=== PATIENT | female | born 1955 | race Caucasian/White ===

== ENCOUNTER 2016-05-28 14:19 | Emergency (ER) | payer MEDICAID ==
[2016-05-28 14:39] VITALS: BP 155/93
--- NOTE | 2016-05-28 15:35 | EDM.PDOC ---
ED HISTORY OF PRESENT ILLNESS - General Chief Complaint: General Stated Complaint: Pain, lower extremity edema Time Seen by Provider: 05/28/16 15:20 Source of Information: Reports: Patient, RN notes reviewed History Limitations: Reports: No limitations - History of Present Illness INITIAL COMMENTS - FREE TEXT/NARRATIVE: 60 year old female presents to the ED today with two complaints. 1. Right low back pain radiating down her right leg. She describes the pain as shooting and burning. She had low back surgery on 03/21/[address] Pendleton at [facility] in [place]. She has notified him of her new pain and an MRI was ordered last week. She says the results of her MRI showed herniated discs at L4 and L5. She has an upcoming appointment with Dr. Craig this next week. She is out of [employer] for pain which she says wasn't helping. She feels Percocet works better. 2. Bilateral lower extremity edema for the past week. Her lower extremities are red and tender to touch, more so on the left. She had swelling about 1 month ago and was given a short trial of Lasix which worked then. She had two pills left over and took those but had no improvement. She says her legs are sore and it hurts to walk. She denies chest pain, shortness of breath, dyspnea, cough, fever, chills. 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: Musculoskeletal History: Reports: Osteoarthritis, RA Endocrine/Metabolic History: Reports: Hypothyroidism Hematologic History: Reports: Blood transfusion(s) - Past Surgical History HEENT Surgical History: Reports: Adenoidectomy, Tonsillectomy GI Surgical History: Reports: None, Colonoscopy Female Surgical History: Reports: section Endocrine Surgical History: Reports: Thyroidectomy Neurological Surgical History: Reports: Discectomy, Lumbar spine Other Neurological Surgeries/Procedures: Has herniated disc L4-5 Musculoskeletal Surgical History: Reports: None Social & Family History - Family History Family Medical History: Noncontributory - Tobacco Use Smoking Status *Q: Former Smoker Years of Tobacco use: 40 Packs/Tins Daily: 1 Used Tobacco, but Quit: No Month Tobacco Last Used: nov 2015 - Caffeine Use Caffeine Use: Reports: Coffee - Recreational Drug Use Recreational Drug Use: No Drug Use in Last 12 Months: No ED ROS GENERAL - Review of Systems Review Of Systems: See Below Constitutional: Reports: no symptoms. Denies: fever, chills Respiratory: Reports: No Symptoms. Denies: Shortness of Breath, Pleuritic Chest Pain, Cough, Sputum, Hemoptysis Cardiovascular: Reports: Edema. Denies: Chest pain, Dyspnea on exertion, Lightheadedness Skin: Reports: erythema (lower extremities ) ED EXAM, GENERAL - Physical Exam Exam: See Below Exam Limited By: No limitations General Appearance: alert, no apparent distress, obese Respiratory/Chest: no respiratory distress, lungs clear, normal breath sounds, no accessory muscle use, chest non-tender Cardiovascular: normal peripheral pulses, regular rate, rhythm, no murmur, other (2-3+ edema to bilateral lower extremities. Redness and warmth noted to bilateral lateral extremities, more so on the left. Feet are warm to touch. Pedal pulses 2+) Extremities: normal inspection, normal range of motion, leg pain, increased warmth, redness, other (2-3+ edema) Neurological: alert, oriented, normal cognition Course - Vital Signs Last Recorded V/S: Last Vital Signs Temp 98.2 F 05/28/16 14:35 Pulse 87 05/28/16 18:36 Resp 18 05/28/16 18:36 BP 155/93 H 05/28/16 14:35 Pulse Ox 96 05/28/16 18:36 - Orders/Labs/Meds Labs: Laboratory Tests 05/28/16 05/28/16 05/28/16 Range/Units 15:06 15:06 15:06 WBC 4.24 (3.98-10.04) K/mm3 RBC 4.12 (3.98-5.22) M/mm3 Hgb 12.7 (11.2-15.7) gm/L Hct 39.5 (34.1-44.9) % MCV 95.9 H (79.4-94.8) fl MCH 30.8 (25.6-32.2) pg MCHC 32.2 (32.2-35.5) g/dl RDW Std Deviation 45.8 (36.4-46.3) fL Plt Count 136 L (182-369) K/mm3 MPV 11.7 (9.4-12.3) fl Neut % (Auto) 45.0 (34.0-71.1) % Lymph % (Auto) 40.1 (19.3-51.7) % [place] % (Auto) 9.4 (4.7-12.5) % Eos % (Auto) 5.0 (0.7-5.8) Baso % (Auto) 0.5 (0.1-1.2) % Neut # (Auto) 1.91 (1.56-6.13) K/mm3 Lymph # (Auto) 1.70 (1.18-3.74) K/mm3 [place] # (Auto) 0.40 H (0.24-0.36) K/mm3 Eos # (Auto) 0.21 (0.04-0.36) K/mm3 Baso # (Auto) 0.02 (0.01-0.08) K/mm3 D-Dimer, Quantitative 0.98 H (0.19-0.59) mg/L Sodium 144 (136-145) mEq/L Potassium 3.4 L (3.5-5.1) mEq/L Chloride 107 (98-107) mEq/L Carbon Dioxide 27 (21-32) mEq/L Anion Gap 13.4 (5-15) BUN 11 (7-18) mg/dL Creatinine 1.0 (0.55-1.02) mg/dL Est Cr Clr Drug Dosing 46.27 mL/min Estimated GFR (MDRD) 57 (>60) mL/min BUN/Creatinine Ratio 11.0 L (14-18) Glucose 78 (74-106) mg/dL Calcium 8.3 L (8.5-10.1) mg/dL Total Bilirubin 0.3 (0.2-1.0) mg/dL AST 34 (15-37) U/L ALT 33 (14-59) U/L Alkaline Phosphatase 57 (46-116) U/L B-Natriuretic Peptide (0-100) pg/mL Total Protein 6.6 (6.4-8.2) g/dl Albumin 3.4 (3.4-5.0) g/dl Globulin 3.2 gm/dL Albumin/Globulin Ratio 1.1 (1-2) 05/28/16 Range/Units 15:06 WBC (3.98-10.04) K/mm3 RBC (3.98-5.22) M/mm3 Hgb (11.2-15.7) gm/L Hct (34.1-44.9) % MCV (79.4-94.8) fl MCH (25.6-32.2) pg MCHC (32.2-35.5) g/dl RDW Std Deviation (36.4-46.3) fL Plt Count (182-369) K/mm3 MPV (9.4-12.3) fl Neut % (Auto) (34.0-71.1) % Lymph % (Auto) (19.3-51.7) % [place] % (Auto) (4.7-12.5) % Eos % (Auto) (0.7-5.8) Baso % (Auto) (0.1-1.2) % Neut # (Auto) (1.56-6.13) K/mm3 Lymph # (Auto) (1.18-3.74) K/mm3 [place] # (Auto) (0.24-0.36) K/mm3 Eos # (Auto) (0.04-0.36) K/mm3 Baso # (Auto) (0.01-0.08) K/mm3 D-Dimer, Quantitative (0.19-0.59) mg/L Sodium (136-145) mEq/L Potassium (3.5-5.1) mEq/L Chloride (98-107) mEq/L Carbon Dioxide (21-32) mEq/L Anion Gap (5-15) BUN (7-18) mg/dL Creatinine (0.55-1.02) mg/dL Est Cr Clr Drug Dosing mL/min Estimated GFR (MDRD) (>60) mL/min BUN/Creatinine Ratio (14-18) Glucose (74-106) mg/dL Calcium (8.5-10.1) mg/dL Total Bilirubin (0.2-1.0) mg/dL AST (15-37) U/L ALT (14-59) U/L Alkaline Phosphatase (46-116) U/L B-Natriuretic Peptide 69 (0-100) pg/mL Total Protein (6.4-8.2) g/dl Albumin (3.4-5.0) g/dl Globulin gm/dL Albumin/Globulin Ratio (1-2) Meds: Medications Discontinued Medications Generic Name Dose Route Start Last Admin Trade Name Freq PRN Reason Stop Dose Admin Hydromorphone HCl 1 mg 05/28/16 15:38 05/28/16 16:07 Dilaudid IM 05/28/16 15:39 1 mg ONETIME ONE Administration Hydromorphone HCl 1 mg 05/28/16 18:24 05/28/16 18:27 Dilaudid IVPUSH 05/28/16 18:25 1 mg ONETIME ONE Administration Ketorolac Tromethamine 60 mg 05/28/16 15:38 05/28/16 16:19 Toradol IM 05/28/16 15:39 Not Given ONETIME ONE Ketorolac Tromethamine Confirm 05/28/16 16:06 05/28/16 16:21 Toradol Administered 05/28/16 16:07 Not Given Dose 60 mg .ROUTE .STK-MED ONE Ketorolac Tromethamine 30 mg 05/28/16 16:17 05/28/16 16:14 Toradol IVPUSH 05/28/16 16:18 30 mg ONETIME ONE Administration - Re-Assessments/Exams Free Text/Narrative Re-Assessment/Exam: CBC, CMP, and BNP are WNL. D-dimer is elevated at 0.98. 2 view chest x-ray obtained and is negative for pulmonary effusions or infiltrates. Heart size appears normal. Obtained bilateral lower extremity ultrasound which was read by [facility] and is negative for DVT. Patient was fitted with compression stockings in the ED. She feels the swelling may be from the Lyrica she was taking. She has stopped the lyrica as she did not like how it made her feel. She is seeing her surgeon this week regarding her worsening low back pain. She was provided with a prescription for Percocet which was sent to the [facility]. Patient educated on return precautions. Instructed to f/u with her surgeon as scheduled and her PCP regarding her lower extremity edema. Departure - Departure Time of Disposition: 17:51 Disposition: Home, Self-Care 01 Condition: good Clinical Impression: Herniated disc Qualifiers: Spinal region: lumbar Qualified Code(s): M51.26 - Other intervertebral disc displacement, lumbar region Lower extremity edema Qualifiers: Laterality: bilateral Qualified Code(s): R60.0 - Localized edema Instructions: Herniated Disk, [id number], Edema, [id number] Referrals: Sharona Bautista PA-C [Primary Care Provider] - Forms: ED Department Discharge Additional Instructions: Low back pain Follow-up with your surgeon as scheduled Percocet 1-2 tabs every 4-6 hours as needed for pain Return to ER with worsening symptoms, loss of bowel or bladder function, or additional concerns Lower extremity edema Wear compression stockings while awake Elevated legs above heart as much as possible Follow-up with Sharona Bautista PAC this week for recheck
[2016-05-28] MEDS ORDERED: Ketorolac 60 MG/2 ML SDV IM ONE (15:38)
[2016-05-28] MEDS ORDERED: HYDROmorphone 1 MG/ML Syringe IM ONE (15:38)
[2016-05-28] MEDS ORDERED: Ketorolac 60 MG/2 ML SDV ONE (16:06)
[2016-05-28] MEDS ORDERED: Ketorolac 30 MG/ML SDV IVPUSH ONE (16:17)
--- NOTE | 2016-05-28 17:56 | US ---
Bilateral leg ultrasound: Duplex and color flow imaging was obtained of the right and left common femoral vein, proximal greater saphenous vein, superficial femoral vein, popliteal vein, posterior tibial vein and peroneal vein. Popliteal cyst is noted within the left lower extremity measuring up to 4.7 cm. Subcutaneous edema is noted within the right lower extremity. Normal phasic flow, augmentation and compression is seen. Impression: 1. No findings of deep venous thrombosis is seen within either the right or left lower extremities. 2. Other findings as described above. Diagnostic code #2
[2016-05-28] MEDS ORDERED: HYDROmorphone 1 MG/ML Syringe IVPUSH ONE (18:24)
--- NOTE | 2016-05-29 08:11 | CR ---
Chest: Two views of the chest are obtained. Comparison: Previous chest x-ray of 03/16/16. Heart size and mediastinum are normal. Lungs are clear. Prior surgery noted with surgical clips seen at the base of the neck. Diaphragms are slightly flattened on the lateral view suggesting some emphysematous change. Minimal degenerative disc space narrowing noted within the spine. Impression: 1. Probable emphysematous change. Nothing acute is identified on two-view chest x-ray. Diagnostic code #2
== END 2016-05-28 18:42 | disposition home or self-care (01) ==
LOC: JD.ED 14:19
DX: M51.26 Other intervertebral disc displacement, lumbar region (principal); R60.0 Localized edema; Z79.899 Other long term (current) drug therapy; K21.9 Gastro-esophageal reflux disease without esophagitis; M11.9 Crystal arthropathy, unspecified; M06.9 Rheumatoid arthritis, unspecified; E03.9 Hypothyroidism, unspecified; Z87.891 Personal history of nicotine dependence
CPT/HCPCS: 36415; 71020; 80053; 83880; 85025; 85379; 93970; 96374; 96375; 96376; 99285; J1170; J1885; 99284

== ENCOUNTER 2016-09-22 07:10 | Inpatient (IN) | payer MEDICAID ==
--- NOTE | 2016-09-22 07:44 | EDM.PDOC ---
ED HPI GENERAL MEDICAL PROBLEM - General Chief Complaint: Gastrointestinal Problem Stated Complaint: VOMITING AND BLOOD IN STOOL Time Seen by Provider: 09/22/16 07:37 - History of Present Illness INITIAL COMMENTS - FREE TEXT/NARRATIVE: 60-year-old female presents emergency room with abdominal pain nausea vomiting. This started for or 5 days ago progressively getting worse she basically has dry heaves at this point in evening she notices some bilious vomit. But every time she tries to keep anything down it comes right back up. The patient had some loose stools and then she developed some bright red bleeding when she tried to have a BM. She does have problems with hemorrhoids in the past. Patient is unaware of any potential problem foods. Patient has pain mostly in her upper abdomen. However her urine is getting dark and lower volumes. No burning or frequency with urination. Patient's significant history of rheumatoid arthritis she states she still has her gallbladder. Abdomen Pain Score (Numeric/FACES): 6 - Related Data Allergies Allergy/AdvReac Type Severity Reaction Status Date / Time No Known Allergies Allergy Verified 09/22/16 08:18 Home Meds: Home Meds Hydroxychloroquine Sulfate [Plaquenil] 200 mg PO BID 05/04/15 [History] Levothyroxine Sodium [Synthroid] 137 mcg PO DAILY 05/04/15 [History] Meloxicam 7.5 mg PO DAILY 02/20/16 [History] oxyCODONE HCl/Acetaminophen [oxyCODONE-Acetaminophen 5-325] 2 tab PO QID [History] Past Medical History HEENT History: Reports: Impaired Vision Other HEENT History: glasses Gastrointestinal History: Reports: GERD, Hemorrhoids Genitourinary History: Reports: UTI, 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: Musculoskeletal History: Reports: Osteoarthritis, RA Endocrine/Metabolic History: Reports: Hypothyroidism Hematologic History: Reports: Blood Transfusion(s) - Past Surgical History Female Surgical History: Reports: Section Neurological Surgical History: Reports: Discectomy, Lumbar Spine Social & Family History - Family History Family Medical History: Noncontributory - Tobacco Use Smoking Status *Q: Former Smoker Years of Tobacco use: 40 Packs/Tins Daily: 1 Used Tobacco, but Quit: No Month Tobacco Last Used: nov 2015 - Caffeine Use Caffeine Use: Reports: Coffee - Recreational Drug Use Recreational Drug Use: No Drug Use in Last 12 Months: No ED ROS GENERAL - Review of Systems Review Of Systems: See Below Constitutional: Reports: No Symptoms. Denies: Fever, Chills HEENT: Reports: No Symptoms Respiratory: Reports: No Symptoms Cardiovascular: Reports: No Symptoms. Denies: Chest Pain GI/Abdominal: Reports: Abdominal Pain, Bloody Stool, Diarrhea, Nausea, Vomiting. Denies: Constipation : Denies: Dysuria, Flank Pain, Frequency, Pain, Urgency Neurological: Reports: No Symptoms Psychiatric: Reports: No Symptoms ED EXAM, GI/ABD - Physical Exam Exam: See Below Exam Limited By: No Limitations General Appearance: Alert, No Apparent Distress Eyes: Bilateral: Normal Appearance Ears: Normal External Exam, Normal Canal, Other (Right tympanic membrane has a large scar) Nose: Normal Inspection Throat/Mouth: Normal Inspection, Normal Oropharynx, Other (Semi-dry mucosa the patient wears dentures but these are not in place at this time no acute gum changes noted) Head: Atraumatic, Normocephalic Neck: Normal Inspection, Supple, Non-Tender, Full Range of Motion Respiratory/Chest: No Respiratory Distress, Lungs Clear, Normal Breath Sounds Cardiovascular: Regular Rate, Rhythm, No Edema, No Murmur GI/Abdominal Exam: Normal Bowel Sounds, Soft, Other (Patient has discomfort in the upper quadrant right at the base of the ribs this is slightly worse in the right and epigastric region slightly less in the left upper quadrant. She has some mild suprapubic discomfort. No rigidity rebound or guarding noted). No: Non-Tender Rectal (Female) Exam: Other (Digital rectal exam was done prior to this inspection showed couple small hemorrhoids. Digital rectal exam was normal other than hemorrhoids normal-colored semi-formed stool and a small streak of bright red blood noted on the exam glove. This was hemocculted and was positive) Back Exam: Normal Inspection. No: CVA Tenderness (L), CVA Tenderness (R) Extremities: Normal Inspection, No Pedal Edema Neurological: Alert, Oriented, Normal Cognition Skin Exam: Other (Patient has an area of fairly recent ecchymosis in her left lower posterior ribs. She denies knowing what she bumped into but does state that she bruises very easily. Palpation of this area is nontender.) EKG INTERPRETATION EKG Date: 09/22/16 Rhythm: NSR [place]: Normal P-Wave: Present QRS: Normal ST-T: Other (Diffuse repolarization abnormalities shows nonspecific ST-T wave changes) QT: Normal Comparison: NA - No Prior EKG EKG Interpretation Comments: Abnormal EKG Course - Vital Signs Last Recorded V/S: Last Vital Signs Temp 36.8 C 09/22/16 07:39 Pulse 102 H 09/22/16 07:39 Resp 20 09/22/16 07:39 BP 156/87 H 09/22/16 07:39 Pulse Ox 100 09/22/16 07:39 - Orders/Labs/Meds Orders: Active Orders 24 hr Category Date Time Status EKG Documentation Completion [RC] STAT Care 09/22/16 07:45 Active Lactated Ringers [Ringers, Lactated] 1,000 ml Med 09/22/16 08:00 Active IV ASDIRECTED Medication Orders Lactated Ringer's (Ringers, Lactated) 1,000 mls @ 150 mls/hr IV ASDIRECTED MIRYAM Last Admin: 09/22/16 09:43 Dose: 150 mls/hr Labs: Laboratory Tests 09/22/16 09/22/16 09/22/16 Range/Units 07:55 07:55 07:55 WBC 5.63 (3.98-10.04) K/mm3 RBC 4.63 (3.98-5.22) M/mm3 Hgb 14.1 (11.2-15.7) gm/L Hct 41.4 (34.1-44.9) % MCV 89.4 (79.4-94.8) fl MCH 30.5 (25.6-32.2) pg MCHC 34.1 (32.2-35.5) g/dl RDW Std Deviation 57.9 H (36.4-46.3) fL Plt Count 187 (182-369) K/mm3 MPV 9.1 L (9.4-12.3) fl Neutrophils % (Manual) 70 H (40-60) % Band Neutrophils % 1 (0-10) % Lymphocytes % (Manual) 28 (20-40) % Atypical Lymphs % 0 % Monocytes % (Manual) 0 L (2-10) % Eosinophils % (Manual) 1 (0.7-5.8) % Basophils % (Manual) 0 L (0.1-1.2) Platelet Estimate Adequate Plt Morphology Comment Normal Anisocytosis 1+ slight RBC Morph Comment Not Reportable Sodium 146 H (136-145) mEq/L Potassium 2.9 L (3.5-5.1) mEq/L Chloride 110 H (98-107) mEq/L Carbon Dioxide 21 (21-32) mEq/L Anion Gap 17.9 H (5-15) BUN 7 (7-18) mg/dL Creatinine 0.9 (0.55-1.02) mg/dL Est Cr Clr Drug Dosing TNP Estimated GFR (MDRD) > 60 (>60) mL/min BUN/Creatinine Ratio 7.8 L (14-18) Glucose 105 (74-106) mg/dL Calcium 8.7 (8.5-10.1) mg/dL Total Bilirubin 1.9 H (0.2-1.0) mg/dL Direct Bilirubin (0.0-0.2) mg/dl GGT (5-55) U/L AST 219 H (15-37) U/L ALT 666 H (14-59) U/L Alkaline Phosphatase 85 (46-116) U/L Troponin I (0.00-0.056) ng/mL Total Protein 6.8 (6.4-8.2) g/dl Albumin 3.4 (3.4-5.0) g/dl Globulin 3.4 gm/dL Albumin/Globulin Ratio 1.0 (1-2) Lipase 203 (73-393) U/L Urine Color Yellow (Yellow) Urine Appearance Clear (Clear) Urine pH 7.0 (5.0-8.0) Ur Specific [place] 1.020 (1.005-1.030) Urine Protein 1+ H (Negative) Urine Glucose (UA) Negative (Negative) Urine Ketones Negative (Negative) Urine Occult Blood Trace-lysed H (Negative) Urine Nitrite Negative (Negative) Urine Bilirubin 1+ H (Negative) Urine Urobilinogen 2.0 H (0.2-1.0) Ur Leukocyte Esterase Negative (Negative) Urine RBC 0-5 (0-5) /hpf Urine WBC 0-5 (0-5) /hpf Urine WBC Clumps Not seen (NOT SEEN) /hpf Ur Epithelial Cells 0-5 (0-5) /hpf Ur Transition Epith Cell 0-5 (0-5) Urine Bacteria Moderate H (FEW) /hpf Hyaline Casts 0-5 (0-5) /lpf Urine Mucus Not seen (FEW) /hpf Urine Yeast Not seen (NOT SEEN) 09/22/16 09/22/16 Range/Units 07:55 07:55 WBC (3.98-10.04) K/mm3 RBC (3.98-5.22) M/mm3 Hgb (11.2-15.7) gm/L Hct (34.1-44.9) % MCV (79.4-94.8) fl MCH (25.6-32.2) pg MCHC (32.2-35.5) g/dl RDW Std Deviation (36.4-46.3) fL Plt Count (182-369) K/mm3 MPV (9.4-12.3) fl Neutrophils % (Manual) (40-60) % Band Neutrophils % (0-10) % Lymphocytes % (Manual) (20-40) % Atypical Lymphs % % Monocytes % (Manual) (2-10) % Eosinophils % (Manual) (0.7-5.8) % Basophils % (Manual) (0.1-1.2) Platelet Estimate Plt Morphology Comment Anisocytosis RBC Morph Comment Sodium (136-145) mEq/L Potassium (3.5-5.1) mEq/L Chloride (98-107) mEq/L Carbon Dioxide (21-32) mEq/L Anion Gap (5-15) BUN (7-18) mg/dL Creatinine (0.55-1.02) mg/dL Est Cr Clr Drug Dosing Estimated GFR (MDRD) (>60) mL/min BUN/Creatinine Ratio (14-18) Glucose (74-106) mg/dL Calcium (8.5-10.1) mg/dL Total Bilirubin (0.2-1.0) mg/dL Direct Bilirubin 1.00 H (0.0-0.2) mg/dl GGT 1451 H (5-55) U/L AST (15-37) U/L ALT (14-59) U/L Alkaline Phosphatase (46-116) U/L Troponin I < 0.017 (0.00-0.056) ng/mL Total Protein (6.4-8.2) g/dl Albumin (3.4-5.0) g/dl Globulin gm/dL Albumin/Globulin Ratio (1-2) Lipase (73-393) U/L Urine Color (Yellow) Urine Appearance (Clear) Urine pH (5.0-8.0) Ur Specific [place] (1.005-1.030) Urine Protein (Negative) Urine Glucose (UA) (Negative) Urine Ketones (Negative) Urine Occult Blood (Negative) Urine Nitrite (Negative) Urine Bilirubin (Negative) Urine Urobilinogen (0.2-1.0) Ur Leukocyte Esterase (Negative) Urine RBC (0-5) /hpf Urine WBC (0-5) /hpf Urine WBC Clumps (NOT SEEN) /hpf Ur Epithelial Cells (0-5) /hpf Ur Transition Epith Cell (0-5) Urine Bacteria (FEW) /hpf Hyaline Casts (0-5) /lpf Urine Mucus (FEW) /hpf Urine Yeast (NOT SEEN) Meds: Medications Generic Name Dose Route Start Last Admin Trade Name Freq PRN Reason Stop Dose Admin Lactated Ringer's 1,000 mls @ 150 mls/hr 09/22/16 08:00 09/22/16 09:43 Ringers, Lactated IV 150 mls/hr ASDIRECTED MIRYAM Administration Discontinued Medications Generic Name Dose Route Start Last Admin Trade Name Freq PRN Reason Stop Dose Admin Hydromorphone HCl 0.5 mg 09/22/16 08:33 09/22/16 08:47 Dilaudid IVPUSH 09/22/16 08:34 0.5 mg ONETIME ONE Administration Lactated Ringer's 1,000 mls @ 999 mls/hr 09/22/16 07:47 09/22/16 08:24 Ringers, Lactated IV 09/22/16 08:47 999 mls/hr .BOLUS ONE Administration Ondansetron HCl 4 mg 09/22/16 07:47 09/22/16 08:24 Zofran IVPUSH 09/22/16 07:48 4 mg ONETIME ONE Administration - Re-Assessments/Exams Free Text/Narrative Re-Assessment/Exam: 09/22/16 08:32 Patient is doing better she received Zofran nausea and vomiting improving abdominal pain is improving. Patient is complaining of mostly right-sided lower extremity discomfort secondary to rheumatoid arthritis and she's not been able to keep anything down including her medications for several days we'll give her 0.5 mg of Dilaudid at this point she does have a ride home. 09/22/16 09:05 Bladder ultrasound ordered patient is elevated total bilirubin and transaminase elevation also ordered a direct bilirubin and GGT. 09/22/16 09:10 KUB and upright were reviewed these are nondiagnostic 09/22/16 11:[address] Cabrera labs and ultrasound results discussed with him. He recommends admitting to the hospitalist service rehydrating and watch these liver enzymes and see if they improve on their own. Gallbladder ultrasound shows it dilated gallbladder with mild wall thickening mild ductal dilation 0.9. No obvious stones. And a normal lipase. Case discussed with Dr. Carr patient is in the process of getting MCGed. 09/22/16 11:53 Patient will be admitted. Departure - Departure Time of Disposition: 11:57 Disposition: Admitted As Inpatient 68 Clinical Impression: Dehydration, Abdominal pain - Discharge Information - My Orders Last 24 Hours: My Active Orders 09/22/16 07:45 EKG Documentation Completion [RC] STAT 09/22/16 08:00 Lactated Ringers [Ringers, Lactated] 1,000 ml IV ASDIRECTED - Assessment/Plan Last 24 Hours: My Active Orders 09/22/16 07:45 EKG Documentation Completion [RC] STAT 09/22/16 08:00 Lactated Ringers [Ringers, Lactated] 1,000 ml IV ASDIRECTED
[2016-09-22] MEDS ORDERED: Lactated Ringers 1,000 ML IV ONE (07:47)
[2016-09-22] MEDS ORDERED: Ondansetron 4 MG/2 ML SDV IVPUSH ONE (07:47)
[2016-09-22] MEDS ORDERED: HYDROmorphone 0.5 MG/0.5 ML Syringe IVPUSH ONE ×2 (08:33→11:54)
--- NOTE | 2016-09-22 09:18 | CR ---
Abdomen: Supine and upright views of the abdomen were obtained. Comparison: No previous study. Surgical clips are seen within the pelvis. Bowel gas pattern appears normal. Minimal calcifications seen within the pelvis are compatible with phleboliths. No soft tissue abnormality is seen. No free air is seen. Impression: 1. Incidental findings. Diagnostic code #2
--- NOTE | 2016-09-22 09:40 | US ---
Limited abdominal ultrasound: Multiple real-time images were obtained of the upper right abdomen. Comparison: No previous ultrasound exam. Liver shows no focal parenchymal abnormality. Right kidney shows no hydronephrosis or mass. Gallbladder wall shows mild thickening but no shadowing gallstones are seen. Common bile duct is mildly prominent at 9 mm. Pancreas is incompletely seen. No abnormality is seen within the visualized portions of the pancreas. Impression: 1. Gallbladder wall thickening without definite gallstones. Common bile duct measures mildly prominent at 9 mm. No common bile duct stones are seen. 2. No additional abnormality is identified on right upper quadrant abdominal ultrasound. Diagnostic code #3
[2016-09-22] MEDS: Lactated Ringers 1,000 ML IV SCH ×3 (09:43→22:31)
[2016-09-22] MEDS ORDERED: Diphtheria,Pertussis(Acell),Tetanus Vaccine 0.5 ML SDV IM ONE (13:00)
[2016-09-22] MEDS ORDERED: Pneumococcal Polyvalent-23 Vaccine 0.5 ML SDV IM ONE (13:00)
--- NOTE | 2016-09-22 14:28 | PCM.HP ---
H&P History of Present Illness - General Date of Service: 09/22/16 Admit Problem/Dx: Admission Diagnosis/Problem Admission Diagnosis/Problem Dehydration Source of Information: Patient, Provider History Limitations: Reports: No Limitations - History of Present Illness Initial Comments - Free Text/Narative: 60 year old female with complaint of nausea with vomiting, decreased appetite. Initiated work up for gall bladder dysfunction reports no recent encounters with new food, fatty food intolerance. Has had blood with her stool; reports the constellation of symptoms for 2-3 days. Abdominal US documented mildly dilated CBD. AXR was unremarkable. Onset of Symptoms: Reports: Gradual Duration of Symptoms: Reports: Day(s):, Getting Worse Location: Reports: Abdomen Severity: Moderate Improves with: Reports: Medication Worsens with: Reports: None Associated Symptoms: Reports: Loss of Appetite, Nausea/Vomiting Abdomen Pain Score (Numeric/FACES): 4 - Related Data Allergies/Adverse Reactions: Allergies Allergy/AdvReac Type Severity Reaction Status Date / Time No Known Allergies Allergy Verified 09/22/16 12:45 Home Medications: Home Meds Hydroxychloroquine Sulfate [Plaquenil] 200 mg PO BID 05/04/15 [History] Levothyroxine Sodium [Synthroid] 137 mcg PO DAILY 05/04/15 [History] Meloxicam 7.5 mg PO DAILY 02/20/16 [History] oxyCODONE HCl/Acetaminophen [oxyCODONE-Acetaminophen 5-325] 2 tab PO QID PRN [History] Past Medical History HEENT History: Reports: Impaired Vision Other HEENT History: glasses. upper and lower dentures Gastrointestinal History: Reports: GERD, Hemorrhoids Genitourinary History: Reports: UTI, Recurrent [employer] History: Reports: Musculoskeletal History: Reports: Osteoarthritis, RA Endocrine/Metabolic History: Reports: Hypothyroidism, Obesity/BMI 30+ Hematologic History: Reports: Blood Transfusion(s) - Past Surgical History HEENT Surgical History: Reports: Tonsillectomy Female Surgical History: Reports: Section Other Female Surgeries/Procedures: csection x2 Endocrine Surgical History: Reports: Thyroidectomy Neurological Surgical History: Reports: Discectomy, Lumbar Spine Other Neurological Surgeries/Procedures: planning to have another surgery and fuse L4&5 this coming winter. Musculoskeletal Surgical History: Reports: Other (See Below) Other Musculoskeletal Surgeries/Procedures:: bunion surgery right foot. Social & Family History - Family History Family Medical History: Noncontributory - Tobacco Use Smoking Status *Q: Former Smoker Years of Tobacco use: 40 Packs/Tins Daily: 1 Used Tobacco, but Quit: Yes Month Tobacco Last Used: 3 years ago Second Hand Smoke Exposure: No - Caffeine Use Caffeine Use: Reports: Coffee Other Caffeine Use: Coffee every day - Recreational Drug Use Recreational Drug Use: No Drug Use in Last 12 Months: No H&P Review of Systems - Review of Systems: Review Of Systems: See Below General: Reports: Weakness, Fatigue HEENT: Reports: No Symptoms Pulmonary: Reports: No Symptoms Cardiovascular: Reports: No Symptoms Gastrointestinal: Reports: Abdominal Pain, Diarrhea, Nausea, Vomiting Genitourinary: Reports: No Symptoms Musculoskeletal: Reports: No Symptoms Skin: Reports: No Symptoms Psychiatric: Reports: No Symptoms Neurological: Reports: No Symptoms Hematologic/Lymphatic: Reports: No Symptoms Immunologic: Reports: No Symptoms Exam - Exam Exam: See Below - Vital Signs Vital Signs: Last Vital Signs Temp 36.8 C 09/22/16 07:39 Pulse 68 09/22/16 12:10 Resp 15 09/22/16 12:10 BP 126/73 09/22/16 12:10 Pulse Ox 96 09/22/16 12:10 Weight: 88.496 kg - Exam Quality Assessment: DVT Prophylaxis General: Alert, Oriented, Cooperative HEENT: Conjunctiva Clear, Nares Patent, Normal Nasal Septum, Posterior Pharynx Clear, Pupils Equal, Pupils Reactive, TMs Clear Neck: Supple, Trachea Midline Lungs: Normal Respiratory Effort Cardiovascular: Regular Rate, Regular Rhythm GI/Abdominal Exam: Normal Bowel Sounds, Soft, No Organomegaly, No Distention, Tender (Female) Exam: Deferred Rectal (Female) Exam: Deferred Back Exam: Normal Inspection Extremities: Normal Inspection Skin: Warm Neurological: Cranial Nerves Intact, Normal Speech Neuro Extensive - Mental Status: Alert, Oriented x3, Normal Mood/Affect, Normal Cognition, Memory Intact Neuro Extensive - Motor, Sensory, Reflexes: CN II-XII Intact Psychiatric: Alert, Normal Affect, Normal Mood - Patient Data Result Diagrams: 09/23/16 05:49 09/23/16 05:49 *Q Meaningful Use (ADM) - VTE *Q VTE Criteria *Q: - Stroke *Q Stroke Criteria *Q: - AMI *Q AMI Criteria *Q: - Problem List (1) GERD (gastroesophageal reflux disease) SNOMED Code(s): 850860277 ICD Code: K21.9 - GASTRO-ESOPHAGEAL REFLUX DISEASE WITHOUT ESOPHAGITIS Status: Acute Current Visit: Yes (2) Hypothyroid SNOMED Code(s): 05323101 ICD Code: E03.9 - HYPOTHYROIDISM, UNSPECIFIED Status: Acute Current Visit : Yes (3) Abdominal pain SNOMED Code(s): 39155070 ICD Code: R10.9 - UNSPECIFIED ABDOMINAL PAIN Status: Acute Current Visit : Yes (4) Dehydration SNOMED Code(s): 91619177 ICD Code: E86.0 - DEHYDRATION Status: Acute Current Visit: Yes Problem List Initiated/Reviewed/Updated: Yes Orders Last 24hrs: Active Orders 24 hr Category Date Time Status Patient Status [ADT] Stat ADT 09/22/16 11:54 Active Activity as Tolerated [RC] .Routine Care 09/22/16 14:17 Ordered Antiembolic Devices [RC] PER UNIT ROUTINE Care 09/22/16 14:17 Ordered Notify Provider Consults [RC] ASDIRECTED Care 09/22/16 14:24 Ordered Vaccines to be Administered [RC] PER UNIT ROUTINE Care 09/22/16 12:46 Active Vital Signs [RC] PER UNIT ROUTINE Care 09/22/16 14:17 Ordered Consult to Occupational Therapy [OT Evaluation and Cons 09/22/16 15:00 Ordered Treatment] [CONS] Routine Consult to Physical Therapy [PT Evaluation and Cons 09/22/16 14:25 Ordered Treatment] [CONS] Routine Consult to Physician [CONS] Routine Cons 09/22/16 15:00 Ordered Consult to Special Education Secretary [CONS] Routine Cons 09/22/16 14:25 Ordered NPO [Nothing Per Oral Diet] [DIET] Diet 09/22/16 Dinner Ordered BASIC METABOLIC PANEL,BMP [CHEM] DAILY Lab 09/23/16 05:00 Ordered BASIC METABOLIC PANEL,BMP [CHEM] DAILY Lab 09/24/16 05:00 Ordered BASIC METABOLIC PANEL,BMP [CHEM] DAILY Lab 09/25/16 05:00 Ordered BASIC METABOLIC PANEL,BMP [CHEM] DAILY Lab 09/26/16 05:00 Ordered CBC WITH AUTO DIFF [HEME] DAILY Lab 09/23/16 05:00 Ordered CBC WITH AUTO DIFF [HEME] DAILY Lab 09/24/16 05:00 Ordered CBC WITH AUTO DIFF [HEME] DAILY Lab 09/25/16 05:00 Ordered CBC WITH AUTO DIFF [HEME] DAILY Lab 09/26/16 05:00 Ordered CRP [C-REACTIVE PROTEIN] [CHEM] DAILY Lab 09/23/16 05:00 Ordered CRP [C-REACTIVE PROTEIN] [CHEM] DAILY Lab 09/24/16 05:00 Ordered CRP [C-REACTIVE PROTEIN] [CHEM] DAILY Lab 09/25/16 05:00 Ordered CRP [C-REACTIVE PROTEIN] [CHEM] DAILY Lab 09/26/16 05:00 Ordered HEPATIC FUNCTION PANEL,HFP [CHEM] Routine Lab 09/24/16 05:00 Ordered LIPID PANEL [CHEM] Routine Lab 09/23/16 05:00 Ordered Acetaminophen/oxyCODONE [Percocet 325-5 MG] Med 09/22/16 14:18 Ordered 2 tab PO QID PRN Hydroxychloroquine [Plaquenil] Med 09/22/16 21:00 Ordered 200 mg PO BID Levothyroxine [Levothroid] Med 09/23/16 09:00 Ordered 137 mcg PO DAILY Meloxicam Med 09/23/16 09:00 Ordered 7.5 mg PO DAILY Temazepam [Restoril] Med 09/22/16 14:19 Ordered 15 mg PO BEDTIME PRN VICTOR M Hose [Antiembolic Hose] [OM.PC] Routine Oth 09/22/16 14:17 Ordered Code Status [Resuscitation Status] Routine Resus Stat 09/22/16 14:17 Ordered Medication Orders Lactated Ringer's (Ringers, Lactated) 1,000 mls @ 150 mls/hr IV ASDIRECTED [facility] Last Admin: 09/22/16 09:43 Dose: 150 mls/hr Assessment/Plan Comment:: Impression: Abdominal pain presumed gastroenteritis; can not exclude gall bladder dysfunction Loose stool with occasional blood Hypokalemia Narcotic dependence for back pain Elevated transaminase, AST/ALT Chronic RA (reports intolerance to MTX) GERD Hypothyroidism Plan: Clear Liquids Stool studies/H pylori General Surgery Consult Home meds Daily Labs Correct electrolytes SW/PT/OT DVT/GI prophylaxis
[2016-09-22] MEDS: Acetaminophen/oxyCODONE 325-5 MG Tab PO PRN ×2 (15:44→21:28)
--- NOTE | 2016-09-22 16:56 | PCM.CONSN ---
- General Info Date of Service: 09/22/16 - Patient Data Vitals - Most Recent: Last Vital Signs Temp 98.1 F 09/22/16 15:51 Pulse 70 09/22/16 15:51 Resp 16 09/22/16 15:51 BP 132/83 09/22/16 15:51 Pulse Ox 98 09/22/16 15:51 Weight - Most Recent: 88.496 kg I&O - Last 24 Hours: Intake & Output 09/22/16 09/22/16 09/22/16 07:59 15:59 23:59 Intake Total 1999 50 Balance 1999 50 Med Orders - Current: Current Medications Hydroxychloroquine Sulfate (Plaquenil) 200 mg PO BID [facility] Lactated Ringer's (Ringers, Lactated) 1,000 mls @ 150 mls/hr IV ASDIRECTED [facility] Last Admin: 09/22/16 15:44 Dose: 150 mls/hr Levothyroxine Sodium (Levothroid) 137 mcg PO ACBREAKFAST [facility] Oxycodone/Acetaminophen (Percocet 325-5 Mg) 2 tab PO QID PRN PRN Reason: Pain Last Admin: 09/22/16 15:44 Dose: 2 tab Pantoprazole Sodium (Protonix Iv) 40 mg IVPUSH DAILY [facility] Meloxicam 7.5 Mg 0 each PO DAILY [facility] Temazepam (Restoril) 15 mg PO BEDTIME PRN PRN Reason: Insomnia Discontinued Medications Diphtheria/Tetanus/Acell Pertussis (Adacel) 0.5 ml IM .ONCE ONE Stop: 09/22/16 13:01 Hydromorphone HCl (Dilaudid) 0.5 mg IVPUSH ONETIME ONE Stop: 09/22/16 08:34 Last Admin: 09/22/16 08:47 Dose: 0.5 mg Hydromorphone HCl (Dilaudid) 0.5 mg IVPUSH ONETIME ONE Stop: 09/22/16 11:55 Last Admin: 09/22/16 12:02 Dose: 0.5 mg Lactated Ringer's (Ringers, Lactated) 1,000 mls @ 999 mls/hr IV .BOLUS ONE Stop: 09/22/16 08:47 Last Admin: 09/22/16 08:24 Dose: 999 mls/hr Ondansetron HCl (Zofran) 4 mg IVPUSH ONETIME ONE Stop: 09/22/16 07:48 Last Admin: 09/22/16 08:24 Dose: 4 mg Pneumococcal Polyvalent Vaccine (Pneumovax 23) 0.5 ml IM .ONCE ONE Stop: 09/22/16 13:01 Consult PN Assessment/Plan Procedures: Procedures ASSAY OF BLOOD/URIC ACID (05/17/15) ASSAY OF NATRIURETIC PEPTIDE (05/28/16) ASSAY THYROID STIM HORMONE (03/16/16) C-REACTIVE PROTEIN (07/12/16) CHEST X-RAY 2VW FRONTAL&LATL (05/28/16) COMP SCREEN MAMMOGRAM ADD-ON (04/19/15) COMPLETE CBC AUTOMATED (07/12/16) COMPLETE CBC W/AUTO DIFF WBC (05/28/16) COMPREHEN METABOLIC PANEL (07/12/16) COMPUTER DX MAMMOGRAM ADD-ON (12/14/15) DIAGNOSTIC COLONOSCOPY (05/05/15) EMERGENCY DEPT VISIT (05/28/16) EMERGENCY DEPT VISIT (02/20/16) EMERGENCY DEPT VISIT (12/22/15) EMERGENCY DEPT VISIT (07/28/15) EXTREMITY STUDY (05/28/16) FIBRIN DEGRADATION QUANT (05/28/16) LIPID PANEL (03/30/15) METABOLIC PANEL TOTAL CA (06/21/16) MICROBE SUSCEPTIBLE DARIO (06/07/15) MR-STAPH DNA AMP PROBE (03/16/16) MRI LUMBAR SPINE W/O & W/DYE (05/19/16) MRI LUMBAR SPINE W/O DYE (01/12/16) PROTHROMBIN TIME (06/07/15) RBC SED RATE AUTOMATED (02/15/16) RHEUMATOID FACTOR TEST QUAL (03/30/15) ROUTINE VENIPUNCTURE (07/12/16) SMEAR WET MOUNT SALINE/INK (04/07/16) THER/PROPH/DIAG INJ IV PUSH (05/28/16) THER/PROPH/DIAG INJ SC/IM (02/20/16) THROMBOPLASTIN TIME PARTIAL (06/07/15) TISSUE EXAM BY PATHOLOGIST (04/22/15) TRICHOMONAS ASSAY W/OPTIC (04/07/16) TTE W/DOPPLER COMPLETE (06/16/16) TX/PRO/DX INJ NEW DRUG ADDON (05/28/16) TX/PRO/DX INJ SAME DRUG DEPUTY CLERK (05/28/16) ULTRASOUND BREAST COMPLETE (05/07/15) URINALYSIS AUTO W/SCOPE (03/16/16) URINE BACTERIA CULTURE (06/07/15) URINE CULTURE/COLONY COUNT (07/06/15) X-RAY EXAM L-S SPINE 2/3 VWS (12/22/15) X-RAY EXAM OF WRIST (08/05/15) Problem List Initiated/Reviewed/Updated: Yes My Orders Last 24 Hours: My Active Orders 09/22/16 17:00 Pantoprazole [ProTONIX IV] 40 mg IVPUSH DAILY 09/22/16 Dinner Clear Liquid Diet [DIET] Plan: surgical consult dictated KRISTY
[2016-09-22] MEDS: Pantoprazole 40 MG Vial IVPUSH SCH (17:22)
[2016-09-22] MEDS: Hydroxychloroquine 200 MG Tab PO SCH (20:19)
[2016-09-22] MEDS: Temazepam 15 MG Cap PO PRN (20:20)
[2016-09-23] MEDS: Acetaminophen/oxyCODONE 325-5 MG Tab PO PRN ×3 (04:46→18:18)
[2016-09-23] MEDS: Lactated Ringers 1,000 ML IV SCH ×3 (06:17→23:26)
[2016-09-23] MEDS ORDERED: Potassium Chloride 20 MEQ Tab.ER PO ONE (07:39)
[2016-09-23] MEDS: Hydroxychloroquine 200 MG Tab PO SCH ×2 (08:28→20:10)
[2016-09-23] MEDS: Pantoprazole 40 MG Vial IVPUSH SCH (08:28)
--- NOTE | 2016-09-23 09:53 | PCM.CONSN ---
- General Info Date of Service: 09/23/16 Admission Dx/Problem (Free Text): Admission Diagnosis/Problem Admission Diagnosis/Problem Dehydration Functional Status: Reports: Pain Controlled - Review of Systems General: Reports: No Symptoms Pulmonary: Reports: No Symptoms Cardiovascular: Reports: No Symptoms Gastrointestinal: Reports: No Symptoms - Patient Data Vitals - Most Recent: Last Vital Signs Temp 98.0 F 09/23/16 08:00 Pulse 88 09/23/16 08:00 Resp 20 09/23/16 08:00 BP 146/71 H 09/23/16 08:00 Pulse Ox 99 09/23/16 08:00 Weight - Most Recent: 88.677 kg I&O - Last 24 Hours: Intake & Output 09/22/16 09/23/16 09/23/16 23:59 07:59 15:59 Intake Total 990 2447 Output Total 1150 Balance 990 1297 Lab Results Last 24 Hours: Laboratory Results - last 24 hr 09/23/16 09/23/16 Range/Units 05:49 05:49 WBC 4.46 (3.98-10.04) K/mm3 RBC 3.80 L (3.98-5.22) M/mm3 Hgb 11.7 (11.2-15.7) gm/L Hct 34.8 (34.1-44.9) % MCV 91.6 (79.4-94.8) fl MCH 30.8 (25.6-32.2) pg MCHC 33.6 (32.2-35.5) g/dl RDW Std Deviation 57.8 H (36.4-46.3) fL Plt Count 151 L (182-369) K/mm3 MPV 9.3 L (9.4-12.3) fl Neut % (Auto) 37.5 (34.0-71.1) % Lymph % (Auto) 54.0 H (19.3-51.7) % White % (Auto) 4.5 L (4.7-12.5) % Eos % (Auto) 3.8 (0.7-5.8) Baso % (Auto) 0.2 (0.1-1.2) % Neut # (Auto) 1.67 (1.56-6.13) K/mm3 Lymph # (Auto) 2.41 (1.18-3.74) K/mm3 White # (Auto) 0.20 L (0.24-0.36) K/mm3 Eos # (Auto) 0.17 (0.04-0.36) K/mm3 Baso # (Auto) 0.01 (0.01-0.08) K/mm3 Sodium 146 H (136-145) mEq/L Potassium 2.8 L (3.5-5.1) mEq/L Chloride 112 H (98-107) mEq/L Carbon Dioxide 22 (21-32) mEq/L Anion Gap 14.8 (5-15) BUN 10 (7-18) mg/dL Creatinine 0.8 (0.55-1.02) mg/dL Est Cr Clr Drug Dosing 57.84 mL/min Estimated GFR (MDRD) > 60 (>60) mL/min BUN/Creatinine Ratio 12.5 L (14-18) Glucose 83 (74-106) mg/dL Calcium 7.8 L (8.5-10.1) mg/dL C-Reactive Protein 0.4 (<1.0) mg/dL Triglycerides 145 (<150) mg/dL Cholesterol 163 (<200) mg/dL LDL Cholesterol Direct 98 (<100) mg/dL HDL Cholesterol 31.0 L (40-59) mg/dL Med Orders - Current: Current Medications Hydroxychloroquine Sulfate (Plaquenil) 200 mg PO BID [facility] Last Admin: 09/23/16 08:28 Dose: 200 mg Lactated Ringer's (Ringers, Lactated) 1,000 mls @ 150 mls/hr IV ASDIRECTED [facility] Last Admin: 09/23/16 06:17 Dose: 150 mls/hr Levothyroxine Sodium (Levothroid) 137 mcg PO ACBREAKFAST [facility] Last Admin: 09/23/16 06:16 Dose: 137 mcg Oxycodone/Acetaminophen (Percocet 325-5 Mg) 2 tab PO QID PRN PRN Reason: Pain Last Admin: 09/23/16 04:46 Dose: 2 tab Pantoprazole Sodium (Protonix Iv) 40 mg IVPUSH DAILY [facility] Last Admin: 09/23/16 08:28 Dose: 40 mg Meloxicam 7.5 Mg 0 each PO DAILY [facility] Last Admin: 09/23/16 08:29 Dose: Not Given Temazepam (Restoril) 15 mg PO BEDTIME PRN PRN Reason: Insomnia Last Admin: 09/22/16 20:20 Dose: 15 mg Discontinued Medications Diphtheria/Tetanus/Acell Pertussis (Adacel) 0.5 ml IM .ONCE ONE Stop: 09/22/16 13:01 Hydromorphone HCl (Dilaudid) 0.5 mg IVPUSH ONETIME ONE Stop: 09/22/16 08:34 Last Admin: 09/22/16 08:47 Dose: 0.5 mg Hydromorphone HCl (Dilaudid) 0.5 mg IVPUSH ONETIME ONE Stop: 09/22/16 11:55 Last Admin: 09/22/16 12:02 Dose: 0.5 mg Lactated Ringer's (Ringers, Lactated) 1,000 mls @ 999 mls/hr IV .BOLUS ONE Stop: 09/22/16 08:47 Last Admin: 09/22/16 08:24 Dose: 999 mls/hr Ondansetron HCl (Zofran) 4 mg IVPUSH ONETIME ONE Stop: 09/22/16 07:48 Last Admin: 09/22/16 08:24 Dose: 4 mg Pneumococcal Polyvalent Vaccine (Pneumovax 23) 0.5 ml IM .ONCE ONE Stop: 09/22/16 13:01 Potassium Chloride (Klor-Con M20) 60 meq PO ONETIME ONE Stop: 09/23/16 07:40 Last Admin: 09/23/16 08:28 Dose: 60 meq - Exam General: Alert, Oriented Cardiovascular: Regular Rate, Regular Rhythm GI/Abdominal Exam: Normal Bowel Sounds, Soft, Non-Tender, No Organomegaly, No Distention, No Abnormal Bruit, No Mass, Pelvis Stable Consult PN Assessment/Plan Procedures: Procedures ASSAY OF BLOOD/URIC ACID (05/17/15) ASSAY OF NATRIURETIC PEPTIDE (05/28/16) ASSAY THYROID STIM HORMONE (03/16/16) C-REACTIVE PROTEIN (07/12/16) CHEST X-RAY 2VW FRONTAL&LATL (05/28/16) COMP SCREEN MAMMOGRAM ADD-ON (04/19/15) COMPLETE CBC AUTOMATED (07/12/16) COMPLETE CBC W/AUTO DIFF WBC (05/28/16) COMPREHEN METABOLIC PANEL (07/12/16) COMPUTER DX MAMMOGRAM ADD-ON (12/14/15) DIAGNOSTIC COLONOSCOPY (05/05/15) EMERGENCY DEPT VISIT (05/28/16) EMERGENCY DEPT VISIT (02/20/16) EMERGENCY DEPT VISIT (12/22/15) EMERGENCY DEPT VISIT (07/28/15) EXTREMITY STUDY (05/28/16) FIBRIN DEGRADATION QUANT (05/28/16) LIPID PANEL (03/30/15) METABOLIC PANEL TOTAL CA (06/21/16) MICROBE SUSCEPTIBLE DARIO (06/07/15) MR-STAPH DNA AMP PROBE (03/16/16) MRI LUMBAR SPINE W/O & W/DYE (05/19/16) MRI LUMBAR SPINE W/O DYE (01/12/16) PROTHROMBIN TIME (06/07/15) RBC SED RATE AUTOMATED (02/15/16) RHEUMATOID FACTOR TEST QUAL (03/30/15) ROUTINE VENIPUNCTURE (07/12/16) SMEAR WET MOUNT SALINE/INK (04/07/16) THER/PROPH/DIAG INJ IV PUSH (05/28/16) THER/PROPH/DIAG INJ SC/IM (02/20/16) THROMBOPLASTIN TIME PARTIAL (06/07/15) TISSUE EXAM BY PATHOLOGIST (04/22/15) TRICHOMONAS ASSAY W/OPTIC (04/07/16) TTE W/DOPPLER COMPLETE (06/16/16) TX/PRO/DX INJ NEW DRUG ADDON (05/28/16) TX/PRO/DX INJ SAME DRUG BOW MAKER PRODUCTION (05/28/16) ULTRASOUND BREAST COMPLETE (05/07/15) URINALYSIS AUTO W/SCOPE (03/16/16) URINE BACTERIA CULTURE (06/07/15) URINE CULTURE/COLONY COUNT (07/06/15) X-RAY EXAM L-S SPINE 2/3 VWS (12/22/15) X-RAY EXAM OF WRIST (08/05/15) Problem List Initiated/Reviewed/Updated: Yes My Orders Last 24 Hours: My Active Orders 09/22/16 17:00 Pantoprazole [ProTONIX IV] 40 mg IVPUSH DAILY 09/22/16 Dinner Clear Liquid Diet [DIET] 09/23/16 Lunch Soft Diet [DIET] Plan: lab evaluated pt doing better epigastric pain improving with prilosec no black stools and vomiting or nausea Abdomen some mild tenderness in the RUQ ass anemia, dehydration corrected plan advance diet.
--- NOTE | 2016-09-23 11:48 | PCM.PN ---
- General Info Date of Service: 09/23/16 Functional Status: Reports: Pain Controlled (monitors when meds are given with request on the hour when it is due), Tolerating Diet, Ambulating, Urinating - Review of Systems General: Reports: No Symptoms HEENT: Reports: No Symptoms Pulmonary: Reports: No Symptoms Cardiovascular: Reports: No Symptoms Gastrointestinal: Reports: Abdominal Pain (decreased) Genitourinary: Reports: No Symptoms Musculoskeletal: Reports: No Symptoms Skin: Reports: No Symptoms Neurological: Reports: No Symptoms Psychiatric: Reports: No Symptoms - Patient Data Vitals - Most Recent: Last Vital Signs Temp 36.7 C 09/23/16 08:00 Pulse 88 09/23/16 08:00 Resp 20 09/23/16 08:00 BP 146/71 H 09/23/16 08:00 Pulse Ox 99 09/23/16 08:00 Weight - Most Recent: 88.677 kg I&O - Last 24 Hours: Intake & Output 09/22/16 09/23/16 09/23/16 22:59 06:59 14:59 Intake Total 2990 2447 900 Output Total 1150 Balance 2990 1297 900 Lab Results Last 24 Hours: Laboratory Results - last 24 hr 09/23/16 09/23/16 Range/Units 05:49 05:49 WBC 4.46 (3.98-10.04) K/mm3 RBC 3.80 L (3.98-5.22) M/mm3 Hgb 11.7 (11.2-15.7) gm/L Hct 34.8 (34.1-44.9) % MCV 91.6 (79.4-94.8) fl MCH 30.8 (25.6-32.2) pg MCHC 33.6 (32.2-35.5) g/dl RDW Std Deviation 57.8 H (36.4-46.3) fL Plt Count 151 L (182-369) K/mm3 MPV 9.3 L (9.4-12.3) fl Neut % (Auto) 37.5 (34.0-71.1) % Lymph % (Auto) 54.0 H (19.3-51.7) % [place] % (Auto) 4.5 L (4.7-12.5) % Eos % (Auto) 3.8 (0.7-5.8) Baso % (Auto) 0.2 (0.1-1.2) % Neut # (Auto) 1.67 (1.56-6.13) K/mm3 Lymph # (Auto) 2.41 (1.18-3.74) K/mm3 [place] # (Auto) 0.20 L (0.24-0.36) K/mm3 Eos # (Auto) 0.17 (0.04-0.36) K/mm3 Baso # (Auto) 0.01 (0.01-0.08) K/mm3 Sodium 146 H (136-145) mEq/L Potassium 2.8 L (3.5-5.1) mEq/L Chloride 112 H (98-107) mEq/L Carbon Dioxide 22 (21-32) mEq/L Anion Gap 14.8 (5-15) BUN 10 (7-18) mg/dL Creatinine 0.8 (0.55-1.02) mg/dL Est Cr Clr Drug Dosing 57.84 mL/min Estimated GFR (MDRD) > 60 (>60) mL/min BUN/Creatinine Ratio 12.5 L (14-18) Glucose 83 (74-106) mg/dL Calcium 7.8 L (8.5-10.1) mg/dL C-Reactive Protein 0.4 (<1.0) mg/dL Triglycerides 145 (<150) mg/dL Cholesterol 163 (<200) mg/dL LDL Cholesterol Direct 98 (<100) mg/dL HDL Cholesterol 31.0 L (40-59) mg/dL Med Orders - Current: Current Medications Hydroxychloroquine Sulfate (Plaquenil) 200 mg PO BID [facility] Last Admin: 09/23/16 08:28 Dose: 200 mg Lactated Ringer's (Ringers, Lactated) 1,000 mls @ 150 mls/hr IV ASDIRECTED [facility] Last Admin: 09/23/16 06:17 Dose: 150 mls/hr Levothyroxine Sodium (Levothroid) 137 mcg PO ACBREAKFAST [facility] Last Admin: 09/23/16 06:16 Dose: 137 mcg Oxycodone/Acetaminophen (Percocet 325-5 Mg) 2 tab PO QID PRN PRN Reason: Pain Last Admin: 09/23/16 10:41 Dose: 2 tab Pantoprazole Sodium (Protonix Iv) 40 mg IVPUSH DAILY [facility] Last Admin: 09/23/16 08:28 Dose: 40 mg Meloxicam 7.5 Mg 0 each PO DAILY [facility] Last Admin: 09/23/16 08:29 Dose: Not Given Temazepam (Restoril) 15 mg PO BEDTIME PRN PRN Reason: Insomnia Last Admin: 09/22/16 20:20 Dose: 15 mg Discontinued Medications Diphtheria/Tetanus/Acell Pertussis (Adacel) 0.5 ml IM .ONCE ONE Stop: 09/22/16 13:01 Hydromorphone HCl (Dilaudid) 0.5 mg IVPUSH ONETIME ONE Stop: 09/22/16 08:34 Last Admin: 09/22/16 08:47 Dose: 0.5 mg Hydromorphone HCl (Dilaudid) 0.5 mg IVPUSH ONETIME ONE Stop: 09/22/16 11:55 Last Admin: 09/22/16 12:02 Dose: 0.5 mg Lactated Ringer's (Ringers, Lactated) 1,000 mls @ 999 mls/hr IV .BOLUS ONE Stop: 09/22/16 08:47 Last Admin: 09/22/16 08:24 Dose: 999 mls/hr Ondansetron HCl (Zofran) 4 mg IVPUSH ONETIME ONE Stop: 09/22/16 07:48 Last Admin: 09/22/16 08:24 Dose: 4 mg Pneumococcal Polyvalent Vaccine (Pneumovax 23) 0.5 ml IM .ONCE ONE Stop: 09/22/16 13:01 Potassium Chloride (Klor-Con M20) 60 meq PO ONETIME ONE Stop: 09/23/16 07:40 Last Admin: 09/23/16 08:28 Dose: 60 meq - Exam Quality Assessment: DVT Prophylaxis General: Alert, Oriented, Cooperative, No Acute Distress HEENT: Pupils Equal, Pupils Reactive, EOMI, Mucous Membr. Moist/[place] Neck: Supple, Trachea Midline, No JVD Lungs: Normal Respiratory Effort Cardiovascular: Regular Rate, Regular Rhythm GI/Abdominal Exam: Normal Bowel Sounds, Soft, No Organomegaly, No Distention, No Abnormal Bruit, Distended (no), Guarding (no), Rigid (no), Rebound (no), Tender (mild) (Female) Exam: Deferred Back Exam: Normal Inspection Extremities: Normal Inspection, No Pedal Edema Skin: Warm Neurological: No New Focal Deficit, Normal Gait, Normal Speech Psy/Mental Status: Alert, Normal Affect - Problem List & Annotations (1) GERD (gastroesophageal reflux disease) SNOMED Code(s): 302649817 Code(s): K21.9 - GASTRO-ESOPHAGEAL REFLUX DISEASE WITHOUT ESOPHAGITIS Status: Acute Current Visit: Yes (2) Hypothyroid SNOMED Code(s): 52500238 Code(s): E03.9 - HYPOTHYROIDISM, UNSPECIFIED Status: Acute Current Visit : Yes (3) Abdominal pain SNOMED Code(s): 10709260 Code(s): R10.9 - UNSPECIFIED ABDOMINAL PAIN Status: Acute Current Visit: Yes (4) Dehydration SNOMED Code(s): 68698158 Code(s): E86.0 - DEHYDRATION Status: Acute Current Visit: Yes (5) Narcotic dependence SNOMED Code(s): 28889750, 12593907 Code(s): F11.20 - OPIOID DEPENDENCE, UNCOMPLICATED Status: Acute Current Visit: Yes - Problem List Review Problem List Initiated/Reviewed/Updated: Yes - My Orders Last 24 Hours: My Active Orders 09/22/16 12:46 Vaccines to be Administered [RC] PER UNIT ROUTINE 09/22/16 14:17 Activity as Tolerated [RC] .Routine Antiembolic Devices [RC] PER UNIT ROUTINE Vital Signs [RC] Q4HR VICTOR M Hose [Antiembolic Hose] [OM.PC] Routine Code Status [Resuscitation Status] Routine 09/22/16 14:18 Acetaminophen/oxyCODONE [Percocet 325-5 MG] 2 tab PO QID PRN 09/22/16 14:24 Notify Provider Consults [RC] ASDIRECTED 09/22/16 14:25 Consult to Physical Therapy [PT Evaluation and Treatment] [CONS] Routine Consult to Flow Machine Operator [CONS] Routine 09/22/16 15:00 Consult to Occupational Therapy [OT Evaluation and Treatment] [CONS] Routine Consult to Physician [CONS] Routine 09/22/16 21:00 Hydroxychloroquine [Plaquenil] 200 mg PO BID Temazepam [Restoril] 15 mg PO BEDTIME PRN 09/23/16 06:00 Levothyroxine [Levothroid] 137 mcg PO ACBREAKFAST 09/23/16 09:00 Patient's Own Medication [Ptom] 0 each PO DAILY 09/24/16 05:00 BASIC METABOLIC PANEL,BMP [CHEM] DAILY CBC WITH AUTO DIFF [HEME] DAILY CRP [C-REACTIVE PROTEIN] [CHEM] DAILY HEPATIC FUNCTION PANEL,HFP [CHEM] Routine 09/25/16 05:00 BASIC METABOLIC PANEL,BMP [CHEM] DAILY CBC WITH AUTO DIFF [HEME] DAILY CRP [C-REACTIVE PROTEIN] [CHEM] DAILY 09/26/16 05:00 BASIC METABOLIC PANEL,BMP [CHEM] DAILY CBC WITH AUTO DIFF [HEME] DAILY CRP [C-REACTIVE PROTEIN] [CHEM] DAILY - Plan Plan:: Impression: Abdominal pain with improvement; clear liquids tolerated Back pain controlled with narcotic Elevated LFTs Plan: IVF Advance diet as tolerated Trial as suggested to evaluate GB function Replace electrolytes DVT/GI prophylaxis SW/PT/OT as scheduled LOS may exceed 96 hours pending response to advancing diet
[2016-09-23] MEDS ORDERED: Magnesium Sulfate/Water 2 GM in Premix Bag 1 BAG IV ONE (13:19)
[2016-09-23] MEDS: Potassium Chloride 20 MEQ Tab.ER PO SCH ×2 (13:39→20:09)
[2016-09-23] MEDS: Temazepam 15 MG Cap PO PRN (20:10)
[2016-09-24] MEDS: Acetaminophen/oxyCODONE 325-5 MG Tab PO PRN ×4 (00:52→20:33)
[2016-09-24] MEDS: Lactated Ringers 1,000 ML IV SCH (05:46)
[2016-09-24] MEDS ORDERED: Polyethylene Glycol 3350 Powder 17 GM Packet PO PRN (08:37)
[2016-09-24] MEDS: Hydroxychloroquine 200 MG Tab PO SCH ×2 (08:45→20:33)
[2016-09-24] MEDS: Potassium Chloride 20 MEQ Tab.ER PO SCH (08:45)
[2016-09-24] MEDS: Pantoprazole 40 MG Vial IVPUSH SCH (08:45)
[2016-09-24] MEDS ORDERED: Sodium Chloride 0.9% 10 ML Syringe FLUSH PRN (08:45)
--- NOTE | 2016-09-24 08:49 | PCM.SURGPN ---
- General Info Date of Service: 09/24/16 Functional Status: Reports: Pain Controlled - Review of Systems General: Reports: No Symptoms Gastrointestinal: Reports: No Symptoms - Patient Data Vitals - Most Recent: Last Vital Signs Temp 98.4 F 09/24/16 08:02 Pulse 88 09/24/16 08:02 Resp 16 09/24/16 08:02 BP 142/74 H 09/24/16 08:02 Pulse Ox 97 09/24/16 08:02 Weight - Most Recent: 95.254 kg I&O - Last 24 Hours: Intake & Output 09/23/16 09/24/16 09/24/16 23:59 07:59 15:59 Intake Total 3002 3100 Output Total 550 800 Balance 2452 2300 Lab Results Last 24 Hrs: Laboratory Results - last 24 hr 09/23/16 09/24/16 09/24/16 Range/Units 19:15 05:48 05:48 WBC 2.89 L (3.98-10.04) K/mm3 RBC 3.81 L (3.98-5.22) M/mm3 Hgb 11.8 (11.2-15.7) gm/L Hct 35.6 (34.1-44.9) % MCV 93.4 (79.4-94.8) fl MCH 31.0 (25.6-32.2) pg MCHC 33.1 (32.2-35.5) g/dl RDW Std Deviation 59.8 H (36.4-46.3) fL Plt Count 126 L (182-369) K/mm3 MPV 9.4 (9.4-12.3) fl Neut % (Auto) 31.1 L (34.0-71.1) % Lymph % (Auto) 59.2 H (19.3-51.7) % [place] % (Auto) 6.6 (4.7-12.5) % Eos % (Auto) 2.8 (0.7-5.8) Baso % (Auto) 0.3 (0.1-1.2) % Neut # (Auto) 0.90 L (1.56-6.13) K/mm3 Lymph # (Auto) 1.71 (1.18-3.74) K/mm3 [place] # (Auto) 0.19 L (0.24-0.36) K/mm3 Eos # (Auto) 0.08 (0.04-0.36) K/mm3 Baso # (Auto) 0.01 (0.01-0.08) K/mm3 Manual Slide Review Abnormal smear Sodium 143 (136-145) mEq/L Potassium 3.6 3.7 (3.5-5.1) mEq/L Chloride 111 H (98-107) mEq/L Carbon Dioxide 23 (21-32) mEq/L Anion Gap 12.7 (5-15) BUN 9 (7-18) mg/dL Creatinine 0.8 (0.55-1.02) mg/dL Est Cr Clr Drug Dosing 57.84 mL/min Estimated GFR (MDRD) > 60 (>60) mL/min BUN/Creatinine Ratio 11.3 L (14-18) Glucose 85 (74-106) mg/dL Calcium 8.0 L (8.5-10.1) mg/dL Total Bilirubin 1.5 H (0.2-1.0) mg/dL Direct Bilirubin 0.70 H (0.0-0.2) mg/dl Indirect Bilirubin 0.80 AST 100 H (15-37) U/L ALT 360 H (14-59) U/L Alkaline Phosphatase 72 (46-116) U/L C-Reactive Protein 0.6 (<1.0) mg/dL Total Protein 6.0 L (6.4-8.2) g/dl Albumin 3.0 L (3.4-5.0) g/dl Globulin 3.0 gm/dL Albumin/Globulin Ratio 1.0 (1-2) Med Orders - Current: Current Medications Hydroxychloroquine Sulfate (Plaquenil) 200 mg PO BID [facility] Last Admin: 09/24/16 08:45 Dose: 200 mg Lactated Ringer's (Ringers, Lactated) 1,000 mls @ 150 mls/hr IV ASDIRECTED [facility] Last Admin: 09/24/16 05:46 Dose: 150 mls/hr Levothyroxine Sodium (Levothroid) 137 mcg PO ACBREAKFAST [facility] Last Admin: 09/24/16 05:46 Dose: 137 mcg Oxycodone/Acetaminophen (Percocet 325-5 Mg) 2 tab PO QID PRN PRN Reason: Pain Last Admin: 09/24/16 00:52 Dose: 2 tab Pantoprazole Sodium (Protonix Iv) 40 mg IVPUSH DAILY [facility] Last Admin: 09/24/16 08:45 Dose: 40 mg Meloxicam 7.5 Mg 0 each PO DAILY [facility] Last Admin: 09/24/16 08:46 Dose: Not Given Polyethylene Glycol (Miralax) 17 gm PO DAILY PRN PRN Reason: Constipation Last Admin: 09/24/16 08:45 Dose: 17 gm Potassium Chloride (Klor-Con M20) 40 meq PO BID [facility] Last Admin: 09/24/16 08:45 Dose: 40 meq Sodium Chloride (Saline Flush) 10 ml FLUSH ASDIRECTED PRN PRN Reason: Keep Vein Open Temazepam (Restoril) 15 mg PO BEDTIME PRN PRN Reason: Insomnia Last Admin: 09/23/16 20:10 Dose: 15 mg Discontinued Medications Diphtheria/Tetanus/Acell Pertussis (Adacel) 0.5 ml IM .ONCE ONE Stop: 09/22/16 13:01 Hydromorphone HCl (Dilaudid) 0.5 mg IVPUSH ONETIME ONE Stop: 09/22/16 08:34 Last Admin: 09/22/16 08:47 Dose: 0.5 mg Hydromorphone HCl (Dilaudid) 0.5 mg IVPUSH ONETIME ONE Stop: 09/22/16 11:55 Last Admin: 09/22/16 12:02 Dose: 0.5 mg Lactated Ringer's (Ringers, Lactated) 1,000 mls @ 999 mls/hr IV .BOLUS ONE Stop: 09/22/16 08:47 Last Admin: 09/22/16 08:24 Dose: 999 mls/hr Magnesium Sulfate 2 gm/ Premix 50 mls @ 25 mls/hr IV ONETIME ONE Stop: 09/23/16 15:18 Last Admin: 09/23/16 13:39 Dose: 25 mls/hr Ondansetron HCl (Zofran) 4 mg IVPUSH ONETIME ONE Stop: 09/22/16 07:48 Last Admin: 09/22/16 08:24 Dose: 4 mg Pneumococcal Polyvalent Vaccine (Pneumovax 23) 0.5 ml IM .ONCE ONE Stop: 09/22/16 13:01 Potassium Chloride (Klor-Con M20) 60 meq PO ONETIME ONE Stop: 09/23/16 07:40 Last Admin: 09/23/16 08:28 Dose: 60 meq - Exam GI/Abdominal Exam: Normal Bowel Sounds, Soft, Non-Tender, No Organomegaly, No Distention, No Abnormal Bruit, No Mass, Pelvis Stable - Problem List Review Problem List Initiated/Reviewed/Updated: Yes - My Orders Last 24 Hours: Active Orders 24 hr Category Date Time Status Verify Patient Consent Obtain [RC] ASDIRECTED Care 09/24/16 08:45 Active Nothing per Oral After Midnight Diet [DIET] Diet 09/24/16 Lunch Active Soft Diet [DIET] Diet 09/23/16 Lunch Active BASIC METABOLIC PANEL,BMP [CHEM] DAILY Lab 09/25/16 05:00 Ordered BASIC METABOLIC PANEL,BMP [CHEM] DAILY Lab 09/26/16 05:00 Ordered CBC WITH AUTO DIFF [HEME] DAILY Lab 09/25/16 05:00 Ordered CBC WITH AUTO DIFF [HEME] DAILY Lab 09/26/16 05:00 Ordered CRP [C-REACTIVE PROTEIN] [CHEM] DAILY Lab 09/25/16 05:00 Ordered CRP [C-REACTIVE PROTEIN] [CHEM] DAILY Lab 09/26/16 05:00 Ordered Patient's Own Medication [Ptom] Med 09/23/16 09:00 Active 0 each PO DAILY Polyethylene Glycol 3350 [MiraLAX] Med 09/24/16 08:37 Active 17 gm PO DAILY PRN Potassium Chloride [Klor-Con M20] Med 09/23/16 13:30 Active 40 meq PO BID Sodium Chloride 0.9% [Saline Flush] Med 09/24/16 08:45 Ordered 10 ml FLUSH ASDIRECTED PRN Convert IV to Saline Lock [OM.PC] Urgent Oth 09/24/16 08:45 Ordered Schedule Procedure [COMM] Routine Oth 09/25/16 08:46 Ordered Medication Orders Hydroxychloroquine Sulfate (Plaquenil) 200 mg PO BID [facility] Last Admin: 09/24/16 08:45 Dose: 200 mg Admin: 09/23/16 20:10 Dose: 200 mg Admin: 09/23/16 08:28 Dose: 200 mg Admin: 09/22/16 20:19 Dose: 200 mg Lactated Ringer's (Ringers, Lactated) 1,000 mls @ 150 mls/hr IV ASDIRECTED [facility] Last Admin: 09/24/16 05:46 Dose: 150 mls/hr Admin: 09/23/16 23:26 Dose: 150 mls/hr Infusion: 09/23/16 23:26 Dose: 150 mls/hr Admin: 09/23/16 18:23 Dose: 150 mls/hr Infusion: 09/23/16 12:58 Dose: 150 mls/hr Admin: 09/23/16 06:17 Dose: 150 mls/hr Infusion: 09/23/16 05:12 Dose: 150 mls/hr Admin: 09/22/16 22:31 Dose: 150 mls/hr Infusion: 09/22/16 22:25 Dose: 150 mls/hr Admin: 09/22/16 15:44 Dose: 150 mls/hr Infusion: 09/22/16 15:44 Dose: 150 mls/hr Admin: 09/22/16 09:43 Dose: 150 mls/hr Levothyroxine Sodium (Levothroid) 137 mcg PO ACBREAKFAST [facility] Last Admin: 09/24/16 05:46 Dose: 137 mcg Admin: 09/23/16 06:16 Dose: 137 mcg Oxycodone/Acetaminophen (Percocet 325-5 Mg) 2 tab PO QID PRN PRN Reason: Pain Last Admin: 09/24/16 00:52 Dose: 2 tab Admin: 09/23/16 18:18 Dose: 2 tab Admin: 09/23/16 10:41 Dose: 2 tab Admin: 09/23/16 04:46 Dose: 2 tab Admin: 09/22/16 21:28 Dose: 2 tab Admin: 09/22/16 15:44 Dose: 2 tab Pantoprazole Sodium (Protonix Iv) 40 mg IVPUSH DAILY [facility] Last Admin: 09/24/16 08:45 Dose: 40 mg Admin: 09/23/16 08:28 Dose: 40 mg Admin: 09/22/16 17:22 Dose: 40 mg Meloxicam 7.5 Mg 0 each PO DAILY [facility] Last Admin: 09/24/16 08:46 Dose: Admin: 09/23/16 08:29 Dose: Polyethylene Glycol (Miralax) 17 gm PO DAILY PRN PRN Reason: Constipation Last Admin: 09/24/16 08:45 Dose: 17 gm Potassium Chloride (Klor-Con M20) 40 meq PO BID [facility] Last Admin: 09/24/16 08:45 Dose: 40 meq Admin: 09/23/16 20:09 Dose: 40 meq Admin: 09/23/16 13:39 Dose: 40 meq Sodium Chloride (Saline Flush) 10 ml FLUSH ASDIRECTED PRN PRN Reason: Keep Vein Open Temazepam (Restoril) 15 mg PO BEDTIME PRN PRN Reason: Insomnia Last Admin: 09/23/16 20:10 Dose: 15 mg Admin: 09/22/16 20:20 Dose: 15 mg - Plan Plan (Free Text/Narrative):: pt improved Bilirumbin is normal and the LFT's have come down exame minimal tenderness in the RUQ ass improved plan work up the GI bleeding with EGD (She has had a colonsocopy recent withic was normal ) risk and complications discussed pt understand and consents. KRISTY
--- NOTE | 2016-09-24 12:56 | PCM.PN ---
- General Info Date of Service: 09/24/16 Functional Status: Reports: Pain Controlled, Tolerating Diet, Ambulating, Urinating - Review of Systems General: Reports: No Symptoms HEENT: Reports: No Symptoms Pulmonary: Reports: No Symptoms Cardiovascular: Reports: No Symptoms Gastrointestinal: Reports: No Symptoms Genitourinary: Reports: No Symptoms Musculoskeletal: Reports: No Symptoms Skin: Reports: No Symptoms Neurological: Reports: No Symptoms Psychiatric: Reports: No Symptoms - Patient Data Vitals - Most Recent: Last Vital Signs Temp 36.9 C 09/24/16 08:02 Pulse 88 09/24/16 08:02 Resp 16 09/24/16 08:02 BP 142/74 H 09/24/16 08:02 Pulse Ox 97 09/24/16 08:02 Weight - Most Recent: 95.254 kg I&O - Last 24 Hours: Intake & Output 09/23/16 09/24/16 09/24/16 22:59 06:59 14:59 Intake Total 3002 3100 300 Output Total 550 800 Balance 2452 2300 300 Lab Results Last 24 Hours: Laboratory Results - last 24 hr 09/23/16 09/24/16 09/24/16 Range/Units 19:15 05:48 05:48 WBC 2.89 L (3.98-10.04) K/mm3 RBC 3.81 L (3.98-5.22) M/mm3 Hgb 11.8 (11.2-15.7) gm/L Hct 35.6 (34.1-44.9) % MCV 93.4 (79.4-94.8) fl MCH 31.0 (25.6-32.2) pg MCHC 33.1 (32.2-35.5) g/dl RDW Std Deviation 59.8 H (36.4-46.3) fL Plt Count 126 L (182-369) K/mm3 MPV 9.4 (9.4-12.3) fl Neut % (Auto) 31.1 L (34.0-71.1) % Lymph % (Auto) 59.2 H (19.3-51.7) % [place] % (Auto) 6.6 (4.7-12.5) % Eos % (Auto) 2.8 (0.7-5.8) Baso % (Auto) 0.3 (0.1-1.2) % Neut # (Auto) 0.90 L (1.56-6.13) K/mm3 Lymph # (Auto) 1.71 (1.18-3.74) K/mm3 [place] # (Auto) 0.19 L (0.24-0.36) K/mm3 Eos # (Auto) 0.08 (0.04-0.36) K/mm3 Baso # (Auto) 0.01 (0.01-0.08) K/mm3 Manual Slide Review Abnormal smear Sodium 143 (136-145) mEq/L Potassium 3.6 3.7 (3.5-5.1) mEq/L Chloride 111 H (98-107) mEq/L Carbon Dioxide 23 (21-32) mEq/L Anion Gap 12.7 (5-15) BUN 9 (7-18) mg/dL Creatinine 0.8 (0.55-1.02) mg/dL Est Cr Clr Drug Dosing 57.84 mL/min Estimated GFR (MDRD) > 60 (>60) mL/min BUN/Creatinine Ratio 11.3 L (14-18) Glucose 85 (74-106) mg/dL Calcium 8.0 L (8.5-10.1) mg/dL Total Bilirubin 1.5 H (0.2-1.0) mg/dL Direct Bilirubin 0.70 H (0.0-0.2) mg/dl Indirect Bilirubin 0.80 AST 100 H (15-37) U/L ALT 360 H (14-59) U/L Alkaline Phosphatase 72 (46-116) U/L C-Reactive Protein 0.6 (<1.0) mg/dL Total Protein 6.0 L (6.4-8.2) g/dl Albumin 3.0 L (3.4-5.0) g/dl Globulin 3.0 gm/dL Albumin/Globulin Ratio 1.0 (1-2) Med Orders - Current: Current Medications Hydroxychloroquine Sulfate (Plaquenil) 200 mg PO BID [facility] Last Admin: 09/24/16 08:45 Dose: 200 mg Lactated Ringer's (Ringers, Lactated) 1,000 mls @ 150 mls/hr IV ASDIRECTED [facility] Last Admin: 09/24/16 05:46 Dose: 150 mls/hr Levothyroxine Sodium (Levothroid) 137 mcg PO ACBREAKFAST [facility] Last Admin: 09/24/16 05:46 Dose: 137 mcg Oxycodone/Acetaminophen (Percocet 325-5 Mg) 2 tab PO QID PRN PRN Reason: Pain Last Admin: 09/24/16 08:50 Dose: 2 tab Pantoprazole Sodium (Protonix Iv) 40 mg IVPUSH DAILY [facility] Last Admin: 09/24/16 08:45 Dose: 40 mg Meloxicam 7.5 Mg 0 each PO DAILY [facility] Last Admin: 09/24/16 08:46 Dose: Not Given Polyethylene Glycol (Miralax) 17 gm PO DAILY PRN PRN Reason: Constipation Last Admin: 09/24/16 08:45 Dose: 17 gm Sodium Chloride (Saline Flush) 10 ml FLUSH ASDIRECTED PRN PRN Reason: Keep Vein Open Temazepam (Restoril) 15 mg PO BEDTIME PRN PRN Reason: Insomnia Last Admin: 09/23/16 20:10 Dose: 15 mg Discontinued Medications Diphtheria/Tetanus/Acell Pertussis (Adacel) 0.5 ml IM .ONCE ONE Stop: 09/22/16 13:01 Hydromorphone HCl (Dilaudid) 0.5 mg IVPUSH ONETIME ONE Stop: 09/22/16 08:34 Last Admin: 09/22/16 08:47 Dose: 0.5 mg Hydromorphone HCl (Dilaudid) 0.5 mg IVPUSH ONETIME ONE Stop: 09/22/16 11:55 Last Admin: 09/22/16 12:02 Dose: 0.5 mg Lactated Ringer's (Ringers, Lactated) 1,000 mls @ 999 mls/hr IV .BOLUS ONE Stop: 09/22/16 08:47 Last Admin: 09/22/16 08:24 Dose: 999 mls/hr Magnesium Sulfate 2 gm/ Premix 50 mls @ 25 mls/hr IV ONETIME ONE Stop: 09/23/16 15:18 Last Admin: 09/23/16 13:39 Dose: 25 mls/hr Ondansetron HCl (Zofran) 4 mg IVPUSH ONETIME ONE Stop: 09/22/16 07:48 Last Admin: 09/22/16 08:24 Dose: 4 mg Pneumococcal Polyvalent Vaccine (Pneumovax 23) 0.5 ml IM .ONCE ONE Stop: 09/22/16 13:01 Potassium Chloride (Klor-Con M20) 60 meq PO ONETIME ONE Stop: 09/23/16 07:40 Last Admin: 09/23/16 08:28 Dose: 60 meq Potassium Chloride (Klor-Con M20) 40 meq PO BID [facility] Last Admin: 09/24/16 08:45 Dose: 40 meq - Exam Quality Assessment: DVT Prophylaxis General: Alert, Oriented, Cooperative, No Acute Distress HEENT: Pupils Equal, Pupils Reactive, EOMI, Mucous Membr. Moist/[place] Neck: Supple, Trachea Midline, No JVD Lungs: Normal Respiratory Effort Cardiovascular: Regular Rate, Regular Rhythm GI/Abdominal Exam: Normal Bowel Sounds, Soft, Non-Tender, No Organomegaly, No Distention (Female) Exam: Deferred Back Exam: Normal Inspection Extremities: Normal Inspection Skin: Warm Neurological: No New Focal Deficit Psy/Mental Status: Alert, Normal Affect, Normal Mood - Problem List & Annotations (1) GERD (gastroesophageal reflux disease) SNOMED Code(s): 032908762 Code(s): K21.9 - GASTRO-ESOPHAGEAL REFLUX DISEASE WITHOUT ESOPHAGITIS Status: Acute Current Visit: Yes (2) Hypothyroid SNOMED Code(s): 53279538 Code(s): E03.9 - HYPOTHYROIDISM, UNSPECIFIED Status: Acute Current Visit : Yes (3) Abdominal pain SNOMED Code(s): 81664118 Code(s): R10.9 - UNSPECIFIED ABDOMINAL PAIN Status: Acute Current Visit: Yes (4) Dehydration SNOMED Code(s): 01123750 Code(s): E86.0 - DEHYDRATION Status: Acute Current Visit: Yes (5) Narcotic dependence SNOMED Code(s): 79328561, 84948003 Code(s): F11.20 - OPIOID DEPENDENCE, UNCOMPLICATED Status: Acute Current Visit: Yes - Problem List Review Problem List Initiated/Reviewed/Updated: Yes - My Orders Last 24 Hours: My Active Orders 09/24/16 08:37 Polyethylene Glycol 3350 [MiraLAX] 17 gm PO DAILY PRN 09/25/16 05:00 BASIC METABOLIC PANEL,BMP [CHEM] DAILY CBC WITH AUTO DIFF [HEME] DAILY CRP [C-REACTIVE PROTEIN] [CHEM] DAILY 09/26/16 05:00 BASIC METABOLIC PANEL,BMP [CHEM] DAILY CBC WITH AUTO DIFF [HEME] DAILY CRP [C-REACTIVE PROTEIN] [CHEM] DAILY - Plan Plan:: Impression: No significant abdominal pain; tolerating diet Back pain controlled with narcotic Elevated LFTs/bilirubin-->improving Plan: EGD in am, NPO after midnight Replace electrolytes Check H Pylori DVT/GI prophylaxis SW/PT/OT as scheduled LOS may exceed 96 hours pending response to advancing diet
[2016-09-24] MEDS: Temazepam 15 MG Cap PO PRN (20:33)
[2016-09-25] MEDS ORDERED: Morphine 2 MG/ML Syringe IVPUSH ONE (08:00)
[2016-09-25] MEDS: Pantoprazole 40 MG Vial IVPUSH SCH (08:46)
--- NOTE | 2016-09-25 09:00 | PCM.PN ---
- General Info Date of Service: 09/25/16 Admission Dx/Problem (Free Text): Admission Diagnosis/Problem Admission Diagnosis/Problem Dehydration Subjective Update: Follow Up Functional Status: Reports: Pain Controlled, Ambulating, Urinating. Denies: New Symptoms - Review of Systems General: Denies: Fever, Weakness, Fatigue, Malaise, Chills HEENT: Reports: No Symptoms Pulmonary: Denies: Shortness of Breath Cardiovascular: Denies: Chest Pain, Palpitations, Dyspnea on Exertion Gastrointestinal: Reports: Flatus. Denies: Abdominal Pain, Difficulty Swallowing, Nausea, Vomiting Genitourinary: Reports: No Symptoms Musculoskeletal: Reports: No Symptoms Skin: Reports: No Symptoms Neurological: Denies: Confusion, Difficulty Walking, Weakness, Gait Disturbance Psychiatric: Denies: Depression, Anxiety, Agitation, Hallucinations Systems Review Comment:: No over night or acute issues. She is relatively well. She is scheduled for EG this am at about 10. She has no new complaints. - Patient Data Vitals - Most Recent: Last Vital Signs Temp 37.1 C 09/25/16 08:10 Pulse 81 09/25/16 08:10 Resp 14 09/25/16 08:10 BP 122/72 09/25/16 08:10 Pulse Ox 96 09/25/16 08:10 Weight - Most Recent: 96.071 kg I&O - Last 24 Hours: Intake & Output 09/24/16 09/25/16 09/25/16 22:59 06:59 14:59 Intake Total 2663 600 Output Total 300 Balance 2663 300 Lab Results Last 24 Hours: Laboratory Results - last 24 hr 09/24/16 09/25/16 09/25/16 Range/Units 05:48 05:32 05:32 WBC 2.59 L (3.98-10.04) K/mm3 RBC 3.44 L (3.98-5.22) M/mm3 Hgb 10.8 L (11.2-15.7) gm/L Hct 32.9 L (34.1-44.9) % MCV 95.6 H (79.4-94.8) fl MCH 31.4 (25.6-32.2) pg MCHC 32.8 (32.2-35.5) g/dl RDW Std Deviation 60.5 H (36.4-46.3) fL Plt Count 94 L (182-369) K/mm3 MPV 9.0 L (9.4-12.3) fl Neut % (Auto) 28.1 L (34.0-71.1) % Lymph % (Auto) 55.6 H (19.3-51.7) % [place] % (Auto) 12.4 (4.7-12.5) % Eos % (Auto) 3.5 (0.7-5.8) Baso % (Auto) 0.4 (0.1-1.2) % Neut # (Auto) 0.73 L (1.56-6.13) K/mm3 Lymph # (Auto) 1.44 (1.18-3.74) K/mm3 [place] # (Auto) 0.32 (0.24-0.36) K/mm3 Eos # (Auto) 0.09 (0.04-0.36) K/mm3 Baso # (Auto) 0.01 (0.01-0.08) K/mm3 Manual Slide Review Abnormal smear Sodium 143 (136-145) mEq/L Potassium 4.0 (3.5-5.1) mEq/L Chloride 112 H (98-107) mEq/L Carbon Dioxide 24 (21-32) mEq/L Anion Gap 11.0 (5-15) BUN 11 (7-18) mg/dL Creatinine 0.8 (0.55-1.02) mg/dL Est Cr Clr Drug Dosing 57.84 mL/min Estimated GFR (MDRD) > 60 (>60) mL/min BUN/Creatinine Ratio 13.8 L (14-18) Glucose 93 (74-106) mg/dL Calcium 8.0 L (8.5-10.1) mg/dL C-Reactive Protein < 0.2 (<1.0) mg/dL H. pylori IgG Antibody Negative (NEGATIVE) Med Orders - Current: Current Medications Hydroxychloroquine Sulfate (Plaquenil) 200 mg PO BID [facility] Last Admin: 09/24/16 20:33 Dose: 200 mg Levothyroxine Sodium (Levothroid) 137 mcg PO ACBREAKFAST [facility] Last Admin: 09/25/16 06:02 Dose: Not Given Oxycodone/Acetaminophen (Percocet 325-5 Mg) 2 tab PO QID PRN PRN Reason: Pain Last Admin: 09/24/16 20:33 Dose: 2 tab Pantoprazole Sodium (Protonix Iv) 40 mg IVPUSH DAILY [facility] Last Admin: 09/25/16 08:46 Dose: 40 mg Meloxicam 7.5 Mg 0 each PO DAILY [facility] Last Admin: 09/24/16 08:46 Dose: Not Given Polyethylene Glycol (Miralax) 17 gm PO DAILY PRN PRN Reason: Constipation Last Admin: 09/24/16 08:45 Dose: 17 gm Sodium Chloride (Saline Flush) 10 ml FLUSH ASDIRECTED PRN PRN Reason: Keep Vein Open Temazepam (Restoril) 15 mg PO BEDTIME PRN PRN Reason: Insomnia Last Admin: 09/24/16 20:33 Dose: 15 mg Discontinued Medications Diphtheria/Tetanus/Acell Pertussis (Adacel) 0.5 ml IM .ONCE ONE Stop: 09/22/16 13:01 Hydromorphone HCl (Dilaudid) 0.5 mg IVPUSH ONETIME ONE Stop: 09/22/16 08:34 Last Admin: 09/22/16 08:47 Dose: 0.5 mg Hydromorphone HCl (Dilaudid) 0.5 mg IVPUSH ONETIME ONE Stop: 09/22/16 11:55 Last Admin: 09/22/16 12:02 Dose: 0.5 mg Lactated Ringer's (Ringers, Lactated) 1,000 mls @ 150 mls/hr IV ASDIRECTED [facility] Last Admin: 09/24/16 05:46 Dose: 150 mls/hr Lactated Ringer's (Ringers, Lactated) 1,000 mls @ 999 mls/hr IV .BOLUS ONE Stop: 09/22/16 08:47 Last Admin: 09/22/16 08:24 Dose: 999 mls/hr Magnesium Sulfate 2 gm/ Premix 50 mls @ 25 mls/hr IV ONETIME ONE Stop: 09/23/16 15:18 Last Admin: 09/23/16 13:39 Dose: 25 mls/hr Morphine Sulfate (Morphine) 2 mg IVPUSH ONETIME ONE Stop: 09/25/16 08:01 Last Admin: 09/25/16 08:45 Dose: 2 mg Ondansetron HCl (Zofran) 4 mg IVPUSH ONETIME ONE Stop: 09/22/16 07:48 Last Admin: 09/22/16 08:24 Dose: 4 mg Pneumococcal Polyvalent Vaccine (Pneumovax 23) 0.5 ml IM .ONCE ONE Stop: 09/22/16 13:01 Potassium Chloride (Klor-Con M20) 60 meq PO ONETIME ONE Stop: 09/23/16 07:40 Last Admin: 09/23/16 08:28 Dose: 60 meq Potassium Chloride (Klor-Con M20) 40 meq PO BID [facility] Last Admin: 09/24/16 08:45 Dose: 40 meq - Exam General: Alert, Oriented, Cooperative, No Acute Distress, Other (Obese) HEENT: Pupils Equal, Pupils Reactive, EOMI, Mucous Membr. Moist/[place] Neck: Supple, Trachea Midline, No JVD, No Thyromegaly, Other (short and thick) Lungs: Clear to Auscultation, Normal Respiratory Effort Cardiovascular: Regular Rate, Regular Rhythm GI/Abdominal Exam: Normal Bowel Sounds, Soft, Non-Tender, No Organomegaly, No Distention, No Abnormal Bruit, No Mass (Female) Exam: Deferred Back Exam: Normal Inspection, Decreased Range of Motion Extremities: Normal Inspection, Normal Range of Motion, Non-Tender, No Pedal Edema, Normal Capillary Refill Peripheral Pulses: 2+: Dorsalis Pedis (L), Dorsalis Pedis (R) Skin: Warm, Dry, Intact Neurological: No New Focal Deficit Psy/Mental Status: Alert, Normal Affect, Normal Mood - Problem List Review Problem List Initiated/Reviewed/Updated: Yes - Plan Plan:: Impression: S/p Abdominal pain, Tolerating Diet, NPO overnight for planned EGD this am GBW Thickening W/o Gallstones Elevated LFTs/Bilirubin--> Likely 2/2 Above, Continues to improve Back Pain, Controlled With Narcotic Plan: EGD this am Routine am Labs H Pylori negative DVT/GI prophylaxis SW/PT/OT as scheduled D/c and PO level as per GS recommendations LOS may exceed 96 hours pending response to advancing diet
--- NOTE | 2016-09-25 09:33 | CONS ---
CONSULTING PHYSICIAN: Neo Cabrera MD DATE OF CONSULTATION: 09/22/2016 HISTORY OF PRESENT ILLNESS: This is a 60-year-old female, who came in with abdominal pain, nausea, and vomiting. She felt sick on Sunday and then Sunday, began to have pain in the mid abdomen just above the umbilicus, and after about 20 minutes began to vomit. The pain was sharp, moderate discomfort without any radiation. The vomiting has began and has been about every morning, last couple days she began to vomit some blood, and noted some dark tarry stools. She has also had some loose stools a couple of times and some rectal bleeding, bright red blood, although she had hemorrhoids in the past. The patient has had in the distant past a history of peptic ulcer disease. She does have rheumatoid arthritis and chronic back pain. For the last 2 months, she has been on 4 Percocet a day for her back. In terms of her rheumatoid arthritis, she is on Plaquenil and meloxicam, does not take an Aleve or Motrin. She also takes hydrocodone. She also takes Synthroid. PAST SURGICAL HISTORY: She says she has not had any surgery. She has a history of rheumatoid arthritis, UTIs, hemorrhoids, gastroesophageal reflux disease. She has had lumbar spine surgery and has chronic back pain. SOCIAL HISTORY: She says she does smoke and no alcohol. FAMILY HISTORY: Breast cancer in the immediate family, mother I believe. Brother has multiple sclerosis. REVIEW OF SYSTEMS: No chest pain, shortness of breath, cough, hoarseness, wheezing, fainting, weakness, numbness, or convulsions. Does have nausea and vomiting, rectal bleeding, hematochezia, and hematemesis. MEDICATIONS: Per medication reconciliation form. LABORATORY DATA: Hemoglobin is 14.1. Her chemistries show potassium low at 2.9 and total bilirubin 1.9. SGOT and SGPT elevated. PHYSICAL EXAMINATION: GENERAL: Reveals alert, cooperative, female. HEENT: Eyes sclerae white. No icterus. Extraocular muscle motion normal. Oral cavity is dry, healthy mucous membrane. NECK: Supple. No nodes. No thyromegaly. LUNGS: Clear but have some coarse rhonchi throughout. ABDOMEN: Soft, no tenderness, guarding, or rebound. EXTREMITIES: Upper and lower extremities, slight edema in the lower extremities. Upper extremities okay. MUSCULOSKELETAL EXAM: Moves all 4 extremities. No sensorineural deficit. PSYCHIATRIC: Normal. SKIN: Warm and dry. NEUROLOGIC: Cranial nerves 3 through 12 is intact. IMAGING DATA: Ultrasound shows some thickening in the gallbladder. ASSESSMENT: Possible peptic ulcer disease versus cholecystitis as she is dehydrated. Plan for hydration and we will follow with you. We will start her on Protonix. MMODAL /[id number]
--- NOTE | 2016-09-25 09:42 | PCM.PREANE ---
Preanesthetic Assessment - Anesthesia/Transfusion/Family Hx Anesthesia History: Prior Anesthesia Without Reaction Family History of Anesthesia Reaction: No Transfusion History: Prior Transfusion Without Reaction Intubation History: Unknown - Review of Systems General: No Symptoms Pulmonary: No Symptoms (quit smoking November 2015, however patient states she has been smoking on/off), Cough, Sputum (greenish colored sputum noted.) Cardiovascular: No Symptoms Gastrointestinal: No Symptoms (GERD), Constipation, Decreased Appetite Neurological: No Symptoms, Tingling (L4-5 fusion needed in the future potentially January with tingling noted in right hip) Other: Reports: None (History of RA, and chronic lower back pain), Easy Bruising , Thyroid Problems (hypothyroid) - Physical Assessment NPO Status Date: 09/25/16 NPO Status Time: 00:00 Pulse: 81 O2 Sat by Pulse Oximetry: 96 Respiratory Rate: 14 Blood Pressure: 122/72 Temperature: 37.1 C Vital Signs: Last Vital Signs Temp 37.1 C 09/25/16 08:10 Pulse 81 09/25/16 08:10 Resp 14 09/25/16 08:10 BP 122/72 09/25/16 08:10 Pulse Ox 96 09/25/16 08:10 Height: 1.55 m Weight: 96.071 kg ASA Class: 2 Mental Status: Alert & Oriented x3 Airway Class: Mallampati = 2 Dentition: Reports: Dentures (upper and lower) Thyro-Mental Finger Breadths: 3 Mouth Opening Finger Breadths: 3 Lungs: Clear to Auscultation, Normal Respiratory Effort (Harsh breath sounds noted along with loose cough noted.) Cardiovascular: Regular Rate, Regular Rhythm, No Murmurs - Lab Values: Laboratory Last Values WBC 2.59 K/mm3 (3.98-10.04) L 09/25/16 05:32 RBC 3.44 M/mm3 (3.98-5.22) L 09/25/16 05:32 Hgb 10.8 gm/L (11.2-15.7) L 09/25/16 05:32 Hct 32.9 % (34.1-44.9) L 09/25/16 05:32 MCV 95.6 fl (79.4-94.8) H 09/25/16 05:32 MCH 31.4 pg (25.6-32.2) 09/25/16 05:32 MCHC 32.8 g/dl (32.2-35.5) 09/25/16 05:32 RDW Std Deviation 60.5 fL (36.4-46.3) H 09/25/16 05:32 Plt Count 94 K/mm3 (182-369) L 09/25/16 05:32 MPV 9.0 fl (9.4-12.3) L 09/25/16 05:32 Neut % (Auto) 28.1 % (34.0-71.1) L 09/25/16 05:32 Lymph % (Auto) 55.6 % (19.3-51.7) H 09/25/16 05:32 [place] % (Auto) 12.4 % (4.7-12.5) 09/25/16 05:32 Eos % (Auto) 3.5 (0.7-5.8) 09/25/16 05:32 Baso % (Auto) 0.4 % (0.1-1.2) 09/25/16 05:32 Neut # (Auto) 0.73 K/mm3 (1.56-6.13) L 09/25/16 05:32 Lymph # (Auto) 1.44 K/mm3 (1.18-3.74) 09/25/16 05:32 [place] # (Auto) 0.32 K/mm3 (0.24-0.36) 09/25/16 05:32 Eos # (Auto) 0.09 K/mm3 (0.04-0.36) 09/25/16 05:32 Baso # (Auto) 0.01 K/mm3 (0.01-0.08) 09/25/16 05:32 Neutrophils % (Manual) 70 % (40-60) H 09/22/16 07:55 Band Neutrophils % 1 % (0-10) 09/22/16 07:55 Lymphocytes % (Manual) 28 % (20-40) 09/22/16 07:55 Atypical Lymphs % 0 % 09/22/16 07:55 Monocytes % (Manual) 0 % (2-10) L 09/22/16 07:55 Eosinophils % (Manual) 1 % (0.7-5.8) 09/22/16 07:55 Basophils % (Manual) 0 (0.1-1.2) L 09/22/16 07:55 Manual Slide Review Abnormal smear 09/25/16 05:32 Platelet Estimate Adequate 09/22/16 07:55 Plt Morphology Comment Normal 09/22/16 07:55 Anisocytosis 1+ slight 09/22/16 07:55 RBC Morph Comment Not Reportable 09/22/16 07:55 Sodium 143 mEq/L (136-145) 09/25/16 05:32 Potassium 4.0 mEq/L (3.5-5.1) 09/25/16 05:32 Chloride 112 mEq/L (98-107) H 09/25/16 05:32 Carbon Dioxide 24 mEq/L (21-32) 09/25/16 05:32 Anion Gap 11.0 (5-15) 09/25/16 05:32 BUN 11 mg/dL (7-18) 09/25/16 05:32 Creatinine 0.8 mg/dL (0.55-1.02) 09/25/16 05:32 Est Cr Clr Drug Dosing 57.84 mL/min 09/25/16 05:32 Estimated GFR (MDRD) > 60 mL/min (>60) 09/25/16 05:32 BUN/Creatinine Ratio 13.8 (14-18) L 09/25/16 05:32 Glucose 93 mg/dL (74-106) 09/25/16 05:32 Calcium 8.0 mg/dL (8.5-10.1) L 09/25/16 05:32 Total Bilirubin 1.5 mg/dL (0.2-1.0) H 09/24/16 05:48 Direct Bilirubin 0.70 mg/dl (0.0-0.2) H 09/24/16 05:48 Indirect Bilirubin 0.80 09/24/16 05:48 GGT 1451 U/L (5-55) H 09/22/16 07:55 AST 100 U/L (15-37) H 09/24/16 05:48 ALT 360 U/L (14-59) H 09/24/16 05:48 Alkaline Phosphatase 72 U/L (46-116) 09/24/16 05:48 Troponin I < 0.017 ng/mL (0.00-0.056) 09/22/16 07:55 C-Reactive Protein < 0.2 mg/dL (<1.0) 09/25/16 05:32 Total Protein 6.0 g/dl (6.4-8.2) L 09/24/16 05:48 Albumin 3.0 g/dl (3.4-5.0) L 09/24/16 05:48 Globulin 3.0 gm/dL 09/24/16 05:48 Albumin/Globulin Ratio 1.0 (1-2) 09/24/16 05:48 Triglycerides 145 mg/dL (<150) 09/23/16 05:49 Cholesterol 163 mg/dL (<200) 09/23/16 05:49 LDL Cholesterol Direct 98 mg/dL (<100) 09/23/16 05:49 HDL Cholesterol 31.0 mg/dL (40-59) L 09/23/16 05:49 Lipase 203 U/L (73-393) 09/22/16 07:55 Urine Color Yellow (Yellow) 09/22/16 07:55 Urine Appearance Clear (Clear) 09/22/16 07:55 Urine pH 7.0 (5.0-8.0) 09/22/16 07:55 Ur Specific [place] 1.020 (1.005-1.030) 09/22/16 07:55 Urine Protein 1+ (Negative) H 09/22/16 07:55 Urine Glucose (UA) Negative (Negative) 09/22/16 07:55 Urine Ketones Negative (Negative) 09/22/16 07:55 Urine Occult Blood Trace-lysed (Negative) H 09/22/16 07:55 Urine Nitrite Negative (Negative) 09/22/16 07:55 Urine Bilirubin 1+ (Negative) H 09/22/16 07:55 Urine Urobilinogen 2.0 (0.2-1.0) H 09/22/16 07:55 Ur Leukocyte Esterase Negative (Negative) 09/22/16 07:55 Urine RBC 0-5 /hpf (0-5) 09/22/16 07:55 Urine WBC 0-5 /hpf (0-5) 09/22/16 07:55 Urine WBC Clumps Not seen /hpf (NOT SEEN) 09/22/16 07:55 Ur Epithelial Cells 0-5 /hpf (0-5) 09/22/16 07:55 Ur Transition Epith Cell 0-5 (0-5) 09/22/16 07:55 Urine Bacteria Moderate /hpf (FEW) H 09/22/16 07:55 Hyaline Casts 0-5 /lpf (0-5) 09/22/16 07:55 Urine Mucus Not seen /hpf (FEW) 09/22/16 07:55 Urine Yeast Not seen (NOT SEEN) 09/22/16 07:55 H. pylori IgG Antibody Negative (NEGATIVE) 09/24/16 05:48 Above labs reviewed and noted and appropriate to proceed with scheduled procedure. - Imaging/EKG Impressions: EKG: sinus rhythm, nonspecific ST-T wave changes. - Allergies Allergies/Adverse Reactions: Allergies Allergy/AdvReac Type Severity Reaction Status Date / Time No Known Allergies Allergy Verified 09/22/16 12:45 - Anesthesia Plan Pre-Op Medication Ordered: None - Acknowledgements Anesthesia Type Planned: MAC Pt an Appropriate Candidate for the Planned Anesthesia: Yes Alternatives and Risks of Anesthesia Discussed w Pt/Guardian: Yes Pt/Guardian Understands and Agrees with Anesthesia Plan: Yes PreAnesthesia Questionnaire HEENT History: Reports: Impaired Vision Other HEENT History: glasses. upper and lower dentures Gastrointestinal History: Reports: GERD, Hemorrhoids Genitourinary History: Reports: UTI, Recurrent SECURITY OFFICER History: Reports: Musculoskeletal History: Reports: Osteoarthritis, RA Endocrine/Metabolic History: Reports: Hypothyroidism, Obesity/BMI 30+ Hematologic History: Reports: Blood Transfusion(s) - Past Surgical History HEENT Surgical History: Reports: Tonsillectomy Female Surgical History: Reports: Section Other Female Surgeries/Procedures: csection x2 Endocrine Surgical History: Reports: Thyroidectomy Neurological Surgical History: Reports: Discectomy, Lumbar Spine Other Neurological Surgeries/Procedures: planning to have another surgery and fuse L4&5 this coming winter. Musculoskeletal Surgical History: Reports: Other (See Below) Other Musculoskeletal Surgeries/Procedures:: bunion surgery right foot. - SUBSTANCE USE Smoking Status *Q: Former Smoker Tobacco Use Within Last Twelve Months: Cigarettes Second Hand Smoke Exposure: No Recreational Drug Use History: No - HOME MEDS Home Medications: Home Meds Hydroxychloroquine Sulfate [Plaquenil] 200 mg PO BID 05/04/15 [History] Levothyroxine Sodium [Synthroid] 137 mcg PO DAILY 05/04/15 [History] Meloxicam 7.5 mg PO DAILY 02/20/16 [History] oxyCODONE HCl/Acetaminophen [oxyCODONE-Acetaminophen 5-325] 2 tab PO QID PRN [History] - CURRENT (IN HOUSE) MEDS Current Meds: Current Medications Hydroxychloroquine Sulfate (Plaquenil) 200 mg PO BID [facility] Last Admin: 09/24/16 20:33 Dose: 200 mg Levothyroxine Sodium (Levothroid) 137 mcg PO ACBREAKFAST [facility] Last Admin: 09/25/16 06:02 Dose: Not Given Oxycodone/Acetaminophen (Percocet 325-5 Mg) 2 tab PO QID PRN PRN Reason: Pain Last Admin: 09/24/16 20:33 Dose: 2 tab Pantoprazole Sodium (Protonix Iv) 40 mg IVPUSH DAILY [facility] Last Admin: 09/25/16 08:46 Dose: 40 mg Meloxicam 7.5 Mg 0 each PO DAILY [facility] Last Admin: 09/24/16 08:46 Dose: Not Given Polyethylene Glycol (Miralax) 17 gm PO DAILY PRN PRN Reason: Constipation Last Admin: 09/24/16 08:45 Dose: 17 gm Sodium Chloride (Saline Flush) 10 ml FLUSH ASDIRECTED PRN PRN Reason: Keep Vein Open Temazepam (Restoril) 15 mg PO BEDTIME PRN PRN Reason: Insomnia Last Admin: 09/24/16 20:33 Dose: 15 mg Discontinued Medications Diphtheria/Tetanus/Acell Pertussis (Adacel) 0.5 ml IM .ONCE ONE Stop: 09/22/16 13:01 Hydromorphone HCl (Dilaudid) 0.5 mg IVPUSH ONETIME ONE Stop: 09/22/16 08:34 Last Admin: 09/22/16 08:47 Dose: 0.5 mg Hydromorphone HCl (Dilaudid) 0.5 mg IVPUSH ONETIME ONE Stop: 09/22/16 11:55 Last Admin: 09/22/16 12:02 Dose: 0.5 mg Lactated Ringer's (Ringers, Lactated) 1,000 mls @ 150 mls/hr IV ASDIRECTED [facility] Last Admin: 09/24/16 05:46 Dose: 150 mls/hr Lactated Ringer's (Ringers, Lactated) 1,000 mls @ 999 mls/hr IV .BOLUS ONE Stop: 09/22/16 08:47 Last Admin: 09/22/16 08:24 Dose: 999 mls/hr Magnesium Sulfate 2 gm/ Premix 50 mls @ 25 mls/hr IV ONETIME ONE Stop: 09/23/16 15:18 Last Admin: 09/23/16 13:39 Dose: 25 mls/hr Morphine Sulfate (Morphine) 2 mg IVPUSH ONETIME ONE Stop: 09/25/16 08:01 Last Admin: 09/25/16 08:45 Dose: 2 mg Ondansetron HCl (Zofran) 4 mg IVPUSH ONETIME ONE Stop: 09/22/16 07:48 Last Admin: 09/22/16 08:24 Dose: 4 mg Pneumococcal Polyvalent Vaccine (Pneumovax 23) 0.5 ml IM .ONCE ONE Stop: 09/22/16 13:01 Potassium Chloride (Klor-Con M20) 60 meq PO ONETIME ONE Stop: 09/23/16 07:40 Last Admin: 09/23/16 08:28 Dose: 60 meq Potassium Chloride (Klor-Con M20) 40 meq PO BID [facility] Last Admin: 09/24/16 08:45 Dose: 40 meq
[2016-09-25] MEDS ORDERED: Bupivacaine 0.5% 30 ML SDV ONE (09:54)
[2016-09-25] MEDS ORDERED: Lidocaine 1% 30 ML SDV ONE (09:54)
[2016-09-25] MEDS ORDERED: Albuterol 0.083% 2.5 MG/3 ML Neb Soln NEB ONE (10:23)
[2016-09-25] MEDS ORDERED: Albuterol 0.083% 2.5 MG/3 ML Neb Soln ONE (10:28)
[2016-09-25] MEDS ORDERED: Propofol 200 MG/20 ML SDV ONE ×2 (10:50→11:57)
[2016-09-25] MEDS ORDERED: fentaNYL 100 MCG/2 ML SDV ONE (10:50)
--- NOTE | 2016-09-25 11:45 | PCM.OPNOTE ---
- General Post-Op/Procedure Note Date of Surgery/Procedure: 09/25/16 Operative Procedure(s): EGD with bx Findings: duodenal ulcer Pre Op Diagnosis: anemia blood loss Post-Op Diagnosis: Same Anesthesia Technique: MAC Primary Surgeon: Neo Cabrera EBL in mLs: 0 Complications: None Condition: Good Free Text/Narrative:: Intake & Output 09/24/16 09/25/16 09/25/16 23:59 07:59 15:59 Intake Total 120 600 Output Total 300 Balance 120 300
--- NOTE | 2016-09-25 12:01 | PCM48HPAN ---
Post Anesthesia Note - EVALUATION WITHIN 48HRS OF ANESTHETIC Vital Signs in Normal Range: Yes Patient Participated in Evaluation: Yes Respiratory Function Stable: Yes Airway Patent: Yes Cardiovascular Function Stable: Yes Hydration Status Stable: Yes Pain Control Satisfactory: Yes Nausea and Vomiting Control Satisfactory: Yes Mental Status Recovered: Yes - COMMENTS/OBSERVATIONS Free Text/Narrative:: Patient up to bathroom and on room air. Doing well. Has no complaints
[2016-09-25] MEDS: Hydroxychloroquine 200 MG Tab PO SCH (13:05)
[2016-09-25] MEDS: Acetaminophen/oxyCODONE 325-5 MG Tab PO PRN ×2 (13:09→15:57)
[2016-09-25 14:25] VITALS: BP 102/43
[2016-09-25] MEDS ORDERED: Diphtheria,Pertussis(Acell),Tetanus Vaccine 0.5 ML SDV IM ONE (15:00)
[2016-09-25] MEDS ORDERED: Pneumococcal Polyvalent-23 Vaccine 0.5 ML SDV IM ONE (15:00)
--- NOTE | 2016-09-25 15:20 | PCM.DCSUM1 ---
Discharge Summary - Hospital Course Brief History: This is a 60 year old white female with past medical hx/o hypothyroidism, GERD, hemorrhoids, OA, rheumatoid arthritis, and obesity who presents to the emergency department with complaints of abdominal pain associated with nausea and vomiting. Patient was admitted for workup related to abdominal pain. - Discharge Data Discharge Date: 09/25/16 Discharge Disposition: Home, Self-Care 01 Condition: Good - Discharge Diagnosis/Problem(s) (1) PUD (peptic ulcer disease) SNOMED Code(s): 42141304 ICD Code: K27.9 - PEPTIC ULC, SITE UNSP, UNSP AC OR CHR, W/O HEMOR OR PERF Status: Acute (2) Chronic back pain SNOMED Code(s): 363917981 ICD Code: M54.9 - DORSALGIA, UNSPECIFIED; G89.29 - OTHER CHRONIC PAIN Status: Chronic Qualifiers: Back pain location: back pain in unspecified location Back pain laterality : bilateral Qualified Code(s): M54.9 - Dorsalgia, unspecified; G89.29 - Other chronic pain (3) Abdominal pain SNOMED Code(s): 33749854 ICD Code: R10.9 - UNSPECIFIED ABDOMINAL PAIN Status: Resolved Qualifiers: Abdominal location: generalized Qualified Code(s): R10.84 - Generalized abdominal pain (4) GERD (gastroesophageal reflux disease) SNOMED Code(s): 537390481 ICD Code: K21.9 - GASTRO-ESOPHAGEAL REFLUX DISEASE WITHOUT ESOPHAGITIS Status: Chronic Qualifiers: Esophagitis presence: without esophagitis Qualified Code(s): K21.9 - Gastro -esophageal reflux disease without esophagitis (5) Transaminitis SNOMED Code(s): 964802855 ICD Code: R74.0 - NONSPEC ELEV OF LEVELS OF TRANSAMNS & LACTIC ACID DEHYDRGNSE Status: Acute (6) Thickening of wall of gallbladder SNOMED Code(s): 739909906 ICD Code: K82.8 - OTHER SPECIFIED DISEASES OF GALLBLADDER Status: Acute - Patient Summary/Data Operative Procedure(s) Performed: EGD with bx Complications: None Consults: Consultations 09/22/16 14:25 Consult to Physical Therapy [PT Evaluation and Treatment] [CONS] Routine Consult to Transport Driver [CONS] Routine 09/22/16 15:00 Consult to Occupational Therapy [OT Evaluation and Treatment] [CONS] Routine Consult to Physician [CONS] Routine Recommended Follow-up Testing/Procedures: CMP in 1 week Hospital Course: Patient was primarily admitted for abdominal pain associated with nausea and vomiting. Initial work up revealed gall bladder abnormality was the presumptive cause of her presenting illness. She had an elevated Liver enzymes along with a markedly elevated GGT level. Her abnormal U/S shows thickened gall bladder wall w/o gallstones or cysts. However with supportive care and PRN meds, patient slowly improved on this regimen. Dr. Cabrera was further consulted for further evaluation and patient underwent EGD with biopsy. Patient was found to have an uncomplicated PUD with pending biopsy result. As for her Transminitis, it was unclear where the source was but we felt Plaquenil may have contributed to it. However her levels have improved and she will have a CMP in 1 week for follow up labs. Her hospital course was uncomplicated. The rest of her chronic medical illness remained stable during this admission. Patient will now be discharged to home with PPIs and Carafate to take. She is to avoid acidic food for 1 week and to absolutely NSAIDs in the future. She is to discontinue her Meloxicam (NSAIDs) but continue with her Percocet for chronic pain and RA. Patient was advised to follow up with Dr. Cabrera in 2 weeks to discuss biopsy result. She was further advised to come back or seek immediate care should her symptoms persist or get worse. Patient expressed understanding and in agreement with the plans as discussed above. All questions were answered. - Patient Instructions Diet: Usual Diet as Tolerated Activity: As Tolerated Driving: May Drive Today Showering/Bathing: May Shower Notify Provider of: Fever, Increased Pain, Nausea and/or Vomiting Other/Special Instructions: - Please take all medications as directed. - Avoid acidic food for 1 week. - Absolutely NO NSAIDs!!! - Call your family doctor for any questions or concerns. - Follow up with Dr. Cabrera in 2 weeks - Discharge Plan Prescriptions/Med Rec: Omeprazole 20 mg PO BIDAC #60 cap.cr Sucralfate [Carafate] 1 gm PO QIDACANDBED #120 tablet Home Medications: Home Meds Hydroxychloroquine Sulfate [Plaquenil] 200 mg PO BID 05/04/15 [History] Levothyroxine Sodium [Synthroid] 137 mcg PO DAILY 05/04/15 [History] oxyCODONE HCl/Acetaminophen [oxyCODONE-Acetaminophen 5-325] 2 tab PO QID PRN [History] Omeprazole 20 mg PO BIDAC #60 cap.cr 09/25/16 [Rx] Sucralfate [Carafate] 1 gm PO QIDACANDBED #120 tablet 09/25/16 [Rx] Patient Handouts: Smoking Cessation, Tips for Success, [id number], Abdominal Pain, Adult, Peptic Ulcer, [id number], Nausea, Adult, [id number] Referrals: Sharona Gonzalez PA-C [Primary Care Provider] - 10/03/16 1:45 pm () - Discharge Summary/Plan Comment DC Time >30 min.: Yes (45 mins) Discharge Summary/Plan Comment: Discharge to Home - General Info Date of Service: 09/25/16 Admission Dx/Problem (Free Text: Admission Diagnosis/Problem Admission Diagnosis/Problem Dehydration Subjective Update: Follow Up Functional Status: Reports: Pain Controlled, Tolerating Diet, Ambulating, Urinating. Denies: New Symptoms - Review of Systems General: Denies: Fever, Weakness, Fatigue, Malaise, Chills HEENT: Reports: No Symptoms Pulmonary: Denies: Shortness of Breath Cardiovascular: Denies: Chest Pain Gastrointestinal: Reports: Flatus. Denies: Abdominal Pain, Decreased Appetite, Difficulty Swallowing, Nausea, Vomiting Genitourinary: Reports: No Symptoms Musculoskeletal: Reports: No Symptoms Skin: Reports: No Symptoms Neurological: Denies: Confusion, Difficulty Walking, Weakness, Gait Disturbance Psychiatric: Denies: Depression, Anxiety, Agitation, Hallucinations Systems Review Comment: No overnight or acute issues. She is doing relatively well. No complications report after EGD. She was found to have PUD per Dr. Cabrera. - Patient Data Vitals - Most Recent: Last Vital Signs Temp 36.5 C 09/25/16 11:57 Pulse 77 09/25/16 11:57 Resp 16 09/25/16 11:57 BP 102/43 L 09/25/16 11:57 Pulse Ox 96 09/25/16 11:57 Weight - Most Recent: 96.071 kg I&O - Last 24 hours: Intake & Output 09/25/16 09/25/16 09/25/16 06:59 14:59 22:59 Intake Total 600 Output Total 300 Balance 300 Lab Results - Last 24 hrs: Laboratory Results - last 24 hr 09/25/16 09/25/16 Range/Units 05:32 05:32 WBC 2.59 L (3.98-10.04) K/mm3 RBC 3.44 L (3.98-5.22) M/mm3 Hgb 10.8 L (11.2-15.7) gm/L Hct 32.9 L (34.1-44.9) % MCV 95.6 H (79.4-94.8) fl MCH 31.4 (25.6-32.2) pg MCHC 32.8 (32.2-35.5) g/dl RDW Std Deviation 60.5 H (36.4-46.3) fL Plt Count 94 L (182-369) K/mm3 MPV 9.0 L (9.4-12.3) fl Neut % (Auto) 28.1 L (34.0-71.1) % Lymph % (Auto) 55.6 H (19.3-51.7) % [place] % (Auto) 12.4 (4.7-12.5) % Eos % (Auto) 3.5 (0.7-5.8) Baso % (Auto) 0.4 (0.1-1.2) % Neut # (Auto) 0.73 L (1.56-6.13) K/mm3 Lymph # (Auto) 1.44 (1.18-3.74) K/mm3 [place] # (Auto) 0.32 (0.24-0.36) K/mm3 Eos # (Auto) 0.09 (0.04-0.36) K/mm3 Baso # (Auto) 0.01 (0.01-0.08) K/mm3 Manual Slide Review Abnormal smear Sodium 143 (136-145) mEq/L Potassium 4.0 (3.5-5.1) mEq/L Chloride 112 H (98-107) mEq/L Carbon Dioxide 24 (21-32) mEq/L Anion Gap 11.0 (5-15) BUN 11 (7-18) mg/dL Creatinine 0.8 (0.55-1.02) mg/dL Est Cr Clr Drug Dosing 57.84 mL/min Estimated GFR (MDRD) > 60 (>60) mL/min BUN/Creatinine Ratio 13.8 L (14-18) Glucose 93 (74-106) mg/dL Calcium 8.0 L (8.5-10.1) mg/dL C-Reactive Protein < 0.2 (<1.0) mg/dL Med Orders - Current: Current Medications Hydroxychloroquine Sulfate (Plaquenil) 200 mg PO BID [facility] Last Admin: 09/25/16 13:05 Dose: 200 mg Levothyroxine Sodium (Levothroid) 137 mcg PO ACBREAKFAST [facility] Last Admin: 09/25/16 13:05 Dose: 137 mcg Oxycodone/Acetaminophen (Percocet 325-5 Mg) 2 tab PO QID PRN PRN Reason: Pain Last Admin: 09/25/16 13:09 Dose: 2 tab Pantoprazole Sodium (Protonix Iv) 40 mg IVPUSH DAILY [facility] Last Admin: 09/25/16 08:46 Dose: 40 mg Meloxicam 7.5 Mg 0 each PO DAILY [facility] Last Admin: 09/25/16 12:47 Dose: Not Given Polyethylene Glycol (Miralax) 17 gm PO DAILY PRN PRN Reason: Constipation Last Admin: 09/24/16 08:45 Dose: 17 gm Sodium Chloride (Saline Flush) 10 ml FLUSH ASDIRECTED PRN PRN Reason: Keep Vein Open Temazepam (Restoril) 15 mg PO BEDTIME PRN PRN Reason: Insomnia Last Admin: 09/24/16 20:33 Dose: 15 mg Discontinued Medications Albuterol (Proventil Neb Soln) 2.5 mg NEB ONETIME ONE Stop: 09/25/16 10:24 Last Admin: 09/25/16 10:37 Dose: 2.5 mg Albuterol (Proventil Neb Soln) Confirm Administered Dose 2.5 mg .ROUTE .STK-MED ONE Stop: 09/25/16 10:29 Last Admin: 09/25/16 12:50 Dose: Not Given Bupivacaine HCl (Marcaine 0.5%) Confirm Administered Dose 30 ml .ROUTE .STK-MED ONE Stop: 09/25/16 09:55 Diphtheria/Tetanus/Acell Pertussis (Adacel) 0.5 ml IM .ONCE ONE Stop: 09/25/16 15:01 Fentanyl (Sublimaze) Confirm Administered Dose 100 mcg .ROUTE .STK-MED ONE Stop: 09/25/16 10:51 Hydromorphone HCl (Dilaudid) 0.5 mg IVPUSH ONETIME ONE Stop: 09/22/16 08:34 Last Admin: 09/22/16 08:47 Dose: 0.5 mg Hydromorphone HCl (Dilaudid) 0.5 mg IVPUSH ONETIME ONE Stop: 09/22/16 11:55 Last Admin: 09/22/16 12:02 Dose: 0.5 mg Lactated Ringer's (Ringers, Lactated) 1,000 mls @ 150 mls/hr IV ASDIRECTED [facility] Last Admin: 09/24/16 05:46 Dose: 150 mls/hr Lactated Ringer's (Ringers, Lactated) 1,000 mls @ 999 mls/hr IV .BOLUS ONE Stop: 09/22/16 08:47 Last Admin: 09/22/16 08:24 Dose: 999 mls/hr Magnesium Sulfate 2 gm/ Premix 50 mls @ 25 mls/hr IV ONETIME ONE Stop: 09/23/16 15:18 Last Admin: 09/23/16 13:39 Dose: 25 mls/hr Lidocaine HCl (Xylocaine-Mpf 1%) Confirm Administered Dose 30 ml .ROUTE .STK- MED ONE Stop: 09/25/16 09:55 Morphine Sulfate (Morphine) 2 mg IVPUSH ONETIME ONE Stop: 09/25/16 08:01 Last Admin: 09/25/16 08:45 Dose: 2 mg Ondansetron HCl (Zofran) 4 mg IVPUSH ONETIME ONE Stop: 09/22/16 07:48 Last Admin: 09/22/16 08:24 Dose: 4 mg Pneumococcal Polyvalent Vaccine (Pneumovax 23) 0.5 ml IM .ONCE ONE Stop: 09/25/16 15:01 Potassium Chloride (Klor-Con M20) 60 meq PO ONETIME ONE Stop: 09/23/16 07:40 Last Admin: 09/23/16 08:28 Dose: 60 meq Potassium Chloride (Klor-Con M20) 40 meq PO BID [facility] Last Admin: 09/24/16 08:45 Dose: 40 meq Propofol (Diprivan 20 Ml) Confirm Administered Dose 200 mg .ROUTE .STK-MED ONE Stop: 09/25/16 10:51 Propofol (Diprivan 20 Ml) Confirm Administered Dose 200 mg .ROUTE .STK-MED ONE Stop: 09/25/16 11:58 - Exam General: Reports: Alert, Oriented, Cooperative, No Acute Distress, Other (Obese) HEENT: Reports: Pupils Equal, Pupils Reactive, EOMI, Mucous Membr. Moist/Belva Neck: Reports: Supple, Trachea Midline, No JVD, No Thyromegaly Lungs: Reports: Clear to Auscultation, Normal Respiratory Effort Cardiovascular: Reports: Regular Rate, Regular Rhythm GI/Abdominal Exam: Normal Bowel Sounds, Soft, Non-Tender, No Organomegaly, No Distention, No Abnormal Bruit, No Mass (Female) Exam: Deferred Rectal (Female) Exam: Deferred Back Exam: Reports: Normal Inspection, Decreased Range of Motion Extremities: Normal Inspection, Normal Range of Motion, Non-Tender, No Pedal Edema, Normal Capillary Refill Skin: Reports: Warm, Dry, Intact Neurological: Reports: No New Focal Deficit Psy/Mental Status: Reports: Alert, Normal Affect, Normal Mood *Q Meaningful Use (DIS) - VTE *Q VTE Criteria *Q: - Stroke *Q Stroke Criteria *Q: - AMI *Q AMI Criteria *Q:
[2016-09-25] MEDS ORDERED: Morphine 2 MG/ML Syringe IVPUSH PRN (16:12)
--- NOTE | 2016-09-26 07:02 | OR ---
DATE OF OPERATION: 09/25/2016 SURGEON: Neo Cabrera MD PREOPERATIVE DIAGNOSIS: Abdominal pain, blood-loss anemia. POSTOPERATIVE DIAGNOSIS: Abdominal pain, blood-loss anemia. OPERATION PERFORMED: Esophagogastroduodenoscopy with biopsy. FINDINGS: Duodenal ulcer in the posterior aspect of the duodenum with a dry base. No evidence of bleeding or visible vessel. Also antrum had inflammation and there is small sliding hiatal hernia. GE junction, unremarkable. Rest of the esophagus did not see any pathology; body, cardia, and fundus of the stomach were free of any disease. OPERATION PERFORMED: Esophagogastroduodenoscopy with biopsy done under IV sedation. DESCRIPTION OF PROCEDURE: The patient was taken to the operating room, placed in a supine position, connected to monitoring equipment, given IV sedation, placed in left lateral position. Bite block was inserted and video Olympus gastroscope was placed in a posterior oropharynx under direct vision, threaded past the cricopharyngeus, down the esophagus, into the stomach. It was then passed through the pylorus to the second portion of the duodenum. Second portion of the duodenum was normal, but the small ulcer was noted in the posterior bulb with a dry great base. No visible vessels. No active bleeding. The pylorus was unremarkable, but the antrum showed inflammation. Antral biopsy was done looking for H. pylori. Body and cardia of the stomach were viewed. J-maneuver was performed. A small sliding hiatal hernia was noted. GE junction was located at 38 cm unremarkable and the rest of the esophagus was negative. The patient tolerated the procedure, sent to the recovery room in a stable condition. Specimen sent to Pathology in a labeled container. The patient will be followed up in the clinic. ANESTHESIA: ESTIMATED BLOOD LOSS: MMODAL /[id number]
--- NOTE | 2016-09-26 10:26 | PCM48HPAN ---
Post Anesthesia Note - COMMENTS/OBSERVATIONS Free Text/Narrative:: Patient discharged before post op visit. Vitals WNL. No problems noted.
== END 2016-09-25 16:15 | disposition home or self-care (01) | DRG 384 ==
LOC: JD.ED 07:10 → JD.MS 11:37
PROVIDERS: ADMIT Internal Medicine Cardiovascular Disease; ATTEND Internal Medicine Cardiovascular Disease
PROC: 0DJ08ZZ Inspection of Upper Intestinal Tract, Via Natural or Artificial Opening Endoscopic (ICD-10-PCS; principal; 2016-09-25)
DX: K27.9 Peptic ulcer, site unspecified, unspecified as acute or chronic, without hemorrhage or perforation (principal); E86.0 Dehydration; M54.9 Dorsalgia, unspecified; R10.84 Generalized abdominal pain; K21.9 Gastro-esophageal reflux disease without esophagitis; R74.0 Nonspecific elevation of levels of transaminase and lactic acid dehydrogenase [LDH]; K82.8 Other specified diseases of gallbladder; E03.9 Hypothyroidism, unspecified; K44.9 Diaphragmatic hernia without obstruction or gangrene; M19.90 Unspecified osteoarthritis, unspecified site; M06.9 Rheumatoid arthritis, unspecified; Z79.899 Other long term (current) drug therapy; Z87.891 Personal history of nicotine dependence
CPT/HCPCS: 00740; 36415; 74020; 74020-26; 76705; 76705-26; 80048; 80053; 80061; 80076; 81001; 82248; 82977; 83690; 84132; 84484; 85025; 86140; 86677; 88305; 88305-26; 90715; 90732; 93005; 94664; 94667; 96361; 96374; 96375; 97161-GP; 97165-GO; 99284; 99285-25; A9270-GY; C9113; J1170; J2270; J2405; J2704; J3010; J3475; J7120

== ENCOUNTER 2017-05-27 08:08 | Emergency (ER) | payer OTHER ==
[2017-05-27] MEDS ORDERED: Acetaminophen/HYDROcodone 325-5 MG Tab PO ONE (08:39)
--- NOTE | 2017-05-27 08:48 | EDM.PDOC ---
ED HPI GENERAL MEDICAL PROBLEM - General Chief Complaint: Neurological Problem Stated Complaint: POST BACK SURGERY ISSUES Time Seen by Provider: 05/27/17 08:22 Source of Information: Reports: Patient, RN Notes Reviewed - History of Present Illness INITIAL COMMENTS - FREE TEXT/NARRATIVE: 61-year-old female comes in with right foot pain numbness and tingling that in her words has been worsening over the past week or so. She did have surgery in her low back about 5 weeks ago in [place] for herniated disc. She states she had had prior lumbar fusion if I have it right about one year prior. She had been having a lot of difficulty with sciatica symptoms down the right lower leg prior to surgery. Leg is no better but the numbness of the right great and second toes has been worsening and in her words also having "a lot of pain". Been taking pain pills up until couple weeks ago when she ran out. She knows taken Tylenol but states that is not giving her "adequate relief". She also states that she will stumble due to lack of feeling bottom of her foot or she will "trip on stuff" with multiple falls recently. not currently under any type of physical therapy. Right Feet Pain Score (Numeric/FACES): 8 - Related Data Allergies Allergy/AdvReac Type Severity Reaction Status Date / Time No Known Allergies Allergy Verified 05/27/17 08:23 Home Meds: Home Meds Levothyroxine Sodium [Synthroid] 137 mcg PO DAILY 05/04/15 [History] Past Medical History HEENT History: Reports: Impaired Vision Other HEENT History: glasses. upper and lower dentures Gastrointestinal History: Reports: GERD, Hemorrhoids Genitourinary History: Reports: UTI, Recurrent [employer] History: Reports: Musculoskeletal History: Reports: Osteoarthritis, RA Endocrine/Metabolic History: Reports: Hypothyroidism, Obesity/BMI 30+ Hematologic History: Reports: Blood Transfusion(s) - Past Surgical History HEENT Surgical History: Reports: Tonsillectomy Female Surgical History: Reports: Section Other Female Surgeries/Procedures: csection x2 Endocrine Surgical History: Reports: Thyroidectomy Neurological Surgical History: Reports: Discectomy, Lumbar Spine Other Neurological Surgeries/Procedures: planning to have another surgery and fuse L4&5 this coming winter. Musculoskeletal Surgical History: Reports: Other (See Below) Other Musculoskeletal Surgeries/Procedures:: bunion surgery right foot. Social & Family History - Family History Family Medical History: Noncontributory - Tobacco Use Smoking Status *Q: Former Smoker Years of Tobacco use: 40 Packs/Tins Daily: 1 Used Tobacco, but Quit: Yes Month/Year Tobacco Last Used: 3 years ago Second Hand Smoke Exposure: No - Caffeine Use Caffeine Use: Reports: Coffee Other Caffeine Use: Coffee every day - Recreational Drug Use Recreational Drug Use: No Drug Use in Last 12 Months: No ED ROS GENERAL - Review of Systems Review Of Systems: See Below Constitutional: Denies: Fever, Chills, Diaphoresis HEENT: Reports: No Symptoms Respiratory: Denies: Shortness of Breath, Pleuritic Chest Pain Cardiovascular: Denies: Chest Pain GI/Abdominal: Denies: Abdominal Pain, Nausea, Vomiting Musculoskeletal: Reports: Back Pain (Minimal low back discomfort), Leg Pain ( Distal right leg medial aspect), Foot Pain (Right foot medial aspect clear to distal large toe and second toe) Skin: Denies: Rash Neurological: Reports: Numbness (Chronic paresthesias and numbness of distal right foot extending to great toe and second toe), Gait Disturbance (Has had difficulty with stumbling and falling). Denies: Weakness ED EXAM, NEURO - Physical Exam Exam: See Below General Appearance: Alert, Mild Distress Eye Exam: Bilateral Eye: PERRL Throat/Mouth: Normal Inspection, Normal Oropharynx Neck: Supple Respiratory/Chest: No Respiratory Distress, Lungs Clear, Normal Breath Sounds Cardiovascular: Regular Rate, Rhythm Neurological: Alert, Oriented x 3, Other (Decreased sensation great toe and second toe of right foot, no focal weakness, foot is warm to touch toes are warm to touch, good dorsalis pedis pulse) Extremities: Normal Inspection. No: Joint Swelling, Leg Pain, Increased Warmth , Redness Skin Exam: Warm, Dry, Normal Color, No Rash Course - Vital Signs Last Recorded V/S: Last Vital Signs Temp 97.7 F 05/27/17 08:16 Pulse 95 05/27/17 09:37 Resp 16 05/27/17 08:16 BP 153/90 H 05/27/17 09:37 Pulse Ox 98 05/27/17 08:16 - Orders/Labs/Meds Meds: Medications Discontinued Medications Generic Name Dose Route Start Last Admin Trade Name Freq PRN Reason Stop Dose Admin Hydrocodone Bitart/Acetaminophen 1 tab 05/27/17 08:39 04/01/18 08:52 [place] 325-5 Mg PO 05/27/17 08:40 1 tab ONETIME ONE Administration Departure - Departure Time of Disposition: 08:45 Disposition: Home, Self-Care 01 Condition: Fair Clinical Impression: Paresthesia of right foot Foot pain Qualifiers: Laterality: right Qualified Code(s): M79.671 - Pain in right foot - Discharge Information Instructions: Paresthesia, [id number], Foot Pain Referrals: Sharona Gonzalez PA-C [Primary Care Provider] - Forms: ED Department Discharge Additional Instructions: Start physical therapy as soon as possible this week to let them help you work with continued rehabilitation from your surgery, continue current medications as prescribed, 20 tabs hydrocodone 5/3/25 have been supplied through [employer]. I recommend cutting them in half, take one half tablet hydrocodone 5/3/25 along with a 500 mg Tylenol 3-4 times daily as needed for more severe pain and then try taper back to mainly Tylenol as symptoms gradually improve. Try see Dr. Castellanos, your surgeon this week if possible, call tomorrow morning for appointment.
[2017-05-27 09:47] VITALS: BP 153/90
== END 2017-05-27 09:40 | disposition home or self-care (01) ==
LOC: JD.ED 08:08
DX: R20.2 Paresthesia of skin (principal); M79.671 Pain in right foot; E03.9 Hypothyroidism, unspecified; Z79.899 Other long term (current) drug therapy; Z87.891 Personal history of nicotine dependence
CPT/HCPCS: 99283; A9270

== ENCOUNTER 2017-09-07 15:56 | Emergency (ER) | payer MEDICAID, OTHER ==
[2017-09-07] MEDS ORDERED: Sodium Chloride 0.9% 1,000 ML IV ONE ×3 (16:32→18:51)
[2017-09-07] MEDS ORDERED: Ertapenem 1 GM in Sodium Chloride 0.9% 100 ML IV ONE (16:58)
--- NOTE | 2017-09-07 17:35 | EDM.PDOC ---
ED HPI GENERAL MEDICAL PROBLEM - General Chief Complaint: General Stated Complaint: SOB Time Seen by Provider: 09/07/17 16:13 Source of Information: Reports: Patient History Limitations: Reports: No Limitations - History of Present Illness INITIAL COMMENTS - FREE TEXT/NARRATIVE: 61-year-old female sent over from the infusion center for evaluation treatment of hypoxemia and hypotension. Patient has a complex past medical history. She had surgery to her low back in April 17 Her surgery subsequently became infected and she has been on antibiotics since. She was recently started on 1 g IV Invanz daily about one week ago. She has a PICC line placed. The patient today is complaining of fatigue. She states that she has been feeling diaphoretic. She is reporting back pain and right foot pain which is chronic. She has been having a cough for the last 2 days. States it is productive. She is not not appreciating fevers, chills or any sore throat. No chest pain or abdominal pain but she does reports she's been having some heartburn. She is not a smoker. Lower Back Pain Score (Numeric/FACES): 3 - Related Data Allergies Allergy/AdvReac Type Severity Reaction Status Date / Time No Known Allergies Allergy Verified 05/27/17 08:23 Home Meds: Home Meds Levothyroxine Sodium [Synthroid] 175 mcg PO DAILY 05/04/15 [History] Past Medical History HEENT History: Reports: Impaired Vision Other HEENT History: glasses. 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: Reports: Musculoskeletal History: Reports: Osteoarthritis, RA, Other (See Below) Other Musculoskeletal History: fusion of lower back x 3 vertebrae Mar 2017 Endocrine/Metabolic History: Reports: Hypothyroidism, Obesity/BMI 30+ Hematologic History: Reports: Blood Transfusion(s) - Past Surgical History HEENT Surgical History: Reports: Tonsillectomy Female Surgical History: Reports: Section Other Female Surgeries/Procedures: csection x2 Endocrine Surgical History: Reports: Thyroidectomy Neurological Surgical History: Reports: Discectomy, Lumbar Spine Other Neurological Surgeries/Procedures: planning to have another surgery and fuse L4&5 this coming winter. Musculoskeletal Surgical History: Reports: Other (See Below) Other Musculoskeletal Surgeries/Procedures:: bunion surgery right foot. Social & Family History - Family History Family Medical History: Noncontributory - Tobacco Use Smoking Status *Q: Former Smoker Used Tobacco, but Quit: Yes Month/Year Tobacco Last Used: 1.5 yr - Caffeine Use Caffeine Use: Reports: Coffee Other Caffeine Use: Coffee every day - Recreational Drug Use Recreational Drug Use: No ED ROS GENERAL - Review of Systems Review Of Systems: See Below Constitutional: Reports: Fatigue, Diaphoresis. Denies: Fever, Chills HEENT: Denies: Ear Pain, Throat Pain Respiratory: Reports: Cough, Sputum. Denies: Shortness of Breath Cardiovascular: Denies: Chest Pain GI/Abdominal: Reports: Other (reports heart burn). Denies: Abdominal Pain, Nausea, Vomiting Musculoskeletal: Reports: Back Pain (chronic) ED EXAM, GENERAL - Physical Exam Exam: See Below Exam Limited By: No Limitations General Appearance: Alert, WD/WN, No Apparent Distress, Other (color is knight) Eye Exam: Bilateral Eye: Normal Inspection Ears: Normal External Exam Throat/Mouth: Normal Inspection, Normal Lips, Normal Voice, No Airway Compromise Respiratory/Chest: No Respiratory Distress, Rhonchi (bilateral lug bases) Cardiovascular: Normal Peripheral Pulses, Regular Rate, Rhythm, No Murmur GI/Abdominal: Soft, Non-Tender Back Exam: Other (lawanda to the low back, minor erythema, no swelling or pus, no obvious cellulitis) Extremities: Other (PICC line to the right arm, minor erythema but no major swelling or pus, no obvious cellulitist) Neurological: Alert, Oriented, Normal Cognition Psychiatric: Normal Affect, Normal Mood Skin Exam: Warm, Dry, Normal Color EKG INTERPRETATION EKG Date: 09/07/17 Time: 17:15 Rhythm: NSR Rate (Beats/Min): 79 [place]: Normal P-Wave: Present QRS: Normal ST-T: Normal QT: Prolonged (607) EKG Interpretation Comments: NSR at 79 bpm. QTc prolonged at 607. Reviewed by myself and Dr. Read. Course - Vital Signs Last Recorded V/S: Last Vital Signs Temp 98.4 F 09/07/17 16:03 Pulse 83 09/07/17 16:03 Resp 20 09/07/17 16:03 BP 112/87 09/07/17 16:03 Pulse Ox 85 L 09/07/17 16:03 - Orders/Labs/Meds Orders: Active Orders 24 hr Category Date Time Status Cardiac Monitoring [RC] . DIRECTED Care 09/07/17 16:32 Active EKG Documentation Completion [RC] ASDIRECTED Care 09/07/17 16:33 Active Oxygen Therapy [RC] ASDIRECTED Care 09/07/17 16:32 Active Chest 2V [CR] Stat Exams 09/07/17 16:32 Taken CULTURE BLOOD [BC] Stat Lab 09/07/17 16:55 Received CULTURE BLOOD [BC] Stat Lab 09/07/17 17:10 Received CULTURE SPUTUM + SMEAR [RM] Stat Lab 09/07/17 17:25 Ordered CULTURE URINE [RM] Stat Lab 09/07/17 18:22 Ordered UA W/MICROSCOPIC [URIN] Stat Lab 09/07/17 18:22 Ordered Sodium Chloride 0.9% [Normal Saline] 1,000 ml Med 09/07/17 18:51 Active IV ONETIME Vancomycin 1 gm Med 09/07/17 19:00 Active Vancomycin 500 mg Sodium Chloride 0.9% [Normal Saline] 500 ml IV ONETIME Blood Culture x2 Reflex Set [OM.PC] Stat Oth 09/07/17 16:32 Ordered EKG 12 Lead [EK] Stat Ther 09/07/17 16:32 Ordered Medication Orders Vancomycin HCl 1 gm/Vancomycin HCl 500 mg/ Sodium Chloride 500 mls @ 333.025 mls/hr IV ONETIME ONE Stop: 09/07/17 20:30 Last Admin: 09/07/17 19:11 Dose: 333.025 mls/hr Sodium Chloride (Normal Saline) 1,000 mls @ 999 mls/hr IV ONETIME ONE Stop: 09/07/17 19:51 Last Admin: 09/07/17 19:31 Dose: 999 mls/hr Labs: Laboratory Tests 09/07/17 09/07/17 09/07/17 Range/Units 15:28 15:28 15:28 WBC (3.98-10.04) K/mm3 RBC (3.98-5.22) M/mm3 Hgb (11.2-15.7) gm/L Hct (34.1-44.9) % MCV (79.4-94.8) fl MCH (25.6-32.2) pg MCHC (32.2-35.5) g/dl RDW Std Deviation (36.4-46.3) fL Plt Count (182-369) K/mm3 MPV (9.4-12.3) fl Neutrophils % (Manual) (40-60) % Band Neutrophils % (0-10) % Lymphocytes % (Manual) (20-40) % Atypical Lymphs % % Monocytes % (Manual) (2-10) % Eosinophils % (Manual) (0.7-5.8) % Basophils % (Manual) (0.1-1.2) Toxic Granulation Platelet Estimate Plt Morphology Comment RBC Morph Comment PT (9.5-12.1) SECONDS INR APTT (24-31) SECONDS Sodium 135 L (136-145) mEq/L Potassium 4.0 (3.5-5.1) mEq/L Chloride 100 (98-107) mEq/L Carbon Dioxide 17 L (21-32) mEq/L Anion Gap 22.0 H (5-15) BUN 30 H (7-18) mg/dL Creatinine 2.4 H (0.55-1.02) mg/dL Est Cr Clr Drug Dosing 18.13 mL/min Estimated GFR (MDRD) 21 (>60) mL/min BUN/Creatinine Ratio 12.5 L (14-18) Glucose 150 H (74-106) mg/dL Lactic Acid (0.4-2.0) mmol/L Calcium 8.2 L (8.5-10.1) mg/dL Total Bilirubin 1.0 (0.2-1.0) mg/dL AST 7343 H (15-37) U/L ALT 2741 H (14-59) U/L Alkaline Phosphatase 216 H (46-116) U/L Lactate Dehydrogenase 4593 H (81-234) U/L Total Protein 7.1 (6.4-8.2) g/dl Albumin 3.3 L (3.4-5.0) g/dl Globulin 3.8 gm/dL Albumin/Globulin Ratio 0.9 L (1-2) Acetaminophen 51 H (10-30) ug/mL 09/07/17 09/07/17 09/07/17 Range/Units 16:55 17:10 17:10 WBC 19.31 H (3.98-10.04) K/mm3 RBC 3.52 L (3.98-5.22) M/mm3 Hgb 11.5 (11.2-15.7) gm/L Hct 35.4 (34.1-44.9) % MCV 100.6 H (79.4-94.8) fl MCH 32.7 H (25.6-32.2) pg MCHC 32.5 (32.2-35.5) g/dl RDW Std Deviation 50.3 H (36.4-46.3) fL Plt Count 178 L (182-369) K/mm3 MPV 9.9 (9.4-12.3) fl Neutrophils % (Manual) 97 H (40-60) % Band Neutrophils % 1 (0-10) % Lymphocytes % (Manual) 2 L (20-40) % Atypical Lymphs % 0 % Monocytes % (Manual) 0 L (2-10) % Eosinophils % (Manual) 0 L (0.7-5.8) % Basophils % (Manual) 0 L (0.1-1.2) Toxic Granulation 1+ slight Platelet Estimate Adequate Plt Morphology Comment Normal RBC Morph Comment Not Reportable PT 16.4 H (9.5-12.1) SECONDS INR 1.52 APTT 35 H (24-31) SECONDS Sodium (136-145) mEq/L Potassium (3.5-5.1) mEq/L Chloride (98-107) mEq/L Carbon Dioxide (21-32) mEq/L Anion Gap (5-15) BUN (7-18) mg/dL Creatinine (0.55-1.02) mg/dL Est Cr Clr Drug Dosing mL/min Estimated GFR (MDRD) (>60) mL/min BUN/Creatinine Ratio (14-18) Glucose (74-106) mg/dL Lactic Acid 2.4 H (0.4-2.0) mmol/L Calcium (8.5-10.1) mg/dL Total Bilirubin (0.2-1.0) mg/dL AST (15-37) U/L ALT (14-59) U/L Alkaline Phosphatase (46-116) U/L Lactate Dehydrogenase (81-234) U/L Total Protein (6.4-8.2) g/dl Albumin (3.4-5.0) g/dl Globulin gm/dL Albumin/Globulin Ratio (1-2) Acetaminophen (10-30) ug/mL Meds: Medications Generic Name Dose Route Start Last Admin Trade Name Freq PRN Reason Stop Dose Admin Vancomycin HCl 1 gm/ 500 mls @ 333.025 mls/hr 09/07/17 19:00 09/07/17 19:11 Vancomycin HCl 500 mg/ Sodium IV 09/07/17 20:30 333.025 mls/hr Chloride ONETIME ONE Administration Sodium Chloride 1,000 mls @ 999 mls/hr 09/07/17 18:51 09/07/17 19:31 Normal Saline IV 09/07/17 19:51 999 mls/hr ONETIME ONE Administration Discontinued Medications Generic Name Dose Route Start Last Admin Trade Name Alejandro PRN Reason Stop Dose Admin Hydromorphone HCl 1 mg 09/07/17 18:06 09/07/17 18:57 Dilaudid IVPUSH 09/07/17 18:07 1 mg ONETIME ONE Administration Sodium Chloride 1,000 mls @ 999 mls/hr 09/07/17 16:32 09/07/17 17:00 Normal Saline IV 09/07/17 17:32 999 mls/hr ONETIME ONE Administration Ertapenem 1 gm/ Sodium 100 mls @ 200 mls/hr 09/07/17 16:58 09/07/17 17:14 Chloride IV 09/07/17 17:27 200 mls/hr ONETIME ONE Administration Sodium Chloride 1,000 mls @ 999 mls/hr 09/07/17 17:20 09/07/17 17:57 Normal Saline IV 09/07/17 18:20 999 mls/hr ONETIME ONE Administration Vancomycin HCl 1 dose 09/07/17 18:22 Pharmacy To Dose - Vancomycin .XX 09/07/17 18:23 ONETIME ONE - Radiology Interpretation Free Text/Narrative:: CT chest Technique: Multiple axial sections through the chest were obtained. Intravenous contrast was not utilized. Comparison: Prior chest CT study of 02/05/17. Findings: Multiple small lymph nodes are seen within the mediastinum which are stable from prior exam and therefore incidental. Minimal coronary artery calcification is seen. Small pericardial effusion was seen on prior study which is not seen on current exam. No axillary adenopathy is seen. Lung shows slight atelectasis within the left base. Lungs otherwise are clear without acute parenchymal process. Bone window settings were reviewed which shows nothing acute. Impression: 1. Slight atelectasis within the left base. Other incidental findings. Nothing acute is seen on noncontrast CT study of the chest. Diagnostic code #2 CT abdomen and pelvis Technique: Multiple axial sections were obtained from above the dome of the diaphragm inferiorly to the pubic symphysis. Intravenous and oral contrast not utilized. Comparison: Previous CT abdomen and pelvis study dated 02/05/17. Findings: Noncontrast appearance of the liver shows no focal parenchymal abnormality. Spleen appears within normal limits. Adrenal glands show no nodule. Pancreas shows no discrete abnormality. Kidneys show no abnormal calcifications. No hydronephrosis is seen. Gallbladder contains no calcified gallstones. Aorta shows atherosclerotic change which continues into the iliac vessels without aneurysm. No retroperitoneal adenopathy is seen. No pelvic mass or adenopathy is noted. Appendix is seen which is normal in size. No free fluid or inflammatory change is seen within the abdomen or within the pelvis. Impression: 1. Nothing acute is seen on noncontrast CT study of the abdomen and pelvis. CT lumbar spine Technique: Multiple axial sections were obtained from the mid T11 level through the L5-S1 disc. Reconstructed sagittal and coronal images were reviewed. Comparison: Previous MRI lumbar spine exam of 05/19/16. Findings: Trans-pedicle screws are identified at L4-L5 and L5-S1 with intervertebral disc fixation. This is an interval change from previous exam. Vacuum disc phenomena is seen within the L3-L4 disc. Vacuum phenomena is seen within the sacroiliac joints. Posterior laminectomy is noted at L4-L5 and L5- S1. Mild disc space narrowing is noted at L3-L4. Mild degenerative apophyseal change is seen. No central canal stenosis or bony neural foraminal stenosis is seen. Impression: 1. Prior surgery at L4-L5 and L5-S1 causing some artifact. 2. Degenerative change at L3-L4 with vacuum phenomena and mild degenerative apophyseal change. 3. Nothing acute is appreciated. If further evaluation for infection within/or around the lumbar spine is needed , MRI could be considered. - Re-Assessments/Exams Free Text/Narrative Re-Assessment/Exam: 09/07/17 20:05 Patient received her 1600 (daily) dose of Invanz. Once her labs labs started returning and it was obvious she was septic I ordered vancomycin. Pharmacy dosed this based on her poor kidney function at this time. She has been receiving the 30 mils per kilo gram normal saline boluses recommended per septic protocol. I reviewed the labs and imaging with the patient. She is too ill to go home today. I do feel she should be at a higher-level care and I am recommending transfer to [place]. She asked to go to [facility] in [place] as that is where her back surgeries have been. I spoke with Dr. Hebert at [facility] in [place]. The neurosurgeon slurry control tender Dr. Alegria was also made aware of the case. [place] was able to me that Dr. Castellanos performed the surgery in March. She has been seeing Dr. Baker who denying the in her back on August 28. Patient is resting comfortably. The Dilaudid has helped with her chronic pain. Patient to go by ground ambulance at this time. She is a direct admission to the med/surg floor under Dr. Hebert. Departure - Departure Time of Disposition: 19:52 Disposition: DC/Tfer to Acute Hospital 02 Condition: Serious Clinical Impression: Sepsis, Acute kidney injury, Elevated transaminase level - Discharge Information *PRESCRIPTION DRUG MONITORING PROGRAM REVIEWED*: Yes *COPY OF PRESCRIPTION DRUG MONITORING REPORT IN PATIENT GILDARDO: No Referrals: Sharona Gonzalez PA-C [Primary Care Provider] - Forms: ED Department Discharge Additional Instructions: Patient to go by ground ambulance to [facility] in [place]. Dr. Hebert accepting. - My Orders Last 24 Hours: My Active Orders 09/07/17 16:32 Cardiac Monitoring [RC] . DIRECTED Oxygen Therapy [RC] ASDIRECTED Chest 2V [CR] Stat Blood Culture x2 Reflex Set [OM.PC] Stat EKG 12 Lead [EK] Stat 09/07/17 16:33 EKG Documentation Completion [RC] ASDIRECTED 09/07/17 16:55 CULTURE BLOOD [BC] Stat 09/07/17 17:10 CULTURE BLOOD [BC] Stat 09/07/17 17:25 CULTURE SPUTUM + SMEAR [RM] Stat 09/07/17 18:22 CULTURE URINE [RM] Stat UA W/MICROSCOPIC [URIN] Stat 09/07/17 18:51 Sodium Chloride 0.9% [Normal Saline] 1,000 ml IV ONETIME 09/07/17 19:00 Vancomycin 1 gm Vancomycin 500 mg Sodium Chloride 0.9% [Normal Saline] 500 ml IV ONETIME - Assessment/Plan Last 24 Hours: My Active Orders 09/07/17 16:32 Cardiac Monitoring [RC] . DIRECTED Oxygen Therapy [RC] ASDIRECTED Chest 2V [CR] Stat Blood Culture x2 Reflex Set [OM.PC] Stat EKG 12 Lead [EK] Stat 09/07/17 16:33 EKG Documentation Completion [RC] ASDIRECTED 09/07/17 16:55 CULTURE BLOOD [BC] Stat 09/07/17 17:10 CULTURE BLOOD [BC] Stat 09/07/17 17:25 CULTURE SPUTUM + SMEAR [RM] Stat 09/07/17 18:22 CULTURE URINE [RM] Stat UA W/MICROSCOPIC [URIN] Stat 09/07/17 18:51 Sodium Chloride 0.9% [Normal Saline] 1,000 ml IV ONETIME 09/07/17 19:00 Vancomycin 1 gm Vancomycin 500 mg Sodium Chloride 0.9% [Normal Saline] 500 ml IV ONETIME
[2017-09-07] MEDS ORDERED: HYDROmorphone 0.5 MG/0.5 ML SYRINGE IVPUSH ONE ×2 (18:06→20:36)
[2017-09-07] MEDS ORDERED: Vancomycin 1500 MG in Sodium Chloride 0.9% 500 ML IV ONE ×3 (19:00)
--- NOTE | 2017-09-07 19:34 | CT ---
CT chest Technique: Multiple axial sections through the chest were obtained. Intravenous contrast was not utilized. Comparison: Prior chest CT study of 02/05/17. Findings: Multiple small lymph nodes are seen within the mediastinum which are stable from prior exam and therefore incidental. Minimal coronary artery calcification is seen. Small pericardial effusion was seen on prior study which is not seen on current exam. No axillary adenopathy is seen. Lung shows slight atelectasis within the left base. Lungs otherwise are clear without acute parenchymal process. Bone window settings were reviewed which shows nothing acute. Impression: 1. Slight atelectasis within the left base. Other incidental findings. Nothing acute is seen on noncontrast CT study of the chest. Diagnostic code #2 CT abdomen and pelvis Technique: Multiple axial sections were obtained from above the dome of the diaphragm inferiorly to the pubic symphysis. Intravenous and oral contrast not utilized. Comparison: Previous CT abdomen and pelvis study dated 02/05/17. Findings: Noncontrast appearance of the liver shows no focal parenchymal abnormality. Spleen appears within normal limits. Adrenal glands show no nodule. Pancreas shows no discrete abnormality. Kidneys show no abnormal calcifications. No hydronephrosis is seen. Gallbladder contains no calcified gallstones. Aorta shows atherosclerotic change which continues into the iliac vessels without aneurysm. No retroperitoneal adenopathy is seen. No pelvic mass or adenopathy is noted. Appendix is seen which is normal in size. No free fluid or inflammatory change is seen within the abdomen or within the pelvis. Impression: 1. Nothing acute is seen on noncontrast CT study of the abdomen and pelvis. Diagnostic code #2
--- NOTE | 2017-09-07 19:34 | CT ---
CT lumbar spine Technique: Multiple axial sections were obtained from the mid T11 level through the L5-S1 disc. Reconstructed sagittal and coronal images were reviewed. Comparison: Previous MRI lumbar spine exam of 05/19/16. Findings: Trans-pedicle screws are identified at L4-L5 and L5-S1 with intervertebral disc fixation. This is an interval change from previous exam. Vacuum disc phenomena is seen within the L3-L4 disc. Vacuum phenomena is seen within the sacroiliac joints. Posterior laminectomy is noted at L4-L5 and L5-S1. Mild disc space narrowing is noted at L3-L4. Mild degenerative apophyseal change is seen. No central canal stenosis or bony neural foraminal stenosis is seen. Impression: 1. Prior surgery at L4-L5 and L5-S1 causing some artifact. 2. Degenerative change at L3-L4 with vacuum phenomena and mild degenerative apophyseal change. 3. Nothing acute is appreciated. If further evaluation for infection within/or around the lumbar spine is needed, MRI could be considered. Diagnostic code #2
[2017-09-07] MEDS ORDERED: Sodium Chloride 0.9% 1,000 ML ONE (20:33)
[2017-09-07] MEDS ORDERED: Sodium Chloride 0.9% 1,000 ML IV SCH (20:45)
[2017-09-07 21:17] VITALS: BP 107/47
--- NOTE | 2017-09-10 10:03 | CR ---
Chest: Two views of the chest were obtained. Comparison: Prior chest x-ray of 09/07/17. Mild left basilar atelectasis is seen. Heart size is normal. Right-sided PICC line is seen with tip lying within the right atria. Lungs otherwise are clear. Prior surgery is noted at the base of the neck or upper mediastinum. Bony structures are grossly intact. Impression: 1. Mild left basilar atelectasis. 2. Right-sided PICC line with tip lying within the right atria. 3. Other incidental findings. Diagnostic code #3
== END 2017-09-07 20:50 ==
LOC: SUPCPDRO 15:56 → JD.ED 15:56
DX: A41.9 Sepsis, unspecified organism (principal); N17.9 Acute kidney failure, unspecified; R74.0 Nonspecific elevation of levels of transaminase and lactic acid dehydrogenase [LDH]; E03.9 Hypothyroidism, unspecified; Z87.891 Personal history of nicotine dependence; Z79.899 Other long term (current) drug therapy
CPT/HCPCS: 36415; 71046; 71250; 72131; 74176; 80053; 83605; 83615; 85007; 85027; 85610; 85730; 87040; 87070; 87077; 87205; 93005; 96361; 96365; 96366; 96367; 96375; 96376; 99285; G0480; J1170; J1335; J3370; J7030; J7040; 93010

== ENCOUNTER 2018-07-23 17:52 | Emergency (ER) | payer MEDICAID ==
[2018-07-23 18:04] VITALS: BP 184/91
[2018-07-23] MEDS ORDERED: HYDROmorphone 1 MG/ML Syringe IM ONE (18:40)
[2018-07-23] MEDS ORDERED: Promethazine 25 MG/ML SDV IM ONE (18:40)
--- NOTE | 2018-07-23 18:43 | EDM.PDOC ---
ED HPI GENERAL MEDICAL PROBLEM - General Chief Complaint: Upper Extremity Injury/Pain Stated Complaint: LEFT SHOULDER PAIN Time Seen by Provider: 07/23/18 18:38 Source of Information: Reports: Patient History Limitations: Reports: No Limitations - History of Present Illness INITIAL COMMENTS - FREE TEXT/NARRATIVE: 62-year-old female presents to the ED if severe pain in her left shoulder. Patient suffers from both osteoarthritis and rheumatoid arthritis for many years. Both shoulders have been identified to be quite badly degenerated and she 's been receiving intermittent corticosteroid injections into the shoulders with some degree of relief. The last time she had it injected on the left side it was ineffectual but the right side seemed to respond. Last night with certain movements she felt a sudden pop and tearing sensation in her left shoulder and terrible pain since that time. Pain is constant and unrelenting. She never slept at all last night. She states at the present time she cannot afford to have the shoulders completely replaced and she needs to work to maintain her insurance. 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 At present she cannot abduct her shoulder past 70 and she cannot forward flex past 70. Onset: Sudden Onset Date: 07/22/18 (Last evening.) Duration: Hour(s): Location: Reports: Upper Extremity, Left Quality: Reports: Sharp (Severe sudden onset of severe pain in her left shoulder with a pop tearing sensation.), Stabbing, Throbbing Severity: Severe (Certain movements 9 out of 10) Improves with: Reports: None Worsens with: Reports: Movement (Been such as trying to forward flex or abduct make the pain worse.) Context: Denies: Activity, Exercise ( Pain does radiate down the outer aspect of her arm in the distribution of the deltoid tendon), Lifting, Sick Contact Associated Symptoms: Reports: Other (Has arthritis in both knees and has had previous L-spine surgery.). 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 Currently on a Medrol Dosepak day 3.) Left Shoulder Pain Score (Numeric/FACES): 9 - Related Data Allergies Allergy/AdvReac Type Severity Reaction Status Date / Time No Known Allergies Allergy Verified 05/27/17 08:23 Home Meds: Home Meds Levothyroxine Sodium [Synthroid] 175 mcg PO DAILY 05/04/15 [History] oxyCODONE HCl/Acetaminophen [Percocet 5-325 mg Tablet] 1 - 2 each PO Q4H PRN # 30 tablet 07/23/18 [Rx] Past Medical History HEENT History: Reports: Impaired Vision Other HEENT History: glasses. 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 ), Other (See Below) Other Musculoskeletal History: fusion of lower back x 3 vertebrae Mar 2017 Endocrine/Metabolic History: Reports: Hypothyroidism (Is on levothyroxine supplement.), Obesity/BMI 30+ Hematologic History: Reports: Blood Transfusion(s) - Past Surgical History HEENT Surgical History: Reports: Tonsillectomy Female Surgical History: Reports: Section Other Female Surgeries/Procedures: csection x2 Endocrine Surgical History: Reports: Thyroidectomy Neurological Surgical History: Reports: Discectomy, Lumbar Spine (Patient had spinal fusion at L4-L5 and S1 carried out one year ago. Is was because of severe sciatica bilaterally. She did have initial spinal stenosis surgery which did not relieve her sciatica pain.) Other Neurological Surgeries/Procedures: planning to have another surgery and fuse L4&5 this coming winter. Musculoskeletal Surgical History: Reports: Other (See Below) Other Musculoskeletal Surgeries/Procedures:: bunion surgery right foot. Social & Family History - Family History Family Medical History: Noncontributory - Tobacco Use Smoking Status *Q: Never Smoker - Caffeine Use Caffeine Use: Reports: Coffee Other Caffeine Use: Coffee every day - Recreational Drug Use Recreational Drug Use: No - Living Situation & Occupation Living situation: Reports: , Alone Occupation: Employed Review of Systems - Review of Systems Review Of Systems: See Below Constitutional: Reports: Weakness. Denies: Chills, Diaphoresis, Fever Eyes: Reports: Glasses Ears: Reports: No Symptoms Nose: Reports: No Symptoms Mouth/Throat: Reports: No Symptoms, Other (She can feel both temporomandibular joints clicking with movement but no pain) Respiratory: Reports: Shortness of Breath. Denies: Wheezing, Pleuritic Chest Pain (On exertion.), Cough, Sputum Cardiovascular: Reports: Other (Chronic hypertension) GI/Abdominal: Reports: No Symptoms Genitourinary: Reports: No Symptoms Musculoskeletal: Reports: Neck Pain, Shoulder Pain, Back Pain, Joint Pain (Both knees and both hands and ankles are painful) Skin: Reports: No Symptoms Neurological: Reports: No Symptoms Psychiatric: Reports: No Symptoms ED EXAM, GENERAL - Physical Exam Exam: See Below Exam Limited By: No Limitations General Appearance: Alert, Moderate Distress (She is in obvious pain and discomfort.), Other (Her vital signs reveal a respiratory to 22/m BP is markedly elevated at 204/114.) Eye Exam: Bilateral Eye: Normal Inspection Respiratory/Chest: No Accessory Muscle Use, Respiratory Distress, Decreased Breath Sounds. No: Lungs Clear, Normal Breath Sounds Cardiovascular: Normal Peripheral Pulses, Regular Rate, Rhythm, No Edema, No Gallop, No Murmur, No Rub Peripheral Pulses: 2+: Posterior Tibial (L), Posterior Tibial (R), Dorsalis Pedis (L), Dorsalis Pedis (R) Extremities: Other (Patient is increased warmth from both knees which show significant degenerative changes due to combination of rheumatoid arthritis and osteoarthritis. Both shoulders have very limited range of motion. Currently she is unable to forward flex past is 65 on the left or abduct greater than 70. She has pain in the distribution of the short head of the biceps the long head of the biceps the deltoid tendon insertion site and clinically has evidence of severe supraspinatus tendinitis as well. She has an unstable shoulder and the shoulder clicks and moves forward when she places the shoulder at her side. There is increased warmth and obvious effusion in the left shoulder joint as well. The right shoulder joint shows evidence of degenerative arthritis as well with clicking and catching with movement and again not able to abduct past 75 for forward flex past 75. There is no increased warmth at this time in the right shoulder.) Neurological: Alert, Oriented, CN II-XII Intact, Normal Cognition Psychiatric: Other Skin Exam: Warm (She is in a good deal of pain.), Dry, Intact, Normal Color, No Rash Course - Vital Signs Last Recorded V/S: Last Vital Signs Temp 36.6 C 05/28/19 17:57 Pulse 99 07/23/18 17:57 Resp 22 H 07/23/18 17:57 BP 184/91 H 07/23/18 18:03 Pulse Ox 98 07/23/18 17:57 - Orders/Labs/Meds Orders: Active Orders 24 hr Category Date Time Status Shoulder Comp Lt [CR] Stat Exams 07/23/18 18:38 Taken Meds: Medications Discontinued Medications Generic Name Dose Route Start Last Admin Trade Name Alejandro PRN Reason Stop Dose Admin Hydromorphone HCl 1 mg 07/23/18 18:40 07/23/18 18:51 Dilaudid IM 07/23/18 18:41 1 mg ONETIME ONE Administration Promethazine HCl 25 mg 07/23/18 18:40 07/23/18 18:51 Phenergan IM 07/23/18 18:41 25 mg ONETIME ONE Administration - Radiology Interpretation Free Text/Narrative:: 62-year-old female presents to the ED with severe left shoulder pain secondary to sudden tearing ripping sensation in the shoulder last evening. Patient is known to have advanced degenerative arthritis in both shoulders likely more to do with rheumatoid arthritis and osteoarthritis and she has been told that both shoulders need to be replaced. She has been receiving corticosteroid injections about every 3 months usually with some degree of benefit. She had the both injected about 10 days ago but only the right responded. Left did not get better at all. She is currently on a Medrol Dosepak as well. She did try course of meloxicam with no relief of the pain. Pain is rating down the left arm in the distribution of the deltoid. Examination reveals rotator cuff tendinitis as well as bilateral insertion of the biceps tendon tendinitis and some degree of an tendinitis at the insertion of the deltoid. There is marked instability of the shoulder joint as it shifts position with certain movements. Plan x-ray of the shoulder to be done. Given an IM injection of Dilaudid 1 mg with Phenergan 25 mg for acute relief of pain as she has just been ill for 24 hours and severe pain. - Re-Assessments/Exams Free Text/Narrative Re-Assessment/Exam: 07/23/18 19:25 x-ray of the left shoulder shows widening of the acromion and humeral head joint. Sinuses highly suggestive of rotator cuff disruption which is apparent clinically. I suspect she is at least partially torn if not completely torn her supraspinatus tendon on examination. Is mild degenerative arthritic changes in the joint as well. All I can do at this point time is treat her pain. 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 She can't have her shoulders repaired until after the golf season is over. She states she hasn't really had much pain relief after the Dilaudid 1 mg IM and Phenergan 25 mg IM. Prescription written for Percocet tablets 5/325 mg tablets one or 2 every 4-6 hours needed for pain relief x 30 tabs. She will be following up with her primary care physician in regards to chronic pain management. She feels she has to go to work and she is right-hand dominant and she states she can still use the right hand to most of her job which involves cooking. Departure - Departure Time of Disposition: 19:15 Disposition: Home, Self-Care 01 Condition: Fair Clinical Impression: Tendonitis of left rotator cuff Degenerative arthritis of left shoulder region Qualifiers: Osteoarthritis type: primary Qualified Code(s): M19.012 - Primary osteoarthritis, left shoulder - Discharge Information *PRESCRIPTION DRUG MONITORING PROGRAM REVIEWED*: No *COPY OF PRESCRIPTION DRUG MONITORING REPORT IN PATIENT GILDARDO: No Prescriptions: oxyCODONE HCl/Acetaminophen [Percocet 5-325 mg Tablet] 1 - 2 each PO Q4H PRN # 30 tablet PRN Reason: pain relief. Referrals: Sharona Gonzalez PA-C [Primary Care Provider] - Forms: ED Department Discharge Additional Instructions: Evaluation in the emergency room tonight in regards to severe pain in the left shoulder since sudden pop and tearing sensation in the shoulder last evening. Both shoulders are known to be suffering degenerative arthritic changes and rotator cuff tendinitis. You have been receiving intermittent corticosteroid injections into both shoulders to try and relieve the inflammation and pain. Unfortunately in the last occasion it only helped the right shoulder not the left. Emanation there is marked evidence of diffuse tendinitis involving the biceps tendon the deltoid tendon and the supraspinatus tendon in the left shoulder. There is increased warmth in the shoulder joint indicating marked underlying inflammation. X-ray of the shoulder joint shows evidence of rotator cuff tendinitis. At this point time it appears that either the biceps tendon or the supraspinatus tendon has ruptured causing her severe pain and limited mobility. As you are aware both shoulders will need replacement. Treatment at this time is simply pain management. You can continue Motrin 600 mg every 6 hours or Aleve 2 tablets every 8 hours to try and reduce pain and inflammation. You were given a pain shot in the ED to relieve acute pain and hopefully get you some sleep tonight. You may use Percocet tablets 5/325 mg one or 2 every 4- 6 hours for pain relief while not at work. Suggest one tablet with Motrin 600 mg tablet every 6 hours during the daytime to get through the pain until the shoulder tendinitis settles down. The acute pain will last 7-10 days and then gradually improved. Follow-up with your primary care physician if further pain medication is required. - My Orders Last 24 Hours: My Active Orders 07/23/18 18:38 Shoulder Comp Lt [CR] Stat - Assessment/Plan Last 24 Hours: My Active Orders 07/23/18 18:38 Shoulder Comp Lt [CR] Stat
--- NOTE | 2018-07-23 19:30 | CR ---
Left shoulder: 3 views left shoulder were obtained. Comparison: No previous study. Fracture appears to be present within the glenoid rim. Slight spurring is noted off the inferior and medial head. Acromioclavicular joint is within normal limits. Surgical clips are seen within the neck. Impression: 1. Glenoid rim fracture appears to be present. Age of this is indeterminate. 2. Slight degenerative change within the glenohumeral joint is seen. 3. Other incidental findings. Diagnostic code #3
== END 2018-07-23 19:30 | disposition home or self-care (01) ==
LOC: JD.ED 17:52
DX: M75.102 Unspecified rotator cuff tear or rupture of left shoulder, not specified as traumatic (principal); M19.012 Primary osteoarthritis, left shoulder; E03.9 Hypothyroidism, unspecified; Z79.899 Other long term (current) drug therapy
CPT/HCPCS: 73030; 96372; 99283; J1170; J2550; 99284

== ENCOUNTER 2018-09-23 11:30 | Inpatient (IN) | payer MEDICAID ==
[2018-12-23] MEDS ORDERED: Lidocaine 1%/Sod Bicarbonate in NS 8.4% 1 ML Syringe IDERM PRN (00:01)
[2018-12-23] MEDS ORDERED: Sodium Chloride 0.9% 10 ML Syringe FLUSH PRN (00:01)
[2018-12-23] MEDS ORDERED: Lactated Ringers 1,000 ML IV SCH (00:01)
[2018-12-23] MEDS ORDERED: Lidocaine 1% 2 ML ONE ×2 (03:29→11:19)
[2018-12-23] MEDS ORDERED: Ropivacaine 0.5% 5 MG/ML 30 ML SDV ONE (03:30)
[2018-12-23] MEDS ORDERED: EPINEPHrine 1 MG/ML SDV ONE (03:30)
[2018-12-23] MEDS ORDERED: Morphine 2 MG/ML Syringe IVPUSH PRN (06:58)
[2018-12-23] MEDS ORDERED: Sennosides 8.6 MG Tab PO PRN (06:58)
[2018-12-23] MEDS ORDERED: Bisacodyl 5 MG Tab PO PRN (06:58)
[2018-12-23] MEDS ORDERED: Magnesium Hydroxide 400 MG/5 ML Susp 30 ML Cup PO PRN (06:58)
[2018-12-23] MEDS ORDERED: Naloxone 0.4 MG/ML SDV IVPUSH PRN (06:58)
[2018-12-23] MEDS ORDERED: Ondansetron 4 MG/2 ML SDV IVPUSH PRN ×2 (06:58→13:49)
[2018-12-23] MEDS ORDERED: Acetaminophen 325 MG Tab PO SCH (09:02)
[2018-12-23] MEDS ORDERED: oxyCODONE ER 10 MG TAB.ER PO SCH (09:04)
[2018-12-23] MEDS ORDERED: Pregabalin 25 MG Cap PO SCH (09:04)
[2018-12-23] MEDS ORDERED: Propofol 200 MG/20 ML SDV ONE (09:13)
[2018-12-23] MEDS ORDERED: Midazolam 1 MG/ML 2 ML SDV ONE (09:14)
[2018-12-23] MEDS ORDERED: fentaNYL 100 MCG/2 ML SDV ONE (09:14)
[2018-12-23] MEDS ORDERED: Rocuronium 50 MG/5 ML Vial ONE (09:17)
[2018-12-23] MEDS ORDERED: Lidocaine 1% 4 ML ONE (09:17)
[2018-12-23] MEDS ORDERED: Ondansetron 4 MG/2 ML SDV ONE (09:18)
[2018-12-23] MEDS ORDERED: Dexamethasone 4 MG/ML 5 ML MDV ONE (09:18)
--- NOTE | 2018-12-23 09:25 | PCM.PREANE ---
Preanesthetic Assessment - Procedure Proposed Procedure: left reverse total should with right shoulder injection - Anesthesia/Transfusion/Family Hx Anesthesia History: Prior Anesthesia Without Reaction Family History of Anesthesia Reaction: No Transfusion History: Prior Transfusion Without Reaction Intubation History: Unknown - Review of Systems General: No Symptoms Pulmonary: No Symptoms Cardiovascular: No Symptoms Gastrointestinal: No Symptoms Neurological: No Symptoms Other: Reports: Thyroid Problems, Neck Pain (2 goiters removed), Depression, Anxiety - Physical Assessment NPO Status Date: 12/22/18 NPO Status Time: 23:50 Vital Signs: Last Vital Signs Temp 97.7 F 12/23/18 08:55 Pulse 106 H 12/23/18 08:55 Resp 16 12/23/18 08:55 BP 160/76 H 12/23/18 08:55 Pulse Ox 96 12/23/18 08:55 Height: 5 ft 1 in Weight: 82.554 kg ASA Class: 3 Mental Status: Alert & Oriented x3 Airway Class: Mallampati = 1 Dentition: Reports: Dentures (top and bottom) Thyro-Mental Finger Breadths: 3 Mouth Opening Finger Breadths: 3 ROM/Head Extension: Full Lungs: Clear to Auscultation, Normal Respiratory Effort Cardiovascular: Regular Rate, Regular Rhythm - Lab Values: Laboratory Last Values MRSA (PCR) Negative 12/13/18 13:29 - Allergies Allergies/Adverse Reactions: Allergies Allergy/AdvReac Type Severity Reaction Status Date / Time No Known Allergies Allergy Verified 12/20/18 13:51 - Blood Blood Available: No - Acknowledgements Anesthesia Type Planned: General Anesthesia Pt an Appropriate Candidate for the Planned Anesthesia: Yes Alternatives and Risks of Anesthesia Discussed w Pt/Guardian: Yes Pt/Guardian Understands and Agrees with Anesthesia Plan: Yes PreAnesthesia Questionnaire HEENT History: Reports: Impaired Vision Other HEENT History: glasses, upper and lower dentures, mouth sores Cardiovascular History: Reports: Hypertension, Other (See Below) Other Cardiovascular History: cardiomegaly, pericardial effusion, peripheral edema Respiratory History: Reports: Other (See Below) Gastrointestinal History: Reports: GERD, Hemorrhoids, Other (See Below) Other Gastrointestinal History: abdominal pain, elevated LFTs, reflux, gastritis Genitourinary History: Reports: UTI, Recurrent Other Genitourinary History: flank pain, hematuria, kidney stones 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: , Other (See Below) Other OB/BYN History: bacterial vaginosis, endocervical polyp, vagintis, vulvovaginits Musculoskeletal History: Reports: Arthritis, Osteoarthritis, Osteoporosis, RA, Other (See Below) Other Musculoskeletal History: shoudler pain, lumbosacral back pain, foot pain, left wrist pain, lumbago with sciatica, osteoporosis, inflammatory polyarthropathy Neurological History: Reports: Other (See Below) Other Neuro History: lumbar disc disease, degenerative disc disease Psychiatric History: Reports: Depression, Other (See Below) Other Psychiatric History: insomnia, opiod dependence Endocrine/Metabolic History: Reports: Hypothyroidism, Obesity/BMI 30+ Hematologic History: Reports: Anemia, Blood Transfusion(s), Iron Deficiency Immunologic History: Reports: Other (See Below) Other Immunologic History: sepsis Oncologic (Cancer) History: Reports: None Other Dermatologic History: cracked skin, dermatitis, cold sores, incision and drainage - Past Surgical History Head Surgeries/Procedures: Reports: None HEENT Surgical History: Reports: Tonsillectomy Respiratory Surgical History: Reports: None GI Surgical History: Reports: Colonoscopy Female Surgical History: Reports: Section Other Female Surgeries/Procedures: csection x2 Endocrine Surgical History: Reports: Thyroidectomy Neurological Surgical History: Reports: Discectomy, Lumbar Spine, Other (See Below) (tail bone) Other Neurological Surgeries/Procedures: L4L5 laminoforaminotomy Musculoskeletal Surgical History: Reports: Other (See Below) Other Musculoskeletal Surgeries/Procedures:: bunion surgery right foot. Oncologic Surgical History: Reports: None - SUBSTANCE USE Smoking Status *Q: Former Smoker Tobacco Use Within Last Twelve Months: No Second Hand Smoke Exposure: Yes Days Per Week of Alcohol Use: 0 Recreational Drug Use History: No - HOME MEDS Home Medications: Home Meds Levothyroxine Sodium [Synthroid] 175 mcg PO DAILY 05/04/15 [History] Hydroxychloroquine Sulfate [Plaquenil] 200 mg PO BID 09/08/18 [History] Zolpidem Tartrate [Ambien] 5 mg PO DAILY 09/08/18 [History] Furosemide 20 mg PO DAILY PRN 09/25/18 [History] Hydrochlorothiazide [Microzide] 12.5 mg PO DAILY 09/25/18 [History] Cholecalciferol (Vitamin D3) [Vitamin D3] 5,000 unit PO DAILY 12/20/18 [History] Cyclobenzaprine [Flexeril] 10 mg PO TID PRN 12/20/18 [History] Diclofenac Sodium [Voltaren 1% Gel] 1 dose TOP QID PRN 12/20/18 [History] Omeprazole 20 mg PO DAILY 12/20/18 [History] Sertraline [Zoloft] 50 mg PO DAILY 12/20/18 [History] Nitrofurantoin Monohyd/M-Cryst [Macrobid 100 mg Capsule] 100 mg PO BID 12/23/18 [History] - CURRENT (IN HOUSE) MEDS Current Meds: Current Medications Acetaminophen (Tylenol) 975 mg PO NOW [facility] Stop: 12/23/18 12:00 Aspirin (Ecotrin) 325 mg PO BID [facility] Bisacodyl (Dulcolax) 5 mg PO DAILY PRN PRN Reason: Constipation Docusate Sodium (Colace) 100 mg PO BID [facility] Famotidine (Pepcid) 20 mg PO Q12H [facility] Lactated Ringer's (Ringers, Lactated) 1,000 mls @ 125 mls/hr IV ASDIRECTED [facility] Stop: 12/23/18 23:00 Cefazolin Sodium/Dextrose 2 gm (/ Premix) 50 mls @ 100 mls/hr IV Q8H [facility] Stop: 12/23/18 23:29 Ketorolac Tromethamine (Toradol) 15 mg IVPUSH Q6H PRN PRN Reason: Pain Lidocaine/Sodium Bicarbonate (Buffered Lidocaine 1% In Ns 8.4%) 0.25 ml IDERM ONETIME PRN PRN Reason: Prior to IV Start Stop: 12/23/18 18:00 Magnesium Hydroxide (Milk Of Magnesia) 30 ml PO BID PRN PRN Reason: Constipation Morphine Sulfate (Morphine) 2 mg IVPUSH Q2H PRN PRN Reason: Breakthrough Pain Naloxone HCl (Narcan) 0.1 mg IVPUSH Q5M PRN PRN Reason: Oversedation Ondansetron HCl (Zofran) 4 mg IVPUSH Q6H PRN PRN Reason: Nausea/Vomiting Oxycodone HCl (Oxycontin) 10 mg PO ONETIME [facility] Stop: 12/23/18 12:00 Pregabalin (Lyrica) 50 mg PO ONETIME [facility] Stop: 12/23/18 12:00 Senna (Senna) 8.6 mg PO BID PRN PRN Reason: Constipation Sodium Chloride (Saline Flush) 10 ml FLUSH ASDIRECTED PRN PRN Reason: Keep Vein Open Stop: 12/23/18 18:00 Discontinued Medications Aspirin (Ecotrin) 325 mg PO DAILY [facility] Stop: 12/24/18 09:00 Epinephrine HCl (Adrenalin) Confirm Administered Dose 1 mg .ROUTE .STK-MED ONE Stop: 12/23/18 03:31 Fentanyl (Sublimaze) Confirm Administered Dose 100 mcg .ROUTE .STK-MED ONE Stop: 12/23/18 09:15 Lidocaine HCl (Xylocaine-Mpf 1%) Confirm Administered Dose 2 mls @ as directed .ROUTE .STK-MED ONE Stop: 12/23/18 03:30 Midazolam HCl (Versed 1 Mg/Ml) Confirm Administered Dose 2 mg .ROUTE .STK-MED ONE Stop: 12/23/18 09:15 Propofol (Diprivan 20 Ml) Confirm Administered Dose 200 mg .ROUTE .STK-MED ONE Stop: 12/23/18 09:14 Ropivacaine (Naropin 0.5%) Confirm Administered Dose 30 ml .ROUTE .STK-MED ONE Stop: 12/23/18 03:31
[2018-12-23] MEDS ORDERED: Albuterol 0.083% 2.5 MG/3 ML Neb Soln NEB ONE (09:30)
--- NOTE | 2018-12-23 10:30 | PCM.SN ---
- Free Text/Narrative Note: Date:12/23/18 Time out: 1004 Start time:1008 End time:[address] left interscalene block with ultrasound guidance and nerve stimulator for post op pain control per Dr. Lake and patient. Preop diagnosis left shoulder pain. Procedure is left reverse total shoulder arthroplasty Informed consent obtained. Monitors and O2 placed at 2 l per n/c. Versed 2 mg and Fentanyl 50 mcg given IV total. Patient awake and talking during procedure. Left neck and clavicle area prepped with chlorprep. Sterile gloves, hat and mask worn. US probe with sterile sleeve placed midclavicular with ID of brachial plexus and subclavian artery. Brachial plexus followed cephalad to level of cricoid. Lidocaine 1% local anesthetic injected prior to block placement. 22 g 2 inch stimplex needle advanced with US guidance to brachial plexus. Positive forearm response at .4mA with nerve stimulator. Ceased with saline injection. Ropivacaine 0.5% with epi 1:200,000 injected in increments of 5 ml with negative aspiration before each injection to a total of 30 ml. Good spread of local anesthetic seen on US. Patient tolerated procedure well. Vitals stable with no complaints.
[2018-12-23] MEDS ORDERED: Triamcinolone Acetonide 40 MG/ML 1 ML MDV ONE (10:49)
[2018-12-23] MEDS ORDERED: Lactated Ringers 1,000 ML ONE (11:55)
[2018-12-23] MEDS ORDERED: ceFAZolin 1 GM Vial ONE (12:02)
[2018-12-23] MEDS: Bupivacaine 0.25% 10 ML SDV ONE ×2 (12:33→13:28)
[2018-12-23] MEDS: Iodine/Sodium Iodide 2% Tincture 30 ML Bottle ONE ×2 (12:44→13:00)
[2018-12-23] MEDS: ceFAZolin 1 GM Vial ONE ×2 (12:44→13:03)
[2018-12-23] MEDS: Vancomycin 1 GM SDV ONE ×2 (12:46→13:06)
[2018-12-23] MEDS ORDERED: Ketorolac 30 MG/ML SDV ONE (13:24)
[2018-12-23] MEDS ORDERED: Neostigmine Methylsulfate 1 MG/ML 5 ML Syringe ONE (13:24)
[2018-12-23] MEDS ORDERED: diphenhydrAMINE 50 MG/ML SDV IVPUSH PRN (13:49)
[2018-12-23] MEDS ORDERED: fentaNYL 100 MCG/2 ML SDV IVPUSH PRN (13:49)
--- NOTE | 2018-12-23 13:49 | PCM.POSTAN ---
POST ANESTHESIA ASSESSMENT - MENTAL STATUS Mental Status: Alert - VITAL SIGNS Vital Signs: 121/52, 98%, 87 HR, 16, 97.8 Last Vital Signs Temp 36.5 C 12/23/18 08:55 Pulse 106 H 12/23/18 08:55 Resp 16 12/23/18 10:15 BP 133/59 L 12/23/18 10:15 Pulse Ox 98 12/23/18 10:15 - RESPIRATORY Respiratory Status: Respiratory Rate WNL, Airway Patent, O2 Saturation Stable, Supplemental Oxygen - CARDIOVASCULAR CV Status: Pulse Rate WNL, Blood Pressure Stable - GASTROINTESTINAL GI Status: No Symptoms - PAIN Pain Score: 0 - POST OP HYDRATION Hydration Status: Adequate & Stable
--- NOTE | 2018-12-23 13:50 | CR ---
Left shoulder: Two fluoroscopic spot views were obtained of the left shoulder. Study obtained utilizing C-arm device. Study shows a reverse shoulder prosthesis. Fluoroscopy time is given as 4.5 seconds. Impression: 1. Procedural study as noted above. Diagnostic code #2
--- NOTE | 2018-12-23 14:26 | CR ---
Left shoulder: Single AP view of the left shoulder was obtained. Comparison: Previous operative study performed earlier on the same day. Reverse left shoulder prosthesis is seen. Components are aligned. Underlying bony structures are intact. Surgical clips are seen at the base of the neck. Mild atelectasis is noted within the left lung base. Impression: 1. Findings which are felt to be incidental. 2. Satisfactory appearance of recently placed reverse left shoulder prosthesis. Diagnostic code #2
[2018-12-23] MEDS ORDERED: Furosemide 20 MG Tab PO PRN (14:48)
[2018-12-23] MEDS ORDERED: DICLOFENAC SODIUM 1% TOP PRN (14:48)
--- NOTE | 2018-12-23 14:50 | PCM.CONS ---
H&P History of Present Illness - General Date of Service: 12/23/18 Admit Problem/Dx: Admission Diagnosis/Problem Admission Diagnosis/Problem Osteoarthritis of shoulder - History of Present Illness Initial Comments - Free Text/Narative: 62-year-old female with history of osteoarthritis, rheumatoid arthritis, depression had a reverse left total shoulder done 12/23/2018. Medical team was asked to follow her medical problems. She is on levothyroxine 75 mg, omeprazole 20 mg, hydrochlorothiazide 12.5 mg, furosemide 20 mg, and sertraline 50 mg daily for medical conditions. She is on zolpidem for insomnia, diclofenac gel, and oxycodone for her arthritis as well as hydroxychloroquine for her rheumatoid arthritis. She has no complaints postop. She denies any fever, chills , shortness of breath, chest pain, orthopnea or PND. Left shoulder Pain Score (Numeric/FACES): 10 - Related Data Allergies/Adverse Reactions: Allergies Allergy/AdvReac Type Severity Reaction Status Date / Time No Known Allergies Allergy Verified 12/23/18 15:46 Home Medications: Home Meds Levothyroxine Sodium [Synthroid] 175 mcg PO DAILY 05/04/15 [History] Hydroxychloroquine Sulfate [Plaquenil] 200 mg PO BID 09/08/18 [History] Zolpidem Tartrate [Ambien] 5 mg PO DAILY 09/08/18 [History] Furosemide 20 mg PO DAILY PRN 09/25/18 [History] Hydrochlorothiazide [Microzide] 12.5 mg PO DAILY 09/25/18 [History] Cholecalciferol (Vitamin D3) [Vitamin D3] 5,000 unit PO DAILY 12/20/18 [History] Cyclobenzaprine [Flexeril] 10 mg PO TID PRN 12/20/18 [History] Diclofenac Sodium [Voltaren 1% Gel] 1 dose TOP QID PRN 12/20/18 [History] Omeprazole 20 mg PO DAILY 12/20/18 [History] Sertraline [Zoloft] 50 mg PO DAILY 12/20/18 [History] Past Medical History HEENT History: Reports: Impaired Vision Other HEENT History: glasses, upper and lower dentures, mouth sores Cardiovascular History: Reports: Hypertension, Other (See Below) Other Cardiovascular History: cardiomegaly, pericardial effusion, peripheral edema Respiratory History: Reports: Other (See Below) Other Respiratory History: rhonchi Gastrointestinal History: Reports: GERD, Hemorrhoids, Other (See Below) Other Gastrointestinal History: abdominal pain, elevated LFTs, reflux, gastritis Genitourinary History: Reports: UTI, Recurrent Other Genitourinary History: flank pain, hematuria, kidney stones ELECTROPLATER History: Reports: , Other (See Below) Other OB/BYN History: bacterial vaginosis, endocervical polyp, vagintis, vulvovaginits Musculoskeletal History: Reports: Arthritis, Osteoarthritis, Osteoporosis, RA, Other (See Below) Other Musculoskeletal History: shoudler pain, lumbosacral back pain, foot pain, left wrist pain, lumbago with sciatica, osteoporosis, inflammatory polyarthropathy Neurological History: Reports: Other (See Below) Other Neuro History: lumbar disc disease, degenerative disc disease Psychiatric History: Reports: Depression, Other (See Below) Other Psychiatric History: insomnia, opiod dependence Endocrine/Metabolic History: Reports: Hypothyroidism, Obesity/BMI 30+ Hematologic History: Reports: Anemia, Blood Transfusion(s), Iron Deficiency Immunologic History: Reports: Other (See Below) Other Immunologic History: sepsis Oncologic (Cancer) History: Reports: None Other Dermatologic History: cracked skin, dermatitis, cold sores, incision and drainage - Past Surgical History Head Surgeries/Procedures: Reports: None HEENT Surgical History: Reports: Tonsillectomy Respiratory Surgical History: Reports: None GI Surgical History: Reports: Colonoscopy Female Surgical History: Reports: Section Other Female Surgeries/Procedures: csection x2 Endocrine Surgical History: Reports: Thyroidectomy Neurological Surgical History: Reports: Discectomy, Lumbar Spine, Other (See Below) (tail bone) Other Neurological Surgeries/Procedures: L4L5 laminoforaminotomy Musculoskeletal Surgical History: Reports: Other (See Below) Other Musculoskeletal Surgeries/Procedures:: bunion surgery right foot. Oncologic Surgical History: Reports: None Social & Family History - Family History Family Medical History: Noncontributory - Tobacco Use Smoking Status *Q: Former Smoker Used Tobacco, but Quit: Yes Month/Year Tobacco Last Used: 2013 Second Hand Smoke Exposure: Yes - Caffeine Use Caffeine Use: Reports: Coffee Other Caffeine Use: Coffee every day - Alcohol Use Days Per Week of Alcohol Use: 0 - Recreational Drug Use Recreational Drug Use: No - Living Situation & Occupation Living situation: Reports: , Alone Occupation: Employed H&P Review of Systems - Review of Systems: Review Of Systems: ROS reveals no pertinent complaints other than HPI. Exam - Exam Exam: See Below - Vital Signs Vital Signs: Last Vital Signs Temp 97.9 F 12/23/18 14:15 Pulse 88 12/23/18 14:15 Resp 18 12/23/18 14:15 BP 122/72 12/23/18 14:15 Pulse Ox 95 12/23/18 14:15 Weight: 182 lb - Exam Quality Assessment: No: Supplemental Oxygen General: Alert, Obtunded HEENT: Conjunctiva Clear, Mucosa Moist & [place] Neck: Supple, Trachea Midline, 2 Lungs: Clear to Auscultation, Normal Respiratory Effort Cardiovascular: Regular Rate, Regular Rhythm GI/Abdominal Exam: Normal Bowel Sounds, Soft, Non-Tender, No Organomegaly, No Distention, No Abnormal Bruit Extremities: No Pedal Edema Skin: Warm, Dry, Intact Neurological: Cranial Nerves Intact, Reflexes Equal Bilateral Neuro Extensive - Motor, Sensory, Reflexes: CN II-XII Intact, Normal Gait, Normal Reflexes Psychiatric: Alert, Normal Affect, Normal Mood Consult PN Assessment/Plan Procedures: Procedures ASSAY OF BLOOD/URIC ACID (05/17/15) ASSAY OF CREATININE (09/12/18) ASSAY OF FERRITIN (03/13/17) ASSAY OF GGT (10/23/16) ASSAY OF HAPTOGLOBIN QUANT (01/24/17) ASSAY OF IRON (04/03/17) ASSAY OF LACTIC ACID (09/07/17) ASSAY OF MAGNESIUM (09/25/18) ASSAY OF NATRIURETIC PEPTIDE (05/28/16) ASSAY OF TRANSFERRIN (03/13/17) ASSAY THYROID STIM HORMONE (09/28/17) AUTOMATED RETICULOCYTE COUNT (01/24/17) BL SMEAR W/DIFF WBC COUNT (12/28/17) BLOOD CULTURE FOR BACTERIA (09/07/17) C DIFF AMPLIFIED PROBE (06/12/17) C-REACTIVE PROTEIN (10/24/17) CARDIOVASCULAR STRESS TEST (03/29/17) CHEST X-RAY 2VW FRONTAL&LATL (01/24/17) COMP SCREEN MAMMOGRAM ADD-ON (04/19/15) COMPLETE CBC AUTOMATED (12/28/17) COMPLETE CBC W/AUTO DIFF WBC (12/12/18) COMPREHEN METABOLIC PANEL (12/12/18) COMPUTER DX MAMMOGRAM ADD-ON (12/14/15) CRYPTOSPORIDIUM AG IA (06/08/17) CT ABD & PELV 1/> REGNS (02/05/17) CT ABD & PELVIS W/O CONTRAST (09/07/17) CT LUMBAR SPINE W/O DYE (09/07/17) CT THORAX W/O DYE (09/07/17) CULTURE AEROBIC IDENTIFY (09/07/17) CULTURE OTHR SPECIMN AEROBIC (12/28/17) DIAGNOSTIC COLONOSCOPY (05/05/15) DXA BONE DENSITY AXIAL (10/23/18) ELECTROCARDIOGRAM TRACING (09/25/18) EMERGENCY DEPT VISIT (09/25/18) EMERGENCY DEPT VISIT (09/08/18) EMERGENCY DEPT VISIT (09/07/17) EMERGENCY DEPT VISIT (05/27/17) EMERGENCY DEPT VISIT (05/28/16) EMERGENCY DEPT VISIT (02/20/16) EMERGENCY DEPT VISIT (12/22/15) EMERGENCY DEPT VISIT (07/28/15) EXTREMITY STUDY (05/28/16) FIBRIN DEGRADATION QUANT (05/28/16) GIARDIA AG IA (06/08/17) HEPATIC FUNCTION PANEL (05/18/17) HEPATOBIL SYST IMAGE W/DRUG (11/06/16) HT MUSCLE IMAGE SPECT MULT (03/29/17) HYDRATE IV INFUSION ADD-ON (09/07/17) LACTATE (LD) (LDH) ENZYME (09/07/17) LEUKOCYTE ASSESSMENT FECAL (06/08/17) LIPID PANEL (03/30/15) METABOLIC PANEL TOTAL CA (06/21/16) MICROBE SUSCEPTIBLE DARIO (12/12/18) MR-STAPH DNA AMP PROBE (04/17/17) MRI JOINT UPR EXTREM W/O DYE (07/29/18) MRI LUMBAR SPINE W/O & W/DYE (09/12/18) MRI LUMBAR SPINE W/O DYE (01/12/16) PROTHROMBIN TIME (12/12/18) RBC SED RATE AUTOMATED (10/24/17) RHEUMATOID FACTOR TEST QUAL (03/30/15) ROUTINE VENIPUNCTURE (12/12/18) SMEAR GRAM STAIN (09/07/17) SMEAR WET [place] SALINE/INK (04/07/16) STOOL CULTR AEROBIC BACT EA (06/08/17) THER/PROPH/DIAG INJ IV PUSH (09/25/18) THER/PROPH/DIAG INJ SC/IM (07/23/18) THER/PROPH/DIAG IV INF ADDON (09/07/17) THER/PROPH/DIAG IV INF INIT (09/25/18) THROMBOPLASTIN TIME PARTIAL (12/12/18) TISSUE EXAM BY PATHOLOGIST (04/22/15) TRANSFERASE (AST) (SGOT) (10/05/17) TRICHOMONAS ASSAY W/OPTIC (04/07/16) TTE W/DOPPLER COMPLETE (03/29/17) TX/PRO/DX INJ NEW DRUG ADDON (09/07/17) TX/PRO/DX INJ SAME DRUG BUTTER MAKER (09/07/17) TX/PROPH/DG ADDL SEQ IV INF (09/07/17) ULTRASOUND BREAST COMPLETE (05/07/15) URINALYSIS AUTO W/SCOPE (12/12/18) URINE BACTERIA CULTURE (12/12/18) URINE CULTURE/COLONY COUNT (12/12/18) VITAMIN B-12 (01/24/17) X-RAY EXAM CHEST 2 VIEWS (12/12/18) X-RAY EXAM L-S SPINE 2/3 VWS (12/22/15) X-RAY EXAM OF SHOULDER (07/23/18) X-RAY EXAM OF WRIST (08/05/15) Problem List Initiated/Reviewed/Updated: Yes Plan: Assessment * 62-year-old female with 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
[2018-12-23] MEDS: oxyCODONE 5 MG Tab PO PRN ×2 (15:55→21:45)
[2018-12-23] MEDS: Ketorolac 15 MG/ML SDV IVPUSH PRN ×2 (18:28→23:50)
[2018-12-23] MEDS: Docusate Sodium 100 MG Cap PO SCH (20:32)
[2018-12-23] MEDS: Hydroxychloroquine 200 MG Tab PO SCH (20:33)
[2018-12-23] MEDS: Nitrofurantoin Monohydrate/Macrocrystalline 100 MG Cap PO SCH (20:33)
[2018-12-23] MEDS: Cyclobenzaprine 10 MG Tab PO PRN (20:33)
[2018-12-23] MEDS: Famotidine 20 MG Tab PO SCH (20:33)
[2018-12-23] MEDS: ceFAZolin 2 GM in Premix Bag 1 BAG IV SCH (20:34)
[2018-12-23] MEDS ORDERED: Zolpidem 5 MG Tab PO SCH (21:00)
[2018-12-24] MEDS: oxyCODONE 5 MG Tab PO PRN ×3 (02:04→11:26)
[2018-12-24] MEDS: ceFAZolin 2 GM in Premix Bag 1 BAG IV SCH ×2 (05:06→11:34)
[2018-12-24 05:16] VITALS: PULSE 92
--- NOTE | 2018-12-24 06:42 | PCM.SURGPN ---
- General Info Date of Service: 12/24/18 POD#: 1 Functional Status: Reports: Pain Controlled, Tolerating Diet, Ambulating, Urinating, Incentive Spirometry - Patient Data Vitals - Most Recent: Last Vital Signs Temp 97.9 F 12/23/18 23:29 Pulse 92 12/24/18 05:06 Resp 16 12/24/18 05:06 BP 128/75 12/24/18 05:06 Pulse Ox 91 L 12/24/18 05:06 Weight - Most Recent: 184 lb 4.8 oz I&O - Last 24 Hours: Intake & Output 12/23/18 12/23/18 12/24/18 14:59 22:59 06:59 Intake Total 100 480 750 Output Total 350 Balance 100 480 400 Lab Results Last 24 Hrs: Laboratory Results - last 24 hr 12/24/18 12/24/18 Range/Units 05:22 05:22 WBC 7.13 (3.98-10.04) K/mm3 RBC 3.48 L (3.98-5.22) M/mm3 Hgb 10.3 L D (11.2-15.7) gm/dl Hct 31.8 L (34.1-44.9) % MCV 91.4 (79.4-94.8) fl MCH 29.6 (25.6-32.2) pg MCHC 32.4 (32.2-35.5) g/dl RDW Std Deviation 47.8 H (36.4-46.3) fL Plt Count 189 (182-369) K/mm3 MPV 10.0 (9.4-12.3) fl Sodium 139 (136-145) mEq/L Potassium 3.6 (3.5-5.1) mEq/L Chloride 107 (98-107) mEq/L Carbon Dioxide 21 (21-32) mEq/L Anion Gap 14.6 (5-15) BUN 20 H (7-18) mg/dL Creatinine 0.9 (0.55-1.02) mg/dL Est Cr Clr Drug Dosing 50.16 mL/min Estimated GFR (MDRD) > 60 (>60) mL/min BUN/Creatinine Ratio 22.2 H (14-18) Glucose 135 H (74-106) mg/dL Calcium 8.2 L (8.5-10.1) mg/dL Total Bilirubin 0.4 (0.2-1.0) mg/dL AST 47 H (15-37) U/L ALT 54 (14-59) U/L Alkaline Phosphatase 100 (46-116) U/L Total Protein 6.2 L (6.4-8.2) g/dl Albumin 3.0 L (3.4-5.0) g/dl Globulin 3.2 gm/dL Albumin/Globulin Ratio 0.9 L (1-2) Med Orders - Current: Current Medications Aspirin (Ecotrin) 325 mg PO BID [facility] Bisacodyl (Dulcolax) 5 mg PO DAILY PRN PRN Reason: Constipation Cholecalciferol (Vitamin D3) 5,000 unit PO DAILY [facility] Cyclobenzaprine HCl (Flexeril) 10 mg PO TID PRN PRN Reason: muscle spasms Last Admin: 12/23/18 20:33 Dose: 10 mg Diclofenac Sodium (Voltaren 1% Gel) 0 gm TOP QID PRN PRN Reason: Pain Docusate Sodium (Colace) 100 mg PO BID [facility] Last Admin: 12/23/18 20:32 Dose: 100 mg Famotidine (Pepcid) 20 mg PO Q12H [facility] Last Admin: 12/23/18 20:33 Dose: 20 mg Furosemide (Lasix) 20 mg PO DAILY PRN PRN Reason: swelling Hydrochlorothiazide (Hydrochlorothiazide) 12.5 mg PO DAILY [facility] Hydroxychloroquine Sulfate (Plaquenil) 200 mg PO BID [facility] Last Admin: 12/23/18 20:33 Dose: 200 mg Cefazolin Sodium/Dextrose 2 gm (/ Premix) 50 mls @ 100 mls/hr IV Q8H [facility] Stop: 12/24/18 12:29 Last Admin: 12/24/18 05:06 Dose: 100 mls/hr Ketorolac Tromethamine (Toradol) 15 mg IVPUSH Q6H PRN PRN Reason: Pain Last Admin: 12/23/18 23:50 Dose: 15 mg Levothyroxine Sodium (Levothyroxine) 175 mcg PO ACBREAKFAST [facility] Last Admin: 12/24/18 05:07 Dose: 175 mcg Magnesium Hydroxide (Milk Of Magnesia) 30 ml PO BID PRN PRN Reason: Constipation Morphine Sulfate (Morphine) 2 mg IVPUSH Q2H PRN PRN Reason: Breakthrough Pain Naloxone HCl (Narcan) 0.1 mg IVPUSH Q5M PRN PRN Reason: Oversedation Nitrofurantoin Macrocrystals (Macrobid) 100 mg PO BID [facility] Last Admin: 12/23/18 20:33 Dose: 100 mg Ondansetron HCl (Zofran) 4 mg IVPUSH Q6H PRN PRN Reason: Nausea/Vomiting Oxycodone HCl (Oxycodone) 5 - 10 mg PO Q4H PRN PRN Reason: Pain Last Admin: 12/24/18 06:25 Dose: 10 mg Pantoprazole Sodium (Protonix) 40 mg PO DAILY [facility] Senna (Senna) 8.6 mg PO BID PRN PRN Reason: Constipation Sertraline HCl (Zoloft) 50 mg PO DAILY [facility] Zolpidem Tartrate (Ambien) 5 mg PO BEDTIME [facility] Last Admin: 12/23/18 20:33 Dose: 5 mg Discontinued Medications Acetaminophen (Tylenol) 975 mg PO NOW [facility] Stop: 12/23/18 12:00 Last Admin: 12/23/18 09:40 Dose: 975 mg Albuterol (Proventil Neb Soln) 2.5 mg NEB ONETIME ONE Stop: 12/23/18 09:31 Last Admin: 12/23/18 09:43 Dose: 2.5 mg Aspirin (Ecotrin) 325 mg PO DAILY [facility] Stop: 12/24/18 09:00 Bupivacaine HCl (Sensorcaine-Mpf 0.25%) Confirm Administered Dose 10 ml .ROUTE .STK-MED ONE Stop: 12/23/18 10:50 Last Admin: 12/23/18 13:28 Dose: 4 ml Cefazolin Sodium (Ancef) Confirm Administered Dose 2 gm .ROUTE .STK-MED ONE Stop: 12/23/18 11:49 Last Admin: 12/23/18 13:03 Dose: 2 gm Cefazolin Sodium (Ancef) Confirm Administered Dose 2 gm .ROUTE .STK-MED ONE Stop: 12/23/18 12:03 Dexamethasone (Dexamethasone) Confirm Administered Dose 20 mg .ROUTE .STK-MED ONE Stop: 12/23/18 09:19 Diphenhydramine HCl (Benadryl) 25 mg IVPUSH Q6H PRN PRN Reason: pruritis Stop: 12/23/18 20:00 Epinephrine HCl (Adrenalin) Confirm Administered Dose 1 mg .ROUTE .STK-MED ONE Stop: 12/23/18 03:31 Fentanyl (Sublimaze) Confirm Administered Dose 100 mcg .ROUTE .STK-MED ONE Stop: 12/23/18 09:15 Fentanyl (Sublimaze) 50 mcg IVPUSH Q5M PRN PRN Reason: Pain Stop: 12/23/18 20:00 Glycopyrrolate () Confirm Administered Dose 1 mg .ROUTE .STK-MED ONE Stop: 12/23/18 13:25 Lactated Ringer's (Ringers, Lactated) 1,000 mls @ 125 mls/hr IV ASDIRECTED [facility] Stop: 12/23/18 23:00 Last Admin: 12/23/18 09:25 Dose: 125 mls/hr Lidocaine HCl (Xylocaine-Mpf 1%) Confirm Administered Dose 2 mls @ as directed .ROUTE .STK-MED ONE Stop: 12/23/18 03:30 Lidocaine HCl (Xylocaine-Mpf 1%) Confirm Administered Dose 4 mls @ as directed .ROUTE .STK-MED ONE Stop: 12/23/18 09:18 Lidocaine HCl (Xylocaine-Mpf 1%) Confirm Administered Dose 2 mls @ as directed .ROUTE .STK-MED ONE Stop: 12/23/18 11:20 Lactated Ringer's (Ringers, Lactated) Confirm Administered Dose 1,000 mls @ as directed .ROUTE .STK-MED ONE Stop: 12/23/18 11:56 Iodine (Iodine 2% Mild Tincture) Confirm Administered Dose 30 ml .ROUTE .STK- MED ONE Stop: 12/23/18 10:50 Last Admin: 12/23/18 13:00 Dose: 18 ml Ketorolac Tromethamine (Toradol) Confirm Administered Dose 30 mg .ROUTE .STK- MED ONE Stop: 12/23/18 13:25 Lidocaine/Sodium Bicarbonate (Buffered Lidocaine 1% In Ns 8.4%) 0.25 ml IDERM ONETIME PRN PRN Reason: Prior to IV Start Stop: 12/23/18 18:00 Last Admin: 12/23/18 09:25 Dose: 0.25 ml Midazolam HCl (Versed 1 Mg/Ml) Confirm Administered Dose 2 mg .ROUTE .STK-MED ONE Stop: 12/23/18 09:15 Neostigmine Methylsulfate (Neostigmine) Confirm Administered Dose 5 mg .ROUTE .STK-MED ONE Stop: 12/23/18 13:25 Ondansetron HCl (Zofran) Confirm Administered Dose 4 mg .ROUTE .STK-MED ONE Stop: 12/23/18 09:19 Ondansetron HCl (Zofran) 4 mg IVPUSH ONETIME PRN PRN Reason: Nausea/Vomiting Stop: 12/23/18 20:00 Oxycodone HCl (Oxycontin) 10 mg PO ONETIME [facility] Stop: 12/23/18 12:00 Last Admin: 12/23/18 09:40 Dose: 10 mg Pregabalin (Lyrica) 50 mg PO ONETIME [facility] Stop: 12/23/18 12:00 Last Admin: 12/23/18 09:40 Dose: 50 mg Propofol (Diprivan 20 Ml) Confirm Administered Dose 200 mg .ROUTE .STK-MED ONE Stop: 12/23/18 09:14 Rocuronium [place] (Zemuron) Confirm Administered Dose 50 mg .ROUTE .STK-MED ONE Stop: 12/23/18 09:18 Ropivacaine (Naropin 0.5%) Confirm Administered Dose 30 ml .ROUTE .STK-MED ONE Stop: 12/23/18 03:31 Sodium Chloride (Saline Flush) 10 ml FLUSH ASDIRECTED PRN PRN Reason: Keep Vein Open Stop: 12/23/18 18:00 Tranexamic Acid (Cyklokapron) Confirm Administered Dose 1,000 mg .ROUTE .STK- MED ONE Stop: 12/23/18 10:50 Last Admin: 12/23/18 13:07 Dose: 1,000 mg Triamcinolone Acetonide (Kenalog-40) Confirm Administered Dose 80 mg .ROUTE .STK -MED ONE Stop: 12/23/18 10:50 Last Admin: 12/23/18 13:28 Dose: 80 mg Vancomycin HCl (Vancomycin) Confirm Administered Dose 1 gm .ROUTE .STK-MED ONE Stop: 12/23/18 10:50 Last Admin: 12/23/18 13:06 Dose: 1 gm - Exam Wound/Incisions: Dressing Dry and Intact General: Alert, Cooperative, No Acute Distress Lungs: Normal Respiratory Effort Extremities: Other (NVS intact for BUE. ) - Problem List Review Problem List Initiated/Reviewed/Updated: Yes - My Orders Last 24 Hours: Active Orders 24 hr Category Date Time Status Patient Status [ADT] Routine ADT 12/23/18 06:58 Active Antiembolic Devices [RC] BID Care 12/23/18 06:59 Active Cooling Warming Measures [RC] ASDIRECTED Care 12/23/18 13:49 Inactive Pulse Oximetry [RC] ASDIRECTED Care 12/23/18 13:49 Active RT Aerosol Therapy [RC] ASDIRECTED Care 12/23/18 09:30 Active RT Incentive Spirometry [RC] Q1HWA Care 12/23/18 06:55 Active Vital Signs [RC] Q15M Care 12/23/18 13:49 Inactive Vital Signs [RC] Q4HR Care 12/23/18 06:58 Active Consult to Physician [CONS] Routine Cons 12/23/18 06:58 Active OT Evaluation and Treatment [CONS] Routine Cons 12/23/18 06:55 Active PT Evaluation and Treatment [CONS] Routine Cons 12/23/18 06:55 Active Regular Diet [DIET] Diet 12/23/18 Lunch Active Aspirin [Ecotrin] Med 12/24/18 09:00 Active 325 mg PO BID Bisacodyl [Dulcolax] Med 12/23/18 06:58 Active 5 mg PO DAILY PRN Cholecalciferol (Vitamin D3) [Vitamin D3] Med 12/24/18 09:00 Active 5,000 unit PO DAILY Cyclobenzaprine [Flexeril] Med 12/23/18 14:48 Active 10 mg PO TID PRN Diclofenac Sodium [Voltaren 1% Gel] Med 12/23/18 14:48 Pending 0 gm TOP QID PRN Docusate Sodium [Colace] Med 12/23/18 21:00 Active 100 mg PO BID Famotidine [Pepcid] Med 12/23/18 21:00 Active 20 mg PO Q12H Furosemide [Lasix] Med 12/23/18 14:48 Active 20 mg PO DAILY PRN Hydroxychloroquine [Plaquenil] Med 12/23/18 21:00 Active 200 mg PO BID Ketorolac [Toradol] Med 12/23/18 12:00 Active 15 mg IVPUSH Q6H PRN Levothyroxine Med 12/24/18 06:00 Active 175 mcg PO ACBREAKFAST Magnesium Hydroxide [Milk of Magnesia] Med 12/23/18 06:58 Active 30 ml PO BID PRN Morphine Med 12/23/18 06:58 Active 2 mg IVPUSH Q2H PRN Naloxone [Narcan] Med 12/23/18 06:58 Active 0.1 mg IVPUSH Q5M PRN Nitrofurantoin [place]/Macrocryst [Macrobid] Med 12/23/18 21:00 Active 100 mg PO BID Ondansetron [Zofran] Med 12/23/18 06:58 Active 4 mg IVPUSH Q6H PRN Pantoprazole [ProTONIX] Med 12/24/18 09:00 Active 40 mg PO DAILY Sennosides [Senna] Med 12/23/18 06:58 Active 8.6 mg PO BID PRN Sertraline [Zoloft] Med 12/24/18 09:00 Active 50 mg PO DAILY Zolpidem [Ambien] Med 12/23/18 21:00 Active 5 mg PO BEDTIME ceFAZolin [Ancef] 2 gm Med 12/23/18 20:00 Active Premix Bag 1 bag IV Q8H hydroCHLOROthiazide Med 12/24/18 09:00 Active 12.5 mg PO DAILY oxyCODONE Med 12/23/18 14:53 Active 5 - 10 mg PO Q4H PRN Antiembolic Hose [OM.PC] Per Unit Routine Oth 12/23/18 07:00 Ordered Ice Therapy [OM.PC] Per Unit Routine Oth 12/23/18 06:59 Ordered Sequential Compression Device [OM.PC] Per Unit Routine Oth 12/23/18 06:55 Ordered Resuscitation Status Routine Resus Stat 12/23/18 06:58 Ordered Medication Orders Aspirin (Ecotrin) 325 mg PO BID [facility] Bisacodyl (Dulcolax) 5 mg PO DAILY PRN PRN Reason: Constipation Cholecalciferol (Vitamin D3) 5,000 unit PO DAILY [facility] Cyclobenzaprine HCl (Flexeril) 10 mg PO TID PRN PRN Reason: muscle spasms Last Admin: 12/23/18 20:33 Dose: 10 mg Diclofenac Sodium (Voltaren 1% Gel) 0 gm TOP QID PRN PRN Reason: Pain Docusate Sodium (Colace) 100 mg PO BID [facility] Last Admin: 12/23/18 20:32 Dose: 100 mg Famotidine (Pepcid) 20 mg PO Q12H [facility] Last Admin: 12/23/18 20:33 Dose: 20 mg Furosemide (Lasix) 20 mg PO DAILY PRN PRN Reason: swelling Hydrochlorothiazide (Hydrochlorothiazide) 12.5 mg PO DAILY [facility] Hydroxychloroquine Sulfate (Plaquenil) 200 mg PO BID [facility] Last Admin: 12/23/18 20:33 Dose: 200 mg Cefazolin Sodium/Dextrose 2 gm (/ Premix) 50 mls @ 100 mls/hr IV Q8H [facility] Stop: 12/24/18 12:29 Last Admin: 12/24/18 05:06 Dose: 100 mls/hr Infusion: 12/23/18 21:04 Dose: 100 mls/hr Admin: 12/23/18 20:34 Dose: 100 mls/hr Ketorolac Tromethamine (Toradol) 15 mg IVPUSH Q6H PRN PRN Reason: Pain Last Admin: 12/23/18 23:50 Dose: 15 mg Admin: 12/23/18 18:28 Dose: 15 mg Levothyroxine Sodium (Levothyroxine) 175 mcg PO ACBREAKFAST [facility] Last Admin: 12/24/18 05:07 Dose: 175 mcg Magnesium Hydroxide (Milk Of Magnesia) 30 ml PO BID PRN PRN Reason: Constipation Morphine Sulfate (Morphine) 2 mg IVPUSH Q2H PRN PRN Reason: Breakthrough Pain Naloxone HCl (Narcan) 0.1 mg IVPUSH Q5M PRN PRN Reason: Oversedation Nitrofurantoin Macrocrystals (Macrobid) 100 mg PO BID [facility] Last Admin: 12/23/18 20:33 Dose: 100 mg Ondansetron HCl (Zofran) 4 mg IVPUSH Q6H PRN PRN Reason: Nausea/Vomiting Oxycodone HCl (Oxycodone) 5 - 10 mg PO Q4H PRN PRN Reason: Pain Last Admin: 12/24/18 06:25 Dose: 10 mg Admin: 12/24/18 02:04 Dose: 10 mg Admin: 12/23/18 21:45 Dose: 10 mg Admin: 12/23/18 15:55 Dose: 10 mg Pantoprazole Sodium (Protonix) 40 mg PO DAILY [facility] Senna (Senna) 8.6 mg PO BID PRN PRN Reason: Constipation Sertraline HCl (Zoloft) 50 mg PO DAILY [facility] Zolpidem Tartrate (Ambien) 5 mg PO BEDTIME [facility] Last Admin: 12/23/18 20:33 Dose: 5 mg - Assessment Assessment (Free Text/Narrative):: POD#1 - left reverse TSA with right glenohumeral injection - Plan Plan (Free Text/Narrative):: 1. Discharge today if cleared by therapies and Hospitalist service. 2. 325mg ASA PO BID, frequent mobility, TEDs. 3. Outpatient therapy. 4. Hgb 10.3. The pt's case was discussed with Dr. Lake.
--- NOTE | 2018-12-24 08:31 | PCM48HPAN ---
Post Anesthesia Note - EVALUATION WITHIN 48HRS OF ANESTHETIC Vital Signs in Normal Range: Yes Patient Participated in Evaluation: Yes Respiratory Function Stable: Yes Airway Patent: Yes Cardiovascular Function Stable: Yes Hydration Status Stable: Yes Pain Control Satisfactory: Yes Nausea and Vomiting Control Satisfactory: Yes Mental Status Recovered: Yes Vital Signs: Last Vital Signs Temp 36.6 C 12/23/18 23:29 Pulse 92 12/24/18 05:06 Resp 16 12/24/18 05:06 BP 128/75 12/24/18 05:06 Pulse Ox 91 L 12/24/18 05:06
[2018-12-24] MEDS ORDERED: Sertraline 50 MG Tab PO SCH (09:00)
[2018-12-24] MEDS ORDERED: Pantoprazole 40 MG Tab.CR PO SCH (09:00)
[2018-12-24] MEDS ORDERED: Hydrochlorothiazide 12.5 MG Cap PO SCH (09:00)
[2018-12-24] MEDS ORDERED: Aspirin 325 MG Tab.EC PO SCH ×2 (09:00)
[2018-12-24] MEDS ORDERED: Cholecalciferol (Vitamin D3) 5,000 UNIT Tab PO SCH (09:00)
[2018-12-24] MEDS: Ketorolac 15 MG/ML SDV IVPUSH PRN (09:52)
[2018-12-24] MEDS: Cyclobenzaprine 10 MG Tab PO PRN (09:52)
[2018-12-24] MEDS: Docusate Sodium 100 MG Cap PO SCH (09:56)
[2018-12-24] MEDS: Nitrofurantoin Monohydrate/Macrocrystalline 100 MG Cap PO SCH (09:57)
[2018-12-24] MEDS: Hydroxychloroquine 200 MG Tab PO SCH (09:57)
[2018-12-24] MEDS: Famotidine 20 MG Tab PO SCH ×2 (09:57→10:02)
[2018-12-24 11:44] VITALS: BP 128/59
--- NOTE | 2018-12-24 15:43 | PCM.CONSN ---
- General Info Date of Service: 12/24/18 Admission Dx/Problem (Free Text): Admission Diagnosis/Problem Admission Diagnosis/Problem Osteoarthritis of shoulder Subjective Update: No new complaints - Review of Systems General: Reports: No Symptoms HEENT: Reports: No Symptoms Pulmonary: Reports: No Symptoms Cardiovascular: Reports: No Symptoms Gastrointestinal: Reports: No Symptoms - Patient Data Vitals - Most Recent: Last Vital Signs Temp 98.1 F 12/24/18 11:29 Pulse 92 12/24/18 11:29 Resp 18 12/24/18 11:29 BP 128/59 L 12/24/18 11:29 Pulse Ox 92 L 12/24/18 11:29 Weight - Most Recent: 184 lb 4.8 oz I&O - Last 24 Hours: Intake & Output 12/24/18 12/24/18 12/24/18 06:59 14:59 22:59 Intake Total 750 120 Output Total 350 Balance 400 120 Lab Results Last 24 Hours: Laboratory Results - last 24 hr 12/24/18 12/24/18 Range/Units 05:22 05:22 WBC 7.13 (3.98-10.04) K/mm3 RBC 3.48 L (3.98-5.22) M/mm3 Hgb 10.3 L D (11.2-15.7) gm/dl Hct 31.8 L (34.1-44.9) % MCV 91.4 (79.4-94.8) fl MCH 29.6 (25.6-32.2) pg MCHC 32.4 (32.2-35.5) g/dl RDW Std Deviation 47.8 H (36.4-46.3) fL Plt Count 189 (182-369) K/mm3 MPV 10.0 (9.4-12.3) fl Sodium 139 (136-145) mEq/L Potassium 3.6 (3.5-5.1) mEq/L Chloride 107 (98-107) mEq/L Carbon Dioxide 21 (21-32) mEq/L Anion Gap 14.6 (5-15) BUN 20 H (7-18) mg/dL Creatinine 0.9 (0.55-1.02) mg/dL Est Cr Clr Drug Dosing 50.16 mL/min Estimated GFR (MDRD) > 60 (>60) mL/min BUN/Creatinine Ratio 22.2 H (14-18) Glucose 135 H (74-106) mg/dL Calcium 8.2 L (8.5-10.1) mg/dL Total Bilirubin 0.4 (0.2-1.0) mg/dL AST 47 H (15-37) U/L ALT 54 (14-59) U/L Alkaline Phosphatase 100 (46-116) U/L Total Protein 6.2 L (6.4-8.2) g/dl Albumin 3.0 L (3.4-5.0) g/dl Globulin 3.2 gm/dL Albumin/Globulin Ratio 0.9 L (1-2) Med Orders - Current: Current Medications Aspirin (Ecotrin) 325 mg PO BID [facility] Last Admin: 12/24/18 09:57 Dose: 325 mg Bisacodyl (Dulcolax) 5 mg PO DAILY PRN PRN Reason: Constipation Cholecalciferol (Vitamin D3) 5,000 unit PO DAILY [facility] Last Admin: 12/24/18 09:56 Dose: 5,000 unit Cyclobenzaprine HCl (Flexeril) 10 mg PO TID PRN PRN Reason: muscle spasms Last Admin: 12/24/18 09:52 Dose: 10 mg Diclofenac Sodium (Voltaren 1% Gel) 0 gm TOP QID PRN PRN Reason: Pain Docusate Sodium (Colace) 100 mg PO BID [facility] Last Admin: 12/24/18 09:56 Dose: 100 mg Furosemide (Lasix) 20 mg PO DAILY PRN PRN Reason: swelling Hydrochlorothiazide (Hydrochlorothiazide) 12.5 mg PO DAILY [facility] Last Admin: 12/24/18 09:56 Dose: 12.5 mg Hydroxychloroquine Sulfate (Plaquenil) 200 mg PO BID [facility] Last Admin: 12/24/18 09:57 Dose: 200 mg Levothyroxine Sodium (Levothyroxine) 175 mcg PO ACBREAKFAST [facility] Last Admin: 12/24/18 05:07 Dose: 175 mcg Magnesium Hydroxide (Milk Of Magnesia) 30 ml PO BID PRN PRN Reason: Constipation Morphine Sulfate (Morphine) 2 mg IVPUSH Q2H PRN PRN Reason: Breakthrough Pain Naloxone HCl (Narcan) 0.1 mg IVPUSH Q5M PRN PRN Reason: Oversedation Nitrofurantoin Macrocrystals (Macrobid) 100 mg PO BID [facility] Last Admin: 12/24/18 09:57 Dose: 100 mg Ondansetron HCl (Zofran) 4 mg IVPUSH Q6H PRN PRN Reason: Nausea/Vomiting Oxycodone HCl (Oxycodone) 5 - 10 mg PO Q4H PRN PRN Reason: Pain Last Admin: 12/24/18 11:26 Dose: 10 mg Pantoprazole Sodium (Protonix) 40 mg PO DAILY [facility] Last Admin: 12/24/18 09:55 Dose: 40 mg Senna (Senna) 8.6 mg PO BID PRN PRN Reason: Constipation Sertraline HCl (Zoloft) 50 mg PO DAILY [facility] Last Admin: 12/24/18 09:55 Dose: 50 mg Zolpidem Tartrate (Ambien) 5 mg PO BEDTIME [facility] Last Admin: 12/23/18 20:33 Dose: 5 mg Discontinued Medications Acetaminophen (Tylenol) 975 mg PO NOW [facility] Stop: 12/23/18 12:00 Last Admin: 12/23/18 09:40 Dose: 975 mg Albuterol (Proventil Neb Soln) 2.5 mg NEB ONETIME ONE Stop: 12/23/18 09:31 Last Admin: 12/23/18 09:43 Dose: 2.5 mg Aspirin (Ecotrin) 325 mg PO DAILY [facility] Stop: 12/24/18 09:00 Bupivacaine HCl (Sensorcaine-Mpf 0.25%) Confirm Administered Dose 10 ml .ROUTE .STK-MED ONE Stop: 12/23/18 10:50 Last Admin: 12/23/18 13:28 Dose: 4 ml Cefazolin Sodium (Ancef) Confirm Administered Dose 2 gm .ROUTE .STK-MED ONE Stop: 12/23/18 11:49 Last Admin: 12/23/18 13:03 Dose: 2 gm Cefazolin Sodium (Ancef) Confirm Administered Dose 2 gm .ROUTE .STK-MED ONE Stop: 12/23/18 12:03 Dexamethasone (Dexamethasone) Confirm Administered Dose 20 mg .ROUTE .STK-MED ONE Stop: 12/23/18 09:19 Diphenhydramine HCl (Benadryl) 25 mg IVPUSH Q6H PRN PRN Reason: pruritis Stop: 12/23/18 20:00 Epinephrine HCl (Adrenalin) Confirm Administered Dose 1 mg .ROUTE .STK-MED ONE Stop: 12/23/18 03:31 Famotidine (Pepcid) 20 mg PO Q12H [facility] Last Admin: 12/24/18 10:02 Dose: Not Given Fentanyl (Sublimaze) Confirm Administered Dose 100 mcg .ROUTE .STK-MED ONE Stop: 12/23/18 09:15 Fentanyl (Sublimaze) 50 mcg IVPUSH Q5M PRN PRN Reason: Pain Stop: 12/23/18 20:00 Glycopyrrolate () Confirm Administered Dose 1 mg .ROUTE .STK-MED ONE Stop: 12/23/18 13:25 Lactated Ringer's (Ringers, Lactated) 1,000 mls @ 125 mls/hr IV ASDIRECTED [facility] Stop: 12/23/18 23:00 Last Admin: 12/23/18 09:25 Dose: 125 mls/hr Lidocaine HCl (Xylocaine-Mpf 1%) Confirm Administered Dose 2 mls @ as directed .ROUTE .STK-MED ONE Stop: 12/23/18 03:30 Cefazolin Sodium/Dextrose 2 gm (/ Premix) 50 mls @ 100 mls/hr IV Q8H [facility] Stop: 12/24/18 12:29 Last Admin: 12/24/18 11:34 Dose: 100 mls/hr Lidocaine HCl (Xylocaine-Mpf 1%) Confirm Administered Dose 4 mls @ as directed .ROUTE .STK-MED ONE Stop: 12/23/18 09:18 Lidocaine HCl (Xylocaine-Mpf 1%) Confirm Administered Dose 2 mls @ as directed .ROUTE .STK-MED ONE Stop: 12/23/18 11:20 Lactated Ringer's (Ringers, Lactated) Confirm Administered Dose 1,000 mls @ as directed .ROUTE .STK-MED ONE Stop: 12/23/18 11:56 Iodine (Iodine 2% Mild Tincture) Confirm Administered Dose 30 ml .ROUTE .STK- MED ONE Stop: 12/23/18 10:50 Last Admin: 12/23/18 13:00 Dose: 18 ml Ketorolac Tromethamine (Toradol) 15 mg IVPUSH Q6H PRN PRN Reason: Pain Last Admin: 12/24/18 09:52 Dose: 15 mg Ketorolac Tromethamine (Toradol) Confirm Administered Dose 30 mg .ROUTE .STK- MED ONE Stop: 12/23/18 13:25 Lidocaine/Sodium Bicarbonate (Buffered Lidocaine 1% In Ns 8.4%) 0.25 ml IDERM ONETIME PRN PRN Reason: Prior to IV Start Stop: 12/23/18 18:00 Last Admin: 12/23/18 09:25 Dose: 0.25 ml Midazolam HCl (Versed 1 Mg/Ml) Confirm Administered Dose 2 mg .ROUTE .STK-MED ONE Stop: 12/23/18 09:15 Neostigmine Methylsulfate (Neostigmine) Confirm Administered Dose 5 mg .ROUTE .STK-MED ONE Stop: 12/23/18 13:25 Ondansetron HCl (Zofran) Confirm Administered Dose 4 mg .ROUTE .STK-MED ONE Stop: 12/23/18 09:19 Ondansetron HCl (Zofran) 4 mg IVPUSH ONETIME PRN PRN Reason: Nausea/Vomiting Stop: 12/23/18 20:00 Oxycodone HCl (Oxycontin) 10 mg PO ONETIME [facility] Stop: 12/23/18 12:00 Last Admin: 12/23/18 09:40 Dose: 10 mg Pregabalin (Lyrica) 50 mg PO ONETIME [facility] Stop: 12/23/18 12:00 Last Admin: 12/23/18 09:40 Dose: 50 mg Propofol (Diprivan 20 Ml) Confirm Administered Dose 200 mg .ROUTE .STK-MED ONE Stop: 12/23/18 09:14 Rocuronium Loop (Zemuron) Confirm Administered Dose 50 mg .ROUTE .STK-MED ONE Stop: 12/23/18 09:18 Ropivacaine (Naropin 0.5%) Confirm Administered Dose 30 ml .ROUTE .STK-MED ONE Stop: 12/23/18 03:31 Sodium Chloride (Saline Flush) 10 ml FLUSH ASDIRECTED PRN PRN Reason: Keep Vein Open Stop: 12/23/18 18:00 Tranexamic Acid (Cyklokapron) Confirm Administered Dose 1,000 mg .ROUTE .STK- MED ONE Stop: 12/23/18 10:50 Last Admin: 12/23/18 13:07 Dose: 1,000 mg Triamcinolone Acetonide (Kenalog-40) Confirm Administered Dose 80 mg .ROUTE .STK -MED ONE Stop: 12/23/18 10:50 Last Admin: 12/23/18 13:28 Dose: 80 mg Vancomycin HCl (Vancomycin) Confirm Administered Dose 1 gm .ROUTE .STK-MED ONE Stop: 12/23/18 10:50 Last Admin: 12/23/18 13:06 Dose: 1 gm - Exam General: Alert, Oriented HEENT: Pupils Equal Neck: Supple Lungs: Clear to Auscultation, Normal Respiratory Effort Cardiovascular: Regular Rate, Regular Rhythm GI/Abdominal Exam: Normal Bowel Sounds, Soft, Non-Tender, No Organomegaly, No Distention, No Abnormal Bruit, No Mass Extremities: Normal Inspection, Normal Range of Motion, Non-Tender, No Pedal Edema, Normal Capillary Refill Skin: Warm, Dry, Intact Neurological: No New Focal Deficit Psy/Mental Status: Alert, Normal Affect, Normal Mood Consult PN Assessment/Plan Procedures: Procedures ASSAY OF BLOOD/URIC ACID (05/17/15) ASSAY OF CREATININE (09/12/18) ASSAY OF FERRITIN (03/13/17) ASSAY OF GGT (10/23/16) ASSAY OF HAPTOGLOBIN QUANT (01/24/17) ASSAY OF IRON (04/03/17) ASSAY OF LACTIC ACID (09/07/17) ASSAY OF MAGNESIUM (09/25/18) ASSAY OF NATRIURETIC PEPTIDE (05/28/16) ASSAY OF TRANSFERRIN (03/13/17) ASSAY THYROID STIM HORMONE (09/28/17) AUTOMATED RETICULOCYTE COUNT (01/24/17) BL SMEAR W/DIFF WBC COUNT (12/28/17) BLOOD CULTURE FOR BACTERIA (09/07/17) C DIFF AMPLIFIED PROBE (06/12/17) C-REACTIVE PROTEIN (10/24/17) CARDIOVASCULAR STRESS TEST (03/29/17) CHEST X-RAY 2VW FRONTAL&LATL (01/24/17) COMP SCREEN MAMMOGRAM ADD-ON (04/19/15) COMPLETE CBC AUTOMATED (12/28/17) COMPLETE CBC W/AUTO DIFF WBC (12/12/18) COMPREHEN METABOLIC PANEL (12/12/18) COMPUTER DX MAMMOGRAM ADD-ON (12/14/15) CRYPTOSPORIDIUM AG IA (06/08/17) CT ABD & PELV 1/> REGNS (02/05/17) CT ABD & PELVIS W/O CONTRAST (09/07/17) CT LUMBAR SPINE W/O DYE (09/07/17) CT THORAX W/O DYE (09/07/17) CULTURE AEROBIC IDENTIFY (09/07/17) CULTURE OTHR SPECIMN AEROBIC (12/28/17) DIAGNOSTIC COLONOSCOPY (05/05/15) DXA BONE DENSITY AXIAL (10/23/18) ELECTROCARDIOGRAM TRACING (09/25/18) EMERGENCY DEPT VISIT (09/25/18) EMERGENCY DEPT VISIT (09/08/18) EMERGENCY DEPT VISIT (09/07/17) EMERGENCY DEPT VISIT (05/27/17) EMERGENCY DEPT VISIT (05/28/16) EMERGENCY DEPT VISIT (02/20/16) EMERGENCY DEPT VISIT (12/22/15) EMERGENCY DEPT VISIT (07/28/15) EXTREMITY STUDY (05/28/16) FIBRIN DEGRADATION QUANT (05/28/16) GIARDIA AG IA (06/08/17) HEPATIC FUNCTION PANEL (05/18/17) HEPATOBIL SYST IMAGE W/DRUG (11/06/16) HT MUSCLE IMAGE SPECT MULT (03/29/17) HYDRATE IV INFUSION ADD-ON (09/07/17) LACTATE (LD) (LDH) ENZYME (09/07/17) LEUKOCYTE ASSESSMENT FECAL (06/08/17) LIPID PANEL (03/30/15) METABOLIC PANEL TOTAL CA (06/21/16) MICROBE SUSCEPTIBLE DARIO (12/12/18) MR-STAPH DNA AMP PROBE (04/17/17) MRI JOINT UPR EXTREM W/O DYE (07/29/18) MRI LUMBAR SPINE W/O & W/DYE (09/12/18) MRI LUMBAR SPINE W/O DYE (01/12/16) PROTHROMBIN TIME (12/12/18) RBC SED RATE AUTOMATED (10/24/17) RHEUMATOID FACTOR TEST QUAL (03/30/15) ROUTINE VENIPUNCTURE (12/12/18) SMEAR GRAM STAIN (09/07/17) SMEAR WET MOUNT SALINE/INK (04/07/16) STOOL CULTR AEROBIC BACT EA (06/08/17) THER/PROPH/DIAG INJ IV PUSH (09/25/18) THER/PROPH/DIAG INJ SC/IM (07/23/18) THER/PROPH/DIAG IV INF ADDON (09/07/17) THER/PROPH/DIAG IV INF INIT (09/25/18) THROMBOPLASTIN TIME PARTIAL (12/12/18) TISSUE EXAM BY PATHOLOGIST (04/22/15) TRANSFERASE (AST) (SGOT) (10/05/17) TRICHOMONAS ASSAY W/OPTIC (04/07/16) TTE W/DOPPLER COMPLETE (03/29/17) TX/PRO/DX INJ NEW DRUG ADDON (09/07/17) TX/PRO/DX INJ SAME DRUG FLIGHT DYNAMICIST (09/07/17) TX/PROPH/DG ADDL SEQ IV INF (09/07/17) ULTRASOUND BREAST COMPLETE (05/07/15) URINALYSIS AUTO W/SCOPE (12/12/18) URINE BACTERIA CULTURE (12/12/18) URINE CULTURE/COLONY COUNT (12/12/18) VITAMIN B-12 (01/24/17) X-RAY EXAM CHEST 2 VIEWS (12/12/18) X-RAY EXAM L-S SPINE 2/3 VWS (12/22/15) X-RAY EXAM OF SHOULDER (07/23/18) X-RAY EXAM OF WRIST (08/05/15) Problem List Initiated/Reviewed/Updated: Yes Plan: Assessment * 62-year-old female with 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
--- NOTE | 2018-12-26 13:35 | PCM.DCSUM1 ---
Discharge Summary - Hospital Course Brief History: Chayo is a 63 yo female who underwent left reverse TSA with right glenohumeral injection with Dr. Lake on 12-23-2018. The procedure was completed under general anesthesia with regional block. The pt tolerated the procedure well and was admitted to the Medical-Surgical Unit. Medical management was provided by the Hospitalist service. The pt's Hospital course was uneventful. The pt's Hgb on POD#1 was 10.3. On POD#1, 325mg ASA BID was initiated for VTE prophylaxis. SCDs and TEDs were also ordered. A Mepilex dressing was placed at the incision site at the time of surgery and remained clean and dry. The pt participated in P.T. and O.T. and progressed well. On POD#1, the pt was deemed appropriate to discharge to home with her daughter. - Discharge Data Discharge Date: 12/26/18 Discharge Disposition: Home, Self-Care 01 Condition: Good - Referral to Home Health Primary Care Physician: Sharona Gonzalez PA-C - Patient Summary/Data Consults: Consultations 12/23/18 06:55 OT Evaluation and Treatment [CONS] Routine PT Evaluation and Treatment [CONS] Routine 12/23/18 06:58 Consult to Physician [CONS] Routine - Patient Instructions Diet: Usual Diet as Tolerated Activity: Apply Ice, As Tolerated, Elevate Extremity Activity, Other: No forceful use of the surgical limb. Driving: Do Not Drive Showering/Bathing: May Shower Wound/Incision Care: Keep Operative Site/Wound Site Clean and Dry, Do NOT Change Dressing Notify Provider of: Fever, Increased Pain, Swelling and Redness, Drainage, Nausea and/or Vomiting Other/Special Instructions: Please get up and moving around EVERY HOUR while awake. This helps to prevent blood clots. Please have help with mobility as needed. Take a short walk in your home every hour while awake. Please take 325mg twice aspirin daily. The aspirin is being used for blood clot prevention and not for pain management so please do not miss a dose of the medication. You could use a medication like Pepcid or Tagamet and a medication like Prilosec or Nexium to protect your stomach while you are using the aspirin. At home, please complete the exercises that you learned during the Hospital stay. Schedule for occupational or physical therapy. Use the pain medication as needed. The medication may cause drowsiness and constipation. Contact your primary care provider for instructions if you are constipated. You may use a stool softener like docusate sodium or Colace 100mg twice daily and/or a laxative like Miralax daily for constipation. Increase your water and fiber intake while you are using the pain medication. Discontinue use of the pain medication as soon as able. Please do not use other medications that may cause drowsiness (other pain medications, anxiety pills, cold medications, sleeping pills, etc) while using the prescription pain medication. Do not use alcohol while using the pain medication. Wear the VICTOR M hose during the day and you may remove these at night. Elevate the limb to decrease swelling. Place ice to the area often. Place a towel between your skin and the blue pad. Use the incentive spirometer often. Take deep breaths throughout the day. Please keep the dressing in place until follow-up. Notify the Clinic if the dressing becomes saturated. Increase your protein intake while you are healing. If you have diabetes, please closely monitor your blood sugars and notify your primary care provider with abnormal values. Elevated blood sugars increases the risk of infection. Call the Clinic with questions or concerns - [phone]. - Discharge Plan *PRESCRIPTION DRUG MONITORING PROGRAM REVIEWED*: No *COPY OF PRESCRIPTION DRUG MONITORING REPORT IN PATIENT GILDARDO: No Prescriptions/Med Rec: Aspirin [Ecotrin EC] 325 mg PO BID #60 tab.ec Cyclobenzaprine [Flexeril] 10 mg PO TID PRN #40 tablet PRN Reason: muscle spasms oxyCODONE 5 - 10 mg PO Q4H PRN #60 tablet PRN Reason: Pain Home Medications: Home Meds Levothyroxine Sodium [Synthroid] 175 mcg PO DAILY 05/04/15 [History] Hydroxychloroquine Sulfate [Plaquenil] 200 mg PO BID 09/08/18 [History] Zolpidem Tartrate [Ambien] 5 mg PO DAILY 09/08/18 [History] Furosemide 20 mg PO DAILY PRN 09/25/18 [History] Hydrochlorothiazide [Microzide] 12.5 mg PO DAILY 09/25/18 [History] Cholecalciferol (Vitamin D3) [Vitamin D3] 5,000 unit PO DAILY 12/20/18 [History] Cyclobenzaprine [Flexeril] 10 mg PO TID PRN 12/20/18 [History] Diclofenac Sodium [Voltaren 1% Gel] 1 dose TOP QID PRN 12/20/18 [History] Omeprazole 20 mg PO DAILY 12/20/18 [History] Sertraline [Zoloft] 50 mg PO DAILY 12/20/18 [History] Aspirin [Ecotrin EC] 325 mg PO BID #60 tab.ec 12/24/18 [Rx] Bisacodyl [Dulcolax] 5 mg PO DAILY PRN tablet 12/24/18 [Rx] Cyclobenzaprine [Flexeril] 10 mg PO TID PRN #40 tablet 12/24/18 [Rx] Docusate Sodium [Colace] 100 mg PO BID cap 12/24/18 [Rx] Famotidine [Pepcid] 20 mg PO Q12H tablet 12/24/18 [Rx] Magnesium Hydroxide [Milk of Magnesia] 30 ml PO BID PRN cup 12/24/18 [Rx] Nitrofurantoin [place]/Macrocryst [Nitrofurantoin [place]-MCR] 100 mg PO BID cap [Rx] Sennosides [Senna] 8.6 mg PO BID PRN tablet 12/24/18 [Rx] oxyCODONE 5 - 10 mg PO Q4H PRN #60 tablet 12/24/18 [Rx] Patient Handouts: Reverse Total Shoulder Replacement Referrals: Nicole Penny PA-C [Physician Inspector General] - 01/01/19 11:15 am (Follow up appointments are 01/01/2019 at 11:15 AM 01/07/2019 at 11:15 AM 02/04/2019 at 11:15 AM) - Discharge Summary/Plan Comment DC Time >30 min.: No - Patient Data Vitals - Most Recent: Last Vital Signs Temp 98.1 F 12/24/18 11:29 Pulse 92 12/24/18 11:29 Resp 18 12/24/18 11:29 BP 128/59 L 12/24/18 11:29 Pulse Ox 92 L 12/24/18 11:29 Weight - Most Recent: 184 lb 4.8 oz Med Orders - Current: Current Medications Discontinued Medications Acetaminophen (Tylenol) 975 mg PO NOW [facility] Stop: 12/23/18 12:00 Last Admin: 12/23/18 09:40 Dose: 975 mg Albuterol (Proventil Neb Soln) 2.5 mg NEB ONETIME ONE Stop: 12/23/18 09:31 Last Admin: 12/23/18 09:43 Dose: 2.5 mg Aspirin (Ecotrin) 325 mg PO DAILY [facility] Stop: 12/24/18 09:00 Aspirin (Ecotrin) 325 mg PO BID [facility] Last Admin: 12/24/18 09:57 Dose: 325 mg Bisacodyl (Dulcolax) 5 mg PO DAILY PRN PRN Reason: Constipation Bupivacaine HCl (Sensorcaine-Mpf 0.25%) Confirm Administered Dose 10 ml .ROUTE .STK-MED ONE Stop: 12/23/18 10:50 Last Admin: 12/23/18 13:28 Dose: 4 ml Cefazolin Sodium (Ancef) Confirm Administered Dose 2 gm .ROUTE .STK-MED ONE Stop: 12/23/18 11:49 Last Admin: 12/23/18 13:03 Dose: 2 gm Cefazolin Sodium (Ancef) Confirm Administered Dose 2 gm .ROUTE .STK-MED ONE Stop: 12/23/18 12:03 Cholecalciferol (Vitamin D3) 5,000 unit PO DAILY [facility] Last Admin: 12/24/18 09:56 Dose: 5,000 unit Cyclobenzaprine HCl (Flexeril) 10 mg PO TID PRN PRN Reason: muscle spasms Last Admin: 12/24/18 09:52 Dose: 10 mg Dexamethasone (Dexamethasone) Confirm Administered Dose 20 mg .ROUTE .STK-MED ONE Stop: 12/23/18 09:19 Diclofenac Sodium (Voltaren 1% Gel) 0 gm TOP QID PRN PRN Reason: Pain Diphenhydramine HCl (Benadryl) 25 mg IVPUSH Q6H PRN PRN Reason: pruritis Stop: 12/23/18 20:00 Docusate Sodium (Colace) 100 mg PO BID [facility] Last Admin: 12/24/18 09:56 Dose: 100 mg Epinephrine HCl (Adrenalin) Confirm Administered Dose 1 mg .ROUTE .STK-MED ONE Stop: 12/23/18 03:31 Famotidine (Pepcid) 20 mg PO Q12H [facility] Last Admin: 12/24/18 10:02 Dose: Not Given Fentanyl (Sublimaze) Confirm Administered Dose 100 mcg .ROUTE .STK-MED ONE Stop: 12/23/18 09:15 Fentanyl (Sublimaze) 50 mcg IVPUSH Q5M PRN PRN Reason: Pain Stop: 12/23/18 20:00 Furosemide (Lasix) 20 mg PO DAILY PRN PRN Reason: swelling Glycopyrrolate () Confirm Administered Dose 1 mg .ROUTE .STK-MED ONE Stop: 12/23/18 13:25 Hydrochlorothiazide (Hydrochlorothiazide) 12.5 mg PO DAILY [facility] Last Admin: 12/24/18 09:56 Dose: 12.5 mg Hydroxychloroquine Sulfate (Plaquenil) 200 mg PO BID [facility] Last Admin: 12/24/18 09:57 Dose: 200 mg Lactated Ringer's (Ringers, Lactated) 1,000 mls @ 125 mls/hr IV ASDIRECTED [facility] Stop: 12/23/18 23:00 Last Admin: 12/23/18 09:25 Dose: 125 mls/hr Lidocaine HCl (Xylocaine-Mpf 1%) Confirm Administered Dose 2 mls @ as directed .ROUTE .STK-MED ONE Stop: 12/23/18 03:30 Cefazolin Sodium/Dextrose 2 gm (/ Premix) 50 mls @ 100 mls/hr IV Q8H [facility] Stop: 12/24/18 12:29 Last Admin: 12/24/18 11:34 Dose: 100 mls/hr Lidocaine HCl (Xylocaine-Mpf 1%) Confirm Administered Dose 4 mls @ as directed .ROUTE .STK-MED ONE Stop: 12/23/18 09:18 Lidocaine HCl (Xylocaine-Mpf 1%) Confirm Administered Dose 2 mls @ as directed .ROUTE .STK-MED ONE Stop: 12/23/18 11:20 Lactated Ringer's (Ringers, Lactated) Confirm Administered Dose 1,000 mls @ as directed .ROUTE .STK-MED ONE Stop: 12/23/18 11:56 Iodine (Iodine 2% Mild Tincture) Confirm Administered Dose 30 ml .ROUTE .STK- MED ONE Stop: 12/23/18 10:50 Last Admin: 12/23/18 13:00 Dose: 18 ml Ketorolac Tromethamine (Toradol) 15 mg IVPUSH Q6H PRN PRN Reason: Pain Last Admin: 12/24/18 09:52 Dose: 15 mg Ketorolac Tromethamine (Toradol) Confirm Administered Dose 30 mg .ROUTE .STK- MED ONE Stop: 12/23/18 13:25 Levothyroxine Sodium (Levothyroxine) 175 mcg PO ACBREAKFAST [facility] Last Admin: 12/24/18 05:07 Dose: 175 mcg Lidocaine/Sodium Bicarbonate (Buffered Lidocaine 1% In Ns 8.4%) 0.25 ml IDERM ONETIME PRN PRN Reason: Prior to IV Start Stop: 12/23/18 18:00 Last Admin: 12/23/18 09:25 Dose: 0.25 ml Magnesium Hydroxide (Milk Of Magnesia) 30 ml PO BID PRN PRN Reason: Constipation Midazolam HCl (Versed 1 Mg/Ml) Confirm Administered Dose 2 mg .ROUTE .STK-MED ONE Stop: 12/23/18 09:15 Morphine Sulfate (Morphine) 2 mg IVPUSH Q2H PRN PRN Reason: Breakthrough Pain Naloxone HCl (Narcan) 0.1 mg IVPUSH Q5M PRN PRN Reason: Oversedation Neostigmine Methylsulfate (Neostigmine) Confirm Administered Dose 5 mg .ROUTE .STK-MED ONE Stop: 12/23/18 13:25 Nitrofurantoin Macrocrystals (Macrobid) 100 mg PO BID [facility] Last Admin: 12/24/18 09:57 Dose: 100 mg Ondansetron HCl (Zofran) 4 mg IVPUSH Q6H PRN PRN Reason: Nausea/Vomiting Ondansetron HCl (Zofran) Confirm Administered Dose 4 mg .ROUTE .STK-MED ONE Stop: 12/23/18 09:19 Ondansetron HCl (Zofran) 4 mg IVPUSH ONETIME PRN PRN Reason: Nausea/Vomiting Stop: 12/23/18 20:00 Oxycodone HCl (Oxycontin) 10 mg PO ONETIME [facility] Stop: 12/23/18 12:00 Last Admin: 12/23/18 09:40 Dose: 10 mg Oxycodone HCl (Oxycodone) 5 - 10 mg PO Q4H PRN PRN Reason: Pain Last Admin: 12/24/18 11:26 Dose: 10 mg Pantoprazole Sodium (Protonix) 40 mg PO DAILY [facility] Last Admin: 12/24/18 09:55 Dose: 40 mg Pregabalin (Lyrica) 50 mg PO ONETIME [facility] Stop: 12/23/18 12:00 Last Admin: 12/23/18 09:40 Dose: 50 mg Propofol (Diprivan 20 Ml) Confirm Administered Dose 200 mg .ROUTE .STK-MED ONE Stop: 12/23/18 09:14 Rocuronium [place] (Zemuron) Confirm Administered Dose 50 mg .ROUTE .STK-MED ONE Stop: 12/23/18 09:18 Ropivacaine (Naropin 0.5%) Confirm Administered Dose 30 ml .ROUTE .STK-MED ONE Stop: 12/23/18 03:31 Senna (Senna) 8.6 mg PO BID PRN PRN Reason: Constipation Sertraline HCl (Zoloft) 50 mg PO DAILY [facility] Last Admin: 12/24/18 09:55 Dose: 50 mg Sodium Chloride (Saline Flush) 10 ml FLUSH ASDIRECTED PRN PRN Reason: Keep Vein Open Stop: 12/23/18 18:00 Tranexamic Acid (Cyklokapron) Confirm Administered Dose 1,000 mg .ROUTE .STK- MED ONE Stop: 12/23/18 10:50 Last Admin: 12/23/18 13:07 Dose: 1,000 mg Triamcinolone Acetonide (Kenalog-40) Confirm Administered Dose 80 mg .ROUTE .STK -MED ONE Stop: 12/23/18 10:50 Last Admin: 12/23/18 13:28 Dose: 80 mg Vancomycin HCl (Vancomycin) Confirm Administered Dose 1 gm .ROUTE .STK-MED ONE Stop: 12/23/18 10:50 Last Admin: 12/23/18 13:06 Dose: 1 gm Zolpidem Tartrate (Ambien) 5 mg PO BEDTIME [facility] Last Admin: 12/23/18 20:33 Dose: 5 mg
--- NOTE | 2018-12-30 07:11 | PCM.OPNOTE ---
- General Post-Op/Procedure Note Date of Surgery/Procedure: 12/23/18 Operative Procedure(s): left reverse total shoulder with right shoulder steroid injection Pre Op Diagnosis: bilateral shoulder rotator cuff tear arthropathy Post-Op Diagnosis: Same Anesthesia Technique: General ET Tube, Regional Block Primary Surgeon: Trey Lake Anesthesia Provider: Alvina Steele Footwear Sales Associate: Nicole Penny Footwear Sales Associate: Melyssa Yañez EBL in mLs: 500 Complications: None Condition: Good
--- NOTE | 2018-12-30 08:06 | OR ---
DATE OF OPERATION: 12/23/2018 SURGEON: Trey Lake MD OPERATION PERFORMED: Left reverse total shoulder arthroplasty with right shoulder steroid injection. PREOPERATIVE DIAGNOSIS: Bilateral shoulder rotator cuff tear arthropathy. POSTOPERATIVE DIAGNOSIS: Bilateral shoulder rotator cuff tear arthropathy. ANESTHESIA: General endotracheal intubation with regional interscalene block. ANESTHESIA PROVIDER: Alvina Steele. ASSISTANTS: Nicole Penny PA-C, and Melyssa Yañez LPN. ESTIMATED BLOOD LOSS: 500 mL. COMPLICATIONS: None. CONDITION: Stable. IMPLANTS: 1. Arthrex size 7, 135-degree humeral stem. 2. Arthrex size 6 spacer. 3. Arthrex size 3 mm polyethylene liner. 4. Arthrex size 36, +4 glenosphere. 5. Arthrex size 28 mm concentric glenoid baseplate. DESCRIPTION OF PROCEDURE: The patient was identified in the preoperative holding area. Proper site was marked and identified by the surgeon. The patient was taken back to the operating theater where, after adequate anesthesia, the patient's left upper extremity was sterilely prepped and draped in the usual sterile fashion. OR time-out was performed. The patient received 2 g IV Ancef. Standard deltopectoral incision was made. This was taken down to the cephalic vein. The cephalic vein was then identified and was retracted laterally with the deltoid. The clavipectoral fascia was incised. Conjoined tendon was retracted medially. The anterior humeral circumflex vessels were then ligated. Biceps tendon was identified and the pectoralis tenodesis was performed. The biceps tendon was then resected just above this and was taken back all the way to the level of the glenoid and the groove was opened. Peel down of the subscapularis tendon was then done and the humeral head was dislocated. Neck cut was then completed and found to be adequate. Attention was turned to the glenoid. Anterior and posterior glenoid retractors were placed and circumferential removal of capsule as well as the labrum was then done at this time. Guidepin was placed in the center-center position. The peripheral reamer was then used and found to be adequate. The central drill hole was then utilized and was tapped for the compression screw. The 28 mm glenoid baseplate was then compressed into place. It was found to have adequate purchase and an inferior and superior locking screw was then placed and then the 36, +4 glenosphere was placed and the set screw was placed and found to be in adequate position. Attention was turned to humerus. Starting with size 5 broach, I was able to broach up to a size 8, which was found to be rotationally and vertically stable. At this time, trial implants were then placed. The patient was noted to have a bit of loose shoulder still with a +3, so we did a +6 liner with a +3 poly trial. C-arm fluoroscopy showed all the components to be in adequate position and the patient's shoulder was stable throughout range of motion. At this time, the size 8 stem was constructed on the back table with the poly and the +6 spacer. These were then attempted to be impacted, but the size 8 stem was noted to be bigger secondary to the 1.5 mm increased size, so at this time, we backed it off to a size 7 stem with the same other components and this was impacted into place and found to be in adequate position and very stable. The shoulder was relocated. C-arm fluoroscopy showed all of the components to be in good position. 1 L dilute Betadine solution was irrigated through the shoulder along with 3 L pulse lavage irrigation with Ancef. Topical tranexamic acid and vancomycin powder were applied. 2-0 Vicryl was used subcutaneously and Prineo was used for closure of the skin. The patient tolerated the procedure well and sent to PACU in stable condition. Before she was sent to PACU in stable condition, under sterile technique, 2 mL of 40 mg Kenalog and 4 mL of 0.25% Marcaine was injected in the right glenohumeral joint. The patient tolerated all procedures well. MMHERNANDO /[id number]
== END 2018-12-24 13:44 | disposition home or self-care (01) | DRG 483 ==
LOC: JD.MS 12-23 08:39
PROVIDERS: ADMIT Orthopaedic Surgery; ATTEND Orthopaedic Surgery
PROC: 0RRK00Z Replacement of Left Shoulder Joint with Reverse Ball and Socket Synthetic Substitute, Open Approach (ICD-10-PCS; principal; 2018-12-23)
DX: M19.012 Primary osteoarthritis, left shoulder (principal); F11.20 Opioid dependence, uncomplicated; I31.3 Pericardial effusion (noninflammatory); M75.102 Unspecified rotator cuff tear or rupture of left shoulder, not specified as traumatic; M75.101 Unspecified rotator cuff tear or rupture of right shoulder, not specified as traumatic; M19.011 Primary osteoarthritis, right shoulder; M48.061 Spinal stenosis, lumbar region without neurogenic claudication; M54.16 Radiculopathy, lumbar region; E03.9 Hypothyroidism, unspecified; M06.9 Rheumatoid arthritis, unspecified; F32.9 Major depressive disorder, single episode, unspecified; I10 Essential (primary) hypertension; H54.7 Unspecified visual loss; K21.9 Gastro-esophageal reflux disease without esophagitis; M81.0 Age-related osteoporosis without current pathological fracture; M06.4 Inflammatory polyarthropathy; G47.00 Insomnia, unspecified; E66.9 Obesity, unspecified; D50.9 Iron deficiency anemia, unspecified; I51.7 Cardiomegaly; Z90.89 Acquired absence of other organs; Z98.890 Other specified postprocedural states; Z87.891 Personal history of nicotine dependence; Z79.899 Other long term (current) drug therapy; Z98.1 Arthrodesis status; Z87.442 Personal history of urinary calculi; Z68.34 Body mass index [BMI] 34.0-34.9, adult
CPT/HCPCS: 01638; 36415; 64415; 73020-26-LT; 73020-LT; 76000; 76000-26; 80053; 85027; 87641; 94640; 97110-GP; 97116-GP; 97161-GP; 97165-GO; 97535-GO; A9270-GY; C1713; C1776; J0171; J0690; J1100; J1885; J2001; J2250; J2405; J2704; J2710; J2795; J3010; J3301; J3370; J3490; J7120

== ENCOUNTER 2019-04-24 06:26 | Inpatient (IN) | payer MEDICAID ==
[~2019-04-24 06:26] MED LIST: Acetaminophen 325 MG Tab PO ONE; Dexamethasone 4 MG/ML 5 ML MDV ONE; EPINEPHrine 1 MG/ML SDV ONE; Lactated Ringers 1,000 ML IV SCH; Lactated Ringers 1,000 ML ONE; Lidocaine 1% 4 ML ONE; Lidocaine 1%/Sod Bicarbonate in NS 8.4% 1 ML Syringe IDERM PRN; Midazolam 1 MG/ML 2 ML SDV ONE; Ondansetron 4 MG/2 ML SDV ONE; Pregabalin 25 MG Cap PO ONE; Propofol 200 MG/20 ML SDV ONE; Ropivacaine 0.5% 5 MG/ML 30 ML SDV ONE; Sodium Chloride 0.9% 10 ML Syringe FLUSH PRN; ceFAZolin 1 GM Vial ONE; fentaNYL 250 MCG/5 ML SDV ONE; oxyCODONE ER 10 MG TAB.ER PO ONE
[2019-04-24] MEDS ORDERED: EPINEPHrine 1 MG/ML SDV ONE (06:31)
[2019-04-24] MEDS ORDERED: Ropivacaine 0.5% 5 MG/ML 30 ML SDV ONE (06:31)
[2019-04-24] MEDS ORDERED: Acetaminophen 325 MG Tab PO ONE ×2 (06:45→07:15)
[2019-04-24] MEDS ORDERED: oxyCODONE ER 10 MG TAB.ER PO ONE ×2 (06:45→07:15)
[2019-04-24] MEDS ORDERED: Cyclobenzaprine 10 MG Tab PO PRN (06:45)
[2019-04-24] MEDS ORDERED: Sennosides 8.6 MG Tab PO PRN (06:46)
[2019-04-24] MEDS ORDERED: Bisacodyl 5 MG Tab PO PRN (06:46)
[2019-04-24] MEDS ORDERED: Ondansetron 4 MG/2 ML SDV IVPUSH PRN (06:46)
[2019-04-24] MEDS ORDERED: Naloxone 0.4 MG/ML SDV IVPUSH PRN (06:46)
[2019-04-24] MEDS ORDERED: Pregabalin 25 MG Cap PO ONE ×2 (07:00→07:15)
[2019-04-24] MEDS ORDERED: ceFAZolin 1 GM Vial ONE (07:14)
[2019-04-24] MEDS ORDERED: Bupivacaine 0.25% 10 ML SDV ONE (07:14)
[2019-04-24] MEDS ORDERED: Vancomycin 1 GM SDV ONE (07:14)
[2019-04-24] MEDS ORDERED: Iodine/Sodium Iodide 2% Tincture 30 ML Bottle ONE (07:14)
[2019-04-24] MEDS ORDERED: Pregabalin 25 MG Cap ONE (07:18)
[2019-04-24] MEDS ORDERED: Acetaminophen 325 MG Tab ONE (07:19)
[2019-04-24] MEDS ORDERED: oxyCODONE ER 10 MG TAB.ER ONE (07:19)
--- NOTE | 2019-04-24 07:40 | PCM.CONS ---
H&P History of Present Illness - General Date of Service: 04/24/19 Admit Problem/Dx: Admission Diagnosis/Problem Admission Diagnosis/Problem Osteoarthritis of shoulder Source of Information: Patient, Old Records, Provider, RN, RN Notes Reviewed History Limitations: Reports: No Limitations - History of Present Illness Initial Comments - Free Text/Narative: Chayo Smith is a 63 yo female patient of Dr. Lake who is post-operative day 0 of right reverse total shoulder arthroplasty. Hospital medicine was consulted for post-operative medical care of the following listed medical conditions. At this time she is resting comfortably in bed. Pain is controlled. She denies any chest pain, shortness of breath, palpitations, nausea, or vomiting. She carries a history of: Atelectasis, anemia, hypothyroidism, lower back pain, cardiomegaly , depression, diarrhea, elevated glucose, elevated LFTs, GERD, hematuria, history of sepsis, hypertension, elevated triglycerides, hypokalemia, insomnia, osteoporosis, pericardial effusion, peripheral edema, urolithiasis, RA, recurrent UTIs, lumbar disk disease. She is a former smoker. She is a full code. Her primary care provider is Sharona Gonzalez PA-C. - Related Data Allergies/Adverse Reactions: Allergies Allergy/AdvReac Type Severity Reaction Status Date / Time No Known Allergies Allergy Verified 04/23/19 16:20 Home Medications: Home Meds Levothyroxine Sodium [Synthroid] 175 mcg PO DAILY 05/04/15 [History] Hydroxychloroquine Sulfate [Plaquenil] 200 mg PO BID 09/08/18 [History] Furosemide 20 mg PO DAILY PRN 09/25/18 [History] Cholecalciferol (Vitamin D3) [Vitamin D3] 5,000 unit PO DAILY 12/20/18 [History] Omeprazole 20 mg PO DAILY 12/20/18 [History] Sertraline [Zoloft] 50 mg PO DAILY 12/20/18 [History] Aspirin [Ecotrin EC] 81 mg PO DAILY 04/23/19 [History] L.acidoph,Paracasei, B.lactis [Probiotic] 1 each PO DAILY 04/23/19 [History] Multivitamin [Daily Gonzalez] 1 each PO DAILY 04/23/19 [History] Zolpidem [Ambien] 10 mg PO BEDTIME PRN 04/23/19 [History] Past Medical History HEENT History: Reports: Impaired Vision Other HEENT History: glasses. upper and lower dentures Cardiovascular History: Reports: Hypertension, Other (See Below) Other Cardiovascular History: cardiomegaly, pericardial effusion, peripheral edema Respiratory History: Reports: Other (See Below) Other Respiratory History: rhonchi Gastrointestinal History: Reports: GERD, Hemorrhoids Other Gastrointestinal History: abdominal pain, elevated LFTs, reflux, gastritis Genitourinary History: Reports: UTI, Recurrent Other Genitourinary History: flank pain, hematuria, kidney stones [employer] CL[employer] History: Reports: Other OB/BYN History: bacterial vaginosis, endocervical polyp, vagintis, vulvovaginits Musculoskeletal History: Reports: Osteoarthritis, RA, Other (See Below) Other Musculoskeletal History: fusion of lower back x 3 vertebrae Mar 2017 Neurological History: Reports: Other (See Below) Other Neuro History: lumbar disc disease, degenerative disc disease Psychiatric History: Reports: Depression, Other (See Below) Other Psychiatric History: insomnia, opiod dependence Endocrine/Metabolic History: Reports: Hypothyroidism, Obesity/BMI 30+ Hematologic History: Reports: Blood Transfusion(s) Immunologic History: Reports: Other (See Below) Other Immunologic History: sepsis Oncologic (Cancer) History: Reports: None Other Dermatologic History: cracked skin, dermatitis, cold sores, incision and drainage - Past Surgical History Head Surgeries/Procedures: Reports: None HEENT Surgical History: Reports: Tonsillectomy Respiratory Surgical History: Reports: None GI Surgical History: Reports: None, Colonoscopy Female Surgical History: Reports: Section Other Female Surgeries/Procedures: csection x2 Endocrine Surgical History: Reports: Thyroidectomy Neurological Surgical History: Reports: Discectomy, Lumbar Spine, Other (See Below) Other Neurological Surgeries/Procedures: planning to have another surgery and fuse L4&5 this coming winter. Musculoskeletal Surgical History: Reports: Shoulder Surgery, Other (See Below) Other Musculoskeletal Surgeries/Procedures:: bunion surgery right foot, left total shoulder replacement Oncologic Surgical History: Reports: None Social & Family History - Family History Family Medical History: Noncontributory - Tobacco Use Smoking Status *Q: Former Smoker Used Tobacco, but Quit: Yes Month/Year Tobacco Last Used: 2014 - Caffeine Use Caffeine Use: Reports: Coffee Other Caffeine Use: Coffee every day - Recreational Drug Use Recreational Drug Use: No - Living Situation & Occupation Living situation: Reports: , Alone Occupation: Employed H&P Review of Systems - Review of Systems: Review Of Systems: See Below General: Reports: No Symptoms. Denies: Fever, Chills HEENT: Reports: No Symptoms. Denies: Headaches, Sore Throat Pulmonary: Reports: No Symptoms. Denies: Shortness of Breath, Wheezing, Pleuritic Chest Pain, Cough, Sputum Cardiovascular: Reports: No Symptoms. Denies: Chest Pain, Palpitations, Dyspnea on Exertion Gastrointestinal: Reports: No Symptoms. Denies: Abdominal Pain, Constipation, Diarrhea, Nausea, Vomiting Genitourinary: Reports: No Symptoms. Denies: Pain Musculoskeletal: Reports: Shoulder Pain (right) Skin: Reports: No Symptoms. Denies: Cyanosis Psychiatric: Reports: No Symptoms. Denies: Confusion Neurological: Reports: No Symptoms. Denies: Pre-Existing Deficit, Difficulty Walking, Gait Disturbance Hematologic/Lymphatic: Reports: No Symptoms Immunologic: Reports: No Symptoms Exam - Exam Exam: See Below - Vital Signs Vital Signs: Last Vital Signs Temp 97.1 F 04/24/19 06:35 Pulse 79 04/24/19 06:35 Resp 16 04/24/19 06:35 BP 147/72 H 04/24/19 06:35 Pulse Ox 97 04/24/19 06:35 Weight: 195 lb - Exam Quality Assessment: DVT Prophylaxis. No: Supplemental Oxygen, Urinary Catheter General: Alert, Oriented, Cooperative. No: Mild Distress HEENT: Conjunctiva Clear, EACs Clear, Hearing Intact, Mucosa Moist & [place], Nares Patent, Posterior Pharynx Clear, PERRLA Neck: Supple, Trachea Midline Lungs: Clear to Auscultation, Normal Respiratory Effort Cardiovascular: Regular Rate, Regular Rhythm GI/Abdominal Exam: Normal Bowel Sounds, Soft, Non-Tender, No Distention (Female) Exam: Deferred Rectal (Female) Exam: Deferred Back Exam: Normal Inspection, Full Range of Motion Extremities: Normal Capillary Refill, Arm Pain (right shoulder ), Limited Range of Motion, Other (Bandage in place on right shoulder. Bandage is dry and intact. Cooling pack in place. Sling and swathe on right shoulder ) Peripheral Pulses: 2+: Radial (L), Radial (R), Dorsalis Pedis (L), Dorsalis Pedis (R) Skin: Warm, Dry, Intact Neurological: Cranial Nerves Intact (Grossly ) Neuro Extensive - Mental Status: Alert, Oriented x3, Normal Mood/Affect Sepsis Event Note - Focused Exam Vital Signs: Vital Signs Temp Pulse Resp BP Pulse Ox 04/24/19 06:35 97.1 F 79 16 147/72 H 97 Date Exam was Performed: 04/24/19 Time Exam was Performed: 12:09 Consult PN Assessment/Plan POD#: 0 Procedures: Procedures ASSAY OF BLOOD/URIC ACID (05/17/15) ASSAY OF CREATININE (09/12/18) ASSAY OF FERRITIN (03/13/17) ASSAY OF GGT (10/23/16) ASSAY OF HAPTOGLOBIN QUANT (01/24/17) ASSAY OF IRON (04/03/17) ASSAY OF LACTIC ACID (09/07/17) ASSAY OF MAGNESIUM (09/25/18) ASSAY OF NATRIURETIC PEPTIDE (05/28/16) ASSAY OF TRANSFERRIN (03/13/17) ASSAY THYROID STIM HORMONE (09/28/17) AUTOMATED RETICULOCYTE COUNT (01/24/17) BL SMEAR W/DIFF WBC COUNT (12/28/17) BLOOD CULTURE FOR BACTERIA (09/07/17) C DIFF AMPLIFIED PROBE (06/12/17) C-REACTIVE PROTEIN (10/24/17) CARDIOVASCULAR STRESS TEST (03/29/17) CHEST X-RAY 2VW FRONTAL&LATL (01/24/17) COMP SCREEN MAMMOGRAM ADD-ON (04/19/15) COMPLETE CBC AUTOMATED (12/28/17) COMPLETE CBC W/AUTO DIFF WBC (12/12/18) COMPREHEN METABOLIC PANEL (12/12/18) COMPUTER DX MAMMOGRAM ADD-ON (12/14/15) CRYPTOSPORIDIUM AG IA (06/08/17) CT ABD & PELV 1/> REGNS (02/05/17) CT ABD & PELVIS W/O CONTRAST (09/07/17) CT LUMBAR SPINE W/O DYE (09/07/17) CT THORAX W/O DYE (09/07/17) CULTURE AEROBIC IDENTIFY (09/07/17) CULTURE OTHR SPECIMN AEROBIC (12/28/17) DIAGNOSTIC COLONOSCOPY (05/05/15) DXA BONE DENSITY AXIAL (10/23/18) ELECTROCARDIOGRAM TRACING (09/25/18) EMERGENCY DEPT VISIT (09/25/18) EMERGENCY DEPT VISIT (09/08/18) EMERGENCY DEPT VISIT (09/07/17) EMERGENCY DEPT VISIT (05/27/17) EMERGENCY DEPT VISIT (05/28/16) EMERGENCY DEPT VISIT (02/20/16) EMERGENCY DEPT VISIT (12/22/15) EMERGENCY DEPT VISIT (07/28/15) EXTREMITY STUDY (05/28/16) FIBRIN DEGRADATION QUANT (05/28/16) GIARDIA AG IA (06/08/17) HEPATIC FUNCTION PANEL (05/18/17) HEPATOBIL SYST IMAGE W/DRUG (11/06/16) HT MUSCLE IMAGE SPECT MULT (03/29/17) HYDRATE IV INFUSION ADD-ON (09/07/17) LACTATE (LD) (LDH) ENZYME (09/07/17) LEUKOCYTE ASSESSMENT FECAL (06/08/17) LIPID PANEL (03/30/15) METABOLIC PANEL TOTAL CA (06/21/16) MICROBE SUSCEPTIBLE DARIO (12/12/18) MR-STAPH DNA AMP PROBE (04/17/17) MRI JOINT UPR EXTREM W/O DYE (07/29/18) MRI LUMBAR SPINE W/O & W/DYE (09/12/18) MRI LUMBAR SPINE W/O DYE (01/12/16) PROTHROMBIN TIME (12/12/18) RBC SED RATE AUTOMATED (10/24/17) RHEUMATOID FACTOR TEST QUAL (03/30/15) ROUTINE VENIPUNCTURE (12/12/18) SMEAR GRAM STAIN (09/07/17) SMEAR WET [place] SALINE/INK (04/07/16) STOOL CULTR AEROBIC BACT EA (06/08/17) THER/PROPH/DIAG INJ IV PUSH (09/25/18) THER/PROPH/DIAG INJ SC/IM (07/23/18) THER/PROPH/DIAG IV INF ADDON (09/07/17) THER/PROPH/DIAG IV INF INIT (09/25/18) THROMBOPLASTIN TIME PARTIAL (12/12/18) TISSUE EXAM BY PATHOLOGIST (04/22/15) TRANSFERASE (AST) (SGOT) (10/05/17) TRICHOMONAS ASSAY W/OPTIC (04/07/16) TTE W/DOPPLER COMPLETE (03/29/17) TX/PRO/DX INJ NEW DRUG ADDON (09/07/17) TX/PRO/DX INJ SAME DRUG 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 (09/07/17) TX/PROPH/DG ADDL SEQ IV INF (09/07/17) ULTRASOUND BREAST COMPLETE (05/07/15) URINALYSIS AUTO W/SCOPE (12/12/18) URINE BACTERIA CULTURE (12/12/18) URINE CULTURE/COLONY COUNT (12/12/18) VITAMIN B-12 (01/24/17) X-RAY EXAM CHEST 2 VIEWS (04/21/19) X-RAY EXAM L-S SPINE 2/3 VWS (12/22/15) X-RAY EXAM OF SHOULDER (07/23/18) X-RAY EXAM OF WRIST (08/05/15) (1) S/p reverse total shoulder arthroplasty SNOMED Code(s): 593447079, 653957980 Code(s): Z96.619 - PRESENCE OF UNSPECIFIED ARTIFICIAL SHOULDER JOINT Priority: High Current Visit: Yes Qualifiers: Laterality: right Qualified Code(s): Z96.611 - Presence of right artificial shoulder joint (2) Osteoarthritis SNOMED Code(s): 395119235 Code(s): M19.90 - UNSPECIFIED OSTEOARTHRITIS, UNSPECIFIED SITE Priority: High Current Visit: Yes Qualifiers: Osteoarthritis location: shoulder Osteoarthritis type: primary Laterality : right Qualified Code(s): M19.011 - Primary osteoarthritis, right shoulder (3) Atelectasis SNOMED Code(s): 66581716 Code(s): J98.11 - ATELECTASIS Priority: Medium Current Visit: No (4) Anemia SNOMED Code(s): 614492261 Code(s): D64.9 - ANEMIA, UNSPECIFIED Priority: Low Current Visit: No Qualifiers: Anemia type: unspecified type Qualified Code(s): D64.9 - Anemia, unspecified (5) Cardiomegaly SNOMED Code(s): 0335817 Code(s): I51.7 - CARDIOMEGALY Priority: Medium Current Visit: No (6) Depression SNOMED Code(s): 66856434 Code(s): F32.9 - MAJOR DEPRESSIVE DISORDER, SINGLE EPISODE, UNSPECIFIED Priority: Low Current Visit: No Qualifiers: Depression Type: other depression Qualified Code(s): F32.89 - Other specified depressive episodes (7) Chronic diarrhea SNOMED Code(s): 294032380 Code(s): K52.9 - NONINFECTIVE GASTROENTERITIS AND COLITIS, UNSPECIFIED Priority: Low Current Visit: No (8) Elevated glucose SNOMED Code(s): 36994769 Code(s): R73.09 - OTHER ABNORMAL GLUCOSE Priority: Low Current Visit: No (9) Hematuria SNOMED Code(s): 80005869 Code(s): R31.9 - HEMATURIA, UNSPECIFIED Priority: Low Current Visit: No Qualifiers: Hematuria type: unspecified type Qualified Code(s): R31.9 - Hematuria, unspecified (10) History of sepsis SNOMED Code(s): 108902269117136 Code(s): Z86.19 - PERSONAL HISTORY OF OTHER INFECTIOUS AND PARASITIC DISEASES Priority: Low Current Visit: No (11) HTN (hypertension) SNOMED Code(s): 08399415 Code(s): I10 - ESSENTIAL (PRIMARY) HYPERTENSION Priority: Low Current Visit: No Qualifiers: Hypertension type: unspecified Qualified Code(s): I10 - Essential (primary ) hypertension (12) Hypertriglyceridemia SNOMED Code(s): 733479450 Code(s): E78.1 - PURE HYPERGLYCERIDEMIA Priority: Low Current Visit: No (13) Insomnia SNOMED Code(s): 893032729 Code(s): G47.00 - INSOMNIA, UNSPECIFIED Priority: Low Current Visit: No Qualifiers: Insomnia type: unspecified Qualified Code(s): G47.00 - Insomnia, unspecified (14) Osteoporosis SNOMED Code(s): 38975659 Code(s): M81.0 - AGE-RELATED OSTEOPOROSIS W/O CURRENT PATHOLOGICAL FRACTURE Priority: Medium Current Visit: Yes Qualifiers: Osteoporosis type: unspecified Presence of current pathological fracture: unspecified Qualified Code(s): M81.0 - Age-related osteoporosis without current pathological fracture (15) Pericardial effusion SNOMED Code(s): 883037033 Code(s): I31.3 - PERICARDIAL EFFUSION (NONINFLAMMATORY) Priority: Low Current Visit: No (16) History of kidney stones SNOMED Code(s): 841995202 Code(s): Z87.442 - PERSONAL HISTORY OF URINARY CALCULI Priority: Low Current Visit: No (17) Rheumatoid arthritis SNOMED Code(s): 65042247 Code(s): M06.9 - RHEUMATOID ARTHRITIS, UNSPECIFIED Priority: Low Current Visit: No Qualifiers: Rheumatoid arthritis location: unspecified site Rheumatoid factor presence : unspecified presence Qualified Code(s): M06.9 - Rheumatoid arthritis, unspecified (18) Hypokalemia SNOMED Code(s): 26025020 Code(s): E87.6 - HYPOKALEMIA Priority: Low Current Visit: No (19) Hypothyroid SNOMED Code(s): 23984210 Code(s): E03.9 - HYPOTHYROIDISM, UNSPECIFIED Priority: Low Current Visit : No Qualifiers: Hypothyroidism type: unspecified Qualified Code(s): E03.9 - Hypothyroidism , unspecified (20) Lower extremity edema SNOMED Code(s): 742569738 Code(s): R60.0 - LOCALIZED EDEMA Priority: Low Current Visit: No (21) Transaminitis SNOMED Code(s): 856938455, 637711195 Code(s): R74.0 - NONSPEC ELEV OF LEVELS OF TRANSAMNS & LACTIC ACID DEHYDRGNSE Priority: Low Current Visit: No (22) Chronic back pain SNOMED Code(s): 162736922 Code(s): M54.9 - DORSALGIA, UNSPECIFIED; G89.29 - OTHER CHRONIC PAIN Priority: Low Current Visit: No Qualifiers: Back pain location: back pain in unspecified location Back pain laterality : bilateral Qualified Code(s): M54.9 - Dorsalgia, unspecified; G89.29 - Other chronic pain (23) GERD (gastroesophageal reflux disease) SNOMED Code(s): 290045132 Code(s): K21.9 - GASTRO-ESOPHAGEAL REFLUX DISEASE WITHOUT ESOPHAGITIS Priority: Low Current Visit: No Qualifiers: Esophagitis presence: without esophagitis Qualified Code(s): K21.9 - Gastro -esophageal reflux disease without esophagitis (24) Recurrent UTI SNOMED Code(s): 776468424 Code(s): N39.0 - URINARY TRACT INFECTION, SITE NOT SPECIFIED Priority: Low Current Visit: No (25) Lumbar disc disease SNOMED Code(s): 901248615 Code(s): M51.9 - UNSP THORACIC, THORACOLUM AND LUMBOSACR INTVRT DISC DISORDER Priority: Low Current Visit: No Problem List Initiated/Reviewed/Updated: Yes Plan: I/P: Acute: S/P right reverse total shoulder arthroplasty - post-operative day 0 -DVT prophylaxis and pain management per primary care team -PT/OT -IS/RT -Monitor oxygen saturation -Titrate oxygen as needed -Home medications reviewed -Vital signs stable -Monitor labs -Pre-operative Hgb was 11.9 -Pre-operative GFR was 56 -Pre-operative BUN was 19 -Pre-operative AST was 47 Osteoarthritis of right shoulder -Pain management per primary care team Chronic: atelectasis anemia hypothyroidism lower back pain cardiomegaly depression diarrhea elevated glucose elevated LFTs GERD hematuria history of sepsis hypertension elevated triglycerides hypokalemia insomnia osteoporosis pericardial effusion peripheral edema urolithiasis RA recurrent UTIs lumbar disk disease Plan: CM for discharge planning GI prophylaxis Home medications as indicated Other orders as listed above Routine AM labs She is a full code. Her PCP is Sharona Gonzalez PA-C Thank you for allowing us to participate in the care of this patient!! Requesting Provider: Dr. Lake Date Consult Requested: 04/24/19 Patient History Reviewed: Yes Admission H&P Reviewed: Yes
[2019-04-24] MEDS ORDERED: ePHEDrine Sulfate/0.9% NaCl/Pf 25 MG/5 ML SYRINGE IV ONE (08:08)
--- NOTE | 2019-04-24 08:39 | PCM.PREANE ---
Preanesthetic Assessment - Procedure Proposed Procedure: Right Reverse Total Shoulder Arthroplasty - Anesthesia/Transfusion/Family Hx Anesthesia History: Prior Anesthesia Without Reaction Family History of Anesthesia Reaction: No Transfusion History: No Prior Transfusion(s) Intubation History: Unknown - Review of Systems General: No Symptoms Pulmonary: No Symptoms Cardiovascular: No Symptoms (Achieves 4 mets of activity with ease. Stress test done in 2018, no reversible ischemia. ECHO mildly dilated left atruim, EF 65-70% . ) Gastrointestinal: Other (GERD) Neurological: Other (Chronic Back Pain with previous surgery. ) Other: Reports: None (Opioid dependence for chronic pain ), Thyroid Problems ( Hypothyroid) - Physical Assessment NPO Status Date: 04/23/19 NPO Status Time: 21:30 Vital Signs: Last Vital Signs Temp 36.2 C 04/24/19 06:35 Pulse 68 04/24/19 07:10 Resp 18 04/24/19 07:10 BP 128/57 L 04/24/19 07:10 Pulse Ox 100 04/24/19 07:10 Height: 1.55 m Weight: 88.451 kg ASA Class: 3 Mental Status: Alert & Oriented x3 Airway Class: Mallampati = 1 Dentition: Reports: Dentures Thyro-Mental Finger Breadths: 2 Mouth Opening Finger Breadths: 3 ROM/Head Extension: Full Lungs: Clear to Auscultation, Normal Respiratory Effort Cardiovascular: Regular Rate, Regular Rhythm - Lab Values: Laboratory Last Values MRSA (PCR) Negative 04/16/19 14:29 - Allergies Allergies/Adverse Reactions: Allergies Allergy/AdvReac Type Severity Reaction Status Date / Time No Known Allergies Allergy Verified 04/23/19 16:20 - Anesthesia Plan Pre-Op Medication Ordered: Anxiolytic - Acknowledgements Anesthesia Type Planned: General Anesthesia, Regional Block (Preoperative interscalene nerve block with ultrasound for post operative pain control. ) Pt an Appropriate Candidate for the Planned Anesthesia: Yes Alternatives and Risks of Anesthesia Discussed w Pt/Guardian: Yes Pt/Guardian Understands and Agrees with Anesthesia Plan: Yes PreAnesthesia Questionnaire HEENT History: Reports: Impaired Vision Other HEENT History: glasses. upper and lower dentures Cardiovascular History: Reports: Hypertension, Other (See Below) Other Cardiovascular History: cardiomegaly, pericardial effusion, peripheral edema Respiratory History: Reports: Other (See Below) Other Respiratory History: rhonchi Gastrointestinal History: Reports: GERD, Hemorrhoids Other Gastrointestinal History: abdominal pain, elevated LFTs, reflux, gastritis Genitourinary History: Reports: UTI, Recurrent Other Genitourinary History: flank pain, hematuria, kidney stones [employer] History: Reports: Other OB/BYN History: bacterial vaginosis, endocervical polyp, vagintis, vulvovaginits Musculoskeletal History: Reports: Osteoarthritis, RA, Other (See Below) Other Musculoskeletal History: fusion of lower back x 3 vertebrae Mar 2017 Neurological History: Reports: Other (See Below) Other Neuro History: lumbar disc disease, degenerative disc disease Psychiatric History: Reports: Depression, Other (See Below) Other Psychiatric History: insomnia, opiod dependence Endocrine/Metabolic History: Reports: Hypothyroidism, Obesity/BMI 30+ Hematologic History: Reports: Blood Transfusion(s) Immunologic History: Reports: Other (See Below) Other Immunologic History: sepsis Oncologic (Cancer) History: Reports: None Other Dermatologic History: cracked skin, dermatitis, cold sores, incision and drainage - Past Surgical History Head Surgeries/Procedures: Reports: None HEENT Surgical History: Reports: Tonsillectomy Respiratory Surgical History: Reports: None GI Surgical History: Reports: None, Colonoscopy Female Surgical History: Reports: Section Other Female Surgeries/Procedures: csection x2 Endocrine Surgical History: Reports: Thyroidectomy Neurological Surgical History: Reports: Discectomy, Lumbar Spine, Other (See Below) Other Neurological Surgeries/Procedures: planning to have another surgery and fuse L4&5 this coming winter. Musculoskeletal Surgical History: Reports: Shoulder Surgery, Other (See Below) Other Musculoskeletal Surgeries/Procedures:: bunion surgery right foot, left total shoulder replacement Oncologic Surgical History: Reports: None - SUBSTANCE USE Smoking Status *Q: Former Smoker Recreational Drug Use History: No - HOME MEDS Home Medications: Home Meds Levothyroxine Sodium [Synthroid] 175 mcg PO DAILY 05/04/15 [History] Hydroxychloroquine Sulfate [Plaquenil] 200 mg PO BID 09/08/18 [History] Furosemide 20 mg PO DAILY PRN 09/25/18 [History] Cholecalciferol (Vitamin D3) [Vitamin D3] 5,000 unit PO DAILY 12/20/18 [History] Omeprazole 20 mg PO DAILY 12/20/18 [History] Sertraline [Zoloft] 50 mg PO DAILY 12/20/18 [History] Aspirin [Ecotrin EC] 81 mg PO DAILY 04/23/19 [History] L.acidoph,Paracasei, B.lactis [Probiotic] 1 each PO DAILY 04/23/19 [History] Multivitamin [Daily Gonzalez] 1 each PO DAILY 04/23/19 [History] Zolpidem [Ambien] 10 mg PO BEDTIME PRN 04/23/19 [History] - CURRENT (IN HOUSE) MEDS Current Meds: Current Medications Aspirin (Ecotrin) 325 mg PO BID [facility] Bisacodyl (Dulcolax) 5 mg PO DAILY PRN PRN Reason: Constipation Cyclobenzaprine HCl (Flexeril) 10 mg PO TID PRN PRN Reason: Spasms Docusate Sodium (Colace) 100 mg PO BID [facility] Famotidine (Pepcid) 20 mg PO Q12H [facility] Lactated Ringer's (Ringers, Lactated) 1,000 mls @ 125 mls/hr IV ASDIRECTED [facility] Stop: 04/24/19 23:00 Last Admin: 04/24/19 07:41 Dose: 125 mls/hr Cefazolin Sodium/Dextrose 2 gm (/ Premix) 50 mls @ 100 mls/hr IV Q8H [facility] Stop: 04/24/19 23:14 Ketorolac Tromethamine (Toradol) 15 mg IVPUSH Q6H PRN PRN Reason: Pain Lidocaine/Sodium Bicarbonate (Buffered Lidocaine 1% In Ns 8.4%) 0.25 ml IDERM ONETIME PRN PRN Reason: Prior to IV Start Stop: 04/24/19 18:00 Last Admin: 04/24/19 07:39 Dose: 0.25 ml Morphine Sulfate (Morphine) 2 mg IVPUSH Q2H PRN PRN Reason: Breakthrough Pain Naloxone HCl (Narcan) 0.1 mg IVPUSH Q5M PRN PRN Reason: Oversedation Ondansetron HCl (Zofran) 4 mg IVPUSH Q6H PRN PRN Reason: Nausea/Vomiting Oxycodone HCl (Oxycodone) 5 - 10 mg PO Q4H PRN PRN Reason: Pain Senna (Senna) 8.6 mg PO BID PRN PRN Reason: Constipation Sodium Chloride (Saline Flush) 10 ml FLUSH ASDIRECTED PRN PRN Reason: Keep Vein Open Stop: 04/24/19 18:00 Discontinued Medications Acetaminophen (Tylenol) 975 mg PO ONETIME ONE Stop: 04/24/19 06:01 Last Admin: 04/24/19 07:20 Dose: 975 mg Acetaminophen (Tylenol) 975 mg PO ONETIME ONE Stop: 04/24/19 06:46 Acetaminophen (Tylenol) 975 mg PO ONETIME ONE Stop: 04/24/19 07:16 Acetaminophen (Tylenol) Confirm Administered Dose 975 mg .ROUTE .STK-MED ONE Stop: 04/24/19 07:20 Bupivacaine HCl (Sensorcaine-Mpf 0.25%) Confirm Administered Dose 30 ml .ROUTE .STK-MED ONE Stop: 04/24/19 07:15 Cefazolin Sodium (Ancef) Confirm Administered Dose 2 gm .ROUTE .STK-MED ONE Stop: 04/24/19 06:26 Cefazolin Sodium (Ancef) Confirm Administered Dose 2 gm .ROUTE .STK-MED ONE Stop: 04/24/19 07:15 Dexamethasone (Dexamethasone) Confirm Administered Dose 20 mg .ROUTE .ST-MED ONE Stop: 04/24/19 06:27 Ephedrine Sulfate (Ephedrine 25 Mg/5 Ml Syringe) Confirm Administered Dose 25 mg IV .STK-MED ONE Stop: 04/24/19 08:09 Epinephrine HCl (Adrenalin) Confirm Administered Dose 1 mg .ROUTE .STK-MED ONE Stop: 04/23/19 13:13 Epinephrine HCl (Adrenalin) Confirm Administered Dose 1 mg .ROUTE .STK-MED ONE Stop: 04/24/19 06:32 Fentanyl (Sublimaze) Confirm Administered Dose 250 mcg .ROUTE .STK-MED ONE Stop: 04/24/19 06:27 Lidocaine HCl (Xylocaine-Mpf 1%) Confirm Administered Dose 4 mls @ as directed .ROUTE .STK-MED ONE Stop: 04/24/19 06:26 Lactated Ringer's (Ringers, Lactated) Confirm Administered Dose 1,000 mls @ as directed .ROUTE .STK-MED ONE Stop: 04/24/19 06:26 Iodine (Iodine 2% Mild Tincture) Confirm Administered Dose 30 ml .ROUTE .STK- MED ONE Stop: 04/24/19 07:15 Midazolam HCl (Versed 1 Mg/Ml) Confirm Administered Dose 2 mg .ROUTE .STK-MED ONE Stop: 04/24/19 06:26 Ondansetron HCl (Zofran) Confirm Administered Dose 4 mg .ROUTE .[facility] ONE Stop: 04/24/19 06:26 Oxycodone HCl (Oxycontin) 10 mg PO ONETIME ONE Stop: 04/24/19 06:02 Last Admin: 04/24/19 07:20 Dose: 10 mg Oxycodone HCl (Oxycontin) 10 mg PO ONETIME ONE Stop: 04/24/19 06:46 Oxycodone HCl (Oxycontin) 10 mg PO ONETIME ONE Stop: 04/24/19 07:16 Oxycodone HCl (Oxycontin) Confirm Administered Dose 10 mg .ROUTE .[facility]-MED ONE Stop: 04/24/19 07:20 Pregabalin (Lyrica) 50 mg PO ONETIME ONE Stop: 04/24/19 06:03 Last Admin: 04/24/19 07:21 Dose: 50 mg Pregabalin (Lyrica) 50 mg PO ONETIME ONE Stop: 04/24/19 07:01 Pregabalin (Lyrica) 50 mg PO ONETIME ONE Stop: 04/24/19 07:16 Pregabalin (Lyrica) Confirm Administered Dose 50 mg .ROUTE .[facility]-MED ONE Stop: 04/24/19 07:19 Propofol (Diprivan 20 Ml) Confirm Administered Dose 400 mg .ROUTE .[facility]-MED ONE Stop: 04/24/19 06:26 Ropivacaine (Naropin 0.5%) Confirm Administered Dose 30 ml .ROUTE .[facility]-MED ONE Stop: 04/23/19 13:13 Ropivacaine (Naropin 0.5%) Confirm Administered Dose 30 ml .ROUTE .[facility]-MED ONE Stop: 04/24/19 06:32 Tranexamic Acid (Cyklokapron) Confirm Administered Dose 1,000 mg .ROUTE .[facility]- MED ONE Stop: 04/24/19 07:15 Vancomycin HCl (Vancomycin) Confirm Administered Dose 1 gm .ROUTE .[facility] ONE Stop: 04/24/19 07:15
[2019-04-24] MEDS ORDERED: fentaNYL 100 MCG/2 ML SDV IVPUSH PRN (08:40)
[2019-04-24] MEDS ORDERED: HYDROmorphone 0.5 MG/0.5 ML Syringe IVPUSH PRN (08:40)
--- NOTE | 2019-04-24 08:49 | PCM.SN ---
- Free Text/Narrative Note: Anesthesia Procedure Note: (Interscalene Block Note) Date: 04/24/19 Time Out: 0704 Start: 707 Stop: 709 Current Procedure: Right Interscalene Block under US guidance for postoperative pain control requested by Dr. Lake. Patient chart reviewed, risk/benefits discussed with patient, consent obtained. Patient positioned supine, monitors/alarms on, oxygen placed via nasal cannula at 2 LPM. Right shoulder prepped with two chloropreps. Sterile drapes placed with aseptic technique noted. Under US guidance right subclavian artery visualized along with the left brachial plexus. Plexus followed up to C6 cricoid level, and area localized with 1mls of 1% lidocaine. 22gauge 2 inch stimiplex needle advanced under US with 0.4mV with stimulation of biceps noted. Good stimulation noted with decreased voltage and absent at 0.2mVs. 1ml of Normal Saline injected with loss of stimulation noted to confirm needle not placed intraneurally. Incremental dosing of 5mls with negative aspiration noted prior to each injection of 0.5% ropivacaine with 1:200,000 epinephrine. Total volume=30mls. Chayo Smith tolerated the procedure well. No complications were noted. Vital signs stable throughout the procedure. See Nursing Notes for vital signs and medication administration. Vital signs stable throughout. Angela Maloney [employer]
--- NOTE | 2019-04-24 09:51 | PCM.POSTAN ---
POST ANESTHESIA ASSESSMENT - MENTAL STATUS Mental Status: Alert, Oriented - VITAL SIGNS Vital Signs: Last Vital Signs Temp 36.8 C 04/24/19 09:45 Pulse 75 04/24/19 09:45 Resp 16 04/24/19 09:45 BP 110/85 04/24/19 09:45 Pulse Ox 93 L 04/24/19 09:45 - RESPIRATORY Respiratory Status: Respiratory Rate WNL, Airway Patent, O2 Saturation Stable, Supplemental Oxygen - CARDIOVASCULAR CV Status: Pulse Rate WNL, Blood Pressure Stable - GASTROINTESTINAL GI Status: No Symptoms - PAIN Pain Score: 0 - POST OP HYDRATION Hydration Status: Adequate & Stable
[2019-04-24] MEDS ORDERED: Ketorolac 30 MG/ML SDV ONE (10:01)
[2019-04-24] MEDS ORDERED: Ketorolac 15 MG/ML SDV ONE (10:01)
[2019-04-24] MEDS: oxyCODONE 5 MG Tab PO PRN ×3 (10:43→19:49)
--- NOTE | 2019-04-24 10:43 | CR ---
Right shoulder: Single AP view of the right shoulder was obtained. Right shoulder prosthesis is noted. Shoulder prosthesis is of the reverse type. Mild soft tissue air is noted. Underlying bony structures are intact. Impression: 1. Right shoulder prosthesis. Diagnostic code #2 This report was dictated in [place] Standard Time
--- NOTE | 2019-04-24 10:43 | CR ---
Right shoulder: Two fluoroscopic spot views were obtained of the right shoulder utilizing C-arm device. Study shows placement of reverse right shoulder prosthesis. Underlying bony structures are grossly intact. Fluoroscopy time given is 3.7 seconds. Impression: 1. Procedural study as noted above. Diagnostic code #2 This report was dictated in [place] Standard Time
[2019-04-24] MEDS: ceFAZolin 2 GM in Premix Bag 1 BAG IV SCH ×2 (15:17→22:52)
[2019-04-24] MEDS: Ketorolac 15 MG/ML SDV IVPUSH PRN ×2 (17:07→22:52)
[2019-04-24] MEDS: Docusate Sodium 100 MG Cap PO SCH (20:01)
[2019-04-24] MEDS: Hydroxychloroquine 200 MG Tab PO SCH (20:01)
[2019-04-24] MEDS ORDERED: Famotidine 20 MG Tab PO SCH (21:00)
[2019-04-24] MEDS: Acetaminophen 325 MG Tab PO PRN (21:32)
[2019-04-25] MEDS: Morphine 2 MG/ML Syringe IVPUSH PRN ×2 (00:03→09:00)
[2019-04-25] MEDS: oxyCODONE 5 MG Tab PO PRN ×3 (01:58→11:15)
[2019-04-25 04:47] VITALS: BP 122/95; PULSE 73
[2019-04-25] MEDS ORDERED: Levothyroxine 125 MCG Tab PO SCH (06:00)
[2019-04-25] MEDS ORDERED: Levothyroxine 50 MCG Tab PO SCH (06:00)
[2019-04-25] MEDS: ceFAZolin 2 GM in Premix Bag 1 BAG IV SCH (06:30)
--- NOTE | 2019-04-25 07:03 | PCM.CONSN ---
- General Info Date of Service: 04/25/19 Admission Dx/Problem (Free Text): Admission Diagnosis/Problem Admission Diagnosis/Problem Osteoarthritis of shoulder Functional Status: Reports: Pain Controlled (mostly ), Tolerating Diet, Ambulating, Urinating, Incentive Spirometry. Denies: New Symptoms - Review of Systems General: Reports: No Symptoms. Denies: Fever, Chills HEENT: Reports: No Symptoms. Denies: Headaches, Sore Throat Pulmonary: Reports: No Symptoms. Denies: Shortness of Breath, Pleuritic Chest Pain, Cough, Sputum, Wheezing Cardiovascular: Reports: No Symptoms. Denies: Chest Pain, Palpitations, Dyspnea on Exertion Gastrointestinal: Reports: No Symptoms. Denies: Abdominal Pain, Constipation, Diarrhea, Nausea, Vomiting Genitourinary: Reports: No Symptoms. Denies: Pain Musculoskeletal: Reports: Shoulder Pain (right ) Skin: Reports: No Symptoms. Denies: Cyanosis Neurological: Reports: No Symptoms. Denies: Confusion, Difficulty Walking, Weakness, Gait Disturbance Psychiatric: Reports: No Symptoms - Patient Data Vitals - Most Recent: Last Vital Signs Temp 98.8 F 04/24/19 19:55 Pulse 73 04/25/19 04:41 Resp 16 04/25/19 04:41 BP 122/95 H 04/25/19 04:41 Pulse Ox 94 L 04/25/19 04:41 Weight - Most Recent: 195 lb I&O - Last 24 Hours: Intake & Output 04/24/19 04/24/19 04/25/19 14:59 22:59 06:59 Intake Total 970 850 950 Output Total 300 550 Balance 970 550 400 Lab Results Last 24 Hours: Laboratory Results - last 24 hr 04/25/19 04/25/19 Range/Units 05:08 05:08 WBC 7.42 (3.98-10.04) K/mm3 RBC 3.50 L (3.98-5.22) M/mm3 Hgb 9.5 L D (11.2-15.7) gm/dl Hct 32.2 L (34.1-44.9) % MCV 92.0 (79.4-94.8) fl MCH 27.1 (25.6-32.2) pg MCHC 29.5 L (32.2-35.5) g/dl RDW Std Deviation 45.8 (36.4-46.3) fL Plt Count 122 L (182-369) K/mm3 MPV 11.7 (9.4-12.3) fl Sodium 139 (136-145) mEq/L Potassium 4.1 (3.5-5.1) mEq/L Chloride 104 (98-107) mEq/L Carbon Dioxide 25 (21-32) mEq/L Anion Gap 14.1 (5-15) BUN 20 H (7-18) mg/dL Creatinine 0.8 (0.55-1.02) mg/dL Est Cr Clr Drug Dosing 55.73 mL/min Estimated GFR (MDRD) > 60 (>60) mL/min BUN/Creatinine Ratio 25.0 H (14-18) Glucose 119 H (80-115) mg/dL Calcium 8.2 L (8.5-10.1) mg/dL Total Bilirubin 0.3 (0.2-1.0) mg/dL AST 27 (15-37) U/L ALT 29 (14-59) U/L Alkaline Phosphatase 50 (46-116) U/L Total Protein 6.2 L (6.4-8.2) g/dl Albumin 2.9 L (3.4-5.0) g/dl Globulin 3.3 gm/dL Albumin/Globulin Ratio 0.9 L (1-2) Med Orders - Current: Current Medications Acetaminophen (Tylenol) 650 mg PO Q4H PRN PRN Reason: Headache/Pain Last Admin: 04/24/19 21:32 Dose: 650 mg Aspirin (Ecotrin) 325 mg PO BID [facility] Bisacodyl (Dulcolax) 5 mg PO DAILY PRN PRN Reason: Constipation Cholecalciferol (Vitamin D3) 5,000 unit PO DAILY [facility] Cyclobenzaprine HCl (Flexeril) 10 mg PO TID PRN PRN Reason: Spasms Docusate Sodium (Colace) 100 mg PO BID [facility] Last Admin: 04/24/19 20:01 Dose: 100 mg Hydroxychloroquine Sulfate (Plaquenil) 200 mg PO BID [facility] Last Admin: 04/24/19 20:01 Dose: 200 mg Cefazolin Sodium/Dextrose 2 gm (/ Premix) 50 mls @ 100 mls/hr IV Q8H [facility] Stop: 04/25/19 07:44 Last Admin: 04/25/19 06:30 Dose: 100 mls/hr Levothyroxine Sodium (Levothyroxine) 125 mcg PO ACBREAKFAST [facility] Last Admin: 04/25/19 06:30 Dose: 125 mcg Levothyroxine Sodium (Synthroid) 50 mcg PO ACBREAKFAST [facility] Last Admin: 04/25/19 06:30 Dose: 50 mcg Morphine Sulfate (Morphine) 2 mg IVPUSH Q2H PRN PRN Reason: Breakthrough Pain Last Admin: 04/25/19 00:03 Dose: 2 mg Multivitamins (Thera) 1 each PO DAILY [facility] Naloxone HCl (Narcan) 0.1 mg IVPUSH Q5M PRN PRN Reason: Oversedation Ondansetron HCl (Zofran) 4 mg IVPUSH Q6H PRN PRN Reason: Nausea/Vomiting Oxycodone HCl (Oxycodone) 5 - 10 mg PO Q4H PRN PRN Reason: Pain Last Admin: 04/25/19 06:31 Dose: 10 mg Pantoprazole Sodium (Protonix) 40 mg PO DAILY [facility] Saccharomyces Boulardii (Florastor) 250 mg PO DAILY [facility] Senna (Senna) 8.6 mg PO BID PRN PRN Reason: Constipation Sertraline HCl (Zoloft) 50 mg PO DAILY [facility] Discontinued Medications Acetaminophen (Tylenol) 975 mg PO ONETIME ONE Stop: 04/24/19 06:01 Last Admin: 04/24/19 07:20 Dose: 975 mg Acetaminophen (Tylenol) 975 mg PO ONETIME ONE Stop: 04/24/19 06:46 Last Admin: 04/24/19 07:00 Dose: Not Given Acetaminophen (Tylenol) 975 mg PO ONETIME ONE Stop: 04/24/19 07:16 Last Admin: 04/24/19 07:00 Dose: Not Given Acetaminophen (Tylenol) Confirm Administered Dose 975 mg .ROUTE .STK-MED ONE Stop: 04/24/19 07:20 Last Admin: 04/24/19 07:00 Dose: Not Given Bupivacaine HCl (Sensorcaine-Mpf 0.25%) Confirm Administered Dose 30 ml .ROUTE .STK-MED ONE Stop: 04/24/19 07:15 Cefazolin Sodium (Ancef) Confirm Administered Dose 2 gm .ROUTE .STK-MED ONE Stop: 04/24/19 06:26 Last Admin: 04/24/19 08:50 Dose: 2 gm Cefazolin Sodium (Ancef) Confirm Administered Dose 2 gm .ROUTE .STK-MED ONE Stop: 04/24/19 07:15 Dexamethasone (Dexamethasone) Confirm Administered Dose 20 mg .ROUTE .STK-MED ONE Stop: 04/24/19 06:27 Ephedrine Sulfate (Ephedrine 25 Mg/5 Ml Syringe) Confirm Administered Dose 25 mg IV .STK-MED ONE Stop: 04/24/19 08:09 Epinephrine HCl (Adrenalin) Confirm Administered Dose 1 mg .ROUTE .STK-MED ONE Stop: 04/23/19 13:13 Epinephrine HCl (Adrenalin) Confirm Administered Dose 1 mg .ROUTE .STK-MED ONE Stop: 04/24/19 06:32 Famotidine (Pepcid) 20 mg PO Q12H [facility] Fentanyl (Sublimaze) Confirm Administered Dose 250 mcg .ROUTE .STK-MED ONE Stop: 04/24/19 06:27 Fentanyl (Sublimaze) 50 mcg IVPUSH Q5M PRN PRN Reason: Pain Stop: 04/24/19 12:00 Hydromorphone HCl (Dilaudid) 0.5 mg IVPUSH Q10M PRN PRN Reason: Pain (severe 7-10) Stop: 04/24/19 12:00 Lactated Ringer's (Ringers, Lactated) 1,000 mls @ 125 mls/hr IV ASDIRECTED [facility] Stop: 04/24/19 23:00 Last Admin: 04/24/19 07:41 Dose: 125 mls/hr Lidocaine HCl (Xylocaine-Mpf 1%) Confirm Administered Dose 4 mls @ as directed .ROUTE .STK-MED ONE Stop: 04/24/19 06:26 Lactated Ringer's (Ringers, Lactated) Confirm Administered Dose 1,000 mls @ as directed .ROUTE .STK-MED ONE Stop: 04/24/19 06:26 Iodine (Iodine 2% Mild Tincture) Confirm Administered Dose 30 ml .ROUTE .STK- MED ONE Stop: 04/24/19 07:15 Last Admin: 04/24/19 08:49 Dose: 18 ml Ketorolac Tromethamine (Toradol) 15 mg IVPUSH Q6H PRN PRN Reason: Pain Last Admin: 04/24/19 22:52 Dose: 15 mg Ketorolac Tromethamine (Toradol) Confirm Administered Dose 30 mg .ROUTE .STK- MED ONE Stop: 04/24/19 10:02 Ketorolac Tromethamine (Toradol) Confirm Administered Dose 15 mg .ROUTE .STK- MED ONE Stop: 04/24/19 10:02 Lidocaine/Sodium Bicarbonate (Buffered Lidocaine 1% In Ns 8.4%) 0.25 ml IDERM ONETIME PRN PRN Reason: Prior to IV Start Stop: 04/24/19 18:00 Last Admin: 04/24/19 07:39 Dose: 0.25 ml Midazolam HCl (Versed 1 Mg/Ml) Confirm Administered Dose 2 mg .ROUTE .STK-MED ONE Stop: 04/24/19 06:26 Ondansetron HCl (Zofran) Confirm Administered Dose 4 mg .ROUTE .STK-MED ONE Stop: 04/24/19 06:26 Oxycodone HCl (Oxycontin) 10 mg PO ONETIME ONE Stop: 04/24/19 06:02 Last Admin: 04/24/19 07:20 Dose: 10 mg Oxycodone HCl (Oxycontin) 10 mg PO ONETIME ONE Stop: 04/24/19 06:46 Last Admin: 04/24/19 07:00 Dose: Not Given Oxycodone HCl (Oxycontin) 10 mg PO ONETIME ONE Stop: 04/24/19 07:16 Last Admin: 04/24/19 07:00 Dose: Not Given Oxycodone HCl (Oxycontin) Confirm Administered Dose 10 mg .ROUTE .STK-MED ONE Stop: 04/24/19 07:20 Last Admin: 04/24/19 07:00 Dose: Not Given Pregabalin (Lyrica) 50 mg PO ONETIME ONE Stop: 04/24/19 06:03 Last Admin: 04/24/19 07:21 Dose: 50 mg Pregabalin (Lyrica) 50 mg PO ONETIME ONE Stop: 04/24/19 07:01 Last Admin: 04/24/19 07:00 Dose: Not Given Pregabalin (Lyrica) 50 mg PO ONETIME ONE Stop: 04/24/19 07:16 Last Admin: 04/24/19 07:00 Dose: Not Given Pregabalin (Lyrica) Confirm Administered Dose 50 mg .ROUTE .STK-MED ONE Stop: 04/24/19 07:19 Last Admin: 04/24/19 07:00 Dose: Not Given Propofol (Diprivan 20 Ml) Confirm Administered Dose 400 mg .ROUTE .STK-MED ONE Stop: 04/24/19 06:26 Ropivacaine (Naropin 0.5%) Confirm Administered Dose 30 ml .ROUTE .STK-MED ONE Stop: 04/23/19 13:13 Ropivacaine (Naropin 0.5%) Confirm Administered Dose 30 ml .ROUTE .STK-MED ONE Stop: 04/24/19 06:32 Sodium Chloride (Saline Flush) 10 ml FLUSH ASDIRECTED PRN PRN Reason: Keep Vein Open Stop: 04/24/19 18:00 Tranexamic Acid (Cyklokapron) Confirm Administered Dose 1,000 mg .ROUTE .STK- MED ONE Stop: 04/24/19 07:15 Last Admin: 04/24/19 08:54 Dose: 1,000 mg Vancomycin HCl (Vancomycin) Confirm Administered Dose 1 gm .ROUTE .STK-MED ONE Stop: 04/24/19 07:15 Last Admin: 04/24/19 08:54 Dose: 1 gm - Exam Quality Assessment: DVT Prophylaxis. No: Supplemental Oxygen, Urine Catheter General: Alert, Oriented, Cooperative, No Acute Distress HEENT: Pupils Equal, Pupils Reactive, Mucous Membr. Moist/[place] Neck: Supple, Trachea Midline Lungs: Clear to Auscultation, Normal Respiratory Effort Cardiovascular: Regular Rate, Regular Rhythm GI/Abdominal Exam: Normal Bowel Sounds, Soft, Non-Tender, No Distention (Female) Exam: Deferred Back Exam: Normal Inspection, Full Range of Motion Extremities: Normal Capillary Refill, Arm Pain, Limited Range of Motion, Other ( Bandage in place on right shoulder. Cooling pack in place. Sling and swathe in place on right arm. ) Peripheral Pulses: 3+: Radial (L), Radial (R), Dorsalis Pedis (L), Dorsalis Pedis (R) Skin: Warm, Dry, Intact Neurological: No New Focal Deficit Psy/Mental Status: Alert, Normal Affect, Normal Mood Sepsis Event Note - Evaluation Sepsis Screening Result: No Definite Risk - Focused Exam Vital Signs: Vital Signs Temp Pulse Pulse Resp BP BP Pulse Ox 04/25/19 04:41 73 16 122/95 H 94 L 04/25/19 01:13 75 108/76 92 L 04/25/19 00:08 75 92 L 04/24/19 19:55 98.8 F 89 18 106/74 94 L Date Exam was Performed: 04/25/19 Time Exam was Performed: 10:53 Consult PN Assessment/Plan POD#: 1 Procedures: Procedures ASSAY OF BLOOD/URIC ACID (05/17/15) ASSAY OF CREATININE (09/12/18) ASSAY OF FERRITIN (03/13/17) ASSAY OF GGT (10/23/16) ASSAY OF HAPTOGLOBIN QUANT (01/24/17) ASSAY OF IRON (04/03/17) ASSAY OF LACTIC ACID (09/07/17) ASSAY OF MAGNESIUM (09/25/18) ASSAY OF NATRIURETIC PEPTIDE (05/28/16) ASSAY OF TRANSFERRIN (03/13/17) ASSAY THYROID STIM HORMONE (09/28/17) AUTOMATED RETICULOCYTE COUNT (01/24/17) BL SMEAR W/DIFF WBC COUNT (12/28/17) BLOOD CULTURE FOR BACTERIA (09/07/17) C DIFF AMPLIFIED PROBE (06/12/17) C-REACTIVE PROTEIN (10/24/17) CARDIOVASCULAR STRESS TEST (03/29/17) CHEST X-RAY 2VW FRONTAL&LATL (01/24/17) COMP SCREEN MAMMOGRAM ADD-ON (04/19/15) COMPLETE CBC AUTOMATED (12/28/17) COMPLETE CBC W/AUTO DIFF WBC (12/12/18) COMPREHEN METABOLIC PANEL (12/12/18) COMPUTER DX MAMMOGRAM ADD-ON (12/14/15) CRYPTOSPORIDIUM AG IA (06/08/17) CT ABD & PELV 1/> REGNS (02/05/17) CT ABD & PELVIS W/O CONTRAST (09/07/17) CT LUMBAR SPINE W/O DYE (09/07/17) CT THORAX W/O DYE (09/07/17) CULTURE AEROBIC IDENTIFY (09/07/17) CULTURE OTHR SPECIMN AEROBIC (12/28/17) DIAGNOSTIC COLONOSCOPY (05/05/15) DXA BONE DENSITY AXIAL (10/23/18) ELECTROCARDIOGRAM TRACING (09/25/18) EMERGENCY DEPT VISIT (09/25/18) EMERGENCY DEPT VISIT (09/08/18) EMERGENCY DEPT VISIT (09/07/17) EMERGENCY DEPT VISIT (05/27/17) EMERGENCY DEPT VISIT (05/28/16) EMERGENCY DEPT VISIT (02/20/16) EMERGENCY DEPT VISIT (12/22/15) EMERGENCY DEPT VISIT (07/28/15) EXTREMITY STUDY (05/28/16) FIBRIN DEGRADATION QUANT (05/28/16) GIARDIA AG IA (06/08/17) HEPATIC FUNCTION PANEL (05/18/17) HEPATOBIL SYST IMAGE W/DRUG (11/06/16) HT MUSCLE IMAGE SPECT MULT (03/29/17) HYDRATE IV INFUSION ADD-ON (09/07/17) LACTATE (LD) (LDH) ENZYME (09/07/17) LEUKOCYTE ASSESSMENT FECAL (06/08/17) LIPID PANEL (03/30/15) METABOLIC PANEL TOTAL CA (06/21/16) MICROBE SUSCEPTIBLE DARIO (12/12/18) MR-STAPH DNA AMP PROBE (04/17/17) MRI JOINT UPR EXTREM W/O DYE (07/29/18) MRI LUMBAR SPINE W/O & W/DYE (09/12/18) MRI LUMBAR SPINE W/O DYE (01/12/16) PROTHROMBIN TIME (12/12/18) RBC SED RATE AUTOMATED (10/24/17) RHEUMATOID FACTOR TEST QUAL (03/30/15) ROUTINE VENIPUNCTURE (12/12/18) SMEAR GRAM STAIN (09/07/17) SMEAR WET [place] SALINE/INK (04/07/16) STOOL CULTR AEROBIC BACT EA (06/08/17) THER/PROPH/DIAG INJ IV PUSH (09/25/18) THER/PROPH/DIAG INJ SC/IM (07/23/18) THER/PROPH/DIAG IV INF ADDON (09/07/17) THER/PROPH/DIAG IV INF INIT (09/25/18) THROMBOPLASTIN TIME PARTIAL (12/12/18) TISSUE EXAM BY PATHOLOGIST (04/22/15) TRANSFERASE (AST) (SGOT) (10/05/17) TRICHOMONAS ASSAY W/OPTIC (04/07/16) TTE W/DOPPLER COMPLETE (03/29/17) TX/PRO/DX INJ NEW DRUG ADDON (09/07/17) TX/PRO/DX INJ SAME DRUG ATTACHE (09/07/17) TX/PROPH/DG ADDL SEQ IV INF (09/07/17) ULTRASOUND BREAST COMPLETE (05/07/15) URINALYSIS AUTO W/SCOPE (12/12/18) URINE BACTERIA CULTURE (12/12/18) URINE CULTURE/COLONY COUNT (12/12/18) VITAMIN B-12 (01/24/17) X-RAY EXAM CHEST 2 VIEWS (04/21/19) X-RAY EXAM L-S SPINE 2/3 VWS (12/22/15) X-RAY EXAM OF SHOULDER (07/23/18) X-RAY EXAM OF WRIST (08/05/15) (1) S/p reverse total shoulder arthroplasty SNOMED Code(s): 768002344, 730659163 Code(s): Z96.619 - PRESENCE OF UNSPECIFIED ARTIFICIAL SHOULDER JOINT Priority: High Current Visit: Yes Qualifiers: Laterality: right Qualified Code(s): Z96.611 - Presence of right artificial shoulder joint (2) Osteoarthritis SNOMED Code(s): 114542971 Code(s): M19.90 - UNSPECIFIED OSTEOARTHRITIS, UNSPECIFIED SITE Priority: High Current Visit: Yes Qualifiers: Osteoarthritis location: shoulder Osteoarthritis type: primary Laterality : right Qualified Code(s): M19.011 - Primary osteoarthritis, right shoulder (3) Atelectasis SNOMED Code(s): 07196816 Code(s): J98.11 - ATELECTASIS Priority: Medium Current Visit: No (4) Anemia SNOMED Code(s): 216970726 Code(s): D64.9 - ANEMIA, UNSPECIFIED Priority: Low Current Visit: No Qualifiers: Anemia type: unspecified type Qualified Code(s): D64.9 - Anemia, unspecified (5) Cardiomegaly SNOMED Code(s): 2879073 Code(s): I51.7 - CARDIOMEGALY Priority: Medium Current Visit: No (6) Depression SNOMED Code(s): 87909372 Code(s): F32.9 - MAJOR DEPRESSIVE DISORDER, SINGLE EPISODE, UNSPECIFIED Priority: Low Current Visit: No Qualifiers: Depression Type: other depression Qualified Code(s): F32.89 - Other specified depressive episodes (7) Chronic diarrhea SNOMED Code(s): 433797945 Code(s): K52.9 - NONINFECTIVE GASTROENTERITIS AND COLITIS, UNSPECIFIED Priority: Low Current Visit: No (8) Elevated glucose SNOMED Code(s): 97976513 Code(s): R73.09 - OTHER ABNORMAL GLUCOSE Priority: Low Current Visit: No (9) Hematuria SNOMED Code(s): 70056837 Code(s): R31.9 - HEMATURIA, UNSPECIFIED Priority: Low Current Visit: No Qualifiers: Hematuria type: unspecified type Qualified Code(s): R31.9 - Hematuria, unspecified (10) History of sepsis SNOMED Code(s): 512698017000420 Code(s): Z86.19 - PERSONAL HISTORY OF OTHER INFECTIOUS AND PARASITIC DISEASES Priority: Low Current Visit: No (11) HTN (hypertension) SNOMED Code(s): 54653982 Code(s): I10 - ESSENTIAL (PRIMARY) HYPERTENSION Priority: Low Current Visit: No Qualifiers: Hypertension type: unspecified Qualified Code(s): I10 - Essential (primary ) hypertension (12) Hypertriglyceridemia SNOMED Code(s): 067196700 Code(s): E78.1 - PURE HYPERGLYCERIDEMIA Priority: Low Current Visit: No (13) Insomnia SNOMED Code(s): 919073951 Code(s): G47.00 - INSOMNIA, UNSPECIFIED Priority: Low Current Visit: No Qualifiers: Insomnia type: unspecified Qualified Code(s): G47.00 - Insomnia, unspecified (14) Osteoporosis SNOMED Code(s): 78909096 Code(s): M81.0 - AGE-RELATED OSTEOPOROSIS W/O CURRENT PATHOLOGICAL FRACTURE Priority: Medium Current Visit: Yes Qualifiers: Osteoporosis type: unspecified Presence of current pathological fracture: unspecified Qualified Code(s): M81.0 - Age-related osteoporosis without current pathological fracture (15) Pericardial effusion SNOMED Code(s): 730664174 Code(s): I31.3 - PERICARDIAL EFFUSION (NONINFLAMMATORY) Priority: Low Current Visit: No (16) History of kidney stones SNOMED Code(s): 016638774 Code(s): Z87.442 - PERSONAL HISTORY OF URINARY CALCULI Priority: Low Current Visit: No (17) Rheumatoid arthritis SNOMED Code(s): 41981667 Code(s): M06.9 - RHEUMATOID ARTHRITIS, UNSPECIFIED Priority: Low Current Visit: No Qualifiers: Rheumatoid arthritis location: unspecified site Rheumatoid factor presence : unspecified presence Qualified Code(s): M06.9 - Rheumatoid arthritis, unspecified (18) Hypokalemia SNOMED Code(s): 09076027 Code(s): E87.6 - HYPOKALEMIA Priority: Low Current Visit: No (19) Hypothyroid SNOMED Code(s): 83639542 Code(s): E03.9 - HYPOTHYROIDISM, UNSPECIFIED Priority: Low Current Visit : No Qualifiers: Hypothyroidism type: unspecified Qualified Code(s): E03.9 - Hypothyroidism , unspecified (20) Lower extremity edema SNOMED Code(s): 713571541 Code(s): R60.0 - LOCALIZED EDEMA Priority: Low Current Visit: No (21) Transaminitis SNOMED Code(s): 349296488, 386143085 Code(s): R74.0 - NONSPEC ELEV OF LEVELS OF TRANSAMNS & LACTIC ACID DEHYDRGNSE Priority: Low Current Visit: No (22) Chronic back pain SNOMED Code(s): 454169752 Code(s): M54.9 - DORSALGIA, UNSPECIFIED; G89.29 - OTHER CHRONIC PAIN Priority: Low Current Visit: No Qualifiers: Back pain location: back pain in unspecified location Back pain laterality : bilateral Qualified Code(s): M54.9 - Dorsalgia, unspecified; G89.29 - Other chronic pain (23) GERD (gastroesophageal reflux disease) SNOMED Code(s): 937878353 Code(s): K21.9 - GASTRO-ESOPHAGEAL REFLUX DISEASE WITHOUT ESOPHAGITIS Priority: Low Current Visit: No Qualifiers: Esophagitis presence: without esophagitis Qualified Code(s): K21.9 - Gastro -esophageal reflux disease without esophagitis (24) Recurrent UTI SNOMED Code(s): 272962151 Code(s): N39.0 - URINARY TRACT INFECTION, SITE NOT SPECIFIED Priority: Low Current Visit: No (25) Lumbar disc disease SNOMED Code(s): 109518586 Code(s): M51.9 - UNSP THORACIC, THORACOLUM AND LUMBOSACR INTVRT DISC DISORDER Priority: Low Current Visit: No Problem List Initiated/Reviewed/Updated: Yes My Orders Last 24 Hours: My Active Orders 04/25/19 09:00 Multivitamins,Therapeutic [Thera] 1 each PO DAILY Plan: I/P: Acute: S/P right reverse total shoulder arthroplasty - post-operative day 1 -DVT prophylaxis and pain management per primary care team -PT/OT -IS/RT -Monitor oxygen saturation -Titrate oxygen as needed -Home medications reviewed -Vital signs stable -Monitor labs -Pre-operative Hgb was 11.9; Now 9.5 -Pre-operative GFR was 56; Now >60 -Pre-operative BUN was 19; Now 20 -Pre-operative AST was 47; Now 27 Osteoarthritis of right shoulder -Pain management per primary care team Chronic: atelectasis anemia hypothyroidism lower back pain cardiomegaly depression diarrhea elevated glucose elevated LFTs GERD hematuria history of sepsis hypertension elevated triglycerides hypokalemia insomnia osteoporosis pericardial effusion peripheral edema urolithiasis RA recurrent UTIs lumbar disk disease Plan: CM for discharge planning GI prophylaxis Home medications as indicated Other orders as listed above Routine AM labs She is a full code. Her PCP is Sharona Gonzalez PA-C From a hospitalist standpoint Chayo is doing well. Her labs and vital signs remain stable. She has been up ambulating and working with therapies. Pain is constantly 8/10 per nursing, but she appears mostly comfortable. Primary team is aware of the pain concern. She has urinated and is off of oxygen. She has been utilizing her IS. She is cleared for discharge pending primary team and PT/ OT agreement. Thank you for allowing us to participate in the care of this patient!!
--- NOTE | 2019-04-25 08:28 | PCM.SURGPN ---
- General Info Date of Service: 04/25/19 POD#: 1 Functional Status: Reports: Pain Controlled, Tolerating Diet, Ambulating, Urinating, Incentive Spirometry - Patient Data Vitals - Most Recent: Last Vital Signs Temp 98.8 F 04/24/19 19:55 Pulse 73 04/25/19 04:41 Resp 16 04/25/19 04:41 BP 122/95 H 04/25/19 04:41 Pulse Ox 94 L 04/25/19 04:41 Weight - Most Recent: 195 lb I&O - Last 24 Hours: Intake & Output 04/24/19 04/25/19 04/25/19 22:59 06:59 14:59 Intake Total 850 950 Output Total 300 550 Balance 550 400 Lab Results Last 24 Hrs: Laboratory Results - last 24 hr 04/25/19 04/25/19 Range/Units 05:08 05:08 WBC 7.42 (3.98-10.04) K/mm3 RBC 3.50 L (3.98-5.22) M/mm3 Hgb 9.5 L D (11.2-15.7) gm/dl Hct 32.2 L (34.1-44.9) % MCV 92.0 (79.4-94.8) fl MCH 27.1 (25.6-32.2) pg MCHC 29.5 L (32.2-35.5) g/dl RDW Std Deviation 45.8 (36.4-46.3) fL Plt Count 122 L (182-369) K/mm3 MPV 11.7 (9.4-12.3) fl Sodium 139 (136-145) mEq/L Potassium 4.1 (3.5-5.1) mEq/L Chloride 104 (98-107) mEq/L Carbon Dioxide 25 (21-32) mEq/L Anion Gap 14.1 (5-15) BUN 20 H (7-18) mg/dL Creatinine 0.8 (0.55-1.02) mg/dL Est Cr Clr Drug Dosing 55.73 mL/min Estimated GFR (MDRD) > 60 (>60) mL/min BUN/Creatinine Ratio 25.0 H (14-18) Glucose 119 H (80-115) mg/dL Calcium 8.2 L (8.5-10.1) mg/dL Total Bilirubin 0.3 (0.2-1.0) mg/dL AST 27 (15-37) U/L ALT 29 (14-59) U/L Alkaline Phosphatase 50 (46-116) U/L Total Protein 6.2 L (6.4-8.2) g/dl Albumin 2.9 L (3.4-5.0) g/dl Globulin 3.3 gm/dL Albumin/Globulin Ratio 0.9 L (1-2) Med Orders - Current: Current Medications Acetaminophen (Tylenol) 650 mg PO Q4H PRN PRN Reason: Headache/Pain Last Admin: 04/24/19 21:32 Dose: 650 mg Aspirin (Ecotrin) 325 mg PO BID [facility] Bisacodyl (Dulcolax) 5 mg PO DAILY PRN PRN Reason: Constipation Cholecalciferol (Vitamin D3) 5,000 unit PO DAILY [facility] Cyclobenzaprine HCl (Flexeril) 10 mg PO TID PRN PRN Reason: Spasms Docusate Sodium (Colace) 100 mg PO BID [facility] Last Admin: 04/24/19 20:01 Dose: 100 mg Hydroxychloroquine Sulfate (Plaquenil) 200 mg PO BID [facility] Last Admin: 04/24/19 20:01 Dose: 200 mg Levothyroxine Sodium (Levothyroxine) 125 mcg PO ACBREAKFAST [facility] Last Admin: 04/25/19 06:30 Dose: 125 mcg Levothyroxine Sodium (Synthroid) 50 mcg PO ACBREAKFAST [facility] Last Admin: 04/25/19 06:30 Dose: 50 mcg Morphine Sulfate (Morphine) 2 mg IVPUSH Q2H PRN PRN Reason: Breakthrough Pain Last Admin: 04/25/19 00:03 Dose: 2 mg Multivitamins (Thera) 1 each PO DAILY [facility] Naloxone HCl (Narcan) 0.1 mg IVPUSH Q5M PRN PRN Reason: Oversedation Ondansetron HCl (Zofran) 4 mg IVPUSH Q6H PRN PRN Reason: Nausea/Vomiting Oxycodone HCl (Oxycodone) 5 - 10 mg PO Q4H PRN PRN Reason: Pain Last Admin: 04/25/19 06:31 Dose: 10 mg Pantoprazole Sodium (Protonix) 40 mg PO DAILY [facility] Saccharomyces Boulardii (Florastor) 250 mg PO DAILY [facility] Senna (Senna) 8.6 mg PO BID PRN PRN Reason: Constipation Sertraline HCl (Zoloft) 50 mg PO DAILY [facility] Discontinued Medications Acetaminophen (Tylenol) 975 mg PO ONETIME ONE Stop: 04/24/19 06:01 Last Admin: 04/24/19 07:20 Dose: 975 mg Acetaminophen (Tylenol) 975 mg PO ONETIME ONE Stop: 04/24/19 06:46 Last Admin: 04/24/19 07:00 Dose: Not Given Acetaminophen (Tylenol) 975 mg PO ONETIME ONE Stop: 04/24/19 07:16 Last Admin: 04/24/19 07:00 Dose: Not Given Acetaminophen (Tylenol) Confirm Administered Dose 975 mg .ROUTE .STK-MED ONE Stop: 04/24/19 07:20 Last Admin: 04/24/19 07:00 Dose: Not Given Bupivacaine HCl (Sensorcaine-Mpf 0.25%) Confirm Administered Dose 30 ml .ROUTE .STK-MED ONE Stop: 04/24/19 07:15 Cefazolin Sodium (Ancef) Confirm Administered Dose 2 gm .ROUTE .STK-MED ONE Stop: 04/24/19 06:26 Last Admin: 04/24/19 08:50 Dose: 2 gm Cefazolin Sodium (Ancef) Confirm Administered Dose 2 gm .ROUTE .STK-MED ONE Stop: 04/24/19 07:15 Dexamethasone (Dexamethasone) Confirm Administered Dose 20 mg .ROUTE .STK-MED ONE Stop: 04/24/19 06:27 Ephedrine Sulfate (Ephedrine 25 Mg/5 Ml Syringe) Confirm Administered Dose 25 mg IV .STK-MED ONE Stop: 04/24/19 08:09 Epinephrine HCl (Adrenalin) Confirm Administered Dose 1 mg .ROUTE .STK-MED ONE Stop: 04/23/19 13:13 Epinephrine HCl (Adrenalin) Confirm Administered Dose 1 mg .ROUTE .STK-MED ONE Stop: 04/24/19 06:32 Famotidine (Pepcid) 20 mg PO Q12H [facility] Fentanyl (Sublimaze) Confirm Administered Dose 250 mcg .ROUTE .STK-MED ONE Stop: 04/24/19 06:27 Fentanyl (Sublimaze) 50 mcg IVPUSH Q5M PRN PRN Reason: Pain Stop: 04/24/19 12:00 Hydromorphone HCl (Dilaudid) 0.5 mg IVPUSH Q10M PRN PRN Reason: Pain (severe 7-10) Stop: 04/24/19 12:00 Lactated Ringer's (Ringers, Lactated) 1,000 mls @ 125 mls/hr IV ASDIRECTED [facility] Stop: 04/24/19 23:00 Last Admin: 04/24/19 07:41 Dose: 125 mls/hr Cefazolin Sodium/Dextrose 2 gm (/ Premix) 50 mls @ 100 mls/hr IV Q8H [facility] Stop: 04/25/19 07:44 Last Admin: 04/25/19 06:30 Dose: 100 mls/hr Lidocaine HCl (Xylocaine-Mpf 1%) Confirm Administered Dose 4 mls @ as directed .ROUTE .STK-MED ONE Stop: 04/24/19 06:26 Lactated Ringer's (Ringers, Lactated) Confirm Administered Dose 1,000 mls @ as directed .ROUTE .STK-MED ONE Stop: 04/24/19 06:26 Iodine (Iodine 2% Mild Tincture) Confirm Administered Dose 30 ml .ROUTE .STK- MED ONE Stop: 04/24/19 07:15 Last Admin: 04/24/19 08:49 Dose: 18 ml Ketorolac Tromethamine (Toradol) 15 mg IVPUSH Q6H PRN PRN Reason: Pain Last Admin: 04/24/19 22:52 Dose: 15 mg Ketorolac Tromethamine (Toradol) Confirm Administered Dose 30 mg .ROUTE .STK- MED ONE Stop: 04/24/19 10:02 Ketorolac Tromethamine (Toradol) Confirm Administered Dose 15 mg .ROUTE .STK- MED ONE Stop: 04/24/19 10:02 Lidocaine/Sodium Bicarbonate (Buffered Lidocaine 1% In Ns 8.4%) 0.25 ml IDERM ONETIME PRN PRN Reason: Prior to IV Start Stop: 04/24/19 18:00 Last Admin: 04/24/19 07:39 Dose: 0.25 ml Midazolam HCl (Versed 1 Mg/Ml) Confirm Administered Dose 2 mg .ROUTE .STK-MED ONE Stop: 04/24/19 06:26 Ondansetron HCl (Zofran) Confirm Administered Dose 4 mg .ROUTE .STK-MED ONE Stop: 04/24/19 06:26 Oxycodone HCl (Oxycontin) 10 mg PO ONETIME ONE Stop: 04/24/19 06:02 Last Admin: 04/24/19 07:20 Dose: 10 mg Oxycodone HCl (Oxycontin) 10 mg PO ONETIME ONE Stop: 04/24/19 06:46 Last Admin: 04/24/19 07:00 Dose: Not Given Oxycodone HCl (Oxycontin) 10 mg PO ONETIME ONE Stop: 04/24/19 07:16 Last Admin: 04/24/19 07:00 Dose: Not Given Oxycodone HCl (Oxycontin) Confirm Administered Dose 10 mg .ROUTE .ST-MED ONE Stop: 04/24/19 07:20 Last Admin: 04/24/19 07:00 Dose: Not Given Pregabalin (Lyrica) 50 mg PO ONETIME ONE Stop: 04/24/19 06:03 Last Admin: 04/24/19 07:21 Dose: 50 mg Pregabalin (Lyrica) 50 mg PO ONETIME ONE Stop: 04/24/19 07:01 Last Admin: 04/24/19 07:00 Dose: Not Given Pregabalin (Lyrica) 50 mg PO ONETIME ONE Stop: 04/24/19 07:16 Last Admin: 04/24/19 07:00 Dose: Not Given Pregabalin (Lyrica) Confirm Administered Dose 50 mg .ROUTE .STK-MED ONE Stop: 04/24/19 07:19 Last Admin: 04/24/19 07:00 Dose: Not Given Propofol (Diprivan 20 Ml) Confirm Administered Dose 400 mg .ROUTE .STK-MED ONE Stop: 04/24/19 06:26 Ropivacaine (Naropin 0.5%) Confirm Administered Dose 30 ml .ROUTE .STK-MED ONE Stop: 04/23/19 13:13 Ropivacaine (Naropin 0.5%) Confirm Administered Dose 30 ml .ROUTE .STK-MED ONE Stop: 04/24/19 06:32 Sodium Chloride (Saline Flush) 10 ml FLUSH ASDIRECTED PRN PRN Reason: Keep Vein Open Stop: 04/24/19 18:00 Tranexamic Acid (Cyklokapron) Confirm Administered Dose 1,000 mg .ROUTE .STK- MED ONE Stop: 04/24/19 07:15 Last Admin: 04/24/19 08:54 Dose: 1,000 mg Vancomycin HCl (Vancomycin) Confirm Administered Dose 1 gm .ROUTE .STK-MED ONE Stop: 04/24/19 07:15 Last Admin: 04/24/19 08:54 Dose: 1 gm - Exam Wound/Incisions: Dressing Dry and Intact General: Alert, Cooperative, No Acute Distress Lungs: Normal Respiratory Effort Extremities: Other (NVS intact for right UE.) Sepsis Event Note - Evaluation Sepsis Screening Result: No Definite Risk - Focused Exam Vital Signs: Vital Signs Pulse Pulse Resp BP BP Pulse Ox 04/25/19 04:41 73 16 122/95 H 94 L 04/25/19 01:13 75 108/76 92 L 04/25/19 00:08 75 92 L Date Exam was Performed: 04/25/19 Time Exam was Performed: 08:27 - Problem List Review Problem List Initiated/Reviewed/Updated: Yes - My Orders Last 24 Hours: Active Orders 24 hr Category Date Time Status Cooling Warming Measures [RC] ASDIRECTED Care 04/24/19 08:41 Active Oxygen Therapy [RC] ASDIRECTED Care 04/24/19 08:41 Active Pulse Oximetry [RC] ASDIRECTED Care 04/24/19 08:41 Active Ready for Discharge [RC] PER UNIT ROUTINE Care 04/25/19 08:26 Ordered Vital Signs [RC] Q15M Care 04/24/19 08:41 Inactive Acetaminophen [Tylenol] Med 04/24/19 21:25 Active 650 mg PO Q4H PRN Aspirin [Ecotrin] Med 04/25/19 09:00 Active 325 mg PO BID Cholecalciferol (Vitamin D3) [Vitamin D3] Med 04/25/19 09:00 Active 5,000 unit PO DAILY Docusate Sodium [Colace] Med 04/24/19 21:00 Active 100 mg PO BID Hydroxychloroquine [Plaquenil] Med 04/24/19 21:00 Active 200 mg PO BID Levothyroxine Med 04/25/19 06:00 Active 125 mcg PO ACBREAKFAST Levothyroxine [Synthroid] Med 04/25/19 06:00 Active 50 mcg PO ACBREAKFAST Multivitamins,Therapeutic [Thera] Med 04/25/19 09:00 Active 1 each PO DAILY Pantoprazole [ProTONIX] Med 04/25/19 09:00 Active 40 mg PO DAILY Saccharomyces Boulardii [Florastor] Med 04/25/19 09:00 Active 250 mg PO DAILY Sertraline [Zoloft] Med 04/25/19 09:00 Active 50 mg PO DAILY Medication Orders Acetaminophen (Tylenol) 650 mg PO Q4H PRN PRN Reason: Headache/Pain Last Admin: 04/24/19 21:32 Dose: 650 mg Aspirin (Ecotrin) 325 mg PO BID [facility] Bisacodyl (Dulcolax) 5 mg PO DAILY PRN PRN Reason: Constipation Cholecalciferol (Vitamin D3) 5,000 unit PO DAILY [facility] Cyclobenzaprine HCl (Flexeril) 10 mg PO TID PRN PRN Reason: Spasms Docusate Sodium (Colace) 100 mg PO BID [facility] Last Admin: 04/24/19 20:01 Dose: 100 mg Hydroxychloroquine Sulfate (Plaquenil) 200 mg PO BID [facility] Last Admin: 04/24/19 20:01 Dose: 200 mg Levothyroxine Sodium (Levothyroxine) 125 mcg PO ACBREAKFAST [facility] Last Admin: 04/25/19 06:30 Dose: 125 mcg Levothyroxine Sodium (Synthroid) 50 mcg PO ACBREAKFAST [facility] Last Admin: 04/25/19 06:30 Dose: 50 mcg Morphine Sulfate (Morphine) 2 mg IVPUSH Q2H PRN PRN Reason: Breakthrough Pain Last Admin: 04/25/19 00:03 Dose: 2 mg Multivitamins (Thera) 1 each PO DAILY [facility] Naloxone HCl (Narcan) 0.1 mg IVPUSH Q5M PRN PRN Reason: Oversedation Ondansetron HCl (Zofran) 4 mg IVPUSH Q6H PRN PRN Reason: Nausea/Vomiting Oxycodone HCl (Oxycodone) 5 - 10 mg PO Q4H PRN PRN Reason: Pain Last Admin: 04/25/19 06:31 Dose: 10 mg Admin: 04/25/19 01:58 Dose: 10 mg Admin: 04/24/19 19:49 Dose: 10 mg Admin: 04/24/19 15:21 Dose: 10 mg Admin: 04/24/19 10:43 Dose: 10 mg Pantoprazole Sodium (Protonix) 40 mg PO DAILY [facility] Saccharomyces Boulardii (Florastor) 250 mg PO DAILY [facility] Senna (Senna) 8.6 mg PO BID PRN PRN Reason: Constipation Sertraline HCl (Zoloft) 50 mg PO DAILY [facility] - Assessment Assessment (Free Text/Narrative):: POD#1 - right reverse TSA - Plan Plan (Free Text/Narrative):: 1. Hgb 9.5. 2. 325mg ASA BID, frequent mobility, TEDs. 3. Discharge to home today. 4. Outpatient therapy. The pt's case was discussed with Dr. Lake.
[2019-04-25] MEDS: Hydroxychloroquine 200 MG Tab PO SCH (08:49)
[2019-04-25] MEDS: Acetaminophen 325 MG Tab PO PRN (08:52)
[2019-04-25] MEDS: Docusate Sodium 100 MG Cap PO SCH (08:54)
[2019-04-25] MEDS ORDERED: Aspirin 325 MG Tab.EC PO SCH (09:00)
[2019-04-25] MEDS ORDERED: Saccharomyces Boulardii (Probiotic) 250 MG Cap PO SCH (09:00)
[2019-04-25] MEDS ORDERED: Sertraline 50 MG Tab PO SCH (09:00)
[2019-04-25] MEDS ORDERED: Multivitamins,Therapeutic Tab PO SCH (09:00)
[2019-04-25] MEDS ORDERED: Cholecalciferol (Vitamin D3) 5,000 UNIT Tab PO SCH (09:00)
[2019-04-25] MEDS ORDERED: Pantoprazole 40 MG Tab.CR PO SCH (09:00)
--- NOTE | 2019-04-25 12:05 | PCM48HPAN ---
Post Anesthesia Note - EVALUATION WITHIN 48HRS OF ANESTHETIC Vital Signs in Normal Range: Yes Patient Participated in Evaluation: Yes Respiratory Function Stable: Yes Airway Patent: Yes Cardiovascular Function Stable: Yes Hydration Status Stable: Yes Pain Control Satisfactory: Yes Nausea and Vomiting Control Satisfactory: Yes Mental Status Recovered: Yes Vital Signs: Last Vital Signs Temp 37.1 C 04/24/19 19:55 Pulse 73 04/25/19 04:41 Resp 16 04/25/19 04:41 BP 122/95 H 04/25/19 04:41 Pulse Ox 94 L 04/25/19 04:41 - COMMENTS/OBSERVATIONS Free Text/Narrative:: Pain controlled. Sore. Plans to go home today. Nerve block worked well yesterday.
--- NOTE | 2019-04-25 13:52 | PCM.DCSUM1 ---
Discharge Summary - Hospital Course Brief History: Chayo is a 63 yo female who underwent right reverse TSA with Dr. Lake on 04-24-2019. The procedure was completed under general anesthesia with regional block. The pt tolerated the procedure well and was admitted to the Medical-Surgical Unit. Medical management was provided by the Hospitalist service. The pt's Hgb on POD#1 was 9.5. On POD#1, 325mg ASA BID was initiated for VTE prophylaxis. SCDs and TEDs were also ordered. A Mepilex dressing was placed at the incision site at the time of surgery and remained clean and dry. The pt participated in P.T. and O.T. and progressed well. On POD#1, the pt was deemed appropriate to discharge to home. - Discharge Data Discharge Date: 04/25/19 Discharge Disposition: Home, Self-Care 01 Condition: Good - Referral to Home Health Primary Care Physician: Sharona Gonzalez PA-C - Patient Summary/Data Consults: Consultations 04/24/19 06:45 OT Evaluation and Treatment [CONS] Routine PT Evaluation and Treatment [CONS] Routine 04/24/19 06:46 Consult to Physician [CONS] Routine - Patient Instructions Diet: Usual Diet as Tolerated Activity: Apply Ice, As Tolerated, Elevate Extremity Activity, Other: No forceful use of the surgical limb. Driving: Do Not Drive Showering/Bathing: May Shower Wound/Incision Care: Keep Operative Site/Wound Site Clean and Dry, Do NOT Change Dressing Notify Provider of: Fever, Increased Pain, Swelling and Redness, Drainage, Nausea and/or Vomiting Other/Special Instructions: Please get up and moving around EVERY HOUR while awake. This helps to prevent blood clots. Please have help with mobility as needed. Take a short walk in your home every hour while awake. Please take 325mg Aspirin TWICE daily. The aspirin is being used for blood clot prevention and not for pain management so please do not miss a dose of the medication. You could use a medication like Pepcid or Tagamet and a medication like Prilosec or Nexium to protect your stomach while you are using the aspirin. At home, please complete the exercises that you learned during the Hospital stay. Schedule for physical or occupational therapy. Use the pain medication as needed. The medication may cause drowsiness and constipation. Contact your primary care provider for instructions if you are constipated. You may use a stool softener like docusate sodium or Colace 100mg twice daily and/or a laxative like Miralax daily for constipation. Increase your water and fiber intake while you are using the pain medication. Discontinue use of the pain medication as soon as able. Please do not use other medications that may cause drowsiness (other pain medications, anxiety pills, cold medications, sleeping pills, etc) while using the prescription pain medication. Do not use alcohol while using the pain medication. At this time, please do not use ibuprofen ( Motrin, Advil) or naproxen (Aleve) for pain management as you are using the aspirin. When the aspirin course is completed in 4 to 6 weeks, you could use ibuprofen or naproxen for pain management (if this is allowed by your primary care provider). Wear the VICTOR M hose during the day and you may remove these at night. Elevate the limb to decrease swelling. Place ice to the area often. Place a towel between your skin and the blue pad. Use the incentive spirometer often. Take deep breaths throughout the day. Please keep the dressing in place until follow-up. Notify the Clinic if the dressing becomes saturated. Increase your protein intake while you are healing. If you have diabetes, please closely monitor your blood sugars and notify your primary care provider with abnormal values. Elevated blood sugars increases the risk of infection. Please follow-up with your primary care provider to have your blood count checked following surgery. Call the Clinic with questions or concerns - [phone]. - Discharge Plan *PRESCRIPTION DRUG MONITORING PROGRAM REVIEWED*: No *COPY OF PRESCRIPTION DRUG MONITORING REPORT IN PATIENT GILDARDO: No Prescriptions/Med Rec: Aspirin [Ecotrin EC] 325 mg PO BID #84 tab.ec Cyclobenzaprine [Flexeril] 10 mg PO TID PRN #40 tablet PRN Reason: Spasms oxyCODONE 5 - 10 mg PO Q4H PRN #60 tablet PRN Reason: Pain Home Medications: Home Meds Levothyroxine Sodium [Synthroid] 175 mcg PO DAILY 05/04/15 [History] Hydroxychloroquine Sulfate [Plaquenil] 200 mg PO BID 09/08/18 [History] Furosemide 20 mg PO DAILY PRN 09/25/18 [History] Cholecalciferol (Vitamin D3) [Vitamin D3] 5,000 unit PO DAILY 12/20/18 [History] Omeprazole 20 mg PO DAILY 12/20/18 [History] Sertraline [Zoloft] 50 mg PO DAILY 12/20/18 [History] L.acidoph,Paracasei, B.lactis [Probiotic] 1 each PO DAILY 04/23/19 [History] Multivitamin [Daily Gonzalez] 1 each PO DAILY 04/23/19 [History] hydroCHLOROthiazide [Hydrochlorothiazide] 12.5 mg PO DAILY 04/24/19 [History] Aspirin [Ecotrin EC] 325 mg PO BID #84 tab.ec 04/25/19 [Rx] Cyclobenzaprine [Flexeril] 10 mg PO TID PRN #40 tablet 04/25/19 [Rx] Docusate Sodium [Colace] 100 mg PO BID cap 04/25/19 [Rx] Sennosides [Senna] 8.6 mg PO BID PRN tablet 04/25/19 [Rx] bisacodyL [Dulcolax] 5 mg PO DAILY PRN tablet 04/25/19 [Rx] oxyCODONE 5 - 10 mg PO Q4H PRN #60 tablet 04/25/19 [Rx] Patient Handouts: Reverse Total Shoulder Replacement, Care After, Reverse Total Shoulder Replacement Referrals: Sharona Gonzalez PA-C [Primary Care Provider] - Nicole Penny PA-C [Physician [facility] Examiner] - (You have 3 follow ups with Nicole Penny as follows: 04/30/2019-300pm 05/07/2019-300pm 06/04/2019-300pm ) - Discharge Summary/Plan Comment DC Time >30 min.: No - Patient Data Vitals - Most Recent: Last Vital Signs Temp 98.8 F 04/24/19 19:55 Pulse 73 04/25/19 04:41 Resp 16 04/25/19 04:41 BP 122/95 H 04/25/19 04:41 Pulse Ox 94 L 04/25/19 04:41 Weight - Most Recent: 195 lb I&O - Last 24 hours: Intake & Output 04/24/19 04/25/19 04/25/19 22:59 06:59 14:59 Intake Total 850 950 300 Output Total 300 550 Balance 550 400 300 Lab Results - Last 24 hrs: Laboratory Results - last 24 hr 04/25/19 04/25/19 Range/Units 05:08 05:08 WBC 7.42 (3.98-10.04) K/mm3 RBC 3.50 L (3.98-5.22) M/mm3 Hgb 9.5 L D (11.2-15.7) gm/dl Hct 32.2 L (34.1-44.9) % MCV 92.0 (79.4-94.8) fl MCH 27.1 (25.6-32.2) pg MCHC 29.5 L (32.2-35.5) g/dl RDW Std Deviation 45.8 (36.4-46.3) fL Plt Count 122 L (182-369) K/mm3 MPV 11.7 (9.4-12.3) fl Sodium 139 (136-145) mEq/L Potassium 4.1 (3.5-5.1) mEq/L Chloride 104 (98-107) mEq/L Carbon Dioxide 25 (21-32) mEq/L Anion Gap 14.1 (5-15) BUN 20 H (7-18) mg/dL Creatinine 0.8 (0.55-1.02) mg/dL Est Cr Clr Drug Dosing 55.73 mL/min Estimated GFR (MDRD) > 60 (>60) mL/min BUN/Creatinine Ratio 25.0 H (14-18) Glucose 119 H (80-115) mg/dL Calcium 8.2 L (8.5-10.1) mg/dL Total Bilirubin 0.3 (0.2-1.0) mg/dL AST 27 (15-37) U/L ALT 29 (14-59) U/L Alkaline Phosphatase 50 (46-116) U/L Total Protein 6.2 L (6.4-8.2) g/dl Albumin 2.9 L (3.4-5.0) g/dl Globulin 3.3 gm/dL Albumin/Globulin Ratio 0.9 L (1-2) Med Orders - Current: Current Medications Acetaminophen (Tylenol) 650 mg PO Q4H PRN PRN Reason: Headache/Pain Last Admin: 04/25/19 08:52 Dose: 650 mg Aspirin (Ecotrin) 325 mg PO BID [facility] Last Admin: 04/25/19 08:56 Dose: 325 mg Bisacodyl (Dulcolax) 5 mg PO DAILY PRN PRN Reason: Constipation Cholecalciferol (Vitamin D3) 5,000 unit PO DAILY [facility] Last Admin: 04/25/19 08:54 Dose: 5,000 unit Cyclobenzaprine HCl (Flexeril) 10 mg PO TID PRN PRN Reason: Spasms Last Admin: 04/25/19 08:47 Dose: 10 mg Docusate Sodium (Colace) 100 mg PO BID [facility] Last Admin: 04/25/19 08:54 Dose: 100 mg Hydroxychloroquine Sulfate (Plaquenil) 200 mg PO BID [facility] Last Admin: 04/25/19 08:49 Dose: 200 mg Levothyroxine Sodium (Levothyroxine) 125 mcg PO ACBREAKFAST [facility] Last Admin: 04/25/19 06:30 Dose: 125 mcg Levothyroxine Sodium (Synthroid) 50 mcg PO ACBREAKFAST [facility] Last Admin: 04/25/19 06:30 Dose: 50 mcg Morphine Sulfate (Morphine) 2 mg IVPUSH Q2H PRN PRN Reason: Breakthrough Pain Last Admin: 04/25/19 09:00 Dose: 2 mg Multivitamins (Thera) 1 each PO DAILY [facility] Last Admin: 04/25/19 08:48 Dose: 1 each Naloxone HCl (Narcan) 0.1 mg IVPUSH Q5M PRN PRN Reason: Oversedation Ondansetron HCl (Zofran) 4 mg IVPUSH Q6H PRN PRN Reason: Nausea/Vomiting Oxycodone HCl (Oxycodone) 5 - 10 mg PO Q4H PRN PRN Reason: Pain Last Admin: 04/25/19 11:15 Dose: 10 mg Pantoprazole Sodium (Protonix) 40 mg PO DAILY [facility] Last Admin: 04/25/19 08:54 Dose: 40 mg Saccharomyces Boulardii (Florastor) 250 mg PO DAILY [facility] Last Admin: 04/25/19 08:50 Dose: 250 mg Senna (Senna) 8.6 mg PO BID PRN PRN Reason: Constipation Sertraline HCl (Zoloft) 50 mg PO DAILY [facility] Last Admin: 04/25/19 08:53 Dose: 50 mg Discontinued Medications Acetaminophen (Tylenol) 975 mg PO ONETIME ONE Stop: 04/24/19 06:01 Last Admin: 04/24/19 07:20 Dose: 975 mg Acetaminophen (Tylenol) 975 mg PO ONETIME ONE Stop: 04/24/19 06:46 Last Admin: 04/24/19 07:00 Dose: Not Given Acetaminophen (Tylenol) 975 mg PO ONETIME ONE Stop: 04/24/19 07:16 Last Admin: 04/24/19 07:00 Dose: Not Given Acetaminophen (Tylenol) Confirm Administered Dose 975 mg .ROUTE .STK-MED ONE Stop: 04/24/19 07:20 Last Admin: 04/24/19 07:00 Dose: Not Given Bupivacaine HCl (Sensorcaine-Mpf 0.25%) Confirm Administered Dose 30 ml .ROUTE .STK-MED ONE Stop: 04/24/19 07:15 Cefazolin Sodium (Ancef) Confirm Administered Dose 2 gm .ROUTE .STK-MED ONE Stop: 04/24/19 06:26 Last Admin: 04/24/19 08:50 Dose: 2 gm Cefazolin Sodium (Ancef) Confirm Administered Dose 2 gm .ROUTE .STK-MED ONE Stop: 04/24/19 07:15 Dexamethasone (Dexamethasone) Confirm Administered Dose 20 mg .ROUTE .STK-MED ONE Stop: 04/24/19 06:27 Ephedrine Sulfate (Ephedrine 25 Mg/5 Ml Syringe) Confirm Administered Dose 25 mg IV .STK-MED ONE Stop: 04/24/19 08:09 Epinephrine HCl (Adrenalin) Confirm Administered Dose 1 mg .ROUTE .STK-MED ONE Stop: 04/23/19 13:13 Epinephrine HCl (Adrenalin) Confirm Administered Dose 1 mg .ROUTE .STK-MED ONE Stop: 04/24/19 06:32 Famotidine (Pepcid) 20 mg PO Q12H [facility] Fentanyl (Sublimaze) Confirm Administered Dose 250 mcg .ROUTE .STK-MED ONE Stop: 04/24/19 06:27 Fentanyl (Sublimaze) 50 mcg IVPUSH Q5M PRN PRN Reason: Pain Stop: 04/24/19 12:00 Hydromorphone HCl (Dilaudid) 0.5 mg IVPUSH Q10M PRN PRN Reason: Pain (severe 7-10) Stop: 04/24/19 12:00 Lactated Ringer's (Ringers, Lactated) 1,000 mls @ 125 mls/hr IV ASDIRECTED [facility] Stop: 04/24/19 23:00 Last Admin: 04/24/19 07:41 Dose: 125 mls/hr Cefazolin Sodium/Dextrose 2 gm (/ Premix) 50 mls @ 100 mls/hr IV Q8H [facility] Stop: 04/25/19 07:44 Last Admin: 04/25/19 06:30 Dose: 100 mls/hr Lidocaine HCl (Xylocaine-Mpf 1%) Confirm Administered Dose 4 mls @ as directed .ROUTE .STK-MED ONE Stop: 04/24/19 06:26 Lactated Ringer's (Ringers, Lactated) Confirm Administered Dose 1,000 mls @ as directed .ROUTE .STK-MED ONE Stop: 04/24/19 06:26 Iodine (Iodine 2% Mild Tincture) Confirm Administered Dose 30 ml .ROUTE .STK- MED ONE Stop: 04/24/19 07:15 Last Admin: 04/24/19 08:49 Dose: 18 ml Ketorolac Tromethamine (Toradol) 15 mg IVPUSH Q6H PRN PRN Reason: Pain Last Admin: 04/24/19 22:52 Dose: 15 mg Ketorolac Tromethamine (Toradol) Confirm Administered Dose 30 mg .ROUTE .STK- MED ONE Stop: 04/24/19 10:02 Ketorolac Tromethamine (Toradol) Confirm Administered Dose 15 mg .ROUTE .STK- MED ONE Stop: 04/24/19 10:02 Lidocaine/Sodium Bicarbonate (Buffered Lidocaine 1% In Ns 8.4%) 0.25 ml IDERM ONETIME PRN PRN Reason: Prior to IV Start Stop: 04/24/19 18:00 Last Admin: 04/24/19 07:39 Dose: 0.25 ml Midazolam HCl (Versed 1 Mg/Ml) Confirm Administered Dose 2 mg .ROUTE .STK-MED ONE Stop: 04/24/19 06:26 Ondansetron HCl (Zofran) Confirm Administered Dose 4 mg .ROUTE .STK-MED ONE Stop: 04/24/19 06:26 Oxycodone HCl (Oxycontin) 10 mg PO ONETIME ONE Stop: 04/24/19 06:02 Last Admin: 04/24/19 07:20 Dose: 10 mg Oxycodone HCl (Oxycontin) 10 mg PO ONETIME ONE Stop: 04/24/19 06:46 Last Admin: 04/24/19 07:00 Dose: Not Given Oxycodone HCl (Oxycontin) 10 mg PO ONETIME ONE Stop: 04/24/19 07:16 Last Admin: 04/24/19 07:00 Dose: Not Given Oxycodone HCl (Oxycontin) Confirm Administered Dose 10 mg .ROUTE .STK-MED ONE Stop: 04/24/19 07:20 Last Admin: 04/24/19 07:00 Dose: Not Given Pregabalin (Lyrica) 50 mg PO ONETIME ONE Stop: 04/24/19 06:03 Last Admin: 04/24/19 07:21 Dose: 50 mg Pregabalin (Lyrica) 50 mg PO ONETIME ONE Stop: 04/24/19 07:01 Last Admin: 04/24/19 07:00 Dose: Not Given Pregabalin (Lyrica) 50 mg PO ONETIME ONE Stop: 04/24/19 07:16 Last Admin: 04/24/19 07:00 Dose: Not Given Pregabalin (Lyrica) Confirm Administered Dose 50 mg .ROUTE .STK-MED ONE Stop: 04/24/19 07:19 Last Admin: 04/24/19 07:00 Dose: Not Given Propofol (Diprivan 20 Ml) Confirm Administered Dose 400 mg .ROUTE .STK-MED ONE Stop: 04/24/19 06:26 Ropivacaine (Naropin 0.5%) Confirm Administered Dose 30 ml .ROUTE .STK-MED ONE Stop: 04/23/19 13:13 Ropivacaine (Naropin 0.5%) Confirm Administered Dose 30 ml .ROUTE .STK-MED ONE Stop: 04/24/19 06:32 Sodium Chloride (Saline Flush) 10 ml FLUSH ASDIRECTED PRN PRN Reason: Keep Vein Open Stop: 04/24/19 18:00 Tranexamic Acid (Cyklokapron) Confirm Administered Dose 1,000 mg .ROUTE .STK- MED ONE Stop: 04/24/19 07:15 Last Admin: 04/24/19 08:54 Dose: 1,000 mg Vancomycin HCl (Vancomycin) Confirm Administered Dose 1 gm .ROUTE .STK-MED ONE Stop: 04/24/19 07:15 Last Admin: 04/24/19 08:54 Dose: 1 gm
--- NOTE | 2019-04-30 09:58 | PCM.OPNOTE ---
- General Post-Op/Procedure Note Date of Surgery/Procedure: 04/24/19 Operative Procedure(s): right reverse total shoulder arthroplasty Pre Op Diagnosis: right shoulder rotator cuff tear arthropathy Post-Op Diagnosis: Same Anesthesia Technique: General ET Tube, Regional Block Primary Surgeon: Trey Lake Anesthesia Provider: Nusrat Maloney Bag Sorter: Nicole Penny Bag Sorter: Melyssa Yañez EBL in mLs: 40 Complications: None Condition: Good Free Text/Narrative:: 7 stem 36+4 +6 liner
--- NOTE | 2019-04-30 11:38 | OR ---
DATE OF OPERATION: 04/24/2019 SURGEON: Trey Lake MD OPERATION PERFORMED: Right reverse total shoulder arthroplasty. PREOPERATIVE DIAGNOSIS: Right shoulder rotator cuff tear arthropathy. POSTOPERATIVE DIAGNOSIS: Right shoulder rotator cuff tear arthropathy. ANESTHESIA: General endotracheal intubation, regional interscalene block. ANESTHESIA PROVIDER: Shayy Choi. ASSISTANTS: Nicole Penny PA-C, and Melyssa Yañez LPN. ESTIMATED BLOOD LOSS: 40 mL. COMPLICATIONS: None. CONDITION: Stable. IMPLANTS: 1. Arthrex small glenoid baseplate. 2. Arthrex size 7, 135-degree stem. 3. Arthrex +6 liner. 4. Arthrex 36, +4 glenosphere. DESCRIPTION OF PROCEDURE: The patient was identified in the preop holding area. Proper site was marked and identified the surgeon. The patient was taken back to the operating theater where after adequate anesthesia, the patient's right upper extremity was sterilely prepped and draped in a sterile fashion. OR time-out was performed. The patient received 2 g IV Ancef. A standard deltopectoral incision was then made and this was taken down to the cephalic vein. The cephalic vein was identified and was retracted laterally with the deltoid. Clavipectoral fascia was then incised and conjoined tendon was retracted medially. Anterior humeral circumflex vessels were then ligated. The biceps tendon was identified. A #2 FiberWire was used for a biceps tenodesis near the pectoralis region. The proximal biceps was then resected and taken back to . The subscapularis tendon had a peel-down done and the humeral head was then dislocated. Neck cut was then completed and found to be adequate. Attention was then turned to the glenoid. Anterior and posterior retractors were placed. Circumferential removal of the labrum as well as remaining biceps and capsulectomy were then performed. I had good visualization of the glenoid at this time. Guidepin was then placed in a center-center position with 10 degrees of inferior tilt. The 25 mm reamer for the glenosphere was then utilized until there was a good cancellous bone on the inferior portion. The peripheral reamer was then utilized for a 36 glenosphere and the central drill hole was then drilled and then tapped. The glenoid baseplate was then screwed into place and an inferior and superior locking screw were applied and it was found to have adequate bony contact. The 36, +4 glenosphere was then impacted into place and the central set screw had adequate purchase. Attention was turned to the humerus. Starting with a size 5 broach, I was able to broach up to a size 7 in roughly 30 degrees of retroversion that was found to be rotationally and vertically stable. Trial implant of 135-degree angle +3 was then trialed and was found to be a little bit loose. At this time, we trialed +6 and was found to have adequate tension on both the conjoined tendon and the deltoid with no signs of instability throughout range of motion. C-arm fluoroscopy was utilized at this time showing a concentric range of motion with no signs of liftoff, no signs of notching, and the implants were properly sized. At this time, the shoulder was dislocated. The trial implants were removed. The size 7 stem, 135-degree with +6 liner were constructed on back table and en bloc was impacted into the humerus. The humerus was relocated again. C-arm fluoroscopy was utilized making sure the patient had no signs of humeral fracture and implants were well seated. 1 L dilute Betadine solution was then irrigated through the shoulder along with 3 L pulse lavage irrigation with Ancef. Topical tranexamic acid and vancomycin powder were applied. The patient had 2-0 Vicryl used subcutaneously, and Prineo was used for the skin. The patient tolerated the procedure well and sent to PACU in stable condition. RHONA /[id number]
== END 2019-04-25 14:06 | disposition home or self-care (01) | DRG 483 ==
LOC: JD.MS 06:26 → UNDOADMIN 06:26
PROVIDERS: ADMIT Orthopaedic Surgery; ATTEND Orthopaedic Surgery
PROC: 0RRJ00Z Replacement of Right Shoulder Joint with Reverse Ball and Socket Synthetic Substitute, Open Approach (ICD-10-PCS; principal; 2019-04-24)
DX: M19.011 Primary osteoarthritis, right shoulder (principal); E03.9 Hypothyroidism, unspecified; K21.9 Gastro-esophageal reflux disease without esophagitis; I10 Essential (primary) hypertension; Z96.612 Presence of left artificial shoulder joint; F32.89 Other specified depressive episodes; G89.29 Other chronic pain; M54.5 Low back pain; M81.0 Age-related osteoporosis without current pathological fracture; E66.9 Obesity, unspecified; H54.7 Unspecified visual loss; G47.00 Insomnia, unspecified; M06.9 Rheumatoid arthritis, unspecified; Z87.891 Personal history of nicotine dependence; Z79.82 Long term (current) use of aspirin; Z79.899 Other long term (current) drug therapy; Z87.442 Personal history of urinary calculi; Z98.1 Arthrodesis status; Z90.89 Acquired absence of other organs; Z98.890 Other specified postprocedural states; Z68.36 Body mass index [BMI] 36.0-36.9, adult
CPT/HCPCS: 01638; 36415; 64415; 73020-26-RT; 73020-RT; 76000; 76000-26; 80053; 85027; 87641; 97110-GP; 97161-GP; 97165-GO; 97530-GO; 97535-GO; 99222; 99232; A9270-GY; C1713; C1776; J0171; J0690; J1100; J1885; J2001; J2250; J2270; J2405; J2704; J2795; J3010; J3370; J3490; J7120

== ENCOUNTER 2020-10-18 09:01 | Day surgery (SDC) | payer MEDICARE, MEDICAID ==
[~2020-10-18 09:01] MED LIST changes: -Acetaminophen 325 MG Tab PO ONE; +Acetaminophen 325 MG Tab PO SCH; -Dexamethasone 4 MG/ML 5 ML MDV ONE; -EPINEPHrine 1 MG/ML SDV ONE; -Lactated Ringers 1,000 ML ONE; -Lidocaine 1% 4 ML ONE; -Midazolam 1 MG/ML 2 ML SDV ONE; +Morphine 8 MG, EPINEPHrine 0.3 MG, Cefuroxime 750 MG, Ketorolac 30 MG, Sodium Chloride ... PRN; -Ondansetron 4 MG/2 ML SDV ONE; -Pregabalin 25 MG Cap PO ONE; +Pregabalin 25 MG Cap PO SCH; -Propofol 200 MG/20 ML SDV ONE; -Ropivacaine 0.5% 5 MG/ML 30 ML SDV ONE; -ceFAZolin 1 GM Vial ONE; -fentaNYL 250 MCG/5 ML SDV ONE; +oxyCODONE 5 MG Tab PO PRN; -oxyCODONE ER 10 MG TAB.ER PO ONE; +oxyCODONE ER 10 MG TAB.ER PO SCH
--- NOTE | 2020-10-18 09:33 | PCM.PREANE ---
Preanesthetic Assessment - Procedure Proposed Procedure: right total knee arthroplasty - Anesthesia/Transfusion/Family Hx Anesthesia History: Prior Anesthesia Without Reaction Family History of Anesthesia Reaction: No Transfusion History: Prior Transfusion Without Reaction Intubation History: Unknown - Review of Systems General: No Symptoms Pulmonary: No Symptoms Cardiovascular: No Symptoms Gastrointestinal: No Symptoms Neurological: No Symptoms Other: Reports: Thyroid Problems, Depression - Physical Assessment NPO Status Date: 10/17/20 NPO Status Time: 20:00 (sip of water this am) Vital Signs: 158/77 75 94% 98.1 19 Height: 5 ft 1 in Weight: 93.7 kg ASA Class: 3 Mental Status: Alert & Oriented x3 Airway Class: Mallampati = 1 Dentition: Reports: Dentures (top and bottom at home) Thyro-Mental Finger Breadths: 3 Mouth Opening Finger Breadths: 3 ROM/Head Extension: Full Lungs: Clear to Auscultation, Normal Respiratory Effort, Decreased Breath Sounds Cardiovascular: Regular Rate, Regular Rhythm - Allergies Allergies/Adverse Reactions: Allergies Allergy/AdvReac Type Severity Reaction Status Date / Time No Known Allergies Allergy Verified 10/16/20 10:34 - Blood Blood Available: No - Acknowledgements Anesthesia Type Planned: Spinal Pt an Appropriate Candidate for the Planned Anesthesia: Yes Alternatives and Risks of Anesthesia Discussed w Pt/Guardian: Yes Pt/Guardian Understands and Agrees with Anesthesia Plan: Yes PreAnesthesia Questionnaire HEENT History: Reports: Impaired Vision, Other (See Below) Other HEENT History: glasses, upper and lower dentures, mouth sores, dry eyes Cardiovascular History: Reports: Hypertension, Other (See Below) Other Cardiovascular History: cardiomegaly, pericardial effusion, peripheral edema Respiratory History: Reports: Other (See Below) Other Respiratory History: rhonchi Gastrointestinal History: Reports: GERD, Hemorrhoids Other Gastrointestinal History: abdominal pain, elevated LFTs, reflux, gastritis Genitourinary History: Reports: UTI, Recurrent Other Genitourinary History: flank pain, hematuria, kidney stones [employer] History: Reports: Other OB/BYN History: bacterial vaginosis, endocervical polyp, vagintis, vulvovaginits Musculoskeletal History: Reports: Osteoarthritis, RA, Other (See Below) Other Musculoskeletal History: fusion of lower back x 3 vertebrae Mar 2017 Neurological History: Reports: Other (See Below) Other Neuro History: lumbar disc disease, degenerative disc disease Psychiatric History: Reports: Depression, Other (See Below) Other Psychiatric History: insomnia, opiod dependence Endocrine/Metabolic History: Reports: Hypothyroidism, Obesity/BMI 30+ Hematologic History: Reports: Anemia, Blood Transfusion(s), Other (See Below) Other Hematologic History: hypokalemia Immunologic History: Reports: Other (See Below) Other Immunologic History: sepsis Oncologic (Cancer) History: Reports: None Other Dermatologic History: cracked skin, dermatitis, cold sores, incision and drainage - Past Surgical History Head Surgeries/Procedures: Reports: None HEENT Surgical History: Reports: Tonsillectomy Cardiovascular Surgical History: Reports: None Respiratory Surgical History: Reports: None GI Surgical History: Reports: None, Colonoscopy Female Surgical History: Reports: Section Other Female Surgeries/Procedures: csection x2 Endocrine Surgical History: Reports: Thyroidectomy Neurological Surgical History: Reports: Discectomy, Lumbar Spine, Other (See Below) (stimulator placed in back) Other Neurological Surgeries/Procedures: planning to have another surgery and fuse L4&5 this coming winter. Musculoskeletal Surgical History: Reports: Shoulder Replacement, Other (See Below) Other Musculoskeletal Surgeries/Procedures:: bunion surgery right foot. tailbone broke Oncologic Surgical History: Reports: None - SUBSTANCE USE Tobacco Use Status *Q: Former Tobacco User (quit 5 years ago) Tobacco Use Within Last Twelve Months: No Second Hand Smoke Exposure: Yes Days Per Week of Alcohol Use: 0 Recreational Drug Use History: No - HOME MEDS Home Medications: Home Meds Hydroxychloroquine Sulfate [Plaquenil] 200 mg PO BID 09/08/18 [History] Cholecalciferol (Vitamin D3) [Vitamin D3] 5,000 unit PO DAILY 12/20/18 [History] Omeprazole 20 mg PO DAILY 12/20/18 [History] Sertraline [Zoloft] 50 mg PO DAILY 12/20/18 [History] hydroCHLOROthiazide [Hydrochlorothiazide] 12.5 mg PO DAILY 04/24/19 [History] Apixaban [Eliquis] 2.5 mg PO BID #60 tablet 10/15/20 [Rx] oxyCODONE 5 - 10 mg PO Q4H PRN #30 tab 10/15/20 [Rx] Levothyroxine 25 mcg PO DAILY 10/16/20 [History] Levothyroxine 200 mcg PO DAILY 10/16/20 [History] - CURRENT (IN HOUSE) MEDS Current Meds: Current Medications Acetaminophen (Acetaminophen 325 Mg Tab) 975 mg PO ONETIME [facility] Stop: 10/18/20 13:00 Morphine Sulfate 8 mg/Epinephrine HCl 0.3 mg/Cefuroxime Sodium 750 mg/Ketorolac Tromethamine 30 mg/Sodium Chloride 7.9 ml 0 mg .XX ASDIRECTED PRN PRN Reason: Pain Stop: 10/18/20 18:00 Lactated Ringer's (Ringers, Lactated) 1,000 mls @ 125 mls/hr IV ASDIRECTED [facility] Stop: 10/18/20 23:00 Lidocaine/Sodium Bicarbonate (Lidocaine 1%/Sod Bicarbonate In Ns 8.4% 1 Ml Syringe) 0.25 ml IDERM ONETIME PRN PRN Reason: Prior to IV Start Stop: 10/18/20 18:00 Oxycodone HCl (Oxycodone Er 10 Mg Tab.Er) 10 mg PO ONETIME [facility] Stop: 10/18/20 13:00 Oxycodone HCl (Oxycodone 5 Mg Tab) 10 mg PO ONETIME PRN PRN Reason: Pain Pregabalin (Pregabalin 25 Mg Cap) 50 mg PO ONETIME [facility] Stop: 10/18/20 13:00 Sodium Chloride (Sodium Chloride 0.9% 10 Ml Syringe) 10 ml FLUSH ASDIRECTED PRN PRN Reason: Keep Vein Open Stop: 10/18/20 18:00
[2020-10-18] MEDS ORDERED: Albuterol 0.083% 2.5 MG/3 ML Neb Soln NEB ONE (09:37)
[2020-10-18] MEDS ORDERED: Albuterol 0.083% 2.5 MG/3 ML Neb Soln ONE (09:38)
[2020-10-18] MEDS ORDERED: Propofol 200 MG/20 ML SDV ONE ×4 (10:25→12:00)
[2020-10-18] MEDS ORDERED: Lidocaine 1% 4 ML ONE (10:25)
[2020-10-18] MEDS ORDERED: Midazolam 1 MG/ML 2 ML SDV ONE (10:25)
[2020-10-18] MEDS ORDERED: fentaNYL 100 MCG/2 ML SDV ONE (10:26)
[2020-10-18] MEDS ORDERED: ceFAZolin 1 GM Vial ONE (10:28)
[2020-10-18] MEDS ORDERED: Vancomycin 1 GM SDV ONE (10:35)
[2020-10-18] MEDS ORDERED: Lactated Ringers 1,000 ML ONE ×2 (11:04→11:33)
[2020-10-18] MEDS ORDERED: fentaNYL 100 MCG/2 ML SDV IVPUSH PRN ×2 (11:14→11:40)
[2020-10-18] MEDS ORDERED: Ondansetron 4 MG/2 ML SDV IVPUSH PRN ×2 (11:14→11:40)
[2020-10-18] MEDS ORDERED: ePHEDrine 50 MG/ML SDV ONE (11:21)
[2020-10-18] MEDS ORDERED: HYDROmorphone 0.5 MG/0.5 ML Syringe IVPUSH PRN (11:40)
[2020-10-18] MEDS ORDERED: Ketorolac 30 MG/ML SDV ONE (12:26)
[2020-10-18] MEDS ORDERED: Ropivacaine 0.5% 5 MG/ML 30 ML SDV ONE (12:27)
[2020-10-18] MEDS ORDERED: EPINEPHrine 1 MG/ML SDV ONE (12:29)
--- NOTE | 2020-10-18 12:46 | PCM.POSTAN ---
POST ANESTHESIA ASSESSMENT - MENTAL STATUS Mental Status: Alert, Oriented - VITAL SIGNS Vital Signs: Last Vital Signs Temp 36.7 C 10/18/20 09:10 Pulse 75 10/18/20 09:10 Resp 19 10/18/20 09:10 BP 158/77 H 10/18/20 09:10 Pulse Ox 93 L 10/18/20 09:44 - RESPIRATORY Respiratory Status: Respiratory Rate WNL, Airway Patent, O2 Saturation Stable - CARDIOVASCULAR CV Status: Pulse Rate WNL, Blood Pressure Stable - GASTROINTESTINAL GI Status: No Symptoms - PAIN Pain Score: 0 - POST OP HYDRATION Hydration Status: Adequate & Stable
--- NOTE | 2020-10-18 13:18 | PCM48HPAN ---
Post Anesthesia Note - EVALUATION WITHIN 48HRS OF ANESTHETIC Vital Signs in Normal Range: Yes Patient Participated in Evaluation: Yes Respiratory Function Stable: Yes Airway Patent: Yes Cardiovascular Function Stable: Yes Hydration Status Stable: Yes Pain Control Satisfactory: Yes Nausea and Vomiting Control Satisfactory: Yes Mental Status Recovered: Yes Vital Signs: Last Vital Signs Temp 36.7 C 10/18/20 09:10 Pulse 75 10/18/20 09:10 Resp 19 10/18/20 09:10 BP 158/77 H 10/18/20 09:10 Pulse Ox 93 L 10/18/20 09:44
--- NOTE | 2020-10-18 13:20 | PCM.PRNOTE ---
- Free Text/Narrative Note: Right selective femoral nerve block at the adductor canal for post-procedure pain control under US guidance requested by Dr. Lake. Time Out: 1259 Start: 1300 End: 1312 Chart reviewed. Consent signed. Questions answered. Appropriate monitors applied. Time out performed. Right mid-shaft femur identified with ultrasound, scanning medially of femur, the femoral artery in the adductor canal visualized, and the femoral nerve located laterally to the artery. The skin was prepped lateral to the ultrasound probe with chlorahexadine times two. The 21ga 4 insulated block needle was inserted under direct ultrasound guidance into the adductor canal. 25mL of 0.5% ropivacaine with 1:200,000 epinephrine was injected circumferentially around the nerve with intermittent negative aspiration noted. Patient tolerated the procedure well. Sterile technique noted along with sterile gloves, mask, and sterile probe cover. See picture on progress note and vital signs on nurses notes. Block completed in PACU. Keyanna Delgado CRNA
--- NOTE | 2020-10-18 13:59 | CR ---
Right knee: AP and crosstable lateral views of the right knee were obtained. Comparison: Prior right knee CT study of 09/28/20. Knee prosthesis and patellar prosthesis are noted. Soft tissue air is seen. No acute fracture or is appreciated. Soft tissue swelling is noted. Impression: 1. Presumed satisfactory postop radiographic appearance of recently placed right knee prostheses. Please correlate. Diagnostic code #2
[2020-10-18 16:40] VITALS: BP 111/72; PULSE 83
--- NOTE | 2020-11-02 10:39 | PCM.OPNOTE ---
- General Post-Op/Procedure Note Date of Surgery/Procedure: 10/18/20 Operative Procedure(s): right total knee with hank ismael robotics Pre Op Diagnosis: right knee osteoarthrosis Post-Op Diagnosis: Same Anesthesia Technique: Local, MAC, Spinal Primary Surgeon: Trey Lake Anesthesia Provider: Tracy Hernandez Hub Cutter: Nicole Penny Hub Cutter: Melyssa Yañez EBL in mLs: 5 Complications: None Condition: Good Free Text/Narrative:: 3/2 9mm 29x9 cemented
--- NOTE | 2020-11-02 11:24 | OR ---
DATE OF OPERATION: 10/18/2020 SURGEON: Trey Lake MD OPERATION PERFORMED: Right total knee arthroplasty with [place] Derek robotics. PREOPERATIVE DIAGNOSIS: Right knee osteoarthrosis. POSTOPERATIVE DIAGNOSIS: Right knee osteoarthrosis. ANESTHESIA: Local MAC with spinal. ANESTHESIA PROVIDER: Tracy Hernandez CRNA ASSISTANTS: Nicole Penny PA-C, and Melyssa Yañez LPN ESTIMATED BLOOD LOSS: 5 mL. COMPLICATIONS: None. CONDITION: Stable. IMPLANTS: 1. [place] size 3 mm cemented PS femur. 2. [place] size 2 mm cemented Corral tibial base plate. 3. F[place] size 2, 9 mm PS X3 polyethylene insert. 4. Pranav size 29 x 9 mm cemented asymmetric patella. DESCRIPTION OF PROCEDURE: The patient was identified in the preop holding area. Proper site was marked and identified by the surgeon. The patient was taken back to the operating theater where after adequate anesthesia, the patient's right lower extremity had a nonsterile tourniquet applied and it was sterilely prepped and draped in the usual sterile fashion. OR time-out was performed. The patient received 2 g IV Ancef. Leg salas was then applied to the right lower extremity. At this time, the right lower extremity was exsanguinated. Tourniquet was insufflated to 250 mmHg . Standard anterior incision was made. Medial parapatellar arthrotomy was created. Deep fibers of the MCL were raised as well as anterior fat pad was resected. Attention was turned to the patella. Patella measured 22 mm; it was resected to a 13 mm for a 29 x 9 mm patella. Drill holes were then drilled. Attention was then turned to the femur. Two 4.0 pins were placed intra- incisionally for the [place] Derek robotic array and then 2 more were placed on the tibia 3 fingerbreadths below the tibial tubercle. The Pranav Derek robotic arrays were placed on both the femur and the tibia then at this time as well as checkpoints on the femur and tibia. Hip center rotation was then obtained. The medial and lateral malleoli were marked. At this time, 40 points were obtained off the femur and the tibia for the [place] Derek robotic plan. The patient's knee was brought to full extension. Varus and valgus stresses were applied and then into 90 degrees of flexion with a curved osteotome. Varus and valgus stresses were applied. At this time, EachNet robotic plan was done to 18 mm gaps in both flexion and extension. Fowlerton Mako robotic arm was then brought in. A straight saw blade was then used for the tibial cut, the anterior femoral cut, the anterior chamfer cut, and the posterior femoral cut. All bony fragments were removed. Saw blade was then switched out and the distal femoral cut as well as the posterior chamfer cut was completed. At this time, medial and lateral menisci were resected as well as any posterior osteophytes. A 2 mm trial tibia was then placed, 3 mm trial femur was placed, and a 2, 9 mm polyethylene trial liner was placed. The patient's knee was brought to full extension and flexion. Varus and valgus stresses were applied, was found to be stable with no instability. No signs of liftoff or loosening were noted. At this time, box cut was completed on the femur. The pins were removed from the femur and the tibia as well as the arrays and the checkpoints. Cement was mixed on the back table. All cut surfaces were irrigated with pulse lavage irrigation with Ancef and then completely dried. Once the cement was ready, the [place] size 2 mm cemented Corral tibial base plate having been previously stamped and drilled, was then cemented in place on the tibia. The Pranav size 3 mm cemented femur was cemented into place. The patient had a Pranav size 2, 9 mm polyethylene insert placed. The patient's knee was brought to full extension. Excess cement was removed. A [place] size 29 x 9 mm cemented asymmetric patella was then cemented into place. 1 L of pulse lavage irrigation with Ancef was irrigated through the knee along with 400 mL of Irrisept irrigation. Periarticular injection was completed. Topical tranexamic acid and vancomycin powder were applied. A #2 barbed suture was used for closure of the medial parapatellar arthrotomy in flexion. 2-0 Vicryl and Stratafix were used for subcutaneous closure. Prineo was used for cutaneous closure. The patient had a sterile soft dressing applied. The tibial holes were closed with nylon, and this was also covered with a sterile soft dressing. The patient had an SUNITA wrap applied and was sent to PACU in stable condition. The patient tolerated the procedure well. MMODAL /[id number]
== END 2020-10-18 16:25 | disposition home or self-care (01) ==
LOC: JD.SDS 09:01
PROVIDERS: ATTEND Orthopaedic Surgery
DX: M17.11 Unilateral primary osteoarthritis, right knee (principal); S92.501A Displaced unspecified fracture of right lesser toe(s), initial encounter for closed fracture; M54.2 Cervicalgia; D64.9 Anemia, unspecified; G89.29 Other chronic pain; E03.9 Hypothyroidism, unspecified; I10 Essential (primary) hypertension; E87.6 Hypokalemia; K21.9 Gastro-esophageal reflux disease without esophagitis; M81.0 Age-related osteoporosis without current pathological fracture; M06.9 Rheumatoid arthritis, unspecified; N39.0 Urinary tract infection, site not specified; F11.20 Opioid dependence, uncomplicated; Z87.891 Personal history of nicotine dependence; Z98.890 Other specified postprocedural states; Z79.899 Other long term (current) drug therapy; Z79.82 Long term (current) use of aspirin
CPT/HCPCS: 27447; 73560; 97116; 97161; A9270; C1713; C1776; J0171; J0690; J0697; J1885; J2250; J2270; J2704; J2795; J3010; J3370; J7120; 01402; 64450; 76942

== ENCOUNTER 2021-02-15 18:13 | Emergency (ER) | payer MEDICARE, MEDICAID ==
[2021-02-15 18:25] VITALS: BP 174/91; PULSE 100
--- NOTE | 2021-02-15 19:44 | EDM.PDOC ---
ED HPI GENERAL MEDICAL PROBLEM - General Chief Complaint: ENT Problem Stated Complaint: EAR PAIN Time Seen by Provider: 02/15/21 19:01 Source of Information: Reports: Patient, Family (Daughter) History Limitations: Reports: No Limitations - History of Present Illness INITIAL COMMENTS - FREE TEXT/NARRATIVE: Ms. Smith is a very pleasant 65-year-old woman who was sent to the ED in order for a left ear culture obtained, and be started on antibiotics. The patient states that she developed left ear pain 2 days ago, 02/13/2021, then developed a pink drainage from the ear, which has since turned yellowish, yesterday morning, 02/14/2021. She acknowledges that she has had decreased hearing in her left ear for the past 6 to 7 months, and essentially deafness in the left ear for the past 2 days. No recent fever. No prior similar symptoms. She states that she was seen at the [facility] clinic today, where blood work was performed, along with a CT of her head. She was prescribed amoxicillin, and took one dose before she was contacted by the clinic and instructed to come to the ED based on the CT results. The patient's CBC is remarkable for mild thrombocytopenia of 162, while the BMP is completely unremarkable. CT of the head with IV contrast is read by Dr. Kwok as: 1. Mucosal thickening within the left mastoid sinus extending into the middle ear cavity and attic. Difficult to exclude cholesteatoma given the patient's age. Please correlate clinically. 2. No additional abnormality is seen on CT study of the brain performed as an arterial study. At triage, the patient's initial BP was found to be elevated at 174/91, otherwise, she was hemodynamically stable, afebrile, saturating 93% on room air. She appears to be comfortable, in no acute distress. Prior to Sunday, the patient denies having a recent fever, chills, sore throat, ear pain, nasal or sinus congestion, cough, dyspnea, chest pain, palpitations, nausea, vomiting, constipation, diarrhea, abdominal pain, urinary symptoms, recent weight gain or weight loss, recent bloody bowel movements or black bowel movements, recent joint aches, headaches, or rashes. I reviewed the PMHx/PSHx/SocHx, which was reviewed with the patient by the RN. The patient's PCP is PHUONG Whitfield. Her Orthopedic Surgeon is Dr. Trey Lake. Her pain specialist is Dr. Greyson Bazan, at [facility]. She has received 2 COVID vaccinations plus a booster, as well as an influenza vaccination this season. Left Ear Pain Score (Numeric/FACES): 8 - Related Data Allergies Allergy/AdvReac Type Severity Reaction Status Date / Time No Known Allergies Allergy Verified 02/15/21 18:25 Home Meds: Home Meds Hydroxychloroquine Sulfate [Plaquenil] 200 mg PO BID 09/08/18 [History] Cholecalciferol (Vitamin D3) [Vitamin D3] 5,000 unit PO DAILY 12/20/18 [History] Omeprazole 20 mg PO DAILY 12/20/18 [History] hydroCHLOROthiazide [Hydrochlorothiazide] 12.5 mg PO DAILY 04/24/19 [History] Levothyroxine 25 mcg PO DAILY 10/16/20 [History] Levothyroxine 200 mcg PO DAILY 10/16/20 [History] Cefdinir 1 cap PO Q12H #20 capsule 02/15/21 [Rx] Hydrocodone/Acetaminophen [HYDROcodone-Acetaminophen 5-325 MG] 1 tab PO Q6H PRN #20 tab 02/15/21 [Rx] Lactobacillus Combination No.4 [Probiotic] 1 each PO DAILY 02/15/21 [History] Multivitamin 1 each PO DAILY 02/15/21 [History] Ofloxacin 10 drop EARLF Q12H #10 ml 02/15/21 [Rx] Past Medical History HEENT History: Reports: Impaired Vision (wears glasses), Other (See Below) (Upper and lower dentures) Cardiovascular History: Reports: Cardiomyopathy (cardiomegaly), Hypertension, Other (See Below) Gastrointestinal History: Reports: Gastritis, GERD, Hemorrhoids Genitourinary History: Reports: Renal Calculus Musculoskeletal History: Reports: Osteoarthritis, RA Psychiatric History: Reports: Addiction (opioids), Depression Endocrine/Metabolic History: Reports: Hypothyroidism, Obesity/BMI 30+ Hematologic History: Reports: Blood Transfusion(s) - Past Surgical History HEENT Surgical History: Reports: Tonsillectomy GI Surgical History: Reports: Colonoscopy Female Surgical History: Reports: Section (x 2) Endocrine Surgical History: Reports: Thyroidectomy Neurological Surgical History: Reports: Discectomy, Lumbar Spine (fusion of lower back x 3 vertebrae Mar 2017), Other (See Below) Musculoskeletal Surgical History: Reports: Knee Replacement, Shoulder Replacement, Other (See Below) Other Musculoskeletal Surgeries/Procedures:: bunion surgery right foot. rachel palma Social & Family History - Tobacco Use Tobacco Use Status *Q: Never Tobacco User - Caffeine Use Caffeine Use: Reports: Coffee Other Caffeine Use: Coffee every day - Recreational Drug Use Recreational Drug Use: No - Living Situation & Occupation Living situation: Reports: , Alone Occupation: Unemployed ED ROS ENT - Review of Systems Review Of Systems: Comprehensive ROS is negative, except as noted in HPI. ED EXAM, ENT - Physical Exam Exam: See Below Exam Limited By: No Limitations General Appearance: Alert, WD/WN, No Apparent Distress Eye Exam: Bilateral Eye: EOMI, Normal Inspection Ears: Hearing Loss (left), Mastoid Tenderness (left), Canal Discharge (left, scant yellowish), TM Perforation (left), Other (Right TM with large scar). No: Mastoid Swelling Nose: Normal Inspection, Normal Mucousa, No Blood Mouth/Throat: Normal Inspection, Normal Gums, Normal Lips, Normal Oropharynx, Normal Teeth Head: Atraumatic, Normocephalic Neck: Normal Inspection, Supple, Non-Tender, Full Range of Motion. No: Lymphadenopathy (L), Lymphadenopathy (R) Course - Vital Signs Last Recorded V/S: Last Vital Signs Temp 36.2 C 02/15/21 18:23 Pulse 100 02/15/21 18:23 Resp 18 02/15/21 18:23 BP 174/91 H 02/15/21 18:23 Pulse Ox 93 L 02/15/21 18:23 - Orders/Labs/Meds Orders: Active Orders 24 hr Category Date Time Status EYE/EAR CULTURE [MREF] Stat Lab 02/15/21 19:30 Received - Re-Assessments/Exams Free Text/Narrative Re-Assessment/Exam: 02/15/21 19:45 I swabbed the patient's left external auditory canal and sent it for culture. Case then discussed with Britney at [facility] at 19:33. Case then discussed with Dr. Oliver Anders, Refrigeration Engineer at [facility], at 19:36. He recommended that the patient discontinue the amoxicillin. I am to start her on either Floxin or Ciprodex eardrops, and start her on either Augmentin or cefdinir oral antibiotic. The patient should then follow-up with him in his clinic. 02/15/21 19:52 The above was discussed with the patient and her daughter. I will discharge the patient home with prescriptions for ofloxacin otic, cefdinir, and [place]. She can pick them up at [facility]. The patient can then call Dr. Anders's office in the morning to make an appointment. Departure - Departure Time of Disposition: 19:54 Disposition: Home, Self-Care 01 Condition: Good Clinical Impression: Mastoiditis of left side - Discharge Information *PRESCRIPTION DRUG MONITORING PROGRAM REVIEWED*: Not Applicable *COPY OF PRESCRIPTION DRUG MONITORING REPORT IN PATIENT GILDARDO: Not Applicable Prescriptions: Cefdinir 1 cap PO Q12H #20 capsule Hydrocodone/Acetaminophen [HYDROcodone-Acetaminophen 5-325 MG] 1 tab PO Q6H PRN #20 tab PRN Reason: Pain (Severe 7-10) Ofloxacin 10 drop EARLF Q12H #10 ml Referrals: Sharona Gonzalez PA-C [Primary Care Provider] - Trey Lake MD [Physician] - Greyson Bazan MD [Ordering Only Provider] - Oliver Anders MD [Ordering Only Provider] - Forms: ED Department Discharge Additional Instructions: You were seen in the emergency room after developing pain in your left ear 2 days ago, then bloody drainage yesterday, with decreased hearing. A culture of the left ear drainage was sent. Your case was discussed with the Refrigeration Engineer (ENT) Dr. Oliver Anders. Prescriptions for ofloxacin eardrops, the oral antibiotic cefdinir, and the narcotic pain reliever [place] have been provided to you. Instill 10 drops of ofloxacin into your left ear every 12 hours, starting tonight, as prescribed. Take 1 tablet of cefdinir every 12 hours, starting tonight, as prescribed. You may take 1 tablet of [place] up to every 6 hours, as needed for pain. Please contact the office of Dr. Anders in the morning, to make an appointment to be seen. Don't forget that Melvin is 1 hour ahead of us. If any other problems, please do not hesitate to return to the ER. Sepsis Event Note (ED) - Evaluation Sepsis Screening Result: No Definite Risk - Focused Exam Vital Signs: Vital Signs Temp Pulse Resp BP Pulse Ox 02/15/21 18:23 36.2 C 100 18 174/91 H 93 L - My Orders Last 24 Hours: My Active Orders 02/15/21 19:30 EYE/EAR CULTURE [MREF] Stat - Assessment/Plan Last 24 Hours: My Active Orders 02/15/21 19:30 EYE/EAR CULTURE [MREF] Stat
== END 2021-02-15 20:24 | disposition home or self-care (01) ==
LOC: JD.ED 18:13
DX: H70.92 Unspecified mastoiditis, left ear (principal); I10 Essential (primary) hypertension; K21.9 Gastro-esophageal reflux disease without esophagitis; M06.9 Rheumatoid arthritis, unspecified; E03.9 Hypothyroidism, unspecified; E66.9 Obesity, unspecified; Z68.39 Body mass index [BMI] 39.0-39.9, adult; Z79.899 Other long term (current) drug therapy
CPT/HCPCS: 87070; 99283

== ENCOUNTER 2021-03-28 09:15 | Day surgery (SDC) | payer MEDICARE, MEDICAID ==
[2021-03-28] MEDS: Lactated Ringers 1,000 ML IV SCH ×2 (08:59→12:55)
[~2021-03-28 09:15] MED LIST changes: +Dexamethasone 4 MG/ML 5 ML MDV ONE; +Dexmedetomidine 200 MCG/2 ML SDV ONE; +EPINEPHrine 1 MG/ML SDV ONE; -Lactated Ringers 1,000 ML IV SCH; +Propofol 200 MG/20 ML SDV ONE; +Ropivacaine 0.5% 5 MG/ML 30 ML SDV ONE; -Sodium Chloride 0.9% 10 ML Syringe FLUSH PRN; +Sodium Chloride 0.9% 10 ML Syringe FLUSH SCH; +fentaNYL 100 MCG/2 ML SDV ONE; -oxyCODONE 5 MG Tab PO PRN
[2021-03-28] MEDS ORDERED: Ropivacaine 0.5% 5 MG/ML 30 ML SDV ONE (09:38)
[2021-03-28] MEDS ORDERED: Dexmedetomidine 200 MCG/2 ML SDV ONE (09:39)
[2021-03-28] MEDS ORDERED: Midazolam 1 MG/ML 2 ML SDV ONE (09:40)
[2021-03-28] MEDS ORDERED: ceFAZolin 1 GM Vial ONE (09:53)
[2021-03-28] MEDS ORDERED: Lactated Ringers 1,000 ML ONE (10:16)
[2021-03-28] MEDS: Vancomycin 1 GM SDV ONE ×2 (10:55→11:07)
[2021-03-28] MEDS ORDERED: oxyCODONE 5 MG Tab PO ONE (13:00)
[2021-03-28 14:29] VITALS: BP 126/55; PULSE 82
== END 2021-03-28 14:55 | disposition home or self-care (01) ==
LOC: JD.SDS 09:15
PROVIDERS: ATTEND Orthopaedic Surgery
DX: M17.12 Unilateral primary osteoarthritis, left knee (principal); E03.9 Hypothyroidism, unspecified; F32.A Depression, unspecified; I10 Essential (primary) hypertension; E78.1 Pure hyperglyceridemia; G47.00 Insomnia, unspecified; M06.9 Rheumatoid arthritis, unspecified; K21.9 Gastro-esophageal reflux disease without esophagitis; Z87.891 Personal history of nicotine dependence; Z79.899 Other long term (current) drug therapy; Z79.890 Hormone replacement therapy; Z81.0 Family history of intellectual disabilities; Z98.890 Other specified postprocedural states
CPT/HCPCS: 27447; 73560; 97110; 97116; 97161; A9270; C1713; C1776; J0171; J0690; J0697; J1100; J1885; J2250; J2270; J2370; J2704; J2795; J3010; J3370; J7120; 01402

== ENCOUNTER 2021-11-24 09:14 | Inpatient (IN) | payer MEDICARE, MEDICAID ==
[2021-11-24 10:38] LABS: CORONAVIRUS COVID-19 NAA NEGATIVE (NEGATIVE)
[2021-11-24] MEDS: Sodium Chloride 0.9% 10 ML Syringe FLUSH PRN (10:38)
[2021-11-24] MEDS ORDERED: Potassium Chloride 10 MEQ in Premix Bag 1 BAG IV ONE (10:49)
[2021-11-24] MEDS ORDERED: HYDROmorphone 0.5 MG/0.5 ML Syringe IVPUSH ONE ×2 (10:52→12:32)
[2021-11-24] MEDS ORDERED: Piperacillin/Tazobactam 4.5 GM in Sodium Chloride 0.9% 100 ML IV ONE (10:53)
[2021-11-24] MEDS ORDERED: Sodium Chloride 0.9% 1,000 ML IV SCH (11:00)
[2021-11-24] MEDS ORDERED: Sodium Chloride 0.9% 10 ML Syringe FLUSH PRN (11:44)
[2021-11-24] MEDS ORDERED: Iopamidol 755 Mg/ML 100 ML Bottle IVPUSH ONE (11:44)
[2021-11-24] MEDS ORDERED: Sodium Chloride 0.9% 100 ML IV SCH (11:45)
[2021-11-24] MEDS ORDERED: Albuterol/Ipratropium 3.0-0.5 MG/3 ML Neb Soln NEB ONE (13:06)
[2021-11-24] MEDS ORDERED: Acetaminophen 325 MG Tab PO PRN (13:46)
[2021-11-24] MEDS ORDERED: Magnesium Oxide 400 MG Tab PO ONE (13:51)
[2021-11-24] MEDS ORDERED: Magnesium Sulfate (4.06 MEQ/ML) 5 GM/10 ML SDV IV ONE (14:09)
[2021-11-24] MEDS ORDERED: Norepinephrine 4 MG in Dextrose 5% in Water 246 ML IV SCH ×2 (14:15)
[2021-11-24] MEDS: HYDROmorphone 0.5 MG/0.5 ML Syringe IVPUSH PRN ×4 (14:26→22:13)
[2021-11-24] MEDS ORDERED: Magnesium Sulfate/Water 2 GM in Premix Bag 1 BAG IV ONE (14:30)
[2021-11-24] MEDS: Potassium Chloride 10 MEQ in Premix Bag 1 BAG IV SCH ×4 (14:37→18:29)
[2021-11-24] MEDS: Pantoprazole 40 MG Vial IVPUSH SCH (14:38)
[2021-11-24] MEDS: Sodium Chloride 0.9% 1,000 ML IV SCH (14:59)
[2021-11-24] MEDS ORDERED: VANCOmycin 1.25 GM/250 ML 1.25 GM in Premix Bag 1 BAG IV SCH (15:00)
[2021-11-24] MEDS ORDERED: Sodium Chloride 0.9% 1,000 ML IV ONE (15:42)
[2021-11-24] MEDS: Piperacillin/Tazobactam 4.5 GM in Sodium Chloride 0.9% 100 ML IV SCH (19:55)
[2021-11-24] MEDS: Heparin Sodium 5,000 Units/ML Vial SUBCUT SCH (20:01)
[2021-11-24] MEDS ORDERED: Potassium Chloride 20 MEQ Tab.ER PO ONE (21:15)
[2021-11-24] MEDS: Ondansetron 4 MG/2 ML SDV IV PRN (23:39)
[2021-11-25] MEDS: oxyCODONE 5 MG Tab PO PRN ×2 (02:11→21:11)
[2021-11-25] MEDS: Sodium Chloride 0.9% 1,000 ML IV SCH (02:14)
[2021-11-25] MEDS: Pantoprazole 40 MG Vial IVPUSH SCH ×2 (02:15→13:14)
[2021-11-25] MEDS: Heparin Sodium 5,000 Units/ML Vial SUBCUT SCH ×3 (04:58→21:09)
[2021-11-25] MEDS: Piperacillin/Tazobactam 4.5 GM in Sodium Chloride 0.9% 100 ML IV SCH ×3 (04:59→19:29)
[2021-11-25] MEDS: HYDROmorphone 0.5 MG/0.5 ML Syringe IVPUSH PRN ×4 (07:39→19:22)
[2021-11-25] MEDS: Levothyroxine 100 MCG Tab PO SCH (08:55)
[2021-11-25] MEDS: Levothyroxine 75 MCG Tab PO SCH (08:56)
[2021-11-25] MEDS: guaiFENesin 600 MG Tab.ER PO SCH ×2 (08:59→21:11)
[2021-11-25] MEDS: Acetylcysteine 20% 200 MG/ML 4 ML Nebulizer Soln SDV NEB SCH ×3 (09:03→20:29)
[2021-11-25] MEDS: Albuterol/Ipratropium 3.0-0.5 MG/3 ML Neb Soln NEB PRN ×3 (09:03→20:29)
[2021-11-25] MEDS ORDERED: Polyethylene Glycol 3350 Powder 17 GM Packet PO PRN (09:13)
[2021-11-25] MEDS: Hydroxychloroquine 200 MG Tab PO SCH ×2 (10:03→21:11)
[2021-11-25] MEDS: Ondansetron 4 MG/2 ML SDV IV PRN (10:03)
[2021-11-25] MEDS ORDERED: Potassium Chloride 20 MEQ Tab.ER PO ONE (10:15)
[2021-11-25] MEDS: Benzonatate 100 MG Cap PO PRN (10:21)
[2021-11-25] MEDS: VANCOmycin 1.25 GM/250 ML 1.25 GM in Premix Bag 1 BAG IV SCH (11:54)
[2021-11-25] MEDS: Sodium Chloride 0.9% 10 ML Syringe FLUSH PRN (19:25)
[2021-11-25] MEDS: Potassium Chloride 10 MEQ Tab.ER PO SCH (21:11)
[2021-11-26] MEDS: Pantoprazole 40 MG Vial IVPUSH SCH ×2 (02:36→14:15)
[2021-11-26] MEDS: Benzonatate 100 MG Cap PO PRN (02:36)
[2021-11-26] MEDS: HYDROmorphone 0.5 MG/0.5 ML Syringe IVPUSH PRN ×4 (02:39→21:15)
[2021-11-26] MEDS: Piperacillin/Tazobactam 4.5 GM in Sodium Chloride 0.9% 100 ML IV SCH ×3 (04:22→20:08)
[2021-11-26] MEDS: Heparin Sodium 5,000 Units/ML Vial SUBCUT SCH (04:24)
[2021-11-26] MEDS: Acetylcysteine 20% 200 MG/ML 4 ML Nebulizer Soln SDV NEB SCH ×2 (06:12→08:42)
[2021-11-26] MEDS: Levothyroxine 100 MCG Tab PO SCH (06:33)
[2021-11-26] MEDS: Levothyroxine 75 MCG Tab PO SCH (06:33)
[2021-11-26] MEDS: VANCOmycin 1.25 GM/250 ML 1.25 GM in Premix Bag 1 BAG IV SCH (06:51)
[2021-11-26] MEDS: Hydroxychloroquine 200 MG Tab PO SCH ×2 (08:21→21:02)
[2021-11-26] MEDS: Potassium Chloride 10 MEQ Tab.ER PO SCH (08:21)
[2021-11-26] MEDS: guaiFENesin 600 MG Tab.ER PO SCH ×2 (08:21→21:02)
[2021-11-26] MEDS: Albuterol/Ipratropium 3.0-0.5 MG/3 ML Neb Soln NEB PRN ×2 (08:42→20:21)
[2021-11-26] MEDS ORDERED: Iopamidol 612 MG/ML 100 ML Bottle IVPUSH ONE (08:47)
[2021-11-26] MEDS ORDERED: Sodium Chloride 0.9% 10 ML Syringe FLUSH PRN (08:47)
[2021-11-26] MEDS: Sodium Chloride 0.9% 10 ML Syringe FLUSH PRN (09:13)
[2021-11-26] MEDS: Potassium Chloride 20 MEQ Tab.ER PO SCH (21:06)
[2021-11-27] MEDS ORDERED: Magnesium Hydroxide 400 MG/5 ML Susp 30 ML Cup PO ONE (00:24)
[2021-11-27] MEDS: Pantoprazole 40 MG Vial IVPUSH SCH ×2 (02:10→14:18)
[2021-11-27] MEDS: oxyCODONE 5 MG Tab PO PRN ×4 (02:29→19:51)
[2021-11-27] MEDS: Piperacillin/Tazobactam 4.5 GM in Sodium Chloride 0.9% 100 ML IV SCH ×3 (04:47→19:44)
[2021-11-27] MEDS: Levothyroxine 100 MCG Tab PO SCH (06:07)
[2021-11-27] MEDS: HYDROmorphone 0.5 MG/0.5 ML Syringe IVPUSH PRN (06:08)
[2021-11-27] MEDS: Levothyroxine 75 MCG Tab PO SCH (06:08)
[2021-11-27] MEDS: Potassium Chloride 20 MEQ Tab.ER PO SCH ×2 (08:54→20:00)
[2021-11-27] MEDS: Hydroxychloroquine 200 MG Tab PO SCH ×2 (08:55→20:00)
[2021-11-27] MEDS: guaiFENesin 600 MG Tab.ER PO SCH ×2 (08:55→20:00)
[2021-11-27] MEDS ORDERED: DULoxetine 30 MG Cap PO SCH (10:15)
[2021-11-28] MEDS: oxyCODONE 5 MG Tab PO PRN (00:10)
[2021-11-28 00:23] VITALS: BP 122/74; PULSE 74
[2021-11-28] MEDS ORDERED: Hydroxychloroquine 200 MG Tab ONE ×2 (09:00)
[2021-11-28] MEDS ORDERED: DULoxetine 30 MG Cap ONE (09:00)
[2021-11-28] MEDS ORDERED: Hydrochlorothiazide 12.5 MG Cap PO SCH (09:00)
[2021-11-28] MEDS ORDERED: Potassium Chloride 20 MEQ Tab.ER ONE ×2 (09:00)
[2021-11-28] MEDS ORDERED: Piperacillin/Tazobactam 4.5 GM in Sodium Chloride 0.9% 100 ML IV ONE (13:40)
[2021-11-29] MEDS: Albuterol/Ipratropium 3.0-0.5 MG/3 ML Neb Soln NEB PRN ×2 (08:25→11:25)
[2021-11-29] MEDS ORDERED: Hydroxychloroquine 200 MG Tab ONE ×2 (09:00)
[2021-11-29] MEDS ORDERED: Pantoprazole 40 MG Vial ONE ×2 (09:00)
[2021-11-29] MEDS ORDERED: Potassium Chloride 20 MEQ Tab.ER ONE ×2 (09:00)
[2021-11-29] MEDS ORDERED: Albuterol/Ipratropium 3.0-0.5 MG/3 ML Neb Soln ONE (09:00)
[2021-11-29] MEDS ORDERED: Furosemide 20 MG/2 ML VIAL ONE (09:00)
[2021-11-29] MEDS ORDERED: Benzonatate 100 MG Cap ONE (09:00)
[2021-11-29] MEDS ORDERED: Levothyroxine 100 MCG Tab ONE (09:00)
[2021-11-29] MEDS ORDERED: oxyCODONE 5 MG Tab ONE ×3 (09:00)
[2021-11-29] MEDS ORDERED: DULoxetine 30 MG Cap ONE (09:00)
[2021-11-29] MEDS ORDERED: Piperacillin/Tazobactam 4.5 GM in Sodium Chloride 0.9% 100 ML IV ONE (12:00)
[2021-11-29] MEDS ORDERED: VANCOmycin 1.25 GM/250 ML 250 ML ONE (16:56)
[2021-11-30] MEDS ORDERED: Piperacillin/Tazobactam 4.5 GM in Sodium Chloride 0.9% 100 ML IV ONE (04:00)
[2021-11-30] MEDS ORDERED: Benzonatate 100 MG Cap ONE (09:00)
[2021-11-30] MEDS ORDERED: Levothyroxine 75 MCG Tab ONE (09:00)
[2021-11-30] MEDS ORDERED: Potassium Chloride 20 MEQ Tab.ER ONE ×2 (09:00)
[2021-11-30] MEDS ORDERED: DULoxetine 30 MG Cap ONE (09:00)
[2021-11-30] MEDS ORDERED: Pantoprazole 40 MG Vial ONE ×2 (09:00)
[2021-11-30] MEDS ORDERED: Levothyroxine 100 MCG Tab ONE (09:00)
[2021-11-30] MEDS ORDERED: oxyCODONE 5 MG Tab ONE ×3 (09:00)
[2021-11-30] MEDS ORDERED: Hydroxychloroquine 200 MG Tab ONE ×2 (09:00)
[2021-11-30] MEDS ORDERED: Sodium Chloride 0.9% 40 ML IV ONE (12:15)
[2021-11-30] MEDS ORDERED: Iopamidol 755 Mg/ML 100 ML Bottle IV ONE (12:15)
[2021-11-30] MEDS ORDERED: VANCOMYCIN 1.25 GM/250 ML ONE (14:06)
[2021-12-01] MEDS ORDERED: Piperacillin/Tazobactam 4.5 GM in Sodium Chloride 0.9% 100 ML IV ONE (04:00)
[2021-12-01] MEDS ORDERED: oxyCODONE 5 MG Tab ONE ×4 (09:00)
[2021-12-01] MEDS ORDERED: Pantoprazole 40 MG Vial ONE ×2 (09:00)
[2021-12-01] MEDS ORDERED: Levothyroxine 100 MCG Tab ONE (09:00)
[2021-12-01] MEDS ORDERED: Levothyroxine 75 MCG Tab ONE (09:00)
[2021-12-01] MEDS ORDERED: Potassium Chloride 20 MEQ Tab.ER ONE ×2 (09:00)
[2021-12-01] MEDS ORDERED: Furosemide 20 MG/2 ML VIAL ONE ×2 (09:00→11:03)
[2021-12-01] MEDS ORDERED: Benzonatate 100 MG Cap ONE ×2 (09:00)
[2021-12-01] MEDS ORDERED: Hydroxychloroquine 200 MG Tab ONE ×2 (09:00)
[2021-12-01] MEDS ORDERED: DULoxetine 30 MG Cap ONE (09:00)
[2021-12-02] MEDS ORDERED: Acetylcysteine 20% 200 MG/ML 4 ML Nebulizer Soln SDV ONE ×7 (02:00→21:12)
[2021-12-02] MEDS ORDERED: oxyCODONE 5 MG Tab ONE ×5 (02:00)
[2021-12-02] MEDS ORDERED: DULoxetine 30 MG Cap ONE (02:00)
[2021-12-02] MEDS ORDERED: Levothyroxine 75 MCG Tab ONE (02:00)
[2021-12-02] MEDS ORDERED: Amoxicillin/Clavulanate K 875-125 MG Tab ONE ×4 (02:00→20:08)
[2021-12-02] MEDS ORDERED: Hydroxychloroquine 200 MG Tab ONE ×2 (02:00)
[2021-12-02] MEDS ORDERED: Furosemide 40 MG Tab ONE ×4 (02:00→16:10)
[2021-12-02] MEDS ORDERED: Pantoprazole 40 MG Vial ONE (02:00)
[2021-12-02] MEDS ORDERED: Potassium Chloride 20 MEQ Tab.ER ONE ×2 (02:00)
[2021-12-02] MEDS ORDERED: Albuterol 0.083% 2.5 MG/3 ML Neb Soln ONE ×7 (02:00→21:13)
[2021-12-02] MEDS ORDERED: Benzonatate 100 MG Cap ONE (02:00)
[2021-12-02] MEDS ORDERED: Levothyroxine 100 MCG Tab ONE (02:00)
[2021-12-02] MEDS ORDERED: Piperacillin/Tazobactam 4.5 GM in Sodium Chloride 0.9% 100 ML IV ONE (04:20)
[2021-12-02] MEDS: Albuterol/Ipratropium 3.0-0.5 MG/3 ML Neb Soln NEB PRN ×3 (08:42→17:44)
[2021-12-02] MEDS ORDERED: Magnesium Oxide 400 MG Tab ONE (10:11)
[2021-12-02] MEDS ORDERED: Furosemide 40 MG/4 ML VIAL ONE (10:12)
[2021-12-03] MEDS ORDERED: Albuterol/Ipratropium 3.0-0.5 MG/3 ML Neb Soln ONE ×2 (06:00→08:55)
[2021-12-03] MEDS ORDERED: Acetylcysteine 20% 200 MG/ML 4 ML Nebulizer Soln SDV ONE ×8 (06:00→20:36)
[2021-12-03] MEDS ORDERED: Albuterol 0.083% 2.5 MG/3 ML Neb Soln ONE ×7 (06:00→20:36)
[2021-12-03] MEDS ORDERED: predniSONE 20 MG Tab ONE ×2 (06:00→09:10)
[2021-12-03] MEDS ORDERED: Pantoprazole 40 MG Tab.CR ONE ×2 (06:00→06:40)
[2021-12-03] MEDS ORDERED: DULoxetine 30 MG Cap ONE (06:00)
[2021-12-03] MEDS ORDERED: Potassium Chloride 20 MEQ Tab.ER ONE ×2 (06:00)
[2021-12-03] MEDS ORDERED: Furosemide 40 MG Tab ONE ×4 (06:00→20:56)
[2021-12-03] MEDS ORDERED: Amoxicillin/Clavulanate K 875-125 MG Tab ONE ×4 (06:00→20:56)
[2021-12-03] MEDS ORDERED: Hydroxychloroquine 200 MG Tab ONE ×2 (06:00)
[2021-12-03] MEDS ORDERED: Levothyroxine 100 MCG Tab ONE (06:00)
[2021-12-03] MEDS ORDERED: Levothyroxine 75 MCG Tab ONE (06:00)
[2021-12-03] MEDS ORDERED: oxyCODONE 5 MG Tab ONE ×3 (06:00)
[2021-12-03] MEDS ORDERED: Benzonatate 100 MG Cap ONE ×2 (06:00)
[2021-12-03] MEDS: Albuterol/Ipratropium 3.0-0.5 MG/3 ML Neb Soln NEB PRN ×4 (07:05→18:08)
[2021-12-04] MEDS ORDERED: Pantoprazole 40 MG Tab.CR ONE ×2 (06:00→06:51)
[2021-12-04] MEDS ORDERED: oxyCODONE 5 MG Tab ONE ×5 (06:00→21:12)
[2021-12-04] MEDS ORDERED: Levothyroxine 75 MCG Tab ONE (06:00)
[2021-12-04] MEDS ORDERED: predniSONE 20 MG Tab ONE ×2 (06:00→08:38)
[2021-12-04] MEDS ORDERED: Albuterol 0.083% 2.5 MG/3 ML Neb Soln ONE ×7 (06:00→20:17)
[2021-12-04] MEDS ORDERED: Acetylcysteine 20% 200 MG/ML 4 ML Nebulizer Soln SDV ONE ×8 (06:00→20:17)
[2021-12-04] MEDS ORDERED: Levothyroxine 100 MCG Tab ONE (06:00)
[2021-12-04] MEDS ORDERED: Furosemide 40 MG Tab ONE ×4 (06:00→15:09)
[2021-12-04] MEDS ORDERED: Benzonatate 100 MG Cap ONE ×3 (06:00→21:13)
[2021-12-04] MEDS ORDERED: Hydroxychloroquine 200 MG Tab ONE ×2 (06:00)
[2021-12-04] MEDS ORDERED: Amoxicillin/Clavulanate K 875-125 MG Tab ONE ×4 (06:00→21:13)
[2021-12-04] MEDS ORDERED: Potassium Chloride 20 MEQ Tab.ER ONE (06:00)
[2021-12-04] MEDS ORDERED: DULoxetine 30 MG Cap ONE (06:00)
[2021-12-04] MEDS: Albuterol/Ipratropium 3.0-0.5 MG/3 ML Neb Soln NEB PRN ×4 (06:31→20:34)
[2021-12-04] MEDS ORDERED: Albuterol/Ipratropium 3.0-0.5 MG/3 ML Neb Soln ONE (09:08)
[2021-12-04] MEDS ORDERED: diphenhydrAMINE 25 MG Cap ONE ×2 (13:49→21:23)
[2021-12-05] MEDS ORDERED: Albuterol 0.083% 2.5 MG/3 ML Neb Soln ONE ×2 (05:57→08:36)
[2021-12-05] MEDS ORDERED: Acetylcysteine 20% 200 MG/ML 4 ML Nebulizer Soln SDV ONE ×2 (05:57→08:36)
[2021-12-05] MEDS ORDERED: Levothyroxine 100 MCG Tab PO ONE (06:00)
[2021-12-05] MEDS ORDERED: Levothyroxine 75 MCG Tab PO ONE (06:00)
[2021-12-05] MEDS ORDERED: Pantoprazole 40 MG Tab.CR ONE (06:28)
[2021-12-05] MEDS ORDERED: Pantoprazole 40 MG Tab.CR PO ONE (07:00)
[2021-12-05] MEDS: Albuterol/Ipratropium 3.0-0.5 MG/3 ML Neb Soln NEB PRN ×2 (07:27→14:28)
[2021-12-05] MEDS ORDERED: diphenhydrAMINE 25 MG Cap ONE (08:24)
[2021-12-05] MEDS ORDERED: Amoxicillin/Clavulanate K 875-125 MG Tab ONE (08:25)
[2021-12-05] MEDS ORDERED: predniSONE 20 MG Tab ONE (08:25)
[2021-12-05] MEDS ORDERED: guaiFENesin 600 MG Tab.ER PO ONE (09:00)
[2021-12-05] MEDS ORDERED: Amoxicillin/Clavulanate K 875-125 MG Tab PO ONE (09:00)
[2021-12-05] MEDS ORDERED: predniSONE 20 MG Tab PO ONE (09:00)
[2021-12-05] MEDS ORDERED: Hydroxychloroquine 200 MG Tab PO ONE (09:00)
[2021-12-05] MEDS ORDERED: oxyCODONE 5 MG Tab PO ONE (09:00)
[2021-12-05] MEDS ORDERED: DULoxetine 30 MG Cap PO ONE (09:00)
[2021-12-05] MEDS ORDERED: Acetylcysteine 20% 200 MG/ML 4 ML Nebulizer Soln SDV INH ONE (09:00)
[2022-01-03 14:17] LABS: CORONAVIRUS COVID-19 NAA NEGATIVE (NEGATIVE)
== END 2021-12-05 14:20 | disposition home or self-care (01) | DRG 871 ==
LOC: JD.ED 09:14 → JD.ICU 13:04 → JD.MS 11-26 17:39 → JD.ZCENSUS 11-28 11:02
PROVIDERS: ADMIT Hospitalist; ATTEND Hospitalist
PROC: 5A09457 Assistance with Respiratory Ventilation, 24-96 Consecutive Hours, Continuous Positive Airway Pressure (ICD-10-PCS; principal; 2021-11-24)
DX: A40.3 Sepsis due to Streptococcus pneumoniae (principal); J13 Pneumonia due to Streptococcus pneumoniae; J96.01 Acute respiratory failure with hypoxia; N17.9 Acute kidney failure, unspecified; E87.20 Acidosis, unspecified; R04.2 Hemoptysis; M06.9 Rheumatoid arthritis, unspecified; Z20.822 Contact with and (suspected) exposure to COVID-19; Z96.653 Presence of artificial knee joint, bilateral; Z96.612 Presence of left artificial shoulder joint; Z96.611 Presence of right artificial shoulder joint; E66.9 Obesity, unspecified; E87.6 Hypokalemia; E83.42 Hypomagnesemia; K21.9 Gastro-esophageal reflux disease without esophagitis; I10 Essential (primary) hypertension; E03.9 Hypothyroidism, unspecified; G89.4 Chronic pain syndrome; F32.A Depression, unspecified; Z68.34 Body mass index [BMI] 34.0-34.9, adult; Z97.3 Presence of spectacles and contact lenses; Z90.89 Acquired absence of other organs; Z98.890 Other specified postprocedural states
CPT/HCPCS: 0240U; 36415; 71045; 71260; 71275; 80048; 80202; 81001; 82803; 83605; 83735; 84132; 84145; 84484; 85025; 85027; 87040; 87070; 87154; 87205; 87899; 93005; 93306; 94640; 94660; 94667; 94668; 94761; 94762; 36600; 80053; 83880; 86140; 87077; 87186; 93010; 96365; 96368; 96375; 96376; 99222; 99232; 99238; 99284; 99285-25; A9270-GY; C9113; J1170; J1644; J1940; J2405; J2543; J3370; J3475; J3480; J3490; J7030; J7512; J7620-GY; Q9967

== ENCOUNTER 2023-09-06 06:30 | Day surgery (SDC) | payer MEDICARE, MEDICAID ==
[~2023-09-06 06:30] MED LIST changes: -Acetaminophen 325 MG Tab PO SCH; -Dexamethasone 4 MG/ML 5 ML MDV ONE; -Dexmedetomidine 200 MCG/2 ML SDV ONE; -EPINEPHrine 1 MG/ML SDV ONE; -Lidocaine 1%/Sod Bicarbonate in NS 8.4% 1 ML Syringe IDERM PRN; -Morphine 8 MG, EPINEPHrine 0.3 MG, Cefuroxime 750 MG, Ketorolac 30 MG, Sodium Chloride ... PRN; -Pregabalin 25 MG Cap PO SCH; -Propofol 200 MG/20 ML SDV ONE; -Ropivacaine 0.5% 5 MG/ML 30 ML SDV ONE; +Sodium Chloride 0.9% 10 ML Syringe FLUSH PRN; -fentaNYL 100 MCG/2 ML SDV ONE; -oxyCODONE ER 10 MG TAB.ER PO SCH
[2023-09-06] MEDS ORDERED: Bupivacaine 0.25% 10 ML SDV ONE (07:07)
[2023-09-06] MEDS ORDERED: Ropivacaine 0.5% 5 MG/ML 30 ML SDV ONE (07:11)
[2023-09-06] MEDS ORDERED: Lidocaine 1% 5 ML VIAL ONE ×2 (07:13→07:52)
[2023-09-06] MEDS ORDERED: Dexamethasone 4 MG/ML 5 ML MDV ONE (07:13)
[2023-09-06] MEDS: Lactated Ringers 1,000 ML IV SCH (07:20)
[2023-09-06] MEDS ORDERED: fentaNYL 100 MCG/2 ML SDV ONE (07:22)
[2023-09-06] MEDS ORDERED: Propofol 200 MG/20 ML SDV ONE ×2 (07:52→08:23)
[2023-09-06] MEDS ORDERED: Ondansetron 4 MG/2 ML SDV ONE (08:00)
[2023-09-06] MEDS ORDERED: dexmedeTOMIDine HCl 200 MCG/2 ML SDV ONE (08:00)
[2023-09-06] MEDS ORDERED: ePHEDrine 50 MG/ML SDV ONE (08:25)
[2023-09-06] MEDS ORDERED: ceFAZolin 2 GM Vial ONE (08:27)
[2023-09-06] MEDS ORDERED: fentaNYL 100 MCG/2 ML SDV IVPUSH PRN (08:45)
[2023-09-06] MEDS ORDERED: HYDROmorphone 0.5 MG/0.5 ML Syringe IVPUSH PRN (08:45)
[2023-09-06] MEDS: Acetaminophen/oxyCODONE 325-5 MG Tab PO SCH (10:43)
[2023-09-06 11:29] VITALS: BP 134/72; PULSE 77
== END 2023-09-06 11:30 | disposition home or self-care (01) ==
LOC: JD.SDS 06:30
PROVIDERS: ATTEND Orthopaedic Surgery
DX: M20.22 Hallux rigidus, left foot (principal); K21.9 Gastro-esophageal reflux disease without esophagitis; E66.9 Obesity, unspecified; F32.A Depression, unspecified; E03.9 Hypothyroidism, unspecified; I10 Essential (primary) hypertension; M81.0 Age-related osteoporosis without current pathological fracture; M06.9 Rheumatoid arthritis, unspecified; Z79.899 Other long term (current) drug therapy; Z79.890 Hormone replacement therapy; Z68.28 Body mass index [BMI] 28.0-28.9, adult
CPT/HCPCS: 28750; 64450; 76000; A9270; C1713; J0665; J0690; J1100; J2405; J2704; J2795; J3010; J3490; J7120; 01480

== ENCOUNTER 2024-07-17 13:45 | Day surgery (SDC) | payer MEDICARE, MEDICAID ==
[2024-07-17] MEDS: Tetracaine HCl/PF 0.5% 4 ML Bottle EYEBOTH SCH (07:44)
[2024-07-17] MEDS: Polymyxin B/Trimethoprim 10 ML Bottle EYELF SCH (07:44)
[2024-07-17] MEDS: Cefuroxime 10 MG/ML SYRINGE EYELF SCH (07:44)
[2024-07-17] MEDS: Brimonidine 0.2% Ophth Soln 5 ML Bottle EYELF SCH ×2 (07:44→14:30)
[2024-07-17] MEDS: Pilocarpine 4% Ophth Soln 15 ML Bot EYELF SCH (07:44)
[2024-07-17] MEDS: Phenylephrine 2.5% Ophth Soln 2 ML Bot EYELF SCH (07:44)
[2024-07-17] MEDS: Lidocaine 1% PF 2 ML SDV INJECT SCH (07:44)
[2024-07-17 14:20] VITALS: BP 140/79; PULSE 65
[2024-07-17] MEDS: Tropicamide 1% Ophth Soln 3 ML Bottle EYELF SCH (14:40)
== END 2024-07-17 16:09 ==
LOC: MERGE 13:45 → JD.SDS 13:45
PROVIDERS: ATTEND Ophthalmology
DX: H25.813 Combined forms of age-related cataract, bilateral (principal); H40.013 Open angle with borderline findings, low risk, bilateral; H18.413 Arcus senilis, bilateral; H16.103 Unspecified superficial keratitis, bilateral; H16.223 Keratoconjunctivitis sicca, not specified as Sjogren's, bilateral; H43.813 Vitreous degeneration, bilateral; H02.831 Dermatochalasis of right upper eyelid; H02.834 Dermatochalasis of left upper eyelid; H57.813 Brow ptosis, bilateral; E89.0 Postprocedural hypothyroidism; Z87.891 Personal history of nicotine dependence; Z79.899 Other long term (current) drug therapy
CPT/HCPCS: 66984; A9270; J0697; J2003; J3490

== ENCOUNTER 2024-08-14 12:24 | Day surgery (SDC) | payer MEDICARE, MEDICAID ==
[2024-08-14] MEDS: Polymyxin B/Trimethoprim 10 ML Bottle EYERT SCH (12:46)
[2024-08-14] MEDS: Brimonidine 0.2% Ophth Soln 5 ML Bottle EYERT SCH (12:51)
[2024-08-14] MEDS: Phenylephrine 2.5% Ophth Soln 2 ML Bot EYERT SCH (12:57)
[2024-08-14] MEDS: Tropicamide 1% Ophth Soln 3 ML Bottle EYERT SCH (13:10)
[2024-08-14] MEDS: Tetracaine HCl/PF 0.5% 4 ML Bottle EYEBOTH SCH (14:00)
[2024-08-14] MEDS: Lidocaine 1% PF 2 ML SDV INJECT SCH (14:34)
[2024-08-14] MEDS: Cefuroxime 10 MG/ML SYRINGE EYERT SCH (14:48)
[2024-08-14] MEDS: Pilocarpine 4% Ophth Soln 15 ML Bot EYERT SCH (14:49)
[2024-08-14 14:59] VITALS: BP 156/82; PULSE 61
== END 2024-08-14 14:56 ==
LOC: JD.SDS 12:24
PROVIDERS: ATTEND Ophthalmology
DX: H25.811 Combined forms of age-related cataract, right eye (principal); H52.31 Anisometropia; H40.013 Open angle with borderline findings, low risk, bilateral; E89.0 Postprocedural hypothyroidism; Z87.891 Personal history of nicotine dependence; I10 Essential (primary) hypertension; K21.9 Gastro-esophageal reflux disease without esophagitis; Z79.899 Other long term (current) drug therapy
CPT/HCPCS: 66984; A9270; J3490